=== PATIENT | female | born 1940 | race African-American/Black ===

== ENCOUNTER 2016-11-16 13:45 | Inpatient (IN) | payer MEDICARE, MEDICAID ==
--- NOTE | 2016-11-16 14:21 | RAD ---
PORTABLE CHEST 1 VIEW: Date: 11/16/16 Time: 1340 hours HISTORY: Dyspnea, CHF, atrial fibrillation. FINDINGS/IMPRESSION: Comparison made with exam of 10/22/16. The heart is enlarged. The aorta is tortuous. There is mild pulmonary vascular congestion. No lobar consolidation, pneumothorax, omero pulmonary edema, or large effusions are seen. There are degenerat cassie changes in the spine. POS: [facility]
[2016-11-16] MEDS ORDERED: Albuterol Sulfate 2.5 mg/3 ml Neb ONE (14:27)
[2016-11-16] MEDS ORDERED: Albuterol Sulfate 2.5 mg/0.5 ml Neb ONE (14:27)
[2016-11-16 14:55] LABS: Oxyhemoglobin 83.6 % (94.0-97.0); Sodium 142 mmol/L (135-148)
[2016-11-16 14:57] LABS: Modified Allen's Test POSITIVE; Spontaneous Rate 23 min
[2016-11-16 14:58] LABS: Mode BI-PAP; PIP 10 cmH2O
[2016-11-16 17:11] LABS: Prothrombin Time 15.1 SEC (12.0-14.7)
[2016-11-16 17:12] LABS: #Eosinphils 0.1 thou/uL (0.0-0.7); #Lymphocytes 2.3 thou/uL (1.20-3.40); #Neutrophils 5.4 thou/uL (1.40-6.50); %Basophils 0.4 % (0.0-1.0); %Eosinophils 1.3 % (0.0-10.0); Lactic Acid - Sepsis 0.8 mmol/L (0.5-2.2); Mean Platelet Volume 8.9 fL (7.4-10.4); Ovalocytes SLIGHT = 2-5 cells (100X) (0-1/hpf); PTT 32.7 SEC (22.9-36.1); Polychromasia SLIGHT = 2-3 cells (100X) (0-2/hpf); Red Blood Cell (RBC) Count 3.89 mill/uL (4.20-5.40); White Blood Cell (WBC) Count 8.8 thou/uL (4.8-10.8)
[2016-11-16 17:17] LABS: ALT (SGPT) 7 U/L (8-55); AST (SGOT) 13 U/L (5-34); Alkaline Phosphatase 59 U/L (40-150); Anion Gap 10 mmol/L (10-20); BUN (Urea Nitrogen) 12 mg/dL (9.8-20.1); Bilirubin, Total 0.5 mg/dL (0.2-1.2); CK (CPK) 17 U/L (29-168); Calc. Creatinine Clearance 0 mL/min (70-130); Calcium 8.4 mg/dL (7.8-10.44); Carbon Dioxide 36 mmol/L (23-31); Chloride 99 mmol/L (98-107); Estimated GFR-MDRD 79; Globulin 3.9 g/dL (2.4-3.5); Lipase 16 U/L (8-78); Protein, Total 6.7 g/dL (6.0-8.3)
[2016-11-16 17:21] LABS: Troponin I 0.011 ng/mL (< 0.028)
[2016-11-16] MEDS ORDERED: Furosemide 40 MG/4 ML VIAL ONE (17:26)
[2016-11-16] MEDS ORDERED: Dexamethasone 4 mg/ml Vial ONE (17:26)
[2016-11-16 17:29] LABS: Bilirubin Negative (Negative); Blood, Urine Negative (Negative); Glucose, Urine (Dipstick) Negative (Negative); Ketone, Urine Negative (Negative); Nitrite Positive (Negative); Protein, Urine (Dipstick) Negative (Neg-Trace); Urobilinogen 0.2 mg/dL (0.2-1.0)
[2016-11-16 17:31] LABS: Bacteria/HPF 1+ HPF (None Seen); Hyaline Casts/LPF 0-3 HYALINE CAST LPF (0-3 Hyaline); RBC/HPF None Seen HPF (0-3); Squamous Epithelial 0-3 HPF (0-3); WBC/HPF 0-3 HPF (0-3)
[2016-11-16] MEDS ORDERED: Ondansetron HCl/PF 4 MG/2 ML Vial IVP PRN ×2 (19:16→19:50)
[2016-11-16] MEDS ORDERED: Ondansetron ODT 4 MG TAB SL PRN (19:16)
[2016-11-16] MEDS ORDERED: Dextrose 50% Abboject 50 ML SYRINGE SLOW IVP PRN (19:50)
[2016-11-16] MEDS ORDERED: Acetaminophen 500 MG TAB PO PRN (19:50)
[2016-11-16] MEDS ORDERED: Benzonatate 100 MG CAP PO PRN (19:50)
[2016-11-16] MEDS ORDERED: Dextrose 5% in Water 1,000 ML IV PRN (19:50)
[2016-11-16] MEDS ORDERED: Polyethylene Glycol 3350 17 GM Packet PO PRN (19:50)
[2016-11-16] MEDS ORDERED: Ondansetron ODT 4 MG TAB PO PRN (19:50)
[2016-11-16] MEDS ORDERED: cloNIDine HCl 0.1 MG TAB PO PRN (19:50)
[2016-11-16 20:04] LABS: Troponin I 0.014 ng/mL (< 0.028)
[2016-11-16] MEDS ORDERED: Non-Formulary Item 1 EACH (Fluticasone Propionate [Flovent Diskus] 50 MCG) IH SCH (21:00)
[2016-11-16] MEDS ORDERED: Furosemide 40 MG/4 ML VIAL SLOW IVP SCH (21:00)
[2016-11-16] MEDS: Famotidine 20 MG TAB PO SCH (21:55)
[2016-11-16] MEDS: Dorzolamide HCl/Timolol Maleate 2%/0.5% Ophth Soln 10 ml Bottle R EYE SCH (21:55)
[2016-11-16 23:42] LABS: Troponin I Less than 0.010 ng/mL (< 0.028)
--- NOTE | 2016-11-17 04:12 | HP ---
DATE OF ADMISSION: 11/16/2016 PRIMARY CARE PROVIDER: Mulugeta Peterson M.D. HISTORY OF PRESENT ILLNESS: This is a 76-year-old -[place] female who presents to [facility] complaining of increased shortness of breath over the last in 5 to 7 days. The patient admitted to some associated fever in the last 24 hours, but no productive cough. The p atient denied any specific change to medication regimen and states she has been compliant with her c hronic medications. The patient admits to longstanding swelling of her lower extremities and some d ifficulty with lying flat at home. The patient's history is significant for acute on chronic diasto lic congestive heart failure as well as severe pulmonary hypertension, obstructive sleep apnea, and morbid obesity. Last 2D transthoracic echocardiogram on 06/2016 showed ejection fraction of 60% to 65% range with diastolic dysfunction and severe pulmonary hypertension with estimated right ventricu lar systolic pressures estimated at 100 mmHg. The patient denied any specific change to her medicat ion regimen. The patient presented to the emergency room with increased shortness of breath with ev aluation and treatment in the emergency room including Levaquin, aspirin, Decadron, Lasix, and DuoNe bs. The patient was also placed on BiPAP noninvasive mechanical ventilation and overall clinically stabilize after transfer to the intermediate care unit. Review of electronic medical records shows an admission in 06/2016 for acute on chronic diastolic congestive heart failure exacerbation. PAST MEDICAL HISTORY: 1. Acute on chronic diastolic congestive heart failure with ejection fraction of 60% to 65%. 2. Severe pulmonary hypertension. 3. Obstructive sleep apnea. 4. Morbid obesity. 5. Bed bound. 6. Chronic obstructive pulmonary disease. 7. Gastroesophageal reflux disease. 8. Diabetes mellitus type 2. PAST SURGICAL HISTORY: 1. Status post tonsillectomy. 2. Status post tubal ligation. 3. Status post hysterectomy with bilateral salpingo-oophorectomy. CURRENT MEDICATIONS: 1. Amlodipine 5 mg one tab p.o. daily. 2. Enteric-coated aspirin 325 mg p.o. daily. 3. Tessalon Perles 100 mg p.o. t.i.d. 4. Dorzolamide/timolol maleate 1 drop to the right eye b.i.d. 5. Flovent 50 mcg inhaled at bedtime. 6. Lasix 40 mg 1 tab p.o. daily. 7. MiraLax 17 grams p.o. daily. 8. K-Dur 20 mEq p.o. daily. 9. BuSpar 5 mg p.o. daily. 10. Glipizide XL 5 mg p.o. daily. ALLERGIES: INDERJIT INHIBITORS AND SULFA. FAMILY HISTORY: Positive for coronary artery disease in her father who in his 80s. Mother d at the age of 97. SOCIAL HISTORY: No current alcohol, tobacco or illicit drug use. Essentially bed bound. Resides w ith daughter in [place], [place]. No alcohol, tobacco or illicit drug use. REVIEW OF SYSTEMS: The following complete review of systems was negative, unless otherwise mentione d in the HPI or below: Constitutional: Weight loss or gain, ability to conduct usual activities. Skin: Rash, itching. Eyes: Double vision, pain. ENT/Mouth: Nose bleeding, neck stiffness, pain, tenderness. Cardiovascular: Palpitations, dyspnea on exertion, orthopnea. Respiratory: Shortness of breath, wheezing, cough, hemoptysis, fever or night sweats. Gastrointestinal: Poor appetite, abdominal pain, heartburn, nausea, vomiting, constipation, or diar carlos. Genitourinary: Urgency, frequency, dysuria, nocturia. Musculoskeletal: Pain, swelling. Neurologic/Psychiatric: Anxiety, depression. Allergy/Immunologic: Skin rash, bleeding tendency. Otherwise, negative except as stated per HPI. PHYSICAL EXAMINATION: VITAL SIGNS: On admission, blood pressure 132/57, pulse 82, respiratory rate 22, temperature 99 deg ryan Fahrenheit, O2 saturation 88% on 4 liters per minute by nasal cannula. GENERAL APPEARANCE: This is a 76-year-old -[place] female on current BiPAP noninvasive [facility] anical ventilation, responsive to questions. HEENT: Left pupil is reactive to light and accommodation. Opacification of the right eye noted chr onic. Nares patent. OP is clear. NECK: Supple, no cervical adenopathy, no thyromegaly, no carotid bruits, no JVD appreciated. Cervi nuno spine with full active and passive range of motion. No meningeal signs appreciated. CHEST: Diminished breath sounds in the bases bilaterally. CARDIOVASCULAR SYSTEM: S1, S2 with distant heart sounds. ABDOMEN: Obese, soft, nontender, nondistended. Bowel sounds are positive in all four quadrants. N o hepatosplenomegaly, no abdominal bruits, no rebound or guarding appreciated. EXTREMITIES: Warm and dry with fair turgor. Pitting edema to the proximal tibia. Pulses palpable distally at the dorsalis pedis, posterior tibial, and popliteal arteries bilaterally. Capillary ref ill less than 2 seconds. NEUROLOGIC: Cranial nerves II-XII are grossly intact. No focal or lateralizing signs appreciated. PERTINENT LABORATORY DATA AND X-RAY FINDINGS: Sodium 141, potassium 3.7, chloride 99, CO2 of 36, an ion gap of 10, BUN 12, creatinine 0.85, estimated GFR of 79, glucose 111. Lactic acid level 0.8, ca lcium 8.54, AST 13, ALT of 7, alkaline phosphatase 59, total CK 17, troponin I negative x1. BNP 945 , previously noted 10/22/2016, 896.1. Albumin 2.8, lipase 16. CBC showed a white blood cell count of 8.8, hemoglobin 11, hematocrit 39, MCV 100, platelet count 126 with normal differential. ABG diony ed 11/16/2016 at 1455 hours, showed a pH of 7.38, pCO2 of 65.7, pO2 of 53.5, bicarbonate 38. O2 sat uration 86% on 40% FiO2. Portable chest x-ray dated 11/16/2016, showed mild pulmonary vascular prom inence. EKG dated 11/16/2016 by my interpretation shows a sinus mechanism with rates in the 80s. A ttenuated R waves noted in the precordial leads. Normal axis. Question of left posterior fascicula r block. No acute ST-T wave changes appreciated. ASSESSMENT AND PLAN: 1. Acute hypoxic hypercapnic respiratory failure. Suspect multifactorial. The patient will be adm itted to the intermediate care unit. We will continue BiPAP noninvasive mechanical ventilation with an FiO2 of 50%, 10/5 settings. Continue general pulmonary supportive measures. Suspect multifacto rial given patient's diastolic dysfunction as well as severe pulmonary hypertension. 2. Acute on chronic diastolic congestive heart failure exacerbation. We will continue Lasix 40 mg IV q.12 hours. Continue to monitor I's and O's and daily weight. We will not repeat 2D transthoraci c echocardiogram as most recent study performed on 07/07/2016. 3. Hypertension. Resume home antihypertensive regimen and monitor clinically. Continue amlodipine 5 mg one tablet p.o. daily. 4. Diabetes mellitus type 2 on oral hypoglycemics. Continue insulin sliding scale for reflexive co verage. Resume glipizide XL 5 mg one tablet p.o. daily. Serial Accu-Cheks before meals and at bedt sonya. ADA diet. 5. Prophylaxis. Sequential compression devices while in bed. Pepcid 20 mg p.o. b.i.d. 6. Code status is FULL. Surrogate medical decision maker is the patient's daughter.
[2016-11-17] MEDS ORDERED: Dexamethasone 4 mg/ml Vial SLOW IVP SCH (05:00)
[2016-11-17 05:09] LABS: Hematocrit 42.2 % (36.0-47.0); Mean Platelet Volume 9.4 fL (7.4-10.4); Red Blood Cell (RBC) Count 4.22 mill/uL (4.20-5.40); White Blood Cell (WBC) Count 6.4 thou/uL (4.8-10.8)
[2016-11-17 05:10] LABS: Neutrophil 88 % (42-75)
[2016-11-17 05:23] LABS: ALT (SGPT) 7 U/L (8-55); AST (SGOT) 12 U/L (5-34); Alkaline Phosphatase 60 U/L (40-150); Anion Gap 14 mmol/L (10-20); BUN (Urea Nitrogen) 12 mg/dL (9.8-20.1); Bilirubin, Total 0.7 mg/dL (0.2-1.2); Calc. Creatinine Clearance 126 mL/min (70-130); Calcium 8.9 mg/dL (7.8-10.44); Carbon Dioxide 34 mmol/L (23-31); Chloride 97 mmol/L (98-107); Estimated GFR-MDRD 80; Globulin 4.2 g/dL (2.4-3.5); Protein, Total 7.2 g/dL (6.0-8.3)
[2016-11-17] MEDS: Furosemide 40 MG/4 ML VIAL SLOW IVP SCH ×2 (06:12→14:59)
[2016-11-17] MEDS: Dorzolamide HCl/Timolol Maleate 2%/0.5% Ophth Soln 10 ml Bottle R EYE SCH ×2 (09:22→20:26)
[2016-11-17] MEDS: Famotidine 20 MG TAB PO SCH ×2 (09:22→20:26)
[2016-11-17] MEDS: Aspirin 81 mg Enteric Coated Tablet PO SCH (09:22)
[2016-11-17] MEDS: busPIRone HCl 5 MG TAB PO SCH (09:23)
[2016-11-17] MEDS: Potassium Chloride 20 MEQ TAB PO SCH (09:23)
--- NOTE | 2016-11-17 14:28 | PDOC.PN ---
- Subjective Encounter Start Date: 11/17/16 Encounter Start Time: 14:20 Subjective: Remains off BiPAP and denies current SOB. Working with PT for -: functional assessment. - Objective Resuscitation Status: Resuscitation Status FULL:Full Resuscitation MAR Reviewed: Yes Vital Signs & Weight: Vital Signs (12 hours) Temp Pulse Pulse Pulse Resp BP BP 11/17/16 12:00 98.1 F 83 20 11/17/16 10:31 81 88 156/80 H 11/17/16 10:06 86 18 11/17/16 09:22 96 151/72 H 11/17/16 08:00 98.5 F 86 18 11/17/16 07:05 98.5 F 90 18 11/17/16 07:04 91 20 11/17/16 04:00 98.6 F 82 20 BP BP Pulse Ox Pulse Ox Pulse Ox 11/17/16 12:00 136/70 93 L 11/17/16 10:31 145/76 H 95 92 L 11/17/16 10:06 94 L 11/17/16 09:22 11/17/16 08:00 99 11/17/16 07:05 138/74 93 L 11/17/16 07:04 97 11/17/16 04:00 136/63 98 Weight Weight 304 lb 3.2 oz I&O: 11/16/16 11/17/16 11/18/16 06:59 06:59 06:59 Intake Total 0 Output Total 2100 Balance -2100 Result Diagrams: 11/17/16 03:59 11/17/16 03:59 Additional Labs: Accuchecks 11/17/16 11/17/16 11/16/16 10:16 05:40 20:34 POC Glucose 163 H 135 H 114 H Microbiology 11/16/16 17:11 Urine knight catheter Urine Culture - Preliminary Presumptive Escherichia coli 11/16/16 16:33 Venous blood - Left Arm Blood Culture - Preliminary Coagulase Neg Staphylococcus 11/16/16 14:54 Venous blood - Left Hand Blood Culture - Preliminary Specimen has been received and culture in progress. No Growth to date. Laboratory Tests 11/16/16 16:43 Plt Count 126 L EKG Reviewed by me: Yes (Tele - SR in 80's) Phys Exam - Physical Examination Constitutional: NAD HEENT: oral pharynx no lesions Neck: no JVD, supple diminished in bases Cardiovascular: RRR Gastrointestinal: soft, non-tender, no distention, positive bowel sounds Musculoskeletal: pulses present, edema present Neurological: normal sensation, moves all 4 limbs Psychiatric: A&O x 3 Skin: normal turgor, cap refill <2 seconds Dx/Plan (1) Acute on chronic respiratory failure with hypoxia Code(s): J96.21 - ACUTE AND CHRONIC RESPIRATORY FAILURE WITH HYPOXIA Status: Acute Comment: Improved, off BiPAP, continue O2 supplementation, pulmonary support (2) Acute on chronic diastolic (congestive) heart failure Code(s): I50.33 - ACUTE ON CHRONIC DIASTOLIC (CONGESTIVE) HEART FAILURE Status : Resolved Comment: Continue Lasix 40mg IV q12h, monitor I/O's, daily weight (3) Morbid obesity with BMI of 45.0-49.9, adult Code(s): E66.01 - MORBID (SEVERE) OBESITY DUE TO EXCESS CALORIES; Z68.42 - BODY MASS INDEX (BMI) 45.0-49.9, ADULT Status: Chronic (4) Pulmonary artery hypertension Code(s): I27.2 - OTHER SECONDARY PULMONARY HYPERTENSION Status: Chronic (5) Diabetes type 2, controlled Code(s): E11.9 - TYPE 2 DIABETES MELLITUS WITHOUT COMPLICATIONS Status: Chronic Comment: Continue Glipizide 5mg daily, ISS, accuchecks (6) HTN (hypertension) Code(s): I10 - ESSENTIAL (PRIMARY) HYPERTENSION Status: Chronic Qualifiers: Hypertension type: essential hypertension Qualified Code(s): I10 - Essential (primary) hypertension Comment: stable, resume home BP regimen (7) ADELINE (obstructive sleep apnea) Code(s): G47.33 - OBSTRUCTIVE SLEEP APNEA (ADULT) (PEDIATRIC) Status: Chronic Comment: ? home BiPAP/CPAP (8) UTI (urinary tract infection) Status: Acute Qualifiers: Urinary tract infection type: acute cystitis Comment: Continue Levaquin 500mg IV daily pending final Ucx sensitivities - Plan continue antibiotics, PT/OT, social science teacher, respiratory therapy, out of bed/ ambulate, DVT proph w/SCDs Stable currently -: Continue PT evaluation for functional assessment -: Continue Lasix 40mg IV q12h -: Continue Solumedrol 20mg IV q8h -: Continue Levaquin 500mg daily * AM lab: BMP * Transfer to Telemetry
--- NOTE | 2016-11-17 18:18 | CON ---
DATE OF CONSULTATION: 11/17/2016 HISTORY OF PRESENT ILLNESS: Ms. Bishop is a 76-year-old female, who was admitted with lower extrem ity swelling and shortness of breath. She says she feels 100% better. She was BiPAP ventilated las t night. Her pH was 7.38, CO2 was 65, and pO2 was 53. I suspect this is near her baseline. There is no blood gas done before BiPAP was started. Chest radiograph showed no pulmonary edema. She says she is using her nebulizer as directed. She has a history of multiple admissions for diastolic dysfunction, sleep apnea, and chronic obstruc tive pulmonary disease. She denies fever, chills or sweats leading up to this admission. PAST MEDICAL HISTORY: Remarkable for 1. In addition to the above, being bed bound. She says she makes from her bed to a bedside commode that is as much activity she has. 2. She has a history of reflux. 3. History of adult onset diabetes. 4. History of tonsillectomy and tubal ligation. 5. History of hysterectomy and salpingo-oophorectomy. MEDICATIONS: Prior to admission, she is on Norvasc, aspirin, glaucoma eyedrops, Flovent, Lasix, Corey aLax, potassium, BuSpar, and glipizide. ALLERGIES: She reports INDERJIT inhibitor intolerance and SULFA intolerance. FAMILY HISTORY: Positive for vascular disease. Mother lived to be . SOCIAL HISTORY: She is a nonsmoker and nondrinker. She lives with her daughter in [place]. Her leida hussein was in the room with her. REVIEW OF SYSTEMS: Otherwise negative. PHYSICAL EXAMINATION: VITAL SIGNS: She is afebrile, heart rate is 83, respiratory rate is 20, oximetry is 93% on 2 liters , and blood pressure 156/80. HEENT: Pupils are equal. Sclerae is anicteric. NECK: Supple. LUNGS: Clear at this time. HEART: Regular rhythm. ABDOMEN: Soft. EXTREMITIES: Without clubbing, cyanosis, or edema. LABORATORY DATA: Electrolytes: Sodium 141, potassium 3.9, chloride 97, bicarbonate 34, BUN 12, cre atinine 0.8. White count 6.4, hemoglobin 12.2, platelets 135,000. IMPRESSION: 1. Fluid retention. 2. Sleep apnea. 3. Pulmonary hypertension secondary to sleep apnea plus or minus obstructive lung disease. I do no t see any old PFTs, so we will see if we can get bedside spirometry on her while she is here to see if she has any obstructive defect at all. We will be happy to follow the other physicians that are caring for while she is in the hospital. I suspect this will be a relatively short stay given her d ramatic clinical improvement and probably decrease her dose of her steroids at this point.
[2016-11-17] MEDS ORDERED: Mometasone Furoate 120 PUFF 220 MCG INH SCH (18:30)
[2016-11-17] MEDS ORDERED: Mometasone 200 MCG HFA INHALER INH SCH (20:00)
[2016-11-18] MEDS: Furosemide 40 MG/4 ML VIAL SLOW IVP SCH ×2 (05:23→14:21)
[2016-11-18 06:08] VITALS: BMI 47.2
[2016-11-18 06:24] LABS: BUN (Urea Nitrogen) 16 mg/dL (9.8-20.1); Calc. Creatinine Clearance 103 mL/min (70-130); Calcium 9.1 mg/dL (7.8-10.44); Estimated GFR-MDRD 64
[2016-11-18 06:45] LABS: Chloride 95 mmol/L (98-107)
[2016-11-18 06:48] LABS: Anion Gap 17 mmol/L (10-20); Carbon Dioxide 35 mmol/L (23-31)
[2016-11-18] MEDS: Aspirin 81 mg Enteric Coated Tablet PO SCH (08:47)
[2016-11-18] MEDS: Potassium Chloride 20 MEQ TAB PO SCH (08:48)
[2016-11-18] MEDS: busPIRone HCl 5 MG TAB PO SCH (08:48)
[2016-11-18] MEDS: Famotidine 20 MG TAB PO SCH ×2 (08:53→21:28)
[2016-11-18] MEDS: Dorzolamide HCl/Timolol Maleate 2%/0.5% Ophth Soln 10 ml Bottle R EYE SCH ×2 (10:22→21:30)
--- NOTE | 2016-11-18 15:14 | PDOC.PN ---
- Subjective Encounter Start Date: 11/18/16 Encounter Start Time: 15:10 Subjective: Feeling better overall. Noticed some LE edema today. Doing bedside -: exercises with PT. States living with daughter and does receive HH care -: twice a week. - Objective Resuscitation Status: Resuscitation Status FULL:Full Resuscitation MAR Reviewed: Yes Vital Signs & Weight: Vital Signs (12 hours) Temp Pulse Pulse Resp BP BP Pulse Ox 11/18/16 14:03 84 16 96 11/18/16 13:23 88 136/89 11/18/16 11:40 98.0 F 90 20 129/77 91 L 11/18/16 10:27 92 16 91 L 11/18/16 08:44 97.9 F 90 20 146/80 H 92 L 11/18/16 08:00 97.9 F 92 16 92 L 11/18/16 07:09 80 16 93 L 11/18/16 04:00 97.9 F 88 18 167/93 H 94 L Pulse Ox Pulse Ox Pulse Ox 11/18/16 14:03 11/18/16 13:23 88 L 96 91 L 11/18/16 11:40 11/18/16 10:27 11/18/16 08:44 11/18/16 08:00 11/18/16 07:09 11/18/16 04:00 Weight Weight 301 lb 11.2 oz I&O: 11/17/16 11/18/16 11/19/16 06:59 06:59 06:59 Intake Total 0 820 Output Total 2100 1450 Balance -2100 -630 Result Diagrams: 11/17/16 03:59 11/18/16 04:58 Additional Labs: Accuchecks 11/18/16 11/18/16 11/17/16 12:34 05:51 20:29 POC Glucose 156 H 122 H 167 H 11/17/16 16:15 POC Glucose 150 H EKG Reviewed by me: Yes (Tele - SR in 80's) Phys Exam - Physical Examination Constitutional: NAD HEENT: PERRLA, oral pharynx no lesions Neck: no JVD, supple Respiratory: no wheezing, clear to auscultation bilateral Cardiovascular: RRR Gastrointestinal: soft, non-tender, no distention, positive bowel sounds Musculoskeletal: pulses present, edema present Neurological: normal sensation, moves all 4 limbs Psychiatric: A&O x 3 Skin: normal turgor, cap refill <2 seconds Dx/Plan (1) Acute on chronic diastolic (congestive) heart failure Code(s): I50.33 - ACUTE ON CHRONIC DIASTOLIC (CONGESTIVE) HEART FAILURE Status : Resolved Comment: Continue Lasix 40mg IV q12h, monitor I/O's, daily weight, Last Echo 60-65%, diastolic dysfunction, severe TR/MR and severe pulm HTN (2) Acute on chronic respiratory failure with hypoxia Code(s): J96.21 - ACUTE AND CHRONIC RESPIRATORY FAILURE WITH HYPOXIA Status: Acute Comment: Improved, off BiPAP, continue O2 supplementation, pulmonary support, likely multifactorial (3) Morbid obesity with BMI of 45.0-49.9, adult Code(s): E66.01 - MORBID (SEVERE) OBESITY DUE TO EXCESS CALORIES; Z68.42 - BODY MASS INDEX (BMI) 45.0-49.9, ADULT Status: Chronic Comment: Heart healthy diet (4) Pulmonary artery hypertension Code(s): I27.2 - OTHER SECONDARY PULMONARY HYPERTENSION Status: Chronic Comment: Supportive, continue Norvasc (5) Diabetes type 2, controlled Code(s): E11.9 - TYPE 2 DIABETES MELLITUS WITHOUT COMPLICATIONS Status: Chronic Comment: Continue Glipizide 5mg daily, ISS, accuchecks (6) HTN (hypertension) Code(s): I10 - ESSENTIAL (PRIMARY) HYPERTENSION Status: Chronic Qualifiers: Hypertension type: essential hypertension Qualified Code(s): I10 - Essential (primary) hypertension Comment: stable, resume home BP regimen (7) ADELINE (obstructive sleep apnea) Code(s): G47.33 - OBSTRUCTIVE SLEEP APNEA (ADULT) (PEDIATRIC) Status: Chronic Comment: ? home BiPAP/CPAP (8) UTI (urinary tract infection) Status: Acute Qualifiers: Urinary tract infection type: acute cystitis Comment: D/C Levaquin, start Macrobid 100mg BID - Plan continue antibiotics, PT/OT, social secretary, respiratory therapy, out of bed/ ambulate, DVT proph w/SCDs Stable currently -: Continue Lasix 40mg IV q12h -: PT for mobilization -: CM for SNF options -: AM lab: BMP, Mg++ * .
[2016-11-18] MEDS ORDERED: Nitrofurantoin Monohyd/M-Cryst 100 MG CAP PO SCH (15:30)
--- NOTE | 2016-11-18 15:32 | PRG ---
DATE OF SERVICE: 11/18/2016 SERVICE: Pulmonary Medicine. INTERVAL HISTORY: The patient is doing really well from a cardiovascular and respiratory standpoint . She currently denies any fevers, chills, nausea or vomiting. Her lower extremity swelling, and h er breathing has vastly improved since being here. Otherwise, there has been no interval change to her condition. She does have multiple life stressors that are actually causing her to have some men pino anguish. She does not describe herself has a depressed person right now, but she is having some issues coping with recent events inside of her house. PHYSICAL EXAMINATION: VITAL SIGNS: Afebrile, pulse 84, blood pressure 139/89, respirations 16, saturation 96% on 3 liters nasal cannula. HEENT: Normocephalic, atraumatic. Sclerae are white, conjunctivae pink. Oral and nasal mucosa is moist without lesions. LUNGS: Decreased air entry, but there is no prolonged expiratory phase. Dependent crackles are pre sent. HEART: Normal rate, regular. ABDOMEN: Soft, nontender, nondistended. Bowel sounds positive. MUSCULOSKELETAL: No cyanosis or clubbing. There is 2+ pitting in the bilateral lower extremities. GENITOURINARY: No Fleming catheter in place. NEUROLOGIC: Grossly nonfocal. LABORATORY DATA: PH 7.38, pCO2 65, pO2 53. Creatinine 1.02 and gently up trending. Bicarbonate is stable at 35. Basic metabolic profile is otherwise unremarkable. Urinalysis is unremarkable. Uri ne culture is growing E. coli. One out of two blood cultures is growing coag negative Staph, likely contaminant. ASSESSMENT: 1. Acute on chronic hypoxic respiratory failure. 2. Chronic hypercapnic respiratory failure. 3. Obstructive sleep apnea, severe. 4. Acute on chronic diastolic heart failure. 5. Pulmonary hypertension, likely multifactorial. PLAN: We will continue to diurese the patient as tolerated to euvolemia. At this point, she is onc e again stable from a purely respiratory perspective for transition out of the hospital. I have ask ed her to reconsider going to a detention facility and/or a nursing facility where she can get the type of care that she needs. She is adamant that she not be in one of those facilities and is requesting to go home and discharge from the hospital. She understands that I believe that puts her at increased risk of coming back to the hospital, in clinical deterioration and possible , but she accepts those terms at this time. Pulmonary will continue to follow while she remains in house for the time being.
[2016-11-18] MEDS: Mometasone 200 MCG HFA INHALER INH SCH (18:43)
[2016-11-18] MEDS: Nitrofurantoin Monohyd/M-Cryst 100 MG CAP PO SCH (21:28)
[2016-11-18] MEDS: Sterile Water 10 ML ONE (21:28)
[2016-11-19 06:10] LABS: BUN (Urea Nitrogen) 23 mg/dL (9.8-20.1); Calc. Creatinine Clearance 98 mL/min (70-130); Calcium 8.9 mg/dL (7.8-10.44); Estimated GFR-MDRD 60; Magnesium 1.8 mg/dL (1.6-2.6)
[2016-11-19 06:20] LABS: Anion Gap 15 mmol/L (10-20); Carbon Dioxide 36 mmol/L (23-31); Chloride 94 mmol/L (98-107)
[2016-11-19] MEDS: Furosemide 40 MG/4 ML VIAL SLOW IVP SCH (06:50)
[2016-11-19] MEDS: Sterile Water 10 ML ONE (06:51)
[2016-11-19] MEDS: Aspirin 81 mg Enteric Coated Tablet PO SCH (08:47)
[2016-11-19] MEDS: Potassium Chloride 20 MEQ TAB PO SCH (08:48)
[2016-11-19] MEDS: Famotidine 20 MG TAB PO SCH ×2 (08:48→21:52)
[2016-11-19] MEDS: Nitrofurantoin Monohyd/M-Cryst 100 MG CAP PO SCH ×2 (08:48→21:52)
[2016-11-19] MEDS: Dorzolamide HCl/Timolol Maleate 2%/0.5% Ophth Soln 10 ml Bottle R EYE SCH ×2 (08:48→21:53)
[2016-11-19] MEDS: busPIRone HCl 5 MG TAB PO SCH (08:48)
--- NOTE | 2016-11-19 11:12 | PDOC.PN ---
- Subjective Encounter Start Date: 11/19/16 Encounter Start Time: 10:30 Subjective: Feels much better overall. SOB much improved. Slept poorly overnight. - Objective Resuscitation Status: Resuscitation Status FULL:Full Resuscitation MAR Reviewed: Yes Vital Signs & Weight: Vital Signs (12 hours) Temp Pulse Resp BP Pulse Ox 11/19/16 08:05 98 F 80 20 143/73 H 93 L 11/19/16 07:43 93 L 11/19/16 07:40 115 H 12 11/19/16 06:49 81 20 148/75 H 93 L 11/19/16 03:14 94 11/19/16 03:12 97.8 F 125 H 20 139/86 93 L 11/19/16 02:11 81 16 93 L 11/19/16 01:51 94 L 11/18/16 23:49 97.9 F 81 20 137/72 91 L Weight Weight 300 lb 14.4 oz I&O: 11/18/16 11/19/16 11/20/16 06:59 06:59 06:59 Intake Total 820 898 Output Total 1450 1525 Balance -630 -627 Result Diagrams: 11/17/16 03:59 11/19/16 04:56 Additional Labs: Accuchecks 11/19/16 11/18/16 11/18/16 06:04 20:52 17:25 POC Glucose 120 H 129 H 136 H 11/18/16 12:34 POC Glucose 156 H Microbiology 11/16/16 17:11 Urine knight catheter Urine Culture - Preliminary Presumptive Escherichia coli 11/16/16 16:33 Venous blood - Left Arm Blood Culture - Preliminary Coagulase Neg Staphylococcus 11/16/16 14:54 Venous blood - Left Hand Blood Culture - Preliminary Specimen has been received and culture in progress. No Growth to date. Laboratory Tests 11/16/16 16:43 Plt Count 126 L EKG Reviewed by me: Yes (Tele - SR) Phys Exam - Physical Examination Constitutional: NAD HEENT: oral pharynx no lesions Neck: no JVD, supple diminished in bases Cardiovascular: RRR Gastrointestinal: soft, non-tender, no distention, positive bowel sounds Musculoskeletal: pulses present, edema present Neurological: moves all 4 limbs Psychiatric: A&O x 3 Skin: normal turgor, cap refill <2 seconds Dx/Plan (1) Acute on chronic diastolic (congestive) heart failure Code(s): I50.33 - ACUTE ON CHRONIC DIASTOLIC (CONGESTIVE) HEART FAILURE Status : Resolved Comment: Continue Lasix 40mg IV daily, monitor I/O's, daily weight , Last Echo 60-65%, diastolic dysfunction, severe TR/MR and severe pulm HTN, weight down 4lbs since admit (2) Acute on chronic respiratory failure with hypoxia Code(s): J96.21 - ACUTE AND CHRONIC RESPIRATORY FAILURE WITH HYPOXIA Status: Acute Comment: Improved, off BiPAP, continue O2 supplementation, pulmonary support, likely multifactorial (3) Morbid obesity with BMI of 45.0-49.9, adult Code(s): E66.01 - MORBID (SEVERE) OBESITY DUE TO EXCESS CALORIES; Z68.42 - BODY MASS INDEX (BMI) 45.0-49.9, ADULT Status: Chronic Comment: Heart healthy diet (4) Pulmonary artery hypertension Code(s): I27.2 - OTHER SECONDARY PULMONARY HYPERTENSION Status: Chronic Comment: Supportive, continue Norvasc (5) Diabetes type 2, controlled Code(s): E11.9 - TYPE 2 DIABETES MELLITUS WITHOUT COMPLICATIONS Status: Chronic Comment: Continue Glipizide 5mg daily, ISS, accuchecks (6) HTN (hypertension) Code(s): I10 - ESSENTIAL (PRIMARY) HYPERTENSION Status: Chronic Qualifiers: Hypertension type: essential hypertension Qualified Code(s): I10 - Essential (primary) hypertension Comment: stable, resume home BP regimen (7) ADELINE (obstructive sleep apnea) Code(s): G47.33 - OBSTRUCTIVE SLEEP APNEA (ADULT) (PEDIATRIC) Status: Chronic Comment: ? home BiPAP/CPAP (8) UTI (urinary tract infection) Status: Acute Qualifiers: Urinary tract infection type: acute cystitis Comment: D/C Levaquin, start Macrobid 100mg BID - Plan continue antibiotics, PT/OT, social service director, respiratory therapy, out of bed/ ambulate, DVT proph w/SCDs Stable overall -: Decrease Lasix 40mg IV daily -: Continue ASA 81mg daily -: Change Duonebs q6h prn -: PT for functional assessment and mobility * ? SNF options * AM lab: BMP
--- NOTE | 2016-11-19 15:52 | PRG ---
DATE OF SERVICE: 11/19/2016 SERVICE: Pulmonary Medicine. INTERVAL HISTORY: The patient is doing fine from a cardiovascular and respiratory standpoint. She denies any current fevers, chills, nausea, vomiting, chest pain, shortness of breath. Her mood is m uch improved today. She is better outlook on the situation. PHYSICAL EXAMINATION: VITAL SIGNS: Afebrile, pulse 79, blood pressure 143/73, respirations 18, saturation 92% on 3 liters nasal cannula. GENERAL: Patient is awake and alert, no apparent distress. LUNGS: Decent air entry. Dependent crackles are present. HEART: Normal rate, regular. ABDOMEN: Soft, nontender, nondistended. Bowel sounds positive. MUSCULOSKELETAL: No cyanosis or clubbing. There is 2 to 3+ pitting in the bilateral lower extremit ies. GENITOURINARY: Fleming catheter in place. NEUROLOGIC: Grossly nonfocal. LABORATORY DATA: Bicarbonate 36 and roughly stable. Creatinine 1.07 and gently up trending. BUN h as jumped to 23. Basic metabolic profile and magnesium are otherwise unremarkable. Potassium 3.7 a nd gently down trending. Urine culture is growing a fairly resistant E. coli. ASSESSMENT: 1. Acute on chronic hypoxic respiratory failure. 2. Chronic hypercapnic respiratory failure. 3. Obstructive sleep apnea, severe. 4. Pulmonary hypertension, multifactorial. 5. Acute on chronic diastolic heart failure. PLAN: We will continue to diurese the patient through the weekend. The patient has not been able t o tolerate BiPAP at home previously. She also does not have the dexterity to put the mask on. We w ill continue to watch her potassium, magnesium, and bicarbonate while we were diuresing her.
[2016-11-19] MEDS: Mometasone 200 MCG HFA INHALER INH SCH (19:36)
[2016-11-20 06:05] LABS: Anion Gap 14 mmol/L (10-20); BUN (Urea Nitrogen) 27 mg/dL (9.8-20.1); Calc. Creatinine Clearance 105 mL/min (70-130); Calcium 8.7 mg/dL (7.8-10.44); Carbon Dioxide 35 mmol/L (23-31); Chloride 94 mmol/L (98-107); Estimated GFR-MDRD 65; Magnesium 1.8 mg/dL (1.6-2.6)
[2016-11-20] MEDS: predniSONE 20 MG TAB PO SCH (09:24)
[2016-11-20] MEDS: Aspirin 81 mg Enteric Coated Tablet PO SCH (09:25)
[2016-11-20] MEDS: busPIRone HCl 5 MG TAB PO SCH (09:25)
[2016-11-20] MEDS: Famotidine 20 MG TAB PO SCH ×2 (09:25→21:57)
[2016-11-20] MEDS: Dorzolamide HCl/Timolol Maleate 2%/0.5% Ophth Soln 10 ml Bottle R EYE SCH ×2 (09:25→21:55)
[2016-11-20] MEDS: Furosemide 40 MG/4 ML VIAL SLOW IVP SCH (09:25)
[2016-11-20] MEDS: Nitrofurantoin Monohyd/M-Cryst 100 MG CAP PO SCH ×2 (09:26→21:57)
[2016-11-20] MEDS: Potassium Chloride 20 MEQ TAB PO SCH (09:26)
--- NOTE | 2016-11-20 11:44 | PRG ---
DATE OF SERVICE: 11/20/2016 SUBJECTIVE: Patient is in good spirits and no complaints. PHYSICAL EXAMINATION: VITAL SIGNS: Temperature is 98.1, pulse 81, respirations 20, O2 sat 92% on 3 liters, blood pressure 173/79. HEENT: Unremarkable. NECK: No JVD. CHEST: Fairly clear. CARDIAC: S1 and S2 regular. ABDOMEN: Soft. EXTREMITIES: Trace edema. LABORATORY DATA: Sodium 139, potassium 4.2, chloride 94, CO2 35, BUN 27, creatinine 1.0, glucose 17 6. ASSESSMENT: 1. Acute on chronic hypoxic respiratory failure. 2. Chronic hypercapnic respiratory failure. 3. Obstructive sleep apnea, which is severe. 4. Pulmonary hypertension, which is multifactorial. 5. Acute on chronic diastolic heart failure. PLAN: The patient is continuing diuresis. She is continuing with low flow oxygen.
--- NOTE | 2016-11-20 12:09 | PDOC.PN ---
- Subjective Encounter Start Date: 11/20/16 Encounter Start Time: 12:08 Subjective: feels better but not at bseline yet with breathing -: feels very weak - Objective Resuscitation Status: Resuscitation Status FULL:Full Resuscitation MAR Reviewed: Yes Vital Signs & Weight: Vital Signs (12 hours) Temp Pulse Resp BP Pulse Ox 11/20/16 09:20 98.1 F 81 20 173/79 H 92 L 11/20/16 08:02 80 16 11/20/16 04:00 97.9 F 76 20 145/84 H 92 L 11/20/16 00:37 94 L 11/20/16 00:21 77 16 94 L Weight Weight 301 lb I&O: 11/19/16 11/20/16 11/21/16 06:59 06:59 06:59 Intake Total 898 1320 Output Total 1525 900 Balance -627 420 Result Diagrams: 11/17/16 03:59 11/20/16 04:39 Additional Labs: Accuchecks 11/20/16 11/19/16 11/19/16 06:01 21:01 16:23 POC Glucose 154 H 119 H 108 11/19/16 11:29 POC Glucose 128 H Microbiology 11/16/16 17:11 Urine knight catheter Urine Culture - Final Escherichia coli 11/16/16 16:33 Venous blood - Left Arm Blood Culture - Final Coagulase Neg Staphylococcus Coagulase Neg Staphylococcus#2 Coagulase Neg Staphylococcus#3 11/16/16 14:54 Venous blood - Left Hand Blood Culture - Preliminary NO GROWTH AT 48 HOURS Phys Exam - Physical Examination Constitutional: NAD HEENT: PERRLA, moist MMs, sclera anicteric, oral pharynx no lesions Neck: no nodes, no JVD, supple, full ROM Respiratory: no wheezing, no rales, no rhonchi, clear to auscultation bilateral Cardiovascular: RRR, no significant murmur Gastrointestinal: soft, non-tender, no distention, positive bowel sounds Musculoskeletal: pulses present, edema present Neurological: non-focal, normal sensation, moves all 4 limbs Psychiatric: normal affect, A&O x 3 Skin: no rash Dx/Plan (1) Acute on chronic respiratory failure with hypoxia Code(s): J96.21 - ACUTE AND CHRONIC RESPIRATORY FAILURE WITH HYPOXIA Status: Acute Comment: Improved, off BiPAP, continue O2 supplementation, pulmonary support, likely multifactorial (2) Acute on chronic diastolic (congestive) heart failure Code(s): I50.33 - ACUTE ON CHRONIC DIASTOLIC (CONGESTIVE) HEART FAILURE Status : Resolved Comment: Continue Lasix 40mg IV daily, monitor I/O's, daily weight , Last Echo 60-65%, diastolic dysfunction, severe TR/MR and severe pulm HTN, weight down 4lbs since admit will refer to OP HF clinic (3) UTI (urinary tract infection) Status: Acute Qualifiers: Urinary tract infection type: acute cystitis Comment: E.Coli resistant to Multiple ABx. will start IV Zosyn based on sensitivity 11/20/16 (4) COPD (chronic obstructive pulmonary disease) Status: Chronic Qualifiers: COPD type: chronic bronchitis (5) DM2 (diabetes mellitus, type 2) Status: Chronic Qualifiers: Diabetes mellitus complication status: with unspecified complications Diabetes mellitus assisted insulin use: with assisted use Qualified Code(s) : E11.8 - Type 2 diabetes mellitus with unspecified complications; Z79.4 - terminal carman (current) use of insulin (6) GERD (gastroesophageal reflux disease) Code(s): K21.9 - GASTRO-ESOPHAGEAL REFLUX DISEASE WITHOUT ESOPHAGITIS Status: Chronic Qualifiers: Esophagitis presence: esophagitis presence not specified Qualified Code(s) : K21.9 - Gastro-esophageal reflux disease without esophagitis (7) HTN (hypertension) Code(s): I10 - ESSENTIAL (PRIMARY) HYPERTENSION Status: Chronic Qualifiers: Hypertension type: essential hypertension Qualified Code(s): I10 - Essential (primary) hypertension Comment: stable, resume home BP regimen (8) Morbid obesity with BMI of 45.0-49.9, adult Code(s): E66.01 - MORBID (SEVERE) OBESITY DUE TO EXCESS CALORIES; Z68.42 - BODY MASS INDEX (BMI) 45.0-49.9, ADULT Status: Chronic Comment: Heart healthy diet (9) ADELINE (obstructive sleep apnea) Code(s): G47.33 - OBSTRUCTIVE SLEEP APNEA (ADULT) (PEDIATRIC) Status: Chronic Comment: ? home BiPAP/CPAP (10) Pulmonary artery hypertension Code(s): I27.2 - OTHER SECONDARY PULMONARY HYPERTENSION Status: Chronic Comment: Supportive, continue Norvasc - Plan continue antibiotics, PT/OT, clinical social worker, respiratory therapy, incentive spirometry, out of bed/ambulate, DVT proph w/SCDs cont diuresis. monitor strict I/Os. may need to increase Lasix -: monitor renal Fx. -: add IV zosyn for UTI. -: Ot/Pt.hemodynamically stable. -: am labs.Home with HH when ready * . Review of Systems - Review of Systems Constitutional: Weakness, Malaise Respiratory: SOB with Excertion. negative: Cough, Dry, Shortness of Breath, Hemoptysis, Pleuritic Pain, Sputum, Wheezing Cardiovascular: negative: Chest Pain, Palpitations, Orthopnea, Paroxysmal Noc. Dyspnea, Edema, Light Headedness, Other Gastrointestinal: negative: Nausea, Vomiting, Abdominal Pain, Diarrhea, Constipation, Melena, Hematochezia, Other Genitourinary: negative: Dysuria, Frequency, Incontinence, Hematuria, Retention , Other Musculoskeletal: negative: Neck Pain, Shoulder Pain, Arm Pain, Back Pain, Hand Pain, Leg Pain, Foot Pain, Other Neurological: negative: Weakness, Numbness, Incoordination, Change in Speech, Confusion, Seizures, Other - Medications/Allergies Allergies/Adverse Reactions: Allergies Allergy/AdvReac Type Severity Reaction Status Date / Time INDERJIT Inhibitors Allergy Verified 04/28/16 05:04 Sulfa (Sulfonamide Allergy Verified 04/28/16 05:04 Antibiotics) Medications: Current Medications Acetaminophen (Tylenol) 1,000 mg PO Q6H PRN PRN Reason: Headache/Fever or Mild Pain Albuterol/Ipratropium (Duoneb) 3 ml NEB [id number] [facility] Last Admin: 11/20/16 08:02 Dose: 3 ml Amlodipine Besylate (Norvasc) 5 mg PO DAILY [facility] Last Admin: 11/20/16 09:24 Dose: 5 mg Aspirin (Ecotrin) 81 mg PO DAILY [facility] Last Admin: 11/20/16 09:25 Dose: 81 mg Benzonatate (Tessalon) 200 mg PO Q6H PRN PRN Reason: Cough Buspirone HCl (Buspar) 5 mg PO DAILY [facility] Last Admin: 11/20/16 09:25 Dose: 5 mg Clonidine HCl (Catapres) 0.1 mg PO Q4H PRN PRN Reason: Systolic BP > 180 Dextrose/Water (Dextrose 50%) 25 gm SLOW IVP PRN PRN PRN Reason: Hypoglycemia Dorzolamide/Timolol (Cosopt 2-0.5% Ophth Soln) 1 drop R EYE BID [facility] Last Admin: 11/20/16 09:25 Dose: 1 drp Famotidine (Pepcid) 20 mg PO BID [facility] Last Admin: 11/20/16 09:25 Dose: 20 mg Furosemide (Lasix) 40 mg SLOW IVP DAILY [facility] Last Admin: 11/20/16 09:25 Dose: 40 mg Glipizide (Glucotrol Xl) 5 mg PO DAILY [facility] Last Admin: 11/20/16 09:25 Dose: 5 mg Glucagon (Glucagon) 1 mg IM PRN PRN PRN Reason: Hypoglycemia Hydralazine HCl (Apresoline) 10 mg SLOW IVP Q4H PRN PRN Reason: Systolic BP > 180 Dextrose/Water (D5w) 1,000 mls @ 0 mls/hr IV .Q0M PRN; As Directed PRN Reason: Hypoglycemia Piperacillin Sod/Tazobactam (Sod 3.375 gm/ Sodium Chloride) 100 mls @ 200 mls/ hr IVPB Q6HR [facility] Insulin Human Lispro (Humalog) 0 units SC .MODERATE SLIDING SC PRN PRN Reason: Moderate Correctional Scale Insulin Human Lispro (Humalog) 0 units SC .BEDTIME SLIDING SC PRN PRN Reason: Bedtime Correctional Scale Mometasone Furoate (Asmanex Hfa 200 Mcg) 1 puff INH 1830 [facility] Last Admin: 11/19/16 19:36 Dose: 1 puff Nitrofurantoin Macrocrystals (Macrobid) 100 mg PO BID [facility] Last Admin: 11/20/16 09:26 Dose: 100 mg Ondansetron HCl (Zofran Odt) 4 mg PO Q6H PRN PRN Reason: Nausea/Vomiting Ondansetron HCl (Zofran) 4 mg IVP Q6H PRN PRN Reason: Nausea/Vomiting Polyethylene Glycol (Miralax) 17 gm PO DAILY PRN PRN Reason: Constipation Potassium Chloride (K-Dur) 20 meq PO DAILY [facility] Last Admin: 11/20/16 09:26 Dose: 20 meq Prednisone (Prednisone) 40 mg PO QAM-WM [facility] Last Admin: 11/20/16 09:24 Dose: 40 mg Sodium Chloride (Flush - Normal Saline) 10 ml IVF PRN PRN PRN Reason: Saline Flush Last Admin: 11/19/16 06:51 Dose: 10 ml Sodium Chloride (Flush - Normal Saline) 10 ml IVF Q12HR [facility] Last Admin: 11/20/16 09:26 Dose: 10 ml
[2016-11-20] MEDS: Piperacillin/Tazobactam 3.375 GM in Sodium Chloride 0.9% 100 ML IVPB SCH ×2 (13:06→18:27)
[2016-11-20] MEDS: Mometasone 200 MCG HFA INHALER INH SCH (19:05)
[2016-11-21] MEDS: Piperacillin/Tazobactam 3.375 GM in Sodium Chloride 0.9% 100 ML IVPB SCH ×2 (00:11→05:16)
[2016-11-21 06:27] LABS: Anion Gap 12 mmol/L (10-20); Carbon Dioxide 37 mmol/L (23-31); Chloride 99 mmol/L (98-107)
[2016-11-21 06:34] LABS: BUN (Urea Nitrogen) 28 mg/dL (9.8-20.1); Calc. Creatinine Clearance 106 mL/min (70-130); Calcium 8.5 mg/dL (7.8-10.44); Estimated GFR-MDRD 66
[2016-11-21] MEDS: Nitrofurantoin Monohyd/M-Cryst 100 MG CAP PO SCH ×2 (08:34→21:28)
[2016-11-21] MEDS: Famotidine 20 MG TAB PO SCH ×2 (08:34→21:28)
[2016-11-21] MEDS: Aspirin 81 mg Enteric Coated Tablet PO SCH (08:34)
[2016-11-21] MEDS: busPIRone HCl 5 MG TAB PO SCH (08:34)
[2016-11-21] MEDS: predniSONE 20 MG TAB PO SCH (08:34)
[2016-11-21] MEDS: Potassium Chloride 20 MEQ TAB PO SCH (08:34)
[2016-11-21] MEDS: Dorzolamide HCl/Timolol Maleate 2%/0.5% Ophth Soln 10 ml Bottle R EYE SCH ×2 (08:35→21:29)
[2016-11-21] MEDS: Furosemide 40 MG/4 ML VIAL SLOW IVP SCH (08:35)
--- NOTE | 2016-11-21 10:11 | PDOC.PN ---
- Subjective Encounter Start Date: 11/21/16 Encounter Start Time: 08:20 -: old records requested/rev Pt seen and examined earlier on rounds. Chart reviewed in its entirety. This is my first visit with this patient. no F/C, no N/V/D/C, no CP or sOB above basline. working with PT daily. plans home with [facility]. 10 point ROS perofrme dna nd neg for all systems except as per HPI - Objective Resuscitation Status: Resuscitation Status FULL:Full Resuscitation MAR Reviewed: Yes Vital Signs & Weight: Vital Signs (12 hours) Temp Pulse Resp BP Pulse Ox 11/21/16 08:34 73 11/21/16 07:38 98.4 F 73 20 133/72 91 L 11/21/16 07:18 70 16 11/21/16 04:00 98.3 F 78 18 128/60 94 L 11/21/16 01:39 94 L Weight Weight 304 lb I&O: 11/20/16 11/21/16 11/22/16 06:59 06:59 06:59 Intake Total 1320 240 Output Total 900 600 Balance 420 -360 Result Diagrams: 11/17/16 03:59 11/21/16 05:29 Additional Labs: Accuchecks 11/21/16 11/20/16 11/20/16 05:28 21:15 16:50 POC Glucose 112 H 170 H 169 H 11/20/16 11:32 POC Glucose 160 H Radiology Reviewed by me: Yes EKG Reviewed by me: Yes Phys Exam - Physical Examination Constitutional: NAD HEENT: moist MMs, sclera anicteric, oral pharynx no lesions right eye with opacifies cornea. Neck: no nodes, no JVD, supple, full ROM Respiratory: no wheezing, no rales, no rhonchi, clear to auscultation bilateral Cardiovascular: RRR, no significant murmur, no rub Gastrointestinal: soft, non-tender, no distention, positive bowel sounds Musculoskeletal: pulses present, edema present Neurological: non-focal, normal sensation, moves all 4 limbs Lymphatic: no nodes Psychiatric: normal affect, A&O x 3 Skin: no rash, normal turgor, cap refill <2 seconds Dx/Plan (1) UTI (urinary tract infection) Status: Acute Qualifiers: Urinary tract infection type: acute cystitis Hematuria presence: without hematuria Qualified Code(s): N30.00 - Acute cystitis without hematuria Comment: E.Coli resistant to Multiple ABx. sensitive to Nitrofurantoin, will convert to po. renal function normal. (2) Acute on chronic respiratory failure with hypoxia Code(s): J96.21 - ACUTE AND CHRONIC RESPIRATORY FAILURE WITH HYPOXIA Status: Acute Comment: Improved, off BiPAP, continue O2 supplementation, pulmonary support, likely multifactorial (3) COPD (chronic obstructive pulmonary disease) Status: Chronic Qualifiers: COPD type: chronic bronchitis Chronic bronchitis type: unspecified Qualified Code(s): J42 - Unspecified chronic bronchitis (4) DM2 (diabetes mellitus, type 2) Status: Chronic Qualifiers: Diabetes mellitus complication status: with unspecified complications Diabetes mellitus senior living insulin use: with senior living use Qualified Code(s) : E11.8 - Type 2 diabetes mellitus with unspecified complications; Z79.4 - halfway (current) use of insulin (5) Morbid obesity with BMI of 45.0-49.9, adult Code(s): E66.01 - MORBID (SEVERE) OBESITY DUE TO EXCESS CALORIES; Z68.42 - BODY MASS INDEX (BMI) 45.0-49.9, ADULT Status: Chronic Comment: Heart healthy diet (6) Pulmonary artery hypertension Code(s): I27.2 - OTHER SECONDARY PULMONARY HYPERTENSION Status: Chronic Comment: Supportive, continue Norvasc (7) Acute on chronic diastolic (congestive) heart failure Code(s): I50.33 - ACUTE ON CHRONIC DIASTOLIC (CONGESTIVE) HEART FAILURE Status : Resolved Comment: Continue Lasix 40mg IV daily, monitor I/O's, daily weight , Last Echo 60-65%, diastolic dysfunction, severe TR/MR and severe pulm HTN, weight down 4lbs since admit will refer to OP HF clinic - Plan cont current plan of care, continue antibiotics, PT/OT, hospital social worker * . Pt wants to go home with [facility], told her to plan on discharge tomorrow
--- NOTE | 2016-11-21 11:02 | PRG ---
DATE OF SERVICE: 11/21/2016 SUBJECTIVE: She is doing reasonably well, no complaints. PHYSICAL EXAMINATION: VITAL SIGNS: Temperature 98.4, pulse 73, respiration 20, O2 sat 91% on 3 liters, blood pressure 133 /72. HEENT: Unremarkable. NECK: Without adenopathy or JVD. CHEST: Fairly clear. CARDIOVASCULAR: S1, S2 regular. ABDOMEN: Soft. EXTREMITIES: Trace edema. LABORATORY DATA: Sodium 144, potassium 3.8, chloride 99, CO2 37, BUN 28, creatinine 0.9, glucose 12 2. ASSESSMENT: 1. Stable pulmonary status. 2. Sleep apnea. 3. Pulmonary hypertension. PLAN: 1. Continue diuresis. 2. She is probably close to being ready for discharge.
[2016-11-21] MEDS: HumaLOG 300 UNITS/3 ML VIAL SC PRN (18:28)
[2016-11-21] MEDS: Mometasone 200 MCG HFA INHALER INH SCH (19:34)
[2016-11-22 06:10] LABS: Anion Gap 11 mmol/L (10-20); BUN (Urea Nitrogen) 25 mg/dL (9.8-20.1); Calc. Creatinine Clearance 114 mL/min (70-130); Calcium 8.3 mg/dL (7.8-10.44); Carbon Dioxide 36 mmol/L (23-31); Chloride 97 mmol/L (98-107); Estimated GFR-MDRD 71
[2016-11-22] MEDS: predniSONE 20 MG TAB PO SCH (09:16)
[2016-11-22] MEDS: busPIRone HCl 5 MG TAB PO SCH (09:17)
[2016-11-22] MEDS: Aspirin 81 mg Enteric Coated Tablet PO SCH (09:17)
[2016-11-22] MEDS: Famotidine 20 MG TAB PO SCH ×2 (09:17→20:56)
[2016-11-22] MEDS: Nitrofurantoin Monohyd/M-Cryst 100 MG CAP PO SCH ×2 (09:18→20:56)
[2016-11-22] MEDS: Furosemide 40 MG/4 ML VIAL SLOW IVP SCH (09:18)
[2016-11-22] MEDS: Potassium Chloride 20 MEQ TAB PO SCH (09:18)
[2016-11-22] MEDS: Dorzolamide HCl/Timolol Maleate 2%/0.5% Ophth Soln 10 ml Bottle R EYE SCH ×2 (09:19→19:51)
--- NOTE | 2016-11-22 10:22 | PDOC.PN ---
- Subjective Encounter Start Date: 11/22/16 Encounter Start Time: 09:30 states she is feeling a little better today but still very weak. SOB has improved. denies coughing or fevers - Objective Resuscitation Status: Resuscitation Status FULL:Full Resuscitation Vital Signs & Weight: Vital Signs (12 hours) Temp Pulse Resp BP BP Pulse Ox 11/22/16 09:16 82 140/70 11/22/16 08:08 98.6 F 82 20 140/70 95 11/22/16 07:17 76 14 96 11/22/16 04:00 78 18 139/69 91 L 11/21/16 23:13 95 Weight Weight 297 lb 4 oz I&O: 11/21/16 11/22/16 11/23/16 06:59 06:59 06:59 Intake Total 240 1868 Output Total 600 350 Balance -360 1518 Result Diagrams: 11/17/16 03:59 11/22/16 05:14 Additional Labs: Accuchecks 11/22/16 11/21/16 11/21/16 06:32 20:46 17:39 POC Glucose 83 188 H 217 H 11/21/16 11:19 POC Glucose 88 Phys Exam - Physical Examination Constitutional: NAD slightly lethargic HEENT: PERRLA, moist MMs, sclera anicteric Neck: no JVD mild rales appreciated Bibasilar Cardiovascular: RRR, no significant murmur Gastrointestinal: soft, non-tender, positive bowel sounds Musculoskeletal: pulses present Psychiatric: normal affect, A&O x 3 Dx/Plan (1) UTI (urinary tract infection) Status: Acute Qualifiers: Urinary tract infection type: acute cystitis Hematuria presence: without hematuria Qualified Code(s): N30.00 - Acute cystitis without hematuria Comment: E.Coli resistant to Multiple ABx. sensitive to Nitrofurantoin, will convert to po. renal function normal. (2) Acute on chronic respiratory failure with hypoxia Code(s): J96.21 - ACUTE AND CHRONIC RESPIRATORY FAILURE WITH HYPOXIA Status: Acute Comment: Improved, off BiPAP, continue O2 supplementation, pulmonary support, likely multifactorial (3) Pneumonia Code(s): J18.9 - PNEUMONIA, UNSPECIFIED ORGANISM Status: Acute (4) COPD (chronic obstructive pulmonary disease) Status: Chronic Qualifiers: COPD type: chronic bronchitis Chronic bronchitis type: unspecified Qualified Code(s): J42 - Unspecified chronic bronchitis (5) DM2 (diabetes mellitus, type 2) Status: Chronic Qualifiers: Diabetes mellitus complication status: with unspecified complications Diabetes mellitus prison insulin use: with prison use Qualified Code(s) : E11.8 - Type 2 diabetes mellitus with unspecified complications; Z79.4 - MCC (current) use of insulin (6) HTN (hypertension) Code(s): I10 - ESSENTIAL (PRIMARY) HYPERTENSION Status: Chronic Qualifiers: Hypertension type: essential hypertension Qualified Code(s): I10 - Essential (primary) hypertension Comment: stable, resume home BP regimen (7) Morbid obesity with BMI of 45.0-49.9, adult Code(s): E66.01 - MORBID (SEVERE) OBESITY DUE TO EXCESS CALORIES; Z68.42 - Status: Chronic Comment: Heart healthy diet (8) Pulmonary artery hypertension Code(s): I27.2 - OTHER SECONDARY PULMONARY HYPERTENSION * DO NOT USE * Status : Chronic Comment: Supportive, continue Norvasc - Plan cont current plan of care, continue antibiotics, PT/OT, respiratory therapy * . continue with aggressive PT/OT continue with PO abx for ESBL UTI continue with neb treatments and diuresing patient. kidneys tolerating it well pulm following. follow recs Patient states she is still very weak but feels she will be ready to go home tmrw Likely DC home tmrw in AM with HH with PT. Monitory accordingly
--- NOTE | 2016-11-22 17:04 | PRG ---
DATE OF SERVICE: 11/22/2016 SERVICE: Pulmonary Medicine. INTERVAL HISTORY: The patient is doing fine from cardiovascular and respiratory standpoint. She is breathing very comfortably. She has no complaints of fevers, chills, nausea, or vomiting. There w ere no overnight events. She remains considerably weak, but truth be told, she has returned to her baseline. PHYSICAL EXAMINATION: VITAL SIGNS: Afebrile, pulse 83, blood pressure 142/75, respirations 20, saturation 91% on 3 liters nasal cannula. GENERAL: The patient is awake, alert, in no apparent distress. LUNGS: Decent air entry. There is no prolongation of expiratory phase, wheezing, rhonchi, or crack les appreciated, but body habitus does preclude accurate evaluation. HEART: Normal rate, regular. ABDOMEN: Soft, nontender, and nondistended. Bowel sounds positive. MUSCULOSKELETAL: No cyanosis or clubbing. There is improving 1-2+ pitting in the bilateral lower e xtremities. GENITOURINARY: No Fleming catheter in place. NEUROLOGIC: Grossly nonfocal. LABORATORY DATA: Chloride 97, bicarbonate 36 and roughly stable. Basic metabolic profile, calcium and magnesium fall within normal limits otherwise. Sodium 140. Urine culture is growing E. coli wh ich is aiken resistant. ASSESSMENT: 1. Acute on chronic hypoxic respiratory failure. 2. Chronic hypercapnic respiratory failure. 3. Obstructive sleep apnea, severe, noncompliant with therapy. 4. Pulmonary hypertension, multifactorial. 5. Acute on chronic diastolic heart failure, improving. PLAN: We will continue to diurese the patient while the patient remains inhouse. From a purely res piratory perspective, she is stable for transition out of the hospital. I will continue to follow clare kamara she remains inhouse. I do think she should be well served by going to a jail. That be ing said, the patient under no circumstances would be comfortable in that setting. She understands the risks associated with going home include coming back to the hospital and .
[2016-11-22] MEDS: Mometasone 200 MCG HFA INHALER INH SCH (18:44)
[2016-11-22] MEDS: HumaLOG 300 UNITS/3 ML VIAL SC PRN (20:56)
[2016-11-22] MEDS ORDERED: FLU VACC TS2017-18 (>65YR) 0.5 ML SYRINGE IM ONE (21:00)
[2016-11-23 06:26] LABS: BUN (Urea Nitrogen) 25 mg/dL (9.8-20.1); Calc. Creatinine Clearance 129 mL/min (70-130); Calcium 8.4 mg/dL (7.8-10.44); Estimated GFR-MDRD 83; Magnesium 2.1 mg/dL (1.6-2.6)
[2016-11-23 06:35] LABS: Anion Gap 14 mmol/L (10-20); Carbon Dioxide 36 mmol/L (23-31); Chloride 97 mmol/L (98-107)
[2016-11-23] MEDS: Dorzolamide HCl/Timolol Maleate 2%/0.5% Ophth Soln 10 ml Bottle R EYE SCH ×2 (08:07→21:32)
[2016-11-23] MEDS: Furosemide 40 MG/4 ML VIAL SLOW IVP SCH (09:36)
[2016-11-23] MEDS: Potassium Chloride 20 MEQ TAB PO SCH (09:37)
[2016-11-23] MEDS: Nitrofurantoin Monohyd/M-Cryst 100 MG CAP PO SCH ×2 (09:38→21:31)
[2016-11-23] MEDS: Famotidine 20 MG TAB PO SCH ×2 (09:38→21:31)
[2016-11-23] MEDS: Aspirin 81 mg Enteric Coated Tablet PO SCH (09:39)
[2016-11-23] MEDS: busPIRone HCl 5 MG TAB PO SCH (09:39)
[2016-11-23] MEDS: predniSONE 20 MG TAB PO SCH (09:39)
--- NOTE | 2016-11-23 10:19 | PRG ---
DATE OF SERVICE: 11/23/2016 SERVICE: Pulmonary Medicine. INTERVAL HISTORY: The patient is doing fine from a respiratory standpoint. She is sleeping comfort ably today, but I woke her up after breakfast. She denies any current shortness of breath or chest discomfort. Her leg swelling is much improved. PHYSICAL EXAMINATION: VITAL SIGNS: Afebrile, pulse 72, blood pressure 148/68, respirations 20, saturation 93% on 2 liters nasal cannula. GENERAL: The patient is awake, alert, no apparent distress. LUNGS: Excellent air entry. I do not appreciate much in the way prolonged expiratory phase, wheezi ng, rhonchi, or crackles. That being said, the air movement is not great enough for me to appreciat e these things. HEART: Normal rate, regular. ABDOMEN: Soft, nontender, nondistended, bowel sounds positive. MUSCULOSKELETAL: No cyanosis or clubbing. No pitting in the bilateral lower extremities. NEUROLOGIC: Grossly nonfocal. LABORATORY DATA: Bicarbonate 36 and stable. Basic metabolic profile is otherwise unremarkable. Cr eatinine is 0.81 and stable/down trending. Magnesium is normal. Urine culture is growing akien resis tant E. coli. ASSESSMENT: 1. Acute on chronic hypoxic respiratory failure. 2. Chronic hypercapnic respiratory failure. 3. Obstructive sleep apnea, severe, noncompliant with therapy. 4. Pulmonary hypertension, multifactorial. 5. Acute on chronic diastolic heart failure. PLAN: The patient remains stable for transition out of the hospital. I will continue to follow if she remains inhouse. We will continue to diurese the patient until she gets close to euvolemia. Th is can be continued in the outpatient setting. I would like for her to continue using her sleep cable operator ea equipment though she has nobody at home that is able to help her get it on in the evening time.
--- NOTE | 2016-11-23 11:27 | PDOC.PN ---
- Subjective Encounter Start Date: 11/23/16 Encounter Start Time: 11:25 Subjective: c/o feeling worse than yesterday.says her breathing is worse -: no overnight events - Objective Resuscitation Status: Resuscitation Status FULL:Full Resuscitation MAR Reviewed: Yes Vital Signs & Weight: Vital Signs (12 hours) Temp Pulse Resp BP BP Pulse Ox 11/23/16 09:38 72 148/68 H 11/23/16 07:59 98.5 F 20 148/68 H 11/23/16 07:05 72 16 11/23/16 04:00 97.9 F 77 18 147/68 H 93 L 11/23/16 01:34 92 L Weight Weight 299 lb 5 oz I&O: 11/22/16 11/23/16 11/24/16 06:59 06:59 06:59 Intake Total 1868 420 Output Total 350 150 Balance 1518 270 Result Diagrams: 11/17/16 03:59 11/23/16 05:31 Additional Labs: Accuchecks 11/23/16 11/22/16 11/22/16 05:46 20:33 17:21 POC Glucose 92 201 H 192 H 11/22/16 11/22/16 15:52 11:31 POC Glucose 172 H 103 Phys Exam - Physical Examination Constitutional: NAD HEENT: PERRLA, moist MMs, sclera anicteric, oral pharynx no lesions Neck: no nodes, no JVD, supple, full ROM Respiratory: no wheezing, no rales, no rhonchi, clear to auscultation bilateral Cardiovascular: RRR, no significant murmur, no rub, gallop Gastrointestinal: soft, non-tender, no distention, positive bowel sounds Musculoskeletal: pulses present, edema present (feet only) Neurological: non-focal, normal sensation, moves all 4 limbs Psychiatric: normal affect, A&O x 3 Skin: no rash Dx/Plan (1) Acute on chronic respiratory failure with hypoxia Code(s): J96.21 - ACUTE AND CHRONIC RESPIRATORY FAILURE WITH HYPOXIA Status: Acute Comment: Improved, off BiPAP, continue O2 supplementation, pulmonary support, likely multifactorial (2) Acute on chronic diastolic (congestive) heart failure Code(s): I50.33 - ACUTE ON CHRONIC DIASTOLIC (CONGESTIVE) HEART FAILURE Status : Resolved Comment: Continue Lasix 40mg IV daily, monitor I/O's, daily weight , Last Echo 60-65%, diastolic dysfunction, severe TR/MR and severe pulm HTN, weight down 4lbs since admit will refer to OP HF clinic (3) UTI (urinary tract infection) Status: Acute Qualifiers: Urinary tract infection type: acute cystitis Hematuria presence: without hematuria Qualified Code(s): N30.00 - Acute cystitis without hematuria Comment: E.Coli resistant to Multiple ABx. sensitive to Nitrofurantoin, will convert to po. renal function normal. (4) COPD (chronic obstructive pulmonary disease) Status: Chronic Qualifiers: COPD type: chronic bronchitis Chronic bronchitis type: unspecified Qualified Code(s): J42 - Unspecified chronic bronchitis (5) DM2 (diabetes mellitus, type 2) Status: Chronic Qualifiers: Diabetes mellitus complication status: with unspecified complications Diabetes mellitus assisted insulin use: with termite renewal inspector use Qualified Code(s) : E11.8 - Type 2 diabetes mellitus with unspecified complications; Z79.4 - assisted (current) use of insulin (6) GERD (gastroesophageal reflux disease) Code(s): K21.9 - GASTRO-ESOPHAGEAL REFLUX DISEASE WITHOUT ESOPHAGITIS Status: Chronic Qualifiers: Esophagitis presence: esophagitis presence not specified Qualified Code(s) : K21.9 - Gastro-esophageal reflux disease without esophagitis (7) HTN (hypertension) Code(s): I10 - ESSENTIAL (PRIMARY) HYPERTENSION Status: Chronic Qualifiers: Hypertension type: essential hypertension Qualified Code(s): I10 - Essential (primary) hypertension Comment: stable, resume home BP regimen (8) Morbid obesity with BMI of 45.0-49.9, adult Code(s): E66.01 - MORBID (SEVERE) OBESITY DUE TO EXCESS CALORIES; Z68.42 - BODY MASS INDEX (BMI) 45.0-49.9, ADULT Status: Chronic Comment: Heart healthy diet (9) ADELINE (obstructive sleep apnea) Code(s): G47.33 - OBSTRUCTIVE SLEEP APNEA (ADULT) (PEDIATRIC) Status: Chronic Comment: ? home BiPAP/CPAP (10) Pulmonary artery hypertension Code(s): I27.2 - OTHER SECONDARY PULMONARY HYPERTENSION * DO NOT USE * Status : Chronic Comment: Supportive, continue Norvasc - Plan PT/OT, social media campaign manager, respiratory therapy, incentive spirometry, out of bed/ ambulate, DVT proph w/SCDs clinically better.Pt hemodynamically better.O2 requirement remains the same -: cont current care. may give trial of additional lasix today -: Once again given option oif rehab but she declined. -: remains high risk of readmission as she says/thinks so -: encouraged to F/U w HF clinic instead of coming to ER * .Encouraged to go to rehab instead but she keeps refusing. * feel that she is euvolmic and symptoms are more chronic at this point. * will cont to monitor today and if no changes for worse, will DC home tomorrow. * Pt agrees w plan Review of Systems - Review of Systems Constitutional: Weakness, Malaise ENT: negative: Ear Pain, Ear Discharge, Nose Pain, Nose Discharge, Nose Congestion, Mouth Pain, Mouth Swelling, Throat Pain, Throat Swelling, Other Respiratory: SOB with Excertion. negative: Cough, Dry, Shortness of Breath, Hemoptysis, Pleuritic Pain, Sputum, Wheezing Cardiovascular: negative: Chest Pain, Palpitations, Orthopnea, Paroxysmal Noc. Dyspnea, Edema, Light Headedness, Other Gastrointestinal: negative: Nausea, Vomiting, Abdominal Pain, Diarrhea, Constipation, Melena, Hematochezia, Other Genitourinary: negative: Dysuria, Frequency, Incontinence, Hematuria, Retention , Other Musculoskeletal: negative: Neck Pain, Shoulder Pain, Arm Pain, Back Pain, Hand Pain, Leg Pain, Foot Pain, Other Neurological: negative: Weakness, Numbness, Incoordination, Change in Speech, Confusion, Seizures, Other - Medications/Allergies Allergies/Adverse Reactions: Allergies Allergy/AdvReac Type Severity Reaction Status Date / Time INDERJIT Inhibitors Allergy Verified 04/28/16 05:04 Sulfa (Sulfonamide Allergy Verified 04/28/16 05:04 Antibiotics) Medications: Current Medications Acetaminophen (Tylenol) 1,000 mg PO Q6H PRN PRN Reason: Headache/Fever or Mild Pain Albuterol/Ipratropium (Duoneb) 3 ml NEB [id number] [facility] Last Admin: 11/23/16 07:05 Dose: 3 ml Amlodipine Besylate (Norvasc) 5 mg PO DAILY [facility] Last Admin: 11/23/16 09:38 Dose: 5 mg Aspirin (Ecotrin) 81 mg PO DAILY [facility] Last Admin: 11/23/16 09:39 Dose: 81 mg Benzonatate (Tessalon) 200 mg PO Q6H PRN PRN Reason: Cough Buspirone HCl (Buspar) 5 mg PO DAILY [facility] Last Admin: 11/23/16 09:39 Dose: 5 mg Clonidine HCl (Catapres) 0.1 mg PO Q4H PRN PRN Reason: Systolic BP > 180 Last Admin: 11/20/16 13:16 Dose: 0.1 mg Dextrose/Water (Dextrose 50%) 25 gm SLOW IVP PRN PRN PRN Reason: Hypoglycemia Dorzolamide/Timolol (Cosopt 2-0.5% Ophth Soln) 1 drop R EYE BID [facility] Last Admin: 11/23/16 08:07 Dose: 1 drp Famotidine (Pepcid) 20 mg PO BID [facility] Last Admin: 11/23/16 09:38 Dose: 20 mg Furosemide (Lasix) 40 mg SLOW IVP DAILY [facility] Last Admin: 11/23/16 09:36 Dose: 40 mg Glipizide (Glucotrol Xl) 5 mg PO DAILY [facility] Last Admin: 11/23/16 09:39 Dose: 5 mg Glucagon (Glucagon) 1 mg IM PRN PRN PRN Reason: Hypoglycemia Hydralazine HCl (Apresoline) 10 mg SLOW IVP Q4H PRN PRN Reason: Systolic BP > 180 Dextrose/Water (D5w) 1,000 mls @ 0 mls/hr IV .Q0M PRN; As Directed PRN Reason: Hypoglycemia Insulin Human Lispro (Humalog) 0 units SC .MODERATE SLIDING SC PRN PRN Reason: Moderate Correctional Scale Last Admin: 11/21/16 18:28 Dose: 4 mg Insulin Human Lispro (Humalog) 0 units SC .BEDTIME SLIDING SC PRN PRN Reason: Bedtime Correctional Scale Last Admin: 11/22/16 20:56 Dose: 2 unit Mometasone Furoate (Asmanex Hfa 200 Mcg) 1 puff INH 1830 [facility] Last Admin: 11/22/16 18:44 Dose: 1 puff Nitrofurantoin Macrocrystals (Macrobid) 100 mg PO BID [facility] Last Admin: 11/23/16 09:38 Dose: 100 mg Ondansetron HCl (Zofran Odt) 4 mg PO Q6H PRN PRN Reason: Nausea/Vomiting Ondansetron HCl (Zofran) 4 mg IVP Q6H PRN PRN Reason: Nausea/Vomiting Polyethylene Glycol (Miralax) 17 gm PO DAILY PRN PRN Reason: Constipation Potassium Chloride (K-Dur) 20 meq PO DAILY [facility] Last Admin: 11/23/16 09:37 Dose: 20 meq Prednisone (Prednisone) 40 mg PO QAM-WM [facility] Last Admin: 11/23/16 09:39 Dose: 40 mg Sodium Chloride (Flush - Normal Saline) 10 ml IVF PRN PRN PRN Reason: Saline Flush Last Admin: 11/19/16 06:51 Dose: 10 ml Sodium Chloride (Flush - Normal Saline) 10 ml IVF Q12HR [facility] Last Admin: 11/23/16 09:40 Dose: 10 ml
[2016-11-23] MEDS ORDERED: Metolazone 2.5 MG TAB PO SCH (11:30)
[2016-11-23] MEDS: HumaLOG 300 UNITS/3 ML VIAL SC PRN ×2 (18:04→21:33)
[2016-11-23] MEDS: Mometasone 200 MCG HFA INHALER INH SCH (19:34)
[2016-11-24 05:42] LABS: BUN (Urea Nitrogen) 23 mg/dL (9.8-20.1); Calc. Creatinine Clearance 127 mL/min (70-130); Calcium 8.9 mg/dL (7.8-10.44); Estimated GFR-MDRD 82; Magnesium 2.2 mg/dL (1.6-2.6)
[2016-11-24 05:52] LABS: Anion Gap 15 mmol/L (10-20); Carbon Dioxide 36 mmol/L (23-31); Chloride 94 mmol/L (98-107)
[2016-11-24] MEDS ORDERED: Furosemide 40 MG TAB PO SCH (09:00)
[2016-11-24] MEDS: Famotidine 20 MG TAB PO SCH (09:04)
[2016-11-24] MEDS: Nitrofurantoin Monohyd/M-Cryst 100 MG CAP PO SCH (09:04)
[2016-11-24] MEDS: Potassium Chloride 20 MEQ TAB PO SCH (09:04)
[2016-11-24] MEDS: predniSONE 20 MG TAB PO SCH (09:04)
[2016-11-24] MEDS: Aspirin 81 mg Enteric Coated Tablet PO SCH (09:05)
[2016-11-24] MEDS: busPIRone HCl 5 MG TAB PO SCH (09:05)
[2016-11-24] MEDS: Dorzolamide HCl/Timolol Maleate 2%/0.5% Ophth Soln 10 ml Bottle R EYE SCH (09:09)
--- NOTE | 2016-11-24 09:42 | PRG ---
DATE OF SERVICE: 11/24/2016 SERVICE: Pulmonary Medicine. INTERVAL HISTORY: The patient is doing fine from a cardiovascular and respiratory standpoint. She denies any current fevers, chills, nausea, vomiting, or chest pain. Otherwise, she remains in her [facility] state of health and has no specific complaints. Her breathing is back to baseline. She is bec oming much more active. PHYSICAL EXAMINATION: VITAL SIGNS: Afebrile, pulse 79, blood pressure 166/78, respirations 18, saturation 94% on 3 liters nasal cannula. GENERAL: Patient is awake, alert, no apparent distress. LUNGS: Decent air entry. No prolonged expiratory phase, wheezing, rhonchi or crackles are apprecia stacie. HEART: Normal rate, regular. ABDOMEN: Soft, nontender, nondistended. Bowel sounds positive. MUSCULOSKELETAL: No cyanosis or clubbing. There is 2-3+ pitting in the bilateral lower extremities . GENITOURINARY: Fleming catheter in place. NEUROLOGIC: Grossly nonfocal. LABORATORY DATA: Bicarbonate 36, chloride 94. Basic metabolic profile and magnesium is otherwise u nremarkable. Blood sugar is under better control from 88-252. Urine culture is growing aiken resista nt E. coli. Blood culture is growing 3 different coag-negative Staph in 1 out of 2, the other one i s sterile. ASSESSMENT: 1. Acute on chronic hypoxic respiratory failure, returned to baseline. 2. Chronic hypercapnic respiratory failure. 3. Obstructive sleep apnea, severe, noncompliant with therapy. 4. Pulmonary hypertension, multifactorial. 5. Acute on chronic diastolic heart failure. PLAN: The patient remains stable for transition out of the hospital. She needs to be continued to be diuresed and euvolemia in the outpatient setting. I will continue to see her in the outpatient s etting. She will work hard with home health with physical therapy to regain her strength and mobili ty.
[2016-11-24 13:22] VITALS: BP 142/73; TEMP 98.8
--- NOTE | 2016-11-24 16:32 | DIS ---
DATE OF ADMISSION: 11/16/2016 DATE OF DISCHARGE: 11/24/2016 CONDITION AT THE TIME OF DISCHARGE: Stable and improved. DISCHARGE DIAGNOSES: 1. Acute on chronic respiratory failure. 2. Acute on chronic diastolic congestive heart failure. 3. Chronic hypercapnic respiratory failure. 4. Severe sleep apnea, noncompliant with therapy. 5. Pulmonary arterial hypertension. 6. Urinary tract infection, extended-spectrum beta-lactamase producing Escherichia coli. 7. Chronic obstructive pulmonary disease. 8. Diabetes mellitus type 2. 9. Gastroesophageal reflux disease. 10. Hypertension. 11. Morbid obesity. DISCHARGE DISPOSITION: Home with home health. PRIMARY CARE PHYSICIAN: Ms. Geetha Whalen. The patient has upcoming appointment later in the day t reyes with Ms. Geetha Whalen, nurse practitioner. DISCHARGE MEDICATIONS: New medications include, 1. Nitrofurantoin 100 mg p.o. b.i.d. for 5 more days. 2. Florastor 250 mg daily for 10 days. 3. Asmanex 200 mcg 1 puff daily. 4. DuoNeb 3 mL nebulizer every 6 hours as needed. 5. Medrol Dosepak 1 pack. Resume the following home medications: 1. Amlodipine 5 mg daily. 2. Lasix 40 mg daily. 3. Potassium chloride 20 mEq daily. 4. Glipizide XL 5 mg daily. 5. Aspirin 325 mg daily. 6. MiraLax 17 grams p.o. daily p.r.n. 7. Tessalon Perles as needed. 8. Buspirone 5 mg p.o. daily. CONSULTATIONS IN THE HOSPITAL: Include, Pulmonary and Critical Care doctors, Dr. Loo and Dr. Dimitris bravo. PROCEDURES DONE IN THE HOSPITAL: Include, 1. Pulmonary function testing, which shows severe restrictive ventilatory defect with severely redu gi FVC. 2. Chest x-ray upon admission, which showed mild pulmonary vascular congestion, but no infiltrates. ADMISSION HISTORY: Ms. Erinn Bishop is a 76-year-old female with past medical history of chronic respiratory failure and severe obstructive sleep apnea and chronic diastolic congestive heart failur e and COPD who presented to the emergency room complaining of increased shortness of breath for 5-7 day duration. Upon presentation, she was given nebulizers and antibiotics and aspirin as well as La six in the emergency room and was placed on BiPAP and was transferred to be admitted after she was c linically stabilized. Her oxygen saturation upon presentation was 88% on 4 liters by nasal cannula. A presumptive diagnosis of acute hypoxic and hypercapnic respiratory failure was made likely due t o worsening of acute COPD as well as acute diastolic congestive heart failure. She was started on d iuretics and Pulmonary Medicine was consulted. Please see admission history and physical for furthe r details. HOSPITAL COURSE: The patient was continued on diuresis. She was seen initially by Dr. Toure from [facility] and later by Dr. Deal and Dr. Loo. Dr. Loo was following along in the hospital and eventually the patient was taken off of BiPAP and was stabilized enough to be moved to the regular telemetry floor. She was continued on diuresis and had slow improvement. She was taken off of antibiotics when her urine culture gave ESBL E. coli, which was resistant to levofloxacin. It was sensitive to nitrofurantoin for which she was started on and will finish in outpatient settin g. Eventually, she was back to her baseline and was transitioned to oral diuretics at her home dosages. She was given option of residential facility or rehabilitation facility, but she declined both and after multiple discussions, she did not sway. She wanted to go home, so home health was arrang ed for her with physical therapy, occupational therapy and residential. She was seen and examined this morning on the date of discharge and is hemodynamically stable and ang s been cleared by Pulmonary Medicine for discharge as well. PHYSICAL EXAMINATION: Today show, VITAL SIGNS: Temperature 98.4, pulse of 81, respirations 20, saturating 94% on 3 liters oxygen, blo od pressure 146/68. GENERAL: No acute distress, awake, alert and oriented x3. CHEST: Clear to auscultation without any wheezing, rales or rhonchi. Rate, rhythm is regular witho ut any murmur, rubs or gallops. ABDOMEN: Morbidly obese. EXTREMITIES: Free of any cyanosis, clubbing or edema. LABORATORY EXAMINATION: Her serum chemistry is unremarkable except for chloride low at 94, bicarbon ate high at 36. BUN, creatinine, calcium, and magnesium within normal limits. Urine culture as abo ve. Blood culture shows contaminated 1 out of 2 coag negative Staph. Discharge plan was discussed with the patient who verbalized understanding. She will follow up with Heart Failure Clinic, which has been set up for her. She will follow with Pulmonary Medicine as we ll as primary care physician as instructed. Total time spent 32 minutes.
--- NOTE | 2016-11-25 15:35 | PFT ---
PATIENT HISTORY: HEIGHT: 67 INCHES WEIGHT: 304 LBS SMOKER: NO HOW LONG: PACKS PER DAY PRODUCTIVE COUGH: LUNG DISEASE: PHYSICIAN INTERPRETATION FINAL REPORT: This is a portable study, the patient has a severely diminished FEV1 and FVC with no reversibility after bronchodilatation. IMPRESSION: This is a severe restrictive pulmonary impairment. Refrigeration Houseman: JUDD Lasting Machine Operator: JUDD SALINAS
== END 2016-11-24 14:15 | disposition home health service (06) | DRG 291 ==
LOC: ERS 13:45 → IMCU/EMU 17:44 → 2NO 11-17 22:18
PROVIDERS: ADMIT Family Medicine; ATTEND Family Medicine
PROC: 5A09357 Assistance with Respiratory Ventilation, Less than 24 Consecutive Hours, Continuous Positive Airway Pressure (ICD-10-PCS; principal; 2016-11-16)
DX: I11.0 Hypertensive heart disease with heart failure (principal); J96.21 Acute and chronic respiratory failure with hypoxia; J18.9 Pneumonia, unspecified organism; J96.12 Chronic respiratory failure with hypercapnia; I27.21 Secondary pulmonary arterial hypertension; E11.9 Type 2 diabetes mellitus without complications; Z68.42 Body mass index [BMI] 45.0-49.9, adult; N30.00 Acute cystitis without hematuria; J44.0 Chronic obstructive pulmonary disease with (acute) lower respiratory infection; I50.33 Acute on chronic diastolic (congestive) heart failure; E66.01 Morbid (severe) obesity due to excess calories; G47.33 Obstructive sleep apnea (adult) (pediatric); B96.20 Unspecified Escherichia coli [E. coli] as the cause of diseases classified elsewhere; Z79.84 Long term (current) use of oral hypoglycemic drugs; Z23 Encounter for immunization; Z91.19 Patient's noncompliance with other medical treatment and regimen; K21.9 Gastro-esophageal reflux disease without esophagitis; Z79.4 Long term (current) use of insulin
CPT/HCPCS: 36415; 36416; 51702; 71010; 80048; 80053; 81003; 81015; 82550; 82553; 82805; 83605; 83690; 83735; 83880; 84484; 85007; 85025; 85027; 85610; 85730; 87040; 87077; 87086; 87149; 87186; 90471; 90682; 90732; 93005; 93798; 94060; 94640; 94660; 94664; 96365; 96375; A4216; G0008; G0009; G8978-GP-CL; G8979-GP-CI; J1100; J1940; J1956; J2543; J2920; J7050; J7506; J7611; J7620; Q2036

== ENCOUNTER 2016-12-09 20:02 | Inpatient (IN) | payer MEDICARE, MEDICAID ==
[2016-12-09] MEDS ORDERED: methylPREDNISolone Sod Succ/PF 125 MG/2 ML VIAL ONE (21:52)
[2016-12-09 22:10] LABS: #Eosinphils 0.2 thou/uL (0.0-0.7); #Lymphocytes 1.9 thou/uL (1.20-3.40); #Monocytes 0.4 thou/uL (0.11-0.59); #Neutrophils 3.9 thou/uL (1.40-6.50); %Basophils 0.3 % (0.0-1.0); %Eosinophils 2.5 % (0.0-10.0); %Lymphocytes 29.2 % (21.0-51.0); %Monocytes 6.8 % (0.0-10.0); Hematocrit 40.3 % (36.0-47.0); Mean Platelet Volume 9.4 fL (7.4-10.4); Red Blood Cell (RBC) Count 3.86 mill/uL (4.20-5.40); White Blood Cell (WBC) Count 6.4 thou/uL (4.8-10.8)
[2016-12-09 22:23] LABS: Prothrombin Time 13.8 SEC (12.0-14.7)
[2016-12-09 22:25] LABS: ALT (SGPT) 13 U/L (8-55); AST (SGOT) 11 U/L (5-34); Alkaline Phosphatase 50 U/L (40-150); Anion Gap 12 mmol/L (10-20); BUN (Urea Nitrogen) 10 mg/dL (9.8-20.1); Bilirubin, Total 1.2 mg/dL (0.2-1.2); Calc. Creatinine Clearance 0 mL/min (70-130); Calcium 8.9 mg/dL (7.8-10.44); Carbon Dioxide 33 mmol/L (23-31); Chloride 102 mmol/L (98-107); Estimated GFR-MDRD 85; Globulin 3.3 g/dL (2.4-3.5); Magnesium 1.5 mg/dL (1.6-2.6); Protein, Total 6.6 g/dL (6.0-8.3)
[2016-12-09 22:30] LABS: Troponin I 0.018 ng/mL (< 0.028)
[2016-12-09 22:59] LABS: Bilirubin Negative (Negative); Blood, Urine Negative (Negative); Glucose, Urine (Dipstick) Negative (Negative); Ketone, Urine Negative (Negative); Nitrite Negative (Negative); Protein, Urine (Dipstick) Negative (Neg-Trace)
[2016-12-09] MEDS ORDERED: Furosemide 40 MG/4 ML VIAL ONE (23:39)
[2016-12-09] MEDS ORDERED: Nitroglycerin 2% Ointment 1 INCH/1 GM Packet ONE (23:40)
[2016-12-09] MEDS ORDERED: Magnesium 2 GM/NS 0.9% 50 ML 2 GM in Premix Bag 1 BAG IVPB SCH (23:45)
--- NOTE | 2016-12-10 00:14 | PDOC.EVN ---
Event Note - Event Note Event Note: [id number] h&p dictated 1. Acute on chronic diatsolic chf 2. HTN 3. Hypomagnesemia 4. H/O DM type 2 plan: see orders
[2016-12-10] MEDS ORDERED: Polyethylene Glycol 3350 17 GM Packet PO PRN (00:30)
[2016-12-10] MEDS ORDERED: Dextrose 50% Abboject 50 ML SYRINGE SLOW IVP PRN (00:31)
[2016-12-10] MEDS ORDERED: Dextrose 5% in Water 1,000 ML IV PRN (00:31)
[2016-12-10 01:08] LABS: Troponin I 0.015 ng/mL (< 0.028)
--- NOTE | 2016-12-10 04:55 | HP ---
CHIEF COMPLAINT: Dyspnea. HISTORY OF PRESENT ILLNESS: The patient is a 76-year-old female with past medical history of CHF, C OPD, hypertension, chronic respiratory failure, diabetes mellitus type 2, now came to the ER complai zuleyma of generalized fatigue and bilateral lower extremity swelling. The patient said for the past 2 days she was not feeling well. She feels tired and then the patient's grandson took the pulse at home. Patient to have around 200 and after repeat check heart rate was in 120s, so patient went to bed and this morning when she woke up, she still feels extremely tired, did not feel good. The arleen ent started noticing bilateral lower extremity worsening swelling since yesterday. This morning, th e patient's symptoms persisted so with the caregiver called the primary care physician who recommend ed for the patient to come to the ER. The patient complains of dyspnea on the minimal exertion. Th e patient said she cannot lie flat, she needs 2-3 pillows to sleep. Denies any fever, denies any ch ills, denies any cough, denies sputum production, denies any chest pain, denies any chest tightness. PAST MEDICAL HISTORY: As per HPI. PAST SURGICAL HISTORY: Tubal ligation, hysterectomy, tonsillectomy. SOCIAL HISTORY: Denies smoking, denies alcohol, denies any drugs. FAMILY HISTORY: Positive for heart problems. REVIEW OF SYSTEMS: CONSTITUTIONAL: Positive for generalized body aches, fatigue. HEENT: Eyes: Positive for chronic decreased vision, right eye. ENT; denies any rhinorrhea, denies any neck pain. CARDIOVASCULAR: Denies any chest pain, denies any palpations. MUSCULOSKELETAL: Positive for bilateral leg swelling. CRANIAL NERVE SYSTEM: Denies syncope. PSYCHIATRIC: Denies depression and anxiety. INTEGUMENTARY: Denies any rash. All other review of systems are reviewed and are negative. PHYSICAL EXAMINATION: VITAL SIGNS: At the time of H\T\P performed, blood pressure is 137/54, pulse ox 96%, heart rate 108 , respiratory rate 18. GENERAL: The patient appears comfortable. HEENT: ENT patent. Eyes; right eye with decreased vision. NECK: Supple, no JVD. Head is normal. CARDIOVASCULAR: S1, S2 present. Regular rate and rhythm, no murmurs, no rubs, no gallops. RESPIRATORY SYSTEM: Diminished breath sounds bilaterally. Positive for occasional wheezing, no rho nchi. GASTROINTESTINAL: Abdomen is soft, nontender, no guarding, no masses felt. MUSCULOSKELETAL: Bilateral 2+ edema present. INTEGUMENT: No skin rash. PSYCHIATRIC: Appropriate at this time. LABORATORY DATA: At the time of H\T\P performed, white count 6.4, hemoglobin 12.2, platelet count i s 119. PT 13.8, INR 1.1. D-dimer 0.71. BMP shows sodium 143, potassium 2.6, chloride 102, CO2 12, BUN of 10, creatinine 0.8, troponin 0.018, BNP 511, albumin 3.3. Echocardiogram done in June showed an ejection fraction of 60-65% with diastolic dysfunction. ASSESSMENT AND PLAN: The patient is a 76-year-old female. 1. Acute on chronic diastolic heart failure. Plan to start patient on IV Lasix b.i.d. Plan to con sult Cardiology. Plan to check cardiac enzymes. 2. Hypomagnesemia, replaced. 3. History of chronic obstructive pulmonary disease. Continue breathing treatment. Monitor respir atory status closely. Continue oxygen nasal cannula. 4. History of hypertension, monitor blood pressures, continue blood pressure medications. 5. Diabetes mellitus type 2. Monitor blood sugars. We will do insulin sliding scale. 6. Hypomagnesemia, replace magnesium. The case was discussed in detail with the patient.
[2016-12-10 05:25] LABS: Troponin I 0.018 ng/mL (< 0.028)
[2016-12-10] MEDS: Furosemide 40 MG/4 ML VIAL SLOW IVP SCH ×2 (06:48→14:51)
[2016-12-10] MEDS: Potassium Chloride 20 MEQ TAB PO SCH (08:24)
[2016-12-10] MEDS: Aspirin 325 mg Enteric Coated Tablet PO SCH (08:24)
[2016-12-10] MEDS: Amlodipine 5 MG TAB PO SCH (08:24)
[2016-12-10] MEDS: busPIRone HCl 5 MG TAB PO SCH (08:24)
[2016-12-10] MEDS: Heparin 5,000 UNITS/ML VIAL SC SCH ×3 (08:24→21:16)
[2016-12-10] MEDS: HumaLOG 300 UNITS/3 ML VIAL SC PRN ×2 (08:25→11:47)
[2016-12-10] MEDS ORDERED: Nitroglycerin 0.4 MG TAB (25 Tab Bottle) PO PRN (09:38)
--- NOTE | 2016-12-10 09:38 | CT ---
PRELIMINARY REPORT/[facility]/EMERGENCY AFTER HOURS PROCEDURE: EXAM: CT Angiography Chest With Intravenous Contrast CLINICAL HISTORY: 76 years old, female; Signs and symptoms; Dyspnea and shortness of breath; Patient HX: Er 17; F75 pr esents to ed C/O copd exacerbation. Pt notes occasional cough. She is not bed bound but does not lik e to walk. HX hysterectomy, copd, HTN, dmii, hyperlipidemia, chf. Denies tobacco use, fevers, uti sy mptoms. Allergies include kristan inhibitors, sulfa. D-dimer 0.71 TECHNIQUE: Axial computed tomographic angiography images of the chest with intravenous contrast using pulmonary embolism protocol. CONTRAST: 64 mL of ISOVUE 370 administered intravenously. COMPARISON: No relevant prior studies available. FINDINGS: Pulmonary arteries: Limited study due to motion, however there is no evidence of pulmonary embolism. Aorta: No acute findings. No thoracic aortic aneurysm. Lungs: Limited evaluation due to motion. Bilateral septal and peribronchial thickening and groundgla ss opacities likely represents pulmonary edema. Mild right basilar and focal left basilar atelectasis. 9 mm right middle lobe nodule adjacent to the pleura and fissures. Pleural space: Trace right pleural fluid. No pneumothorax. Heart: Cardiomegaly. Mild reflux of contrast into the IVC and hepatic veins. No pericardial effusion . No evidence of RV dysfunction. Bones/joints: No acute fracture. No dislocation. Soft tissues: No acute findings. Lymph nodes: Prominent hilar and mediastinal lymph nodes could be reactive. IMPRESSION: No evidence of pulmonary embolism. Cardiomegaly. Pulmonary edema. Middle lobe nodule; recommend followup CT in 3 months for further evaluation. Other findings above. Thank you for allowing us to participate in the care of your patient. Dictated and Authenticated by: Khoi Gagnon MD 12/10/2016 1:33 AM Central Time ([place] \T\ [place]) FINAL REPORT EMERGENT AFTER HOURS CT ANGIOGRAM OF THORAX WITH IV CONTRAST AND 3D RECONSTRUCTIONS: DATE: 12/10/16. HISTORY: Dyspnea, COPD exacerbation. Occasional cough. Bed bound. Hypertension. COMPARISON: 06/11/16. IMPRESSION: 1. No CT evidence of pulmonary embolus. 2. Scattered ground-glass densities throughout the lungs bilaterally with areas of interstitial thi ckening. These findings could be on the basis of pulmonary edema and associated atelectasis; this s tudy was obtained in shallow depth of inspiration. 3. An 8 mm pulmonary nodule in the right middle lobe which is stable in size from the study on 06/11. A pulmonary nodule was seen in this region on the study in 2012, but an accurate measurement o n that exam was unable to be obtained due to motion. 4. Increased number and enlargement of mediastinal lymph nodes. There is a posterior paratracheal lymph node in the upper mediastinum measuring 13 mm in short axis dimension with a prevascular space lymph node measuring approximately 1.7 cm in short axis dimension. There are also prominent subcar inal lymph nodes as well as bilateral hilar lymphadenopathy. 5. Trace right pleural effusion with bibasilar atelectasis. 6. Cardiomegaly. 7. Subcentimeter too small to characterize hypodense lesion in the dome of the liver stable from pr ior study. 8. Findings are in agreement with the preliminary report by [facility]. POS: [facility]
[2016-12-10] MEDS ORDERED: Calcium Carbonate 500 MG ChewTAB PO PRN (09:39)
[2016-12-10] MEDS ORDERED: Senokot 8.6 MG TAB PO PRN (09:39)
[2016-12-10] MEDS ORDERED: Ondansetron ODT 4 MG TAB PO PRN (09:39)
[2016-12-10] MEDS ORDERED: Acetaminophen 325 MG TAB PO PRN (09:39)
[2016-12-10] MEDS ORDERED: Bisacodyl 10 MG SUPP PR PRN (09:39)
[2016-12-10] MEDS ORDERED: Ondansetron HCl/PF 4 MG/2 ML Vial IVP PRN (09:39)
--- NOTE | 2016-12-10 09:42 | PDOC.EVN ---
Event Note - Event Note Event Note: Patient seen and examined. Chart reviewed. Will continue diuresis. General admission/CHF order set added. AM labs ordered.
[2016-12-10] MEDS: Dorzolamide HCl/Timolol Maleate 2%/0.5% Ophth Soln 10 ml Bottle L EYE SCH ×3 (10:25→21:15)
[2016-12-10] MEDS: Brimonidine Tartrate 0.2% Ophth Soln 5 ml Bottle L EYE SCH ×3 (10:25→21:15)
[2016-12-10] MEDS ORDERED: ISOVUE-370 76%-LOCM 1 ML ONE (13:47)
[2016-12-10] MEDS: predniSONE 20 MG TAB PO SCH (17:19)
[2016-12-10] MEDS: Mometasone 200 MCG HFA INHALER INH SCH (19:01)
[2016-12-10] MEDS: Famotidine 20 MG TAB PO SCH (21:15)
[2016-12-10] MEDS: Docusate 100 MG CAP PO SCH (21:16)
[2016-12-11 05:35] LABS: #Basophils 0.1 thou/uL (0.0-0.2); #Lymphocytes 1.8 thou/uL (1.20-3.40); #Monocytes 0.5 thou/uL (0.11-0.59); #Neutrophils 6.4 thou/uL (1.40-6.50); %Basophils 0.6 % (0.0-1.0); %Eosinophils 0.1 % (0.0-10.0); %Lymphocytes 20.5 % (21.0-51.0); %Monocytes 5.7 % (0.0-10.0); Hematocrit 39.5 % (36.0-47.0); Mean Platelet Volume 9.3 fL (7.4-10.4); Red Blood Cell (RBC) Count 3.88 mill/uL (4.20-5.40); White Blood Cell (WBC) Count 8.7 thou/uL (4.8-10.8)
[2016-12-11 06:06] LABS: ALT (SGPT) 12 U/L (8-55); AST (SGOT) 9 U/L (5-34); Alkaline Phosphatase 51 U/L (40-150); BUN (Urea Nitrogen) 21 mg/dL (9.8-20.1); Bilirubin, Total 0.8 mg/dL (0.2-1.2); Calc. Creatinine Clearance 100 mL/min (70-130); Calcium 9.4 mg/dL (7.8-10.44); Estimated GFR-MDRD 69; Globulin 3.9 g/dL (2.4-3.5); Phosphorus 3.8 mg/dL (2.3-4.7); Protein, Total 7.3 g/dL (6.0-8.3)
[2016-12-11] MEDS: Furosemide 40 MG/4 ML VIAL SLOW IVP SCH ×2 (06:09→14:44)
[2016-12-11 06:15] LABS: Anion Gap 13 mmol/L (10-20); Carbon Dioxide 35 mmol/L (23-31); Chloride 98 mmol/L (98-107)
[2016-12-11] MEDS: predniSONE 20 MG TAB PO SCH ×2 (07:57→17:54)
[2016-12-11] MEDS: busPIRone HCl 5 MG TAB PO SCH (08:23)
[2016-12-11] MEDS: Amlodipine 5 MG TAB PO SCH (08:24)
[2016-12-11] MEDS: Docusate 100 MG CAP PO SCH ×2 (08:24→21:05)
[2016-12-11] MEDS: Potassium Chloride 20 MEQ TAB PO SCH (08:24)
[2016-12-11] MEDS: Famotidine 20 MG TAB PO SCH ×2 (08:24→21:04)
[2016-12-11] MEDS: Heparin 5,000 UNITS/ML VIAL SC SCH ×3 (08:24→21:04)
[2016-12-11] MEDS: Aspirin 325 mg Enteric Coated Tablet PO SCH (08:24)
[2016-12-11] MEDS: Dorzolamide HCl/Timolol Maleate 2%/0.5% Ophth Soln 10 ml Bottle L EYE SCH ×2 (08:25→21:05)
[2016-12-11] MEDS: Brimonidine Tartrate 0.2% Ophth Soln 5 ml Bottle L EYE SCH ×2 (08:28→21:05)
--- NOTE | 2016-12-11 09:48 | PDOC.PN ---
- Subjective Encounter Start Date: 12/11/16 Encounter Start Time: 09:00 Subjective: Feels better. - Objective Vital Signs & Weight: Vital Signs (12 hours) Temp Pulse Resp BP BP Pulse Ox 12/11/16 08:24 86 139/64 12/11/16 07:51 98.0 F 86 18 139/64 93 L 12/11/16 07:07 96 12/11/16 07:03 83 16 12/11/16 04:00 98.3 F 95 18 121/58 L 93 L 12/10/16 23:43 91 L Weight Weight 275 lb I&O: 12/10/16 12/11/16 12/12/16 06:59 06:59 06:59 Intake Total 240 1440 Output Total 1150 2600 Balance -910 -1160 Result Diagrams: 12/11/16 04:43 12/11/16 04:43 Additional Labs: Accuchecks 12/11/16 12/10/16 12/10/16 06:05 20:07 16:57 POC Glucose 130 H 145 H 105 12/10/16 11:22 POC Glucose 184 H Phys Exam - Physical Examination Constitutional: NAD HEENT: sclera anicteric (Right eye blindness.), oral pharynx no lesions Neck: no JVD Respiratory: clear to auscultation bilateral Cardiovascular: RRR Gastrointestinal: soft, non-tender Musculoskeletal: edema present Dx/Plan (1) CHF (congestive heart failure) Code(s): I50.9 - HEART FAILURE, UNSPECIFIED Status: Acute Qualifiers: Congestive heart failure type: diastolic Plan: Continue diuretics. Comment: improving.. (2) Diabetes mellitus Code(s): E11.9 - TYPE 2 DIABETES MELLITUS WITHOUT COMPLICATIONS Status: Acute Plan: continue sliding scale.. Comment: BS satisfactory.. 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 (5) COPD (chronic obstructive pulmonary disease) Status: Chronic Qualifiers: COPD type: chronic bronchitis Chronic bronchitis type: unspecified Qualified Code(s): J42 - Unspecified chronic bronchitis Plan: continue bronchodilator.. Comment: stable. - Plan Continue current therapy.. * .
[2016-12-11] MEDS: Mometasone 200 MCG HFA INHALER INH SCH (18:53)
[2016-12-11] MEDS: HumaLOG 300 UNITS/3 ML VIAL SC PRN (21:08)
[2016-12-12 05:28] LABS: #Lymphocytes 1.9 thou/uL (1.20-3.40); #Monocytes 0.6 thou/uL (0.11-0.59); #Neutrophils 5.7 thou/uL (1.40-6.50); %Basophils 0.3 % (0.0-1.0); %Eosinophils 0.2 % (0.0-10.0); %Lymphocytes 22.9 % (21.0-51.0); %Monocytes 6.8 % (0.0-10.0); Hematocrit 37.4 % (36.0-47.0); Red Blood Cell (RBC) Count 3.68 mill/uL (4.20-5.40); White Blood Cell (WBC) Count 8.1 thou/uL (4.8-10.8)
[2016-12-12 05:49] LABS: ALT (SGPT) 11 U/L (8-55); AST (SGOT) 9 U/L (5-34); Alkaline Phosphatase 46 U/L (40-150); Anion Gap 9 mmol/L (10-20); BUN (Urea Nitrogen) 24 mg/dL (9.8-20.1); Bilirubin, Total 0.6 mg/dL (0.2-1.2); Calc. Creatinine Clearance 106 mL/min (70-130); Calcium 8.7 mg/dL (7.8-10.44); Carbon Dioxide 37 mmol/L (23-31); Chloride 99 mmol/L (98-107); Estimated GFR-MDRD 74; Globulin 3.6 g/dL (2.4-3.5); Magnesium 2.1 mg/dL (1.6-2.6); Phosphorus 4.4 mg/dL (2.3-4.7); Protein, Total 6.7 g/dL (6.0-8.3)
[2016-12-12] MEDS: Furosemide 40 MG/4 ML VIAL SLOW IVP SCH ×2 (06:42→16:17)
--- NOTE | 2016-12-12 08:43 | PDOC.PN ---
- Subjective Encounter Start Date: 12/12/16 Encounter Start Time: 07:50 Subjective: No specific complaint, -: feels better. - Objective Vital Signs & Weight: Vital Signs (12 hours) Temp Pulse Resp BP Pulse Ox 12/12/16 07:56 97.2 F L 20 148/66 H 97 12/12/16 07:23 92 L 12/12/16 07:21 80 16 12/12/16 04:00 98.1 F 82 16 136/65 94 L 12/12/16 00:34 88 16 Weight Weight 271 lb I&O: 12/11/16 12/12/16 12/13/16 06:59 06:59 06:59 Intake Total 1440 1200 Output Total 2600 3185 -1159 Result Diagrams: 12/12/16 05:08 12/12/16 05:08 Additional Labs: Accuchecks 12/11/16 12/11/16 12/11/16 20:35 16:37 11:41 POC Glucose 212 H 128 H 138 H Radiology Reviewed by me: Yes Phys Exam - Physical Examination HEENT: PERRLA, sclera anicteric Neck: no JVD Respiratory: clear to auscultation bilateral Cardiovascular: RRR Gastrointestinal: soft, non-tender, no distention Musculoskeletal: edema present Neurological: moves all 4 limbs Psychiatric: A&O x 3 Dx/Plan (1) CHF (congestive heart failure) Code(s): I50.9 - HEART FAILURE, UNSPECIFIED Status: Acute Qualifiers: Congestive heart failure type: diastolic Comment: improving.. (2) Diabetes mellitus Code(s): E11.9 - TYPE 2 DIABETES MELLITUS WITHOUT COMPLICATIONS Status: Chronic Comment: BS satisfactory.. 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 (5) COPD (chronic obstructive pulmonary disease) Status: Chronic Qualifiers: COPD type: chronic bronchitis Chronic bronchitis type: unspecified Qualified Code(s): J42 - Unspecified chronic bronchitis Comment: stable. - Plan -: Continue current management. -: Possible discharge soon. * .
[2016-12-12] MEDS: predniSONE 20 MG TAB PO SCH ×2 (08:50→16:17)
[2016-12-12] MEDS: Potassium Chloride 20 MEQ TAB PO SCH (08:50)
[2016-12-12] MEDS: Amlodipine 5 MG TAB PO SCH (08:51)
[2016-12-12] MEDS: busPIRone HCl 5 MG TAB PO SCH (08:51)
[2016-12-12] MEDS: Famotidine 20 MG TAB PO SCH ×2 (08:51→20:33)
[2016-12-12] MEDS: Docusate 100 MG CAP PO SCH ×2 (08:51→20:33)
[2016-12-12] MEDS: Aspirin 325 mg Enteric Coated Tablet PO SCH (08:51)
[2016-12-12] MEDS: Heparin 5,000 UNITS/ML VIAL SC SCH ×3 (08:52→20:32)
[2016-12-12] MEDS: Dorzolamide HCl/Timolol Maleate 2%/0.5% Ophth Soln 10 ml Bottle L EYE SCH ×2 (08:56→20:33)
[2016-12-12] MEDS: Brimonidine Tartrate 0.2% Ophth Soln 5 ml Bottle L EYE SCH ×2 (08:56→20:33)
[2016-12-12] MEDS: Mometasone 200 MCG HFA INHALER INH SCH (18:37)
[2016-12-13] MEDS: Furosemide 40 MG/4 ML VIAL SLOW IVP SCH (05:05)
[2016-12-13] MEDS: predniSONE 20 MG TAB PO SCH (09:00)
[2016-12-13] MEDS: Docusate 100 MG CAP PO SCH ×2 (09:02→21:19)
[2016-12-13] MEDS: Famotidine 20 MG TAB PO SCH ×2 (09:03→21:18)
[2016-12-13] MEDS: Amlodipine 5 MG TAB PO SCH (09:03)
[2016-12-13] MEDS: busPIRone HCl 5 MG TAB PO SCH (09:03)
[2016-12-13] MEDS: Brimonidine Tartrate 0.2% Ophth Soln 5 ml Bottle L EYE SCH ×2 (09:03→21:22)
[2016-12-13] MEDS: Potassium Chloride 20 MEQ TAB PO SCH (09:03)
[2016-12-13] MEDS: Aspirin 325 mg Enteric Coated Tablet PO SCH (09:03)
[2016-12-13] MEDS: Dorzolamide HCl/Timolol Maleate 2%/0.5% Ophth Soln 10 ml Bottle L EYE SCH ×2 (09:03→21:22)
[2016-12-13] MEDS: Heparin 5,000 UNITS/ML VIAL SC SCH ×2 (09:04→15:08)
--- NOTE | 2016-12-13 09:35 | PDOC.PN ---
- Subjective Encounter Start Date: 12/13/16 Encounter Start Time: 09:34 Patient seen and examined. No new complaints. No overnight events. No CP/SOB - Objective MAR Reviewed: Yes Vital Signs & Weight: Vital Signs (12 hours) Temp Pulse Resp BP Pulse Ox 12/13/16 09:03 83 12/13/16 08:40 98.3 F 83 19 144/63 H 95 12/13/16 06:44 92 15 90 L 12/13/16 04:00 98.5 F 78 18 145/65 H 92 L 12/13/16 00:16 80 12 Weight Weight 265 lb 12.8 oz I&O: 12/12/16 12/13/16 12/14/16 06:59 06:59 06:59 Intake Total 1200 840 Output Total 9839 7855 Balance -1984 Result Diagrams: 12/12/16 05:08 12/13/16 10:01 Additional Labs: Accuchecks 12/12/16 12/12/16 12/12/16 20:05 16:13 11:12 POC Glucose 194 H 148 H 104 12/12/16 06:16 POC Glucose 127 H EKG Reviewed by me: Yes (Tele SR) Phys Exam - Physical Examination Constitutional: NAD Respiratory: no wheezing, no rhonchi Scat rales at bases Cardiovascular: RRR, no rub Gastrointestinal: soft, non-tender, positive bowel sounds Musculoskeletal: edema present (improving) Dx/Plan (1) Acute on chronic diastolic (congestive) heart failure Code(s): I50.33 - ACUTE ON CHRONIC DIASTOLIC (CONGESTIVE) HEART FAILURE Status : Acute (2) COPD exacerbation Code(s): J44.1 - CHRONIC OBSTRUCTIVE PULMONARY DISEASE W (ACUTE) EXACERBATION Status: Acute (3) ADELINE (obstructive sleep apnea) Code(s): G47.33 - OBSTRUCTIVE SLEEP APNEA (ADULT) (PEDIATRIC) Status: Chronic Comment: ? home CPAP not functioning (4) Tachyarrhythmia Code(s): R00.0 - TACHYCARDIA, UNSPECIFIED Status: Acute (5) Morbid obesity with BMI of 40.0-44.9, adult Code(s): E66.01 - MORBID (SEVERE) OBESITY DUE TO EXCESS CALORIES; Z68.41 - BODY MASS INDEX (BMI) 40.0-44.9, ADULT Status: Acute (6) DM2 (diabetes mellitus, type 2) Status: Chronic Comment: on sliding scale (7) HTN (hypertension) Code(s): I10 - ESSENTIAL (PRIMARY) HYPERTENSION Status: Chronic Qualifiers: Hypertension type: essential hypertension Qualified Code(s): I10 - Essential (primary) hypertension (8) Decubital ulcer Code(s): L89.90 - PRESSURE ULCER OF UNSPECIFIED SITE, UNSPECIFIED STAGE Status : Acute Qualifiers: Pressure ulcer stage: stage 2 Comment: sacrococcygeal - present on admission - Plan cont current plan of care, knight catheter, PT/OT, DVT proph w/heparin, DVT proph w/SCDs * DC Knight * Change Lasix to PO due to contraction alkalosis * Cont diuresis * Cont fluid restriction * Cont to monitor Review of Systems - Review of Systems Respiratory: SOB with Excertion. negative: Cough, Dry, Shortness of Breath, Hemoptysis, Pleuritic Pain, Sputum, Wheezing Cardiovascular: negative: Chest Pain, Palpitations, Orthopnea, Paroxysmal Noc. Dyspnea, Edema, Light Headedness, Other Gastrointestinal: negative: Nausea, Vomiting, Abdominal Pain, Diarrhea, Constipation, Melena, Hematochezia, Other - Medications/Allergies Allergies/Adverse Reactions: Allergies Allergy/AdvReac Type Severity Reaction Status Date / Time INDERJIT Inhibitors Allergy Verified 04/28/16 05:04 Sulfa (Sulfonamide Allergy Verified 04/28/16 05:04 Antibiotics) Medications: Current Medications Acetaminophen (Tylenol) 650 mg PO Q4H PRN PRN Reason: Headache/Fever or Pain Albuterol/Ipratropium (Duoneb) 3 ml NEB [id number] [facility] Last Admin: 12/13/16 06:44 Dose: 3 ml Amlodipine Besylate (Norvasc) 5 mg PO DAILY [facility] Last Admin: 12/13/16 09:03 Dose: 5 mg Aspirin (Ecotrin) 325 mg PO DAILY [facility] Last Admin: 12/13/16 09:03 Dose: 325 mg Bisacodyl (Dulcolax) 10 mg [place] Q24H PRN PRN Reason: Constipation Brimonidine Tartrate (Alphagan 0.2% Ophth Soln) 1 drop L EYE BID [facility] Last Admin: 12/13/16 09:03 Dose: 1 drop Buspirone HCl (Buspar) 5 mg PO DAILY [facility] Last Admin: 12/13/16 09:03 Dose: 5 mg Calcium Carbonate (Tums) 1,000 mg PO Q4H PRN PRN Reason: Heartburn or Indigestion Dextrose/Water (Dextrose 50%) 25 gm SLOW IVP PRN PRN PRN Reason: Hypoglycemia Docusate Sodium (Colace) 100 mg PO BID [facility] Last Admin: 12/13/16 09:02 Dose: 100 mg Dorzolamide/Timolol (Cosopt 2-0.5% Ophth Soln) 1 drop L EYE BID [facility] Last Admin: 12/13/16 09:03 Dose: 1 drop Famotidine (Pepcid) 20 mg PO BID [facility] Last Admin: 12/13/16 09:03 Dose: 20 mg Furosemide (Lasix) 40 mg SLOW IVP 0600,1400 [facility] Last Admin: 12/13/16 05:05 Dose: 40 mg Glipizide (Glucotrol Xl) 5 mg PO DAILY [facility] Last Admin: 12/13/16 09:03 Dose: 5 mg Glucagon (Glucagon) 1 mg IM PRN PRN PRN Reason: Hypoglycemia Heparin Sodium (Porcine) (Heparin) 5,000 units SC TID [facility] Last Admin: 12/13/16 09:04 Dose: 5,000 units Dextrose/Water (D5w) 1,000 mls @ 0 mls/hr IV .Q0M PRN; As Directed PRN Reason: Hypoglycemia Insulin Human Lispro (Humalog) 0 units SC .MODERATE SLIDING SC PRN PRN Reason: Moderate Correctional Scale Last Admin: 12/10/16 11:47 Dose: 2 unit Insulin Human Lispro (Humalog) 0 units SC .BEDTIME SLIDING SC PRN PRN Reason: Bedtime Correctional Scale Last Admin: 12/11/16 21:08 Dose: 2 unit Mometasone Furoate (Asmanex Hfa 200 Mcg) 1 puff INH 1830 [facility] Last Admin: 12/12/16 18:37 Dose: 1 puff Nitroglycerin (Nitrostat) 0.4 mg PO Q5MIN PRN PRN Reason: Chest Pain Ondansetron HCl (Zofran Odt) 4 mg PO Q6H PRN PRN Reason: Nausea/Vomiting Ondansetron HCl (Zofran) 4 mg IVP Q6H PRN PRN Reason: Nausea/Vomiting Polyethylene Glycol (Miralax) 17 gm PO DAILYPRN PRN PRN Reason: Constipation Last Admin: 12/11/16 17:54 Dose: 17 gm Potassium Chloride (K-Dur) 20 meq PO DAILY [facility] Last Admin: 12/13/16 09:03 Dose: 20 meq Prednisone (Prednisone) 20 mg PO BID-WM [facility] Last Admin: 12/13/16 09:00 Dose: 20 mg Senna (Senokot) 2 tab PO HSPRN PRN PRN Reason: Constipation Sodium Chloride (Flush - Normal Saline) 10 ml IVF Q12HR [facility] Last Admin: 12/13/16 09:04 Dose: 10 ml Sodium Chloride (Flush - Normal Saline) 10 ml IVF PRN PRN PRN Reason: Saline Flush Last Admin: 12/11/16 14:53 Dose: 10 ml
[2016-12-13] MEDS ORDERED: Polyethylene Glycol 3350 17 GM Packet PO PRN (09:40)
--- NOTE | 2016-12-13 10:35 | PQF ---
CLINICAL DOCUMENTATION IMPROVEMENT CLARIFICATION FORM: ICD-10 Updated PLEASE DO AN ADDENDUM TO THE PROGRESS NOTE WITH ANY DOCUMENTATION UPDATES OR ADDITIONS AND CARRY THROUGH TO DC SUMMARY. THANK YOU. DATE: 12/13/16 ATTN: Dr. Carson Please exercise your independent, professional judgment in responding to the clarification form. Clinical indicators are provided on the bottom of this form for your review Please check appropriate box(s): I (concur) with the Nursing Assessment findings as stated below. [ ] Pressure Ulcer: (Stage I: Erythema; Stage II: Partial thickness; Stage III : Full thickness; Stage IV: Necrosis to muscle/bone) [ ] Location: POA: [ ] Yes [ ] No[ ] Unable to determine Stage (I to IV): (Left Right Bilateral N/A_ ____) [ ] No pressure ulcer diagnosis [ ] Deep tissue injury [ ] Other diagnosis [ ] Unable to determine In addition, please specify: Present on Admission (POA): [ ] Yes [ ] No [ ] Unable to determine For continuity of documentation, please document condition throughout progress notes and discharge summary. Thank You. CLINICAL INDICATORS - SIGNS / SYMPTOMS / LABS NURSING ASSESSMENT 12/10/16 @ 0031: SACROCOCCYGEAL PRESSURE ULCER. STAGE II RISKS: H&P: HX OF COPD. DM 2 PN 12/13: ACUTE ON CHRONIC CHF; MORBID OBESITY; COPD EXAC. PHYSICAL THERAPY ASSESS. 12/10: BASELINE, PRIMARILY W/C BOUND ( D/T NEED FOR O2 TANK NEARBY) & REQUIRES SOME ASSIST W/ ADLS. TREATMENTS: SKIN INTERVENTIONS PER NURSING PROTOCOL - SKIN KEPT FROM EXCESSIVE MOISTURE TURNING Q 2H & PRN Pre-ulcer skin changes limited to persistent focal edema (Stage 1) Abrasion, blister, partial thickness skin loss involving epidermis and/or dermis (Stage 2) Full thickness skin loss involving damage or necrosis of SQ tissue. (Stage 3) Necrosis of soft tissue through to underlying muscle, tendon, or bone. (Stage 4) Purple or maroon discolored skin or blood filled blister (This form is maintained as a part of the permanent medical record) 2014 [employer] All Rights Reserved Sun Zambrano RN, BSN [email or web address] Office: [phone] [facility]
[2016-12-13 10:57] LABS: Chloride 98 mmol/L (98-107)
[2016-12-13 10:58] LABS: BUN (Urea Nitrogen) 23 mg/dL (9.8-20.1); BUN/Creatinine Ratio 25.27; Calc. Creatinine Clearance 102 mL/min (70-130); Calcium 9.1 mg/dL (7.8-10.44); Carbon Dioxide Greater than 37 mmol/L (23-31); Estimated GFR-MDRD 73; Phosphorus 3.1 mg/dL (2.3-4.7)
--- NOTE | 2016-12-13 19:34 | CON ---
DATE OF CONSULTATION: 12/13/2016 REASON FOR CONSULTATION: Atrial flutter. HISTORY OF PRESENT ILLNESS: Ms. Bishop is a very pleasant 76-year-old -[place] female who comes to the hospital for shortness of breath. She has a diagnosis of severe pulmonary hypertension . She became more short of breath over the last few days and came in for this. Her heart rate was in the 120s to 150s and was admitted for diuresis. She has been diuresed and is doing much better. Her legs were very swollen and they are not anymore. It was noted on telemetry, she has been in at [facility] since earlier today and so Cardiology is being consulted for this. Currently, Ms. Martin son denies any palpitations, syncope or presyncope. No chest pain. PAST MEDICAL HISTORY: 1. History of diastolic dysfunction. 2. COPD. 3. Severe pulmonary hypertension. 4. Systemic hypertension. 5. Chronic respiratory insufficiency. 6. Type 2 diabetes. PAST SURGICAL HISTORY: 1. Tubal ligation. 2. Hysterectomy. 3. Tonsillectomy. SOCIAL HISTORY: No alcohol, tobacco or drugs. FAMILY HISTORY: Positive for early coronary disease. OUTPATIENT MEDICATIONS: Include, 1. DuoNeb. 2. Dorzolamide with timolol ophthalmic. 3. Alphagan ophthalmic. 4. Tessalon Perles. 5. MiraLax p.r.n. 6. Medrol Dosepak recently. 7. Asmanex HFA inhaler. 8. BuSpar 5 mg a day. 9. Potassium chloride 20 mEq a day. 10. Lasix 80 mg a day. 11. Glipizide 5 mg a day. 12. Aspirin 81 mg a day. 13. Amlodipine 5 mg a day. ALLERGIES: INDERJIT INHIBITORS and SULFA DRUGS. REVIEW OF SYSTEMS: Twelve point review of systems was done and is all negative unless stated in the history of present illness. PHYSICAL EXAMINATION: VITAL SIGNS: Temperature 98.9, pulse 130, respiration rate 18, satting 94% on 2 liters, blood press ure 124/62. GENERAL: Awake, alert, oriented x3, in no distress. HEENT: Normocephalic, atraumatic, twentieths. NECK: Supple. LUNGS: Clear. CARDIOVASCULAR: S1, S2, tachycardia in the 130s, no S3 or S4. No murmurs or rubs. ABDOMEN: Soft, positive bowel sounds. EXTREMITIES: Trace edema, much better. The skin is very puckered and it seems to have diuresed wel l. LABORATORY WORK: Reviewed. CBC is unremarkable except for hemoglobin of 11.5, platelet count of 16 2. Coags were unremarkable. Chemistry with normal sodium, potassium. BUN of 24, creatinine 0.9, GF R 74. BNP on admission was 511. Troponin was negative x3. EKG was reviewed, atrial flutter with 2:1 AV block. ASSESSMENT AND PLAN: Atrial flutter: This is a new finding. We will plan on full anticoagulation. CHADS-VASc score is at least 3. We will plan on starting her on full dose Lovenox at 120 mg subcu b.i.d. We will start flecainide 50 mg b.i.d. and p.o. diltiazem to try to lower down, so hopefully she will convert with a flecainide. If she does not in the next 24-48 hours, we will plan on doing a PENG cardioversion. I would prefer to avoid this as with her pulmonary hypertension, this will be slightly high risk to put her sleep. Otherwise, if we can control flutter, we will ask EP to see i f they would go ahead and set her up for flutter ablation. Thank you for letting us to participate in the care of your patient. We will follow.
[2016-12-13] MEDS: Mometasone 200 MCG HFA INHALER INH SCH (20:17)
[2016-12-13] MEDS: Diltiazem HCl SR 60 mg Capsule PO SCH (21:18)
[2016-12-13] MEDS: Enoxaparin Sodium 120 MG/0.8 ML SYRINGE SC SCH (21:19)
[2016-12-13] MEDS: HumaLOG 300 UNITS/3 ML VIAL SC PRN (21:22)
[2016-12-14 05:11] LABS: #Basophils 0.1 thou/uL (0.0-0.2); #Eosinphils 0.1 thou/uL (0.0-0.7); #Lymphocytes 3.8 thou/uL (1.20-3.40); #Monocytes 1.2 thou/uL (0.11-0.59); #Neutrophils 5.6 thou/uL (1.40-6.50); %Basophils 0.8 % (0.0-1.0); %Eosinophils 0.6 % (0.0-10.0); %Lymphocytes 35.5 % (21.0-51.0); %Monocytes 10.7 % (0.0-10.0); Hematocrit 43.5 % (36.0-47.0); Mean Platelet Volume 8.4 fL (7.4-10.4); Red Blood Cell (RBC) Count 4.46 mill/uL (4.20-5.40); White Blood Cell (WBC) Count 10.7 thou/uL (4.8-10.8)
[2016-12-14 05:12] LABS: Anion Gap 13 mmol/L (10-20); BUN (Urea Nitrogen) 28 mg/dL (9.8-20.1); BUN/Creatinine Ratio 29.17; Calc. Creatinine Clearance 96 mL/min (70-130); Calcium 8.8 mg/dL (7.8-10.44); Carbon Dioxide 32 mmol/L (23-31); Chloride 99 mmol/L (98-107); Estimated GFR-MDRD 69; Magnesium 2.3 mg/dL (1.6-2.6); Phosphorus 3.9 mg/dL (2.3-4.7)
[2016-12-14] MEDS: Famotidine 20 MG TAB PO SCH ×2 (08:35→20:52)
[2016-12-14] MEDS: Enoxaparin Sodium 120 MG/0.8 ML SYRINGE SC SCH ×2 (08:35→20:51)
[2016-12-14] MEDS: Docusate 100 MG CAP PO SCH ×2 (08:36→20:52)
[2016-12-14] MEDS: predniSONE 20 MG TAB PO SCH (08:36)
[2016-12-14] MEDS: busPIRone HCl 5 MG TAB PO SCH (08:36)
[2016-12-14] MEDS: Furosemide 40 MG TAB PO SCH (08:36)
[2016-12-14] MEDS: Brimonidine Tartrate 0.2% Ophth Soln 5 ml Bottle L EYE SCH ×2 (08:36→20:52)
[2016-12-14] MEDS: Aspirin 81 mg Enteric Coated Tablet PO SCH (08:36)
[2016-12-14] MEDS: Dorzolamide HCl/Timolol Maleate 2%/0.5% Ophth Soln 10 ml Bottle L EYE SCH ×2 (08:37→20:51)
[2016-12-14] MEDS: Potassium Chloride 20 MEQ TAB PO SCH (08:37)
[2016-12-14] MEDS: Diltiazem HCl SR 60 mg Capsule PO SCH ×2 (10:06→20:52)
--- NOTE | 2016-12-14 12:04 | EKG ---
Test Reason : Blood Pressure : / mmHG Vent. Rate : 128 BPM Atrial Rate : 256 BPM P-R Int : 000 ms QRS Dur : 082 ms QT Int : 328 ms P-R-T Axes : -80 124 -60 degrees QTc Int : 478 ms sinus with short OR vs atrial tach with hidden p waves Right axis deviation Nonspecific ST abnormality Abnormal QRS-T angle, consider primary T wave abnormality Abnormal ECG 09-DEC-2016 22:12, (Unconfirmed) Confirmed by DR. David TRACY (3) on 12/14/2016 12:04:13 PM Referred By: SARAHY Confirmed By:DR. David TRACY
--- NOTE | 2016-12-14 16:36 | PDOC.CTH ---
Cardiology Progress Note - Subjective No new issues or complaints. - Objective Vital Signs Temp Pulse Pulse Pulse Resp BP BP 12/14/16 14:15 90 16 12/14/16 12:00 98.0 F 100 18 12/14/16 09:09 114 H 103 H 161/68 H 125/66 12/14/16 08:20 97.0 F L 117 H 22 H 12/14/16 08:15 97.0 F L 117 H 22 H 12/14/16 07:05 90 16 BP Pulse Ox Pulse Ox Pulse Ox 12/14/16 14:15 12/14/16 12:00 124/57 L 94 L 12/14/16 09:09 94 L 92 L 12/14/16 08:20 119/59 L 93 L 12/14/16 08:15 12/14/16 07:05 Weight 264 lb 4.8 oz 12/13/16 12/14/16 12/15/16 06:59 06:59 06:59 Intake Total 840 1080 Output Total 2675 650 Balance -1835 430 - Physical Examination General/Neuro: alert & oriented x3, NAD Neck: no JVD present Lungs: unlabored respirations Heart: other: (irreg) Abdomen: NT/ND Extremities: other: (trace edema) - Telemetry Telemetry Rhythm: Aflutter variab block - Labs Result Diagrams: 12/14/16 04:40 12/14/16 04:40 Troponin/CKMB CK-MB (CK-2) 1.0 ng/mL (0-6.6) 12/09/16 21:55 Troponin I 0.018 ng/mL (< 0.028) 12/10/16 04:16 - Assessment/Plan 1. Atrial flutter 2. Pulmonary hypertension 3. Acute on chronic diastolic heart failure. PLAN: - Will plan on PENG/Cardioversion tomorrow - Continue flecainide and Lovenox full dose for now.
[2016-12-14] MEDS: Mometasone 200 MCG HFA INHALER INH SCH (18:17)
--- NOTE | 2016-12-14 20:50 | PDOC.PN ---
- Subjective Encounter Start Date: 12/14/16 Encounter Start Time: 12:00 Patient seen and examined. No new complaints. No overnight events - Objective MAR Reviewed: Yes Vital Signs & Weight: Vital Signs (12 hours) Temp Pulse Pulse Pulse Resp BP BP 12/14/16 19:40 97.7 F 123 H 18 12/14/16 18:15 94 16 12/14/16 16:00 110 H 17 12/14/16 14:15 90 16 12/14/16 12:00 98.0 F 100 18 12/14/16 09:09 114 H 103 H 161/68 H 125/66 BP Pulse Ox Pulse Ox Pulse Ox 12/14/16 19:40 127/70 93 L 12/14/16 18:15 94 L 12/14/16 16:00 146/82 H 92 L 12/14/16 14:15 12/14/16 12:00 124/57 L 94 L 12/14/16 09:09 94 L 92 L Weight Weight 264 lb 4.8 oz I&O: 12/13/16 12/14/16 12/15/16 06:59 06:59 06:59 Intake Total 840 1080 990 Output Total 2675 650 690 Balance -1835 430 300 Result Diagrams: 12/15/16 04:23 12/15/16 04:23 Additional Labs: Accuchecks 12/14/16 12/14/16 12/14/16 20:27 11:24 05:33 POC Glucose 140 H 127 H 90 12/13/16 05:38 POC Glucose 114 H EKG Reviewed by me: Yes (Tele A flutter with variable block) Phys Exam - Physical Examination Constitutional: NAD Respiratory: no wheezing, no rhonchi Scat rales at bases Cardiovascular: no rub, irregular Gastrointestinal: soft Musculoskeletal: no edema Neurological: moves all 4 limbs Psychiatric: A&O x 3 Dx/Plan (1) Acute on chronic diastolic (congestive) heart failure Code(s): I50.33 - ACUTE ON CHRONIC DIASTOLIC (CONGESTIVE) HEART FAILURE Status : Acute Comment: improving (2) COPD exacerbation Code(s): J44.1 - CHRONIC OBSTRUCTIVE PULMONARY DISEASE W (ACUTE) EXACERBATION Status: Acute Comment: improving (3) ADELINE (obstructive sleep apnea) Code(s): G47.33 - OBSTRUCTIVE SLEEP APNEA (ADULT) (PEDIATRIC) Status: Chronic Comment: ? home CPAP not functioning (4) Tachyarrhythmia Code(s): R00.0 - TACHYCARDIA, UNSPECIFIED Status: Acute Comment: A flutter - on flecainide/Lovenox - Cardiology following (5) Morbid obesity with BMI of 40.0-44.9, adult Code(s): E66.01 - MORBID (SEVERE) OBESITY DUE TO EXCESS CALORIES; Z68.41 - BODY MASS INDEX (BMI) 40.0-44.9, ADULT Status: Chronic (6) DM2 (diabetes mellitus, type 2) Status: Chronic Comment: on sliding scale (7) HTN (hypertension) Code(s): I10 - ESSENTIAL (PRIMARY) HYPERTENSION Status: Chronic Qualifiers: Hypertension type: essential hypertension Qualified Code(s): I10 - Essential (primary) hypertension (8) Decubital ulcer Code(s): L89.90 - PRESSURE ULCER OF UNSPECIFIED SITE, UNSPECIFIED STAGE Status : Chronic Qualifiers: Pressure ulcer stage: stage 2 Comment: sacrococcygeal - present on admission - Plan cont current plan of care, out of bed/ambulate * PENG-CV in AM * Cont current meds as below * AM labs * Cont PO Lasix Review of Systems - Review of Systems Respiratory: negative: Cough, Dry, Shortness of Breath, Hemoptysis, SOB with Excertion, Pleuritic Pain, Sputum, Wheezing Cardiovascular: negative: Chest Pain, Palpitations, Orthopnea, Paroxysmal Noc. Dyspnea, Edema, Light Headedness, Other Gastrointestinal: negative: Nausea, Vomiting, Abdominal Pain, Diarrhea, Constipation, Melena, Hematochezia, Other - Medications/Allergies Allergies/Adverse Reactions: Allergies Allergy/AdvReac Type Severity Reaction Status Date / Time INDERJIT Inhibitors Allergy Verified 04/28/16 05:04 Sulfa (Sulfonamide Allergy Verified 04/28/16 05:04 Antibiotics) Medications: Current Medications Acetaminophen (Tylenol) 650 mg PO Q4H PRN PRN Reason: Headache/Fever or Pain Albuterol/Ipratropium (Duoneb) 3 ml NEB [id number] [facility] Last Admin: 12/14/16 18:15 Dose: 3 ml Aspirin (Ecotrin) 81 mg PO DAILY [facility] Last Admin: 12/14/16 08:36 Dose: 81 mg Bisacodyl (Dulcolax) 10 mg [place] Q24H PRN PRN Reason: Constipation Brimonidine Tartrate (Alphagan 0.2% Ophth Soln) 1 drop L EYE BID [facility] Last Admin: 12/14/16 08:36 Dose: 1 drop Buspirone HCl (Buspar) 5 mg PO DAILY [facility] Last Admin: 12/14/16 08:36 Dose: 5 mg Calcium Carbonate (Tums) 1,000 mg PO Q4H PRN PRN Reason: Heartburn or Indigestion Dextrose/Water (Dextrose 50%) 25 gm SLOW IVP PRN PRN PRN Reason: Hypoglycemia Diltiazem HCl (Cardizem Sr) 60 mg PO BID [facility] Last Admin: 12/14/16 10:06 Dose: 60 mg Docusate Sodium (Colace) 100 mg PO BID [facility] Last Admin: 12/14/16 08:36 Dose: 100 mg Dorzolamide/Timolol (Cosopt 2-0.5% Ophth Soln) 1 drop L EYE BID [facility] Last Admin: 12/14/16 08:37 Dose: 1 drop Enoxaparin Sodium (Lovenox) 120 mg SC 0900,2100 [facility] Last Admin: 12/14/16 08:35 Dose: 120 mg Famotidine (Pepcid) 20 mg PO BID [facility] Last Admin: 12/14/16 08:35 Dose: 20 mg Flecainide Acetate (Tambocor) 50 mg PO Q12HR [facility] Last Admin: 12/14/16 08:35 Dose: 50 mg Furosemide (Lasix) 40 mg PO DAILY-AC [facility] Last Admin: 12/14/16 08:36 Dose: 40 mg Glipizide (Glucotrol Xl) 5 mg PO DAILY [facility] Last Admin: 12/14/16 08:35 Dose: 5 mg Glucagon (Glucagon) 1 mg IM PRN PRN PRN Reason: Hypoglycemia Dextrose/Water (D5w) 1,000 mls @ 0 mls/hr IV .Q0M PRN; As Directed PRN Reason: Hypoglycemia Insulin Human Lispro (Humalog) 0 units SC .MODERATE SLIDING SC PRN PRN Reason: Moderate Correctional Scale Last Admin: 12/10/16 11:47 Dose: 2 unit Insulin Human Lispro (Humalog) 0 units SC .BEDTIME SLIDING SC PRN PRN Reason: Bedtime Correctional Scale Last Admin: 12/13/16 21:22 Dose: 3 unit Mometasone Furoate (Asmanex Hfa 200 Mcg) 1 puff INH 1830 [facility] Last Admin: 12/14/16 18:17 Dose: 1 puff Nitroglycerin (Nitrostat) 0.4 mg PO Q5MIN PRN PRN Reason: Chest Pain Ondansetron HCl (Zofran Odt) 4 mg PO Q6H PRN PRN Reason: Nausea/Vomiting Ondansetron HCl (Zofran) 4 mg IVP Q6H PRN PRN Reason: Nausea/Vomiting Polyethylene Glycol (Miralax) 17 gm PO DAILYPRN PRN PRN Reason: Constipation Last Admin: 12/11/16 17:54 Dose: 17 gm Potassium Chloride (K-Dur) 20 meq PO DAILY [facility] Last Admin: 12/14/16 08:37 Dose: 20 meq Prednisone (Prednisone) 20 mg PO QAM-[facility] Last Admin: 12/14/16 08:36 Dose: 20 mg Senna (Senokot) 2 tab PO HSPRN PRN PRN Reason: Constipation Sodium Chloride (Flush - Normal Saline) 10 ml IVF Q12HR [facility] Last Admin: 12/14/16 08:37 Dose: 10 ml Sodium Chloride (Flush - Normal Saline) 10 ml IVF PRN PRN PRN Reason: Saline Flush Last Admin: 12/13/16 16:03 Dose: 10 ml
[2016-12-15 05:22] LABS: Hematocrit 45.7 % (36.0-47.0)
[2016-12-15 05:35] VITALS: BMI 44.4
[2016-12-15 05:39] LABS: Anion Gap 11 mmol/L (10-20); BUN (Urea Nitrogen) 30 mg/dL (9.8-20.1); Calc. Creatinine Clearance 95 mL/min (70-130); Carbon Dioxide 35 mmol/L (23-31); Chloride 99 mmol/L (98-107); Estimated GFR-MDRD 67
[2016-12-15] MEDS ORDERED: Diprivan 20 ML ONE (10:09)
[2016-12-15] MEDS ORDERED: Famotidine/PF 20 mg/2ml Vial ONE (10:19)
[2016-12-15] MEDS ORDERED: Benzocaine 20% Spray 60 ML CAN ONE (10:58)
[2016-12-15] MEDS ORDERED: PHENYLEPHRINE-NS 100 MCG/ML 10 ML SYRINGE ONE (11:08)
[2016-12-15] MEDS ORDERED: Propofol 200 MG/20 ML VIAL ONE (11:08)
--- NOTE | 2016-12-15 11:26 | CON ---
DATE OF CONSULTATION: 12/15/2016 REASON FOR CONSULTATION: Bacteremia. HISTORY OF PRESENT ILLNESS: A 76-year-old who has a history of cardiomyopathy, COPD, and hypertensi on, type 2 diabetes, admitted with worsening swelling of the lower extremities and orthopnea. Initi al impression was acute on chronic diastolic heart failure. She was given diuretics and Cardiology consult was placed. The grape pruner's impression was atrial flutter which was a new finding. The patient was recommended a full anticoagulation with Lovenox and then flecainide started as well as p .o. diltiazem and hoping for conversion, if that did not occur, then the plan was for a PENG conversi on. The patient failed a chemical cardioversion and had been planned for PENG cardioversion; however , 1 out of 2 sets of blood cultures yielded aerobic actinomyces. The patient denies any headaches. No shortness of breath anymore. No chest pain, no abdominal pain or diarrhea. No genitourinary symptoms. No dental problems or mouth or neck pain. PAST MEDICAL HISTORY: Diabetes, COPD, cardiomyopathy. PAST SURGICAL HISTORY: Tubal ligation, hysterectomy, tonsillectomy. SOCIAL HISTORY: Never a smoker. FAMILY HISTORY: Noncontributory. ALLERGIES: SULFA DRUGS and INDERJIT INHIBITORS. PHYSICAL EXAMINATION: VITAL SIGNS: She has had a normal temperature throughout the hospital stay. Other vital signs are normal except for tachycardia associated with the atrial arrhythmia. SKIN: She has an area very shallow erosion in the presacral region; otherwise, no other skin lesion s. Peripheral IV access. The Fleming catheter has been removed and she is going to the bedside commo de. HEENT: Ocular movements are conjugate. LUNGS: With faint basilar crackles. HEART: S1, S2 with irregular rate. ABDOMEN: Soft. Not distended, not tender. EXTREMITIES: No joint inflammatory activity. NEUROLOGIC: Nonfocal. LABORATORY AND X-RAY FINDINGS: White cell count was 6.4, now 10.7, hemoglobin 13, platelets 219 wit h normal differential. Chemistry with normal creatinine and urinalysis was normal. One out of 2 se ts of blood cultures with aerobic actinomyces group. ASSESSMENT AND DISCUSSION: Chronic obstructive pulmonary disease with cardiomyopathy and atrial flu tter with planned cardioversion today or tomorrow. The organism isolated is most likely a contamina nt sample and would not recommend any treatment. There is no evidence of intra-abdominal or head an d neck inflammatory process. Disregard this finding.
--- NOTE | 2016-12-15 13:29 | EKG ---
Test Reason : POST CARDIOVERSION Blood Pressure : / mmHG Vent. Rate : 078 BPM Atrial Rate : 078 BPM P-R Int : 162 ms QRS Dur : 098 ms QT Int : 408 ms P-R-T Axes : 077 118 009 degrees QTc Int : 465 ms Normal sinus rhythm Right axis deviation Incomplete right bundle branch block Right ventricular hypertrophy Abnormal ECG When compared with ECG of 13-DEC-2016 17:53, Previous ECG has undetermined rhythm, needs review Incomplete right bundle branch block is now Present Confirmed by DR. David TRACY ([id number]) on 12/15/2016 1:29:29 PM Referred By: GIANCARLO WEATHERS M.D. Confirmed By:DR. David TRACY
[2016-12-15] MEDS: Enoxaparin Sodium 120 MG/0.8 ML SYRINGE SC SCH ×2 (15:13→21:12)
[2016-12-15] MEDS: Brimonidine Tartrate 0.2% Ophth Soln 5 ml Bottle L EYE SCH ×2 (15:16→21:10)
[2016-12-15] MEDS: Dorzolamide HCl/Timolol Maleate 2%/0.5% Ophth Soln 10 ml Bottle L EYE SCH ×2 (15:16→21:10)
[2016-12-15] MEDS: Diltiazem HCl SR 60 mg Capsule PO SCH ×2 (15:17→21:17)
[2016-12-15] MEDS: Potassium Chloride 20 MEQ TAB PO SCH (15:17)
[2016-12-15] MEDS: busPIRone HCl 5 MG TAB PO SCH (15:18)
[2016-12-15] MEDS: Furosemide 40 MG TAB PO SCH (15:18)
[2016-12-15] MEDS: predniSONE 20 MG TAB PO SCH (15:18)
[2016-12-15] MEDS: Docusate 100 MG CAP PO SCH ×2 (15:18→21:11)
[2016-12-15] MEDS: Aspirin 81 mg Enteric Coated Tablet PO SCH (15:18)
[2016-12-15] MEDS: Famotidine 20 MG TAB PO SCH ×2 (15:19→21:11)
--- NOTE | 2016-12-15 19:00 | PDOC.PN ---
- Subjective Encounter Start Date: 12/15/16 Encounter Start Time: 19:00 Patient seen and examined. No new complaints. No overnight events. s/p PENG-CV. Feels better. - Objective MAR Reviewed: Yes Vital Signs & Weight: Vital Signs (12 hours) Temp Pulse Resp BP Pulse Ox 12/15/16 15:40 98 F 80 18 127/60 94 L 12/15/16 14:20 98 16 94 L 12/15/16 08:00 97.7 F 98 16 141/74 H 97 12/15/16 07:45 112 H 16 94 L Weight Weight 266 lb 9.6 oz I&O: 12/14/16 12/15/16 12/16/16 06:59 06:59 06:59 Intake Total 1080 1350 360 Output Total 650 1040 Balance 430 310 360 Result Diagrams: 12/15/16 04:23 12/15/16 04:23 Additional Labs: Accuchecks 12/15/16 12/15/16 12/15/16 16:31 12:30 06:21 POC Glucose 129 H 136 H 135 H 12/14/16 12/14/16 20:27 17:04 POC Glucose 140 H 222 H EKG Reviewed by me: Yes (Tele SR) Phys Exam - Physical Examination Constitutional: NAD Respiratory: no wheezing, no rhonchi Cardiovascular: RRR, no rub Gastrointestinal: soft, non-tender, positive bowel sounds Musculoskeletal: edema present Neurological: non-focal, moves all 4 limbs Dx/Plan (1) Acute on chronic diastolic (congestive) heart failure Code(s): I50.33 - ACUTE ON CHRONIC DIASTOLIC (CONGESTIVE) HEART FAILURE Status : Acute Comment: improving (2) COPD exacerbation Code(s): J44.1 - CHRONIC OBSTRUCTIVE PULMONARY DISEASE W (ACUTE) EXACERBATION Status: Acute Comment: improving (3) ADELINE (obstructive sleep apnea) Code(s): G47.33 - OBSTRUCTIVE SLEEP APNEA (ADULT) (PEDIATRIC) Status: Chronic Comment: ? home CPAP not functioning (4) Tachyarrhythmia Code(s): R00.0 - TACHYCARDIA, UNSPECIFIED Status: Acute Comment: A flutter - on flecainide/Lovenox - s/p PENG/CV 12/15, Cardiology following (5) Morbid obesity with BMI of 40.0-44.9, adult Code(s): E66.01 - MORBID (SEVERE) OBESITY DUE TO EXCESS CALORIES; Z68.41 - BODY MASS INDEX (BMI) 40.0-44.9, ADULT Status: Chronic (6) DM2 (diabetes mellitus, type 2) Status: Chronic Comment: on sliding scale (7) HTN (hypertension) Code(s): I10 - ESSENTIAL (PRIMARY) HYPERTENSION Status: Chronic Qualifiers: Hypertension type: essential hypertension Qualified Code(s): I10 - Essential (primary) hypertension (8) Decubital ulcer Code(s): L89.90 - PRESSURE ULCER OF UNSPECIFIED SITE, UNSPECIFIED STAGE Status : Chronic Qualifiers: Pressure ulcer stage: stage 2 Comment: sacrococcygeal - present on admission (9) Bacteremia Code(s): R78.81 - BACTEREMIA Status: Suspected Comment: ACtinomycetes 1/2 in blood cultures - Contaminant per ID - Plan cont current plan of care, DVT proph w/SCDs * s/p PENG-CV * on Cardizem/Flecainide with anticoag * Cont current meds as below * AM labs * Cont PO Lasix with Pot chloride Review of Systems - Review of Systems Respiratory: negative: Cough, Dry, Shortness of Breath, Hemoptysis, SOB with Excertion, Pleuritic Pain, Sputum, Wheezing Cardiovascular: negative: Chest Pain, Palpitations, Orthopnea, Paroxysmal Noc. Dyspnea, Edema, Light Headedness, Other Gastrointestinal: negative: Nausea, Vomiting, Abdominal Pain, Diarrhea, Constipation, Melena, Hematochezia, Other - Medications/Allergies Allergies/Adverse Reactions: Allergies Allergy/AdvReac Type Severity Reaction Status Date / Time INDERJIT Inhibitors Allergy Verified 04/28/16 05:04 Sulfa (Sulfonamide Allergy Verified 04/28/16 05:04 Antibiotics) Medications: Current Medications Acetaminophen (Tylenol) 650 mg PO Q4H PRN PRN Reason: Headache/Fever or Pain Albuterol/Ipratropium (Duoneb) 3 ml NEB [id number] [facility] Last Admin: 12/15/16 14:20 Dose: 3 ml Aspirin (Ecotrin) 81 mg PO DAILY [facility] Last Admin: 12/15/16 15:18 Dose: 81 mg Bisacodyl (Dulcolax) 10 mg [place] Q24H PRN PRN Reason: Constipation Brimonidine Tartrate (Alphagan 0.2% Ophth Soln) 1 drop L EYE BID [facility] Last Admin: 12/15/16 15:16 Dose: 1 drop Buspirone HCl (Buspar) 5 mg PO DAILY [facility] Last Admin: 12/15/16 15:18 Dose: 5 mg Calcium Carbonate (Tums) 1,000 mg PO Q4H PRN PRN Reason: Heartburn or Indigestion Dextrose/Water (Dextrose 50%) 25 gm SLOW IVP PRN PRN PRN Reason: Hypoglycemia Diltiazem HCl (Cardizem Sr) 60 mg PO BID [facility] Last Admin: 12/15/16 15:17 Dose: 60 mg Docusate Sodium (Colace) 100 mg PO BID [facility] Last Admin: 12/15/16 15:18 Dose: 100 mg Dorzolamide/Timolol (Cosopt 2-0.5% Ophth Soln) 1 drop L EYE BID [facility] Last Admin: 12/15/16 15:16 Dose: 1 drop Enoxaparin Sodium (Lovenox) 120 mg SC 0900,2100 [facility] Last Admin: 12/15/16 15:13 Dose: 120 mg Famotidine (Pepcid) 20 mg PO BID [facility] Last Admin: 12/15/16 15:19 Dose: 20 mg Flecainide Acetate (Tambocor) 50 mg PO Q12HR [facility] Last Admin: 12/15/16 15:19 Dose: 50 mg Furosemide (Lasix) 40 mg PO DAILY-AC [facility] Last Admin: 12/15/16 15:18 Dose: 40 mg Glipizide (Glucotrol Xl) 5 mg PO DAILY [facility] Last Admin: 12/15/16 15:19 Dose: 5 mg Glucagon (Glucagon) 1 mg IM PRN PRN PRN Reason: Hypoglycemia Dextrose/Water (D5w) 1,000 mls @ 0 mls/hr IV .Q0M PRN; As Directed PRN Reason: Hypoglycemia Insulin Human Lispro (Humalog) 0 units SC .MODERATE SLIDING SC PRN PRN Reason: Moderate Correctional Scale Last Admin: 12/10/16 11:47 Dose: 2 unit Insulin Human Lispro (Humalog) 0 units SC .BEDTIME SLIDING SC PRN PRN Reason: Bedtime Correctional Scale Last Admin: 12/13/16 21:22 Dose: 3 unit Mometasone Furoate (Asmanex Hfa 200 Mcg) 1 puff INH 1830 [facility] Last Admin: 12/14/16 18:17 Dose: 1 puff Nitroglycerin (Nitrostat) 0.4 mg PO Q5MIN PRN PRN Reason: Chest Pain Ondansetron HCl (Zofran Odt) 4 mg PO Q6H PRN PRN Reason: Nausea/Vomiting Ondansetron HCl (Zofran) 4 mg IVP Q6H PRN PRN Reason: Nausea/Vomiting Polyethylene Glycol (Miralax) 17 gm PO DAILYPRN PRN PRN Reason: Constipation Last Admin: 12/11/16 17:54 Dose: 17 gm Potassium Chloride (K-Dur) 20 meq PO DAILY [facility] Last Admin: 12/15/16 15:17 Dose: 20 meq Prednisone (Prednisone) 20 mg PO QAM-[facility] Last Admin: 12/15/16 15:18 Dose: 20 mg Senna (Senokot) 2 tab PO HSPRN PRN PRN Reason: Constipation Sodium Chloride (Flush - Normal Saline) 10 ml IVF Q12HR [facility] Last Admin: 12/14/16 20:53 Dose: 10 ml Sodium Chloride (Flush - Normal Saline) 10 ml IVF PRN PRN PRN Reason: Saline Flush Last Admin: 12/13/16 16:03 Dose: 10 ml
[2016-12-15] MEDS: Mometasone 200 MCG HFA INHALER INH SCH (19:13)
[2016-12-16 07:41] LABS: Hematocrit 41.4 % (36.0-47.0)
[2016-12-16 07:55] LABS: Anion Gap 8 mmol/L (10-20); BUN (Urea Nitrogen) 23 mg/dL (9.8-20.1); BUN/Creatinine Ratio 23.47; Calc. Creatinine Clearance 94 mL/min (70-130); Calcium 8.8 mg/dL (7.8-10.44); Carbon Dioxide 35 mmol/L (23-31); Chloride 101 mmol/L (98-107); Estimated GFR-MDRD 67; Magnesium 2.2 mg/dL (1.6-2.6)
[2016-12-16] MEDS: Docusate 100 MG CAP PO SCH ×2 (09:22→21:26)
[2016-12-16] MEDS: Furosemide 40 MG TAB PO SCH (09:22)
[2016-12-16] MEDS: busPIRone HCl 5 MG TAB PO SCH (09:22)
[2016-12-16] MEDS: Potassium Chloride 20 MEQ TAB PO SCH (09:22)
[2016-12-16] MEDS: Brimonidine Tartrate 0.2% Ophth Soln 5 ml Bottle L EYE SCH ×2 (09:22→21:26)
[2016-12-16] MEDS: Dorzolamide HCl/Timolol Maleate 2%/0.5% Ophth Soln 10 ml Bottle L EYE SCH ×2 (09:22→21:26)
[2016-12-16] MEDS: Enoxaparin Sodium 120 MG/0.8 ML SYRINGE SC SCH (09:23)
[2016-12-16] MEDS: Aspirin 81 mg Enteric Coated Tablet PO SCH (09:23)
[2016-12-16] MEDS: predniSONE 20 MG TAB PO SCH (09:23)
[2016-12-16] MEDS: Famotidine 20 MG TAB PO SCH ×2 (09:23→21:25)
[2016-12-16] MEDS: Diltiazem HCl SR 60 mg Capsule PO SCH ×2 (09:37→21:36)
--- NOTE | 2016-12-16 12:37 | PDOC.CTH ---
Cardiology Progress Note - Subjective She had a PENG Cardioverison yesterday and it went well. She is back in sinus and remained in sinus. - Objective Vital Signs Temp Pulse Resp BP Pulse Ox 12/16/16 09:27 94 L 12/16/16 09:24 78 16 12/16/16 08:00 98.6 F 78 18 136/62 98 12/16/16 04:00 97.4 F L 74 18 135/69 Weight 265 lb 12/15/16 12/16/16 12/17/16 06:59 06:59 06:59 Intake Total 1350 720 Output Total 1040 Balance 310 720 - Physical Examination General/Neuro: alert & oriented x3, NAD Neck: no JVD present Lungs: unlabored respirations Heart: RRR Abdomen: NT/ND Extremities: + edema B (1+) - Telemetry Telemetry Rhythm: NSR - Labs Result Diagrams: 12/16/16 07:20 12/16/16 07:20 Troponin/CKMB CK-MB (CK-2) 1.0 ng/mL (0-6.6) 12/09/16 21:55 Troponin I 0.018 ng/mL (< 0.028) 12/10/16 04:16 - Assessment/Plan 1. Atrial flutter, now in sinus. 2. Pulmonary hypertension 3. Acute on chronic diastolic heart failure. PLAN: - Continue flecainide and switch Lovenox to Eliquis 5 mg BID. - Home tomorrow from [facility].
--- NOTE | 2016-12-16 16:02 | PDOC.PN ---
- Subjective Encounter Start Date: 12/16/16 Encounter Start Time: 09:00 Patient seen and examined. No new complaints. No overnight events. No CP. Feels better. - Objective MAR Reviewed: Yes Vital Signs & Weight: Vital Signs (12 hours) Temp Pulse Pulse Pulse Resp BP BP 12/16/16 14:22 71 16 12/16/16 12:00 97.9 F 71 18 12/16/16 11:15 74 72 135/64 130/63 12/16/16 09:27 12/16/16 09:24 78 16 12/16/16 08:00 98.6 F 78 18 BP Pulse Ox Pulse Ox Pulse Ox 12/16/16 14:22 12/16/16 12:00 135/64 91 L 12/16/16 11:15 95 100 12/16/16 09:27 94 L 12/16/16 09:24 12/16/16 08:00 136/62 98 Weight Weight 265 lb I&O: 12/15/16 12/16/16 12/17/16 06:59 06:59 06:59 Intake Total 1350 720 Output Total 1040 Balance 310 720 Result Diagrams: 12/16/16 07:20 12/16/16 07:20 Additional Labs: Accuchecks 12/16/16 12/16/16 12/15/16 11:23 05:48 19:54 POC Glucose 98 161 H 158 H 12/15/16 16:31 POC Glucose 129 H EKG Reviewed by me: Yes (Tele SR) Phys Exam - Physical Examination Constitutional: NAD Respiratory: no wheezing, no rhonchi Scat rales at bases Cardiovascular: RRR, no rub Gastrointestinal: soft, non-tender, positive bowel sounds Musculoskeletal: edema present Neurological: non-focal, moves all 4 limbs Dx/Plan (1) Acute on chronic diastolic (congestive) heart failure Code(s): I50.33 - ACUTE ON CHRONIC DIASTOLIC (CONGESTIVE) HEART FAILURE Status : Acute Comment: improving (2) COPD exacerbation Code(s): J44.1 - CHRONIC OBSTRUCTIVE PULMONARY DISEASE W (ACUTE) EXACERBATION Status: Acute Comment: improving (3) ADELINE (obstructive sleep apnea) Code(s): G47.33 - OBSTRUCTIVE SLEEP APNEA (ADULT) (PEDIATRIC) Status: Chronic Comment: ? home CPAP not functioning (4) Tachyarrhythmia Code(s): R00.0 - TACHYCARDIA, UNSPECIFIED Status: Acute Comment: A flutter - on flecainide/anticoag - s/p PENG/CV 12/15, Cardiology following (5) Morbid obesity with BMI of 40.0-44.9, adult Code(s): E66.01 - MORBID (SEVERE) OBESITY DUE TO EXCESS CALORIES; Z68.41 - BODY MASS INDEX (BMI) 40.0-44.9, ADULT Status: Chronic (6) DM2 (diabetes mellitus, type 2) Status: Chronic Comment: on sliding scale (7) HTN (hypertension) Code(s): I10 - ESSENTIAL (PRIMARY) HYPERTENSION Status: Chronic Qualifiers: Hypertension type: essential hypertension Qualified Code(s): I10 - Essential (primary) hypertension (8) Decubital ulcer Code(s): L89.90 - PRESSURE ULCER OF UNSPECIFIED SITE, UNSPECIFIED STAGE Status : Chronic Qualifiers: Pressure ulcer stage: stage 2 Comment: sacrococcygeal - present on admission (9) Bacteremia Code(s): R78.81 - BACTEREMIA Status: Suspected Comment: ACtinomycetes 1/2 in blood cultures - Contaminant per ID - Plan cont current plan of care * Cardiology following * DC planning * Eliquis started * HHC at dc * Cont current meds as below * AM labs * Cont PO Lasix Review of Systems - Review of Systems Respiratory: negative: Cough, Dry, Shortness of Breath, Hemoptysis, SOB with Excertion, Pleuritic Pain, Sputum, Wheezing Cardiovascular: negative: Chest Pain, Palpitations, Orthopnea, Paroxysmal Noc. Dyspnea, Edema, Light Headedness, Other Gastrointestinal: negative: Nausea, Vomiting, Abdominal Pain, Diarrhea, Constipation, Melena, Hematochezia, Other - Medications/Allergies Allergies/Adverse Reactions: Allergies Allergy/AdvReac Type Severity Reaction Status Date / Time INDERJIT Inhibitors Allergy Verified 04/28/16 05:04 Sulfa (Sulfonamide Allergy Verified 04/28/16 05:04 Antibiotics) Medications: Current Medications Acetaminophen (Tylenol) 650 mg PO Q4H PRN PRN Reason: Headache/Fever or Pain Albuterol/Ipratropium (Duoneb) 3 ml NEB [id number] [facility] Last Admin: 12/16/16 14:22 Dose: 3 ml Apixaban (Eliquis) 5 mg PO BID [facility] Aspirin (Ecotrin) 81 mg PO DAILY [facility] Last Admin: 12/16/16 09:23 Dose: 81 mg Bisacodyl (Dulcolax) 10 mg [place] Q24H PRN PRN Reason: Constipation Brimonidine Tartrate (Alphagan 0.2% Ophth Soln) 1 drop L EYE BID [facility] Last Admin: 12/16/16 09:22 Dose: 1 drp Buspirone HCl (Buspar) 5 mg PO DAILY [facility] Last Admin: 12/16/16 09:22 Dose: 5 mg Calcium Carbonate (Tums) 1,000 mg PO Q4H PRN PRN Reason: Heartburn or Indigestion Dextrose/Water (Dextrose 50%) 25 gm SLOW IVP PRN PRN PRN Reason: Hypoglycemia Diltiazem HCl (Cardizem Sr) 60 mg PO BID [facility] Last Admin: 12/16/16 09:37 Dose: 60 mg Docusate Sodium (Colace) 100 mg PO BID [facility] Last Admin: 12/16/16 09:22 Dose: 100 mg Dorzolamide/Timolol (Cosopt 2-0.5% Ophth Soln) 1 drop L EYE BID [facility] Last Admin: 12/16/16 09:22 Dose: 1 drop Famotidine (Pepcid) 20 mg PO BID [facility] Last Admin: 12/16/16 09:23 Dose: 20 mg Flecainide Acetate (Tambocor) 50 mg PO Q12HR [facility] Last Admin: 12/16/16 09:23 Dose: 50 mg Furosemide (Lasix) 40 mg PO DAILY[facility] Last Admin: 12/16/16 09:22 Dose: 40 mg Glipizide (Glucotrol Xl) 5 mg PO DAILY [facility] Last Admin: 12/16/16 09:23 Dose: 5 mg Glucagon (Glucagon) 1 mg IM PRN PRN PRN Reason: Hypoglycemia Dextrose/Water (D5w) 1,000 mls @ 0 mls/hr IV .Q0M PRN; As Directed PRN Reason: Hypoglycemia Insulin Human Lispro (Humalog) 0 units SC .MODERATE SLIDING SC PRN PRN Reason: Moderate Correctional Scale Last Admin: 12/10/16 11:47 Dose: 2 unit Insulin Human Lispro (Humalog) 0 units SC .BEDTIME SLIDING SC PRN PRN Reason: Bedtime Correctional Scale Last Admin: 12/13/16 21:22 Dose: 3 unit Mometasone Furoate (Asmanex Hfa 200 Mcg) 1 puff INH 1830 [facility] Last Admin: 12/15/16 19:13 Dose: 1 puff Nitroglycerin (Nitrostat) 0.4 mg PO Q5MIN PRN PRN Reason: Chest Pain Ondansetron HCl (Zofran Odt) 4 mg PO Q6H PRN PRN Reason: Nausea/Vomiting Ondansetron HCl (Zofran) 4 mg IVP Q6H PRN PRN Reason: Nausea/Vomiting Polyethylene Glycol (Miralax) 17 gm PO DAILYPRN PRN PRN Reason: Constipation Last Admin: 12/11/16 17:54 Dose: 17 gm Potassium Chloride (K-Dur) 20 meq PO DAILY [facility] Last Admin: 12/16/16 09:22 Dose: 20 meq Prednisone (Prednisone) 20 mg PO QAM-WM [facility] Last Admin: 12/16/16 09:23 Dose: 20 mg Senna (Senokot) 2 tab PO HSPRN PRN PRN Reason: Constipation Sodium Chloride (Flush - Normal Saline) 10 ml IVF Q12HR [facility] Last Admin: 12/16/16 09:24 Dose: 10 ml Sodium Chloride (Flush - Normal Saline) 10 ml IVF PRN PRN PRN Reason: Saline Flush Last Admin: 12/13/16 16:03 Dose: 10 ml
[2016-12-16] MEDS: HumaLOG 300 UNITS/3 ML VIAL SC PRN (17:54)
[2016-12-16] MEDS: Mometasone 200 MCG HFA INHALER INH SCH (18:46)
[2016-12-16] MEDS: Apixaban 5 MG TAB PO SCH (21:26)
[2016-12-17] MEDS: Apixaban 5 MG TAB PO SCH (08:56)
[2016-12-17] MEDS: Furosemide 40 MG TAB PO SCH (08:56)
[2016-12-17] MEDS: Aspirin 81 mg Enteric Coated Tablet PO SCH (08:56)
[2016-12-17] MEDS: Potassium Chloride 20 MEQ TAB PO SCH (08:56)
[2016-12-17] MEDS: Docusate 100 MG CAP PO SCH (08:56)
[2016-12-17] MEDS: predniSONE 20 MG TAB PO SCH (08:56)
[2016-12-17] MEDS: Famotidine 20 MG TAB PO SCH (08:56)
[2016-12-17] MEDS: busPIRone HCl 5 MG TAB PO SCH (08:57)
[2016-12-17] MEDS: Brimonidine Tartrate 0.2% Ophth Soln 5 ml Bottle L EYE SCH (08:57)
[2016-12-17] MEDS: Dorzolamide HCl/Timolol Maleate 2%/0.5% Ophth Soln 10 ml Bottle L EYE SCH (08:57)
[2016-12-17] MEDS: Diltiazem HCl SR 60 mg Capsule PO SCH (09:07)
--- NOTE | 2016-12-17 13:52 | DIS ---
DATE OF ADMISSION: 12/15/2016 DATE OF DISCHARGE: 12/17/2016 DISCHARGE DISPOSITION: Home. [facility] will be resumed. FOLLOWUP: 1. Follow up with Dr. Peterson in 1 week. 2. Follow up with Dr. Loo, as scheduled for sleep apnea and lung nodule. ALLERGIES: The patient is allergic to INDERJIT INHIBITOR and SULFA. The patient was seen and examined on the day of discharge, denies any new complaints, feels better. Shortness of breath has significantly improved. DISCHARGE MEDICATIONS: 1. Eliquis 5 mg b.i.d. (new medication). 2. Flecainide 50 mg b.i.d. (new medication). 3. Prednisone 10 mg daily for the next 4 days. 4. Diltiazem sustained release 60 mg b.i.d. Other home medications were resumed includin. Aspirin 81 mg daily. 2. Alphagan eye drops b.i.d. 3. Dorzolamide/timolol eyedrops b.i.d. 4. Lasix 40 mg daily. 5. DuoNeb q.6 hourly. 6. Mometasone 200 mcg daily. 7. Potassium chloride 20 mEq daily. 8. Buspirone 5 mg daily. 9. Glipizide 5 mg daily. 10. Tessalon Perles as needed. 11. MiraLax as needed. The patient was extensively counseled on 2 liter fluid restriction. Daily weight with log was empha sized. BRIEF HOSPITAL COURSE: The patient is a 76-year-old female with congestive heart failure, chronic o bstructive pulmonary disease, hypertension, and medical noncompliance, presented to the hospital wit h shortness of breath. Her workup was consistent with congestive heart failure exacerbation. She w as started on diuretics. She had intermittent tachyarrhythmia with eventual persistent atrial flutt er. She was evaluated by Cardiology and underwent PENG cardioversion. She has been started on antic oagulation per Cardiology. Pulmonary embolism was ruled out. Her weight on admission is 264 pounds from 275 pounds on admission. She was extensively counseled on heart failure including fluid restr iction. SIGNIFICANT LABS: 1. BNP 511. 2. Magnesium 1.5 on admission and 2.2 at discharge. 3. Troponins were negative. FINAL DIAGNOSES: 1. Acute on chronic diastolic heart failure. 2. Chronic obstructive pulmonary disease exacerbation. 3. Atrial flutter with rapid ventricular response. The patient was started on flecainide along wit h Cardizem and anticoagulation. She underwent transesophageal echocardiography cardioversion on by Dr. Quispe. 4. Obstructive sleep apnea. The patient has issues with home continuous positive airway pressure. 5. Morbid obesity with a body mass index of 43.9. 6. Diabetes mellitus type 2. 7. Hypertension. 8. Stage 2 sacral coccygeal ulcer present on admission. 9. Actinomyces in one of the blood culture. It is a contaminant per Infectious Disease. 10. Pulmonary hypertension. 11. Gastroesophageal reflux disease. 12. Chronic respiratory failure, on home oxygen. Plan of care was discussed with the patient. She stated understanding. Total time coordinating the discharge of this patient was 38 minutes.
--- NOTE | 2016-12-17 15:21 | PDOC.CTH ---
Cardiology Progress Note - Subjective Doing well. Remains in sinus. - Objective Vital Signs Temp Pulse Pulse Pulse Resp BP BP 12/17/16 13:40 77 16 12/17/16 12:00 97.9 F 72 17 12/17/16 10:24 83 66 146/65 H 146/67 H 12/17/16 08:00 98.3 F 77 16 12/17/16 06:50 12/17/16 06:47 69 16 12/17/16 04:00 97.6 F 70 20 BP Pulse Ox Pulse Ox Pulse Ox 12/17/16 13:40 12/17/16 12:00 146/66 H 95 12/17/16 10:24 90 L 92 L 12/17/16 08:00 94 L 12/17/16 06:50 94 L 12/17/16 06:47 12/17/16 04:00 140/64 94 L Weight 264 lb 12/16/16 12/17/16 12/18/16 06:59 06:59 06:59 Intake Total 720 1300 360 Balance 720 1300 360 - Physical Examination General/Neuro: alert & oriented x3, NAD Neck: no JVD present Lungs: CTA, unlabored respirations Heart: RRR Abdomen: NT/ND Extremities: + edema B (trace) - Telemetry Telemetry Rhythm: NSR - Labs Result Diagrams: 12/16/16 07:20 12/16/16 07:20 Troponin/CKMB CK-MB (CK-2) 1.0 ng/mL (0-6.6) 12/09/16 21:55 Troponin I 0.018 ng/mL (< 0.028) 12/10/16 04:16 - Assessment/Plan 1. Atrial flutter, now in sinus. 2. Pulmonary hypertension 3. Acute on chronic diastolic heart failure, improved. PLAN: - Continue flecainide and Eliquis 5 mg BID. - May discharge home today from [facility]. - Follow up in 1 month in the office.
[2016-12-17 18:06] VITALS: BP 133/61; TEMP 98
== END 2016-12-17 17:16 | disposition home health service (06) | DRG 292 ==
LOC: ERS 20:02 → 2NO 12-10
PROVIDERS: ADMIT Internal Medicine; ATTEND Internal Medicine
DX: I11.0 Hypertensive heart disease with heart failure (principal); J96.10 Chronic respiratory failure, unspecified whether with hypoxia or hypercapnia; L89.152 Pressure ulcer of sacral region, stage 2; I48.92 Unspecified atrial flutter; I27.20 Pulmonary hypertension, unspecified; Z99.81 Dependence on supplemental oxygen; Z68.41 Body mass index [BMI] 40.0-44.9, adult; I44.1 Atrioventricular block, second degree; J44.1 Chronic obstructive pulmonary disease with (acute) exacerbation; E11.9 Type 2 diabetes mellitus without complications; E83.42 Hypomagnesemia; I50.33 Acute on chronic diastolic (congestive) heart failure; E66.01 Morbid (severe) obesity due to excess calories; G47.33 Obstructive sleep apnea (adult) (pediatric); K21.9 Gastro-esophageal reflux disease without esophagitis; R91.1 Solitary pulmonary nodule; Z88.2 Allergy status to sulfonamides; Z88.8 Allergy status to other drugs, medicaments and biological substances; Z79.82 Long term (current) use of aspirin; Z91.19 Patient's noncompliance with other medical treatment and regimen; Z79.01 Long term (current) use of anticoagulants; Z82.49 Family history of ischemic heart disease and other diseases of the circulatory system
CPT/HCPCS: 36415; 36416; 51702; 71275; 80048; 80053; 80069; 81003; 83735; 83880; 84100; 84484; 85014; 85018; 85025; 85049; 85379; 85610; 87040; 92960; 93005; 93010; 93312; 93798; 94640; 94660; 94664; 94760; 96365; 96375; A4216; G8978-GP-CL; G8979-GP-CL; G8987-GO-CL; G8988-GO-CL; G8989-GO-CL; J1644; J1650; J1940; J2704; J2930; J3475; J7506; J7620; Q0162; S0028

== ENCOUNTER 2017-01-30 15:15 | Inpatient (IN) | payer MEDICARE, MEDICAID ==
[2017-01-30 16:00] LABS: #Basophils 0.1 thou/uL (0.0-0.2); #Eosinphils 0.2 thou/uL (0.0-0.7); #Lymphocytes 3.1 thou/uL (1.20-3.40); #Monocytes 1.2 thou/uL (0.11-0.59); #Neutrophils 4.5 thou/uL (1.40-6.50); %Basophils 0.9 % (0.0-1.0); %Eosinophils 2.6 % (0.0-10.0); %Monocytes 13.6 % (0.0-10.0); Hematocrit 40.3 % (36.0-47.0); Mean Platelet Volume 8.1 fL (7.4-10.4); Red Blood Cell (RBC) Count 4.02 mill/uL (4.20-5.40); White Blood Cell (WBC) Count 9.1 thou/uL (4.8-10.8)
[2017-01-30 16:19] LABS: ALT (SGPT) 12 U/L (8-55); AST (SGOT) 18 U/L (5-34); Alkaline Phosphatase 91 U/L (40-150); Anion Gap 13 mmol/L (10-20); BUN (Urea Nitrogen) 22 mg/dL (9.8-20.1); Bilirubin, Total 0.6 mg/dL (0.2-1.2); Calc. Creatinine Clearance 0 mL/min (70-130); Carbon Dioxide 31 mmol/L (23-31); Chloride 100 mmol/L (98-107); Estimated GFR-MDRD 57; Globulin 4.5 g/dL (2.4-3.5); Protein, Total 7.7 g/dL (6.0-8.3)
--- NOTE | 2017-01-30 16:27 | RAD ---
PORTABLE UPRIGHT FRONTAL CHEST RADIOGRAPH: Date: 01/30/17 COMPARISON: 12/09/16. HISTORY: Malaise, cough. FINDINGS: Cardiac silhouette is prominent. There is atherosclerotic calcification of the aortic arch. There is no pneumothorax seen. There is pulmonary vascular congestion. There is asymmetric increased linear density in the right miriam g base, new. There is also patchy increased density noted in the left lung base abutting the mid port ion of the left hemidiaphragm. IMPRESSION: Prominent cardiac silhouette with pulmonary vascular prominence and streaky bibasilar opacity. Findin gs may be on the basis of infectious pneumonitis, aspiration, and/or edema. Follow-up imaging of the chest following treatment advised. POS: [facility]
[2017-01-30 16:28] LABS: Troponin I Less than 0.010 ng/mL (< 0.028)
[2017-01-30] MEDS ORDERED: Furosemide 40 MG/4 ML VIAL ONE (16:47)
[2017-01-30] MEDS ORDERED: Ondansetron HCl/PF 4 MG/2 ML Vial IVP PRN (18:12)
[2017-01-30] MEDS ORDERED: Ondansetron ODT 4 MG TAB SL PRN (18:12)
[2017-01-30] MEDS ORDERED: Acetaminophen 325 MG TAB PO PRN (18:12)
[2017-01-30 18:31] VITALS: BMI 48.9
[2017-01-30] MEDS ORDERED: HumaLOG 300 UNITS/3 ML VIAL SC PRN (19:11)
[2017-01-30] MEDS ORDERED: Dextrose 5% in Water 1,000 ML IV PRN (19:11)
[2017-01-30] MEDS ORDERED: Dextrose 50% Abboject 50 ML SYRINGE SLOW IVP PRN (19:11)
--- NOTE | 2017-01-30 19:43 | HP ---
PRIMARY CARE PHYSICIAN: Dr. Mulugeta Peterson. CHIEF COMPLAINT: Generalized weakness. HISTORY OF PRESENT ILLNESS: Ms. Bishop is a pleasant 77-year-old lady, who was seen at [facility] on 01/30/2017. She was hospitalized at this facility in 11/2016 for congestive heart failure exacerbation. She reports that she was doing well until a few days ago. She reports that she may be drinking more water than she is supposed to, especially when she takes her medications. Over the last few days, she reported generalized weakness, shortness of breath with exertion and leg swelling. She thinks her abdomen may be getting bigger as well. She denies any cough, fever, or chills. She denies any nausea or vomiting. She reports that she can lie flat. REVIEW OF SYSTEMS: The following complete review of systems was negative, unless otherwise mentioned in the HPI or below: CONSTITUTIONAL: Weight loss or gain, sense of well-being, ability to conduct usual activities, exercise tolerance. SKIN/BREAST: Rash, itching, changes in hair growth or loss, nail changes, breast lumps, tenderness, swelling, nipple discharge. EYES: Vision, double vision, tearing, blind spots, pain. ENT/MOUTH: Headaches (location, time of onset, duration, precipitating factors) , vertigo, lightheadedness, injury. Vision, double vision, tearing, blind spots , pain, nose bleeding, colds, obstruction, discharge, dental difficulties, gingival bleeding, dentures, neck stiffness, pain, tenderness, masses in thyroid or other areas. CARDIOVASCULAR: Precordial pain, substernal distress, palpitations, syncope, dyspnea on exertion, orthopnea, nocturnal paroxysmal dyspnea, edema, cyanosis, hypertension, heart murmurs, varicosities, phlebitis, claudication. RESPIRATORY: Pain, shortness of breath, wheezing, stridor, cough, hemoptysis, fever or night sweats GASTROINTESTINAL: Poor appetite, dysphagia, indigestion, abdominal pain, heartburn, eructation, nausea, vomiting, hematemesis, jaundice, constipation, or diarrhea, abnormal stools (yemi-colored, tarry, bloody, greasy, foul smelling ), flatulence, hemorrhoids, recent changes in bowel habits. GENITOURINARY: Urgency, frequency, dysuria, nocturia, hematuria, polyuria, oliguria, unusual (or change in) color of urine, stones, hesitancy, change in size of stream, dribbling, acute retention or incontinence, libido, potency. MUSCULOSKELETAL: Pain, swelling, redness or heat of muscles or joints, limitation, of motion, muscular weakness, atrophy, cramps. NEUROLOGIC/PSYCHIATRIC: Convulsions, paralyses, tremor, incoordination, paresthesias, difficulties with memory of speech, sensory or motor disturbances , or muscular coordination (ataxia, tremor), emotional problems, anxiety, depression, previous psychiatric care, unusual perceptions, hallucinations. ALLERGY/IMMUNOLOGIC: Skin rash, anemia, bleeding tendency, polydipsia, polyuria , intolerance to heat or cold. PAST MEDICAL HISTORY: Significant for chronic diastolic congestive heart failure, severe pulmonary hypertension, obstructive sleep apnea syndrome, morbid obesity, chronic obstructive pulmonary disease, gastroesophageal reflux disease and diabetes mellitus type 2. PAST SURGICAL HISTORY: Significant for tonsillectomy, tubal ligation, hysterectomy with bilateral salpingo-oophorectomy. FAMILY HISTORY: Her father from coronary artery disease in his 80s. SOCIAL HISTORY: The patient denies tobacco use, alcohol use or recreational drug use. CODE STATUS: I discussed her code status. She is FULL CODE. ALLERGIES: INDERJIT INHIBITORS, SULFA. CURRENT MEDICATIONS: Include aspirin 81 mg daily, glipizide 5 mg daily, Lasix 60 mg daily, potassium chloride 20 mEq daily, diltiazem 60 mg 2 times a day, buspirone 5 mg daily, and flecainide 50 mg 2 times a day. PHYSICAL EXAMINATION: GENERAL: Ms. Bishop is awake and alert, not in acute distress. VITAL SIGNS: Blood pressure is 135/66, pulse is 72. She is breathing at rate of 16 and saturating 96% on 4 liters of oxygen. She is afebrile. EYES: Right corneal opacity. No conjunctival pallor, no scleral icterus. ENT: Moist mucosal membranes, no oropharyngeal erythema or exudates. NECK: Jugular venous distention present, trachea midline, no thyromegaly. RESPIRATORY: Accessory muscles of breathing are not active. Chest wall movements are symmetric bilaterally. LUNGS: Reveals bibasilar crackles. CARDIOVASCULAR: S1 and S2 are heard, regular. Peripheral pulses palpable. No carotid bruit, no pericardial rub. ABDOMEN: Distended, nontender, bowel sounds heard, no hepatomegaly, no splenomegaly. NEUROLOGIC: Cranial nerves II-XII are intact. Deep tendon reflexes are 2+. MUSCULOSKELETAL: Power is 5/5 in all 4 extremities. Normal range of movement at all major extremity joints. LYMPHATIC: No cervical lymphadenopathy. SKIN: No rashes or subcutaneous nodules. MUSCULOSKELETAL: Power is 5/5 in all 4 extremities. She has bilateral lower extremity edema. PSYCHIATRIC: Normal mood, normal affect, patient is oriented to person, place, month and year, but not to date. LABORATORY DATA: Ms. Bishop's labs and investigations were reviewed. I reviewed her electrocardiogram, which shows normal sinus rhythm, no ST changes to suggest an acute coronary syndrome. I also reviewed her chest x-ray, which shows vascular congestion. Laboratory investigation showed normal white count, normal hemoglobin, normal platelet count, elevated BNP of 1176, normal troponin I, mildly elevated creatinine of 1.13, last known creatinine 0.96 on 12/29/2016, normal sodium, normal potassium, decreased albumin of 32, normal total bilirubin, normal AST, normal ALT and normal alkaline phosphatase. ASSESSMENT AND PLAN: Ms. Bishop is a pleasant 77-year-old lady who was seen at [facility]. Her problem list includes: 1. Congestive heart failure exacerbation: Ms. Bishop's presentation is consistent with acute exacerbation of chronic diastolic congestive heart failure. She will be admitted to the hospital for treatment with intravenous diuretics. Cardiology service will be consulted for optimization of her congestive heart failure medications. 2. Diabetes mellitus: Start Accu-Cheks, insulin sliding scale. 3. Chronic obstructive pulmonary disease: Appears to be stable. 4. Gastroesophageal reflux disease: Appears to be stable. Many thanks for allowing me to participate in your patient's care. Please feel free to contact me with any questions or concerns. LEVEL OF RISK: High. LEVEL OF COMPLEXITY: High. MTDD
[2017-01-31] MEDS: Furosemide 40 MG/4 ML VIAL SLOW IVP SCH ×2 (05:37→12:46)
[2017-01-31 05:45] LABS: Anion Gap 11 mmol/L (10-20); BUN (Urea Nitrogen) 20 mg/dL (9.8-20.1); Calc. Creatinine Clearance 100 mL/min (70-130); Calcium 8.5 mg/dL (7.8-10.44); Carbon Dioxide 31 mmol/L (23-31); Chloride 101 mmol/L (98-107); Estimated GFR-MDRD 64
[2017-01-31 06:11] LABS: Band 2 % (5-11); Hematocrit 35.5 % (36.0-47.0); Mean Platelet Volume 8.5 fL (7.4-10.4); Neutrophil 56 % (42-75); Red Blood Cell (RBC) Count 3.54 mill/uL (4.20-5.40); White Blood Cell (WBC) Count 8.1 thou/uL (4.8-10.8)
[2017-01-31] MEDS ORDERED: Docusate 100 MG CAP PO SCH (10:00)
--- NOTE | 2017-01-31 12:32 | CON ---
DATE OF CONSULTATION: 01/31/2017 INDICATION FOR CONSULTATION: A 77-year-old female with CHF exacerbation and also COPD exacerbation. HISTORY OF PRESENT ILLNESS: This very unfortunate 77-year-old female with a long history of congesti ve heart failure due to diastolic dysfunction and also due to some pulmonary problems due to respirat ory failure and insufficiency due to pulmonary hypertension, COPD, and sleep apnea. She presented to the hospital yesterday complaining of increasing shortness of breath, lower extremity edema, and was admitted due to congestive heart failure exacerbation. She recently was in the hospital back in Nov with similar symptoms and this had improved. Apparently, she has been drinking more fluid than usual and noticed that she has had some more shortness of breath. Her main complaint, however, today is that she does feel depressed and is concerned about this. She does have medications, but from a pulmonary standpoint she denies any significant shortness of breath today; however, she continues to have some wheezing. She mainly complained of some weakness as well as shortness of breath and lower extremity edema. She noticed the increased over the last several days after she had been taking more fluid. She drinks several glasses of water daily, water and juice, but does not drink any other sig nificant amounts of fluid. Her echocardiogram back in 06/2016 showed ejection fraction of 60-65% wit h grade I/III diastolic dysfunction with severe moderate pulmonary hypertension, moderate pulmonary v alve regurgitation, severe tricuspid valve regurgitation. At this time, she appears to be relatively stable from a cardiac standpoint except for the CHF exacerbation which appears to have improved. I am uncertain of her I's and O's since she does not have a Fleming catheter in and she has been urinatin g apparently in the diaper and in the bed so it is difficult to determine her actual I's and O's, but overall appears to be improving and she denied any complaints of chest pain. PAST MEDICAL HISTORY: Significant for the pulmonary hypertension, diastolic dysfunction, COPD, hyper tension, type 2 diabetes, obstructive sleep apnea, gastroesophageal reflux disease. She had a hyster ectomy, tonsillectomy, tubal ligation. She has had a history of atrial flutter, I am uncertain wheth er or not this was actually ablated, but she has had a history of atrial flutter in the past. SOCIAL HISTORY: She has no history of alcohol or tobacco abuse. FAMILY HISTORY: Her father in his 80s from coronary artery disease. ALLERGIES: She is allergic to INDERJIT INHIBITORS and SULFA. REVIEW OF SYSTEMS: Twelve point review of systems, she mainly complained of being depressed, the sonia rtness of breath and lower extremity edema and some constipation. She denied any other GI or comp laints. She does have wheezing. She does not smoke. She complains of lower extremity edema. PHYSICAL EXAMINATION: GENERAL: Reveals a morbidly obese elderly female. VITAL SIGNS: Blood pressure 134/62, heart rate 73 and it is regular at this time, respiratory rate 1 6. She is afebrile. O2 saturation 99%. HEENT: Shows the head to be normocephalic and atraumatic. Carotid pulses are present without any br uits. CHEST: Has decreased breath sounds throughout with expiratory wheezing throughout. She has poor ins piratory effort. CARDIOVASCULAR: Reveals a regular rate and rhythm, she has a systolic murmur at the upper sternal debbie rder on the left side compatible with her pulmonary valve regurgitation and also at the lower sternal border compatible with tricuspid valve regurgitation. There were no heaves or thrills noted. ABDOMEN: Shows morbid obesity. She has positive bowel sounds. I cannot elicit any tenderness, orga nomegaly or masses. Femoral pulses are difficult to palpate due to large pannus. EXTREMITIES: She has 1-2+ lower extremity edema, I also cannot palpate pedal pulses, most likely due to the edema. SKIN: Warm and dry. NEUROLOGIC: She appears to be fully intact with normal strength and normal tone. Her EKG shows a normal sinus rhythm. LABORATORY DATA: Shows hemoglobin of 10.8, WBC of 8.1. Her creatinine was 1.02 and a BNP was 1176. IMPRESSION: 1. Congestive heart failure exacerbation, most likely due to noncompliance with fluid overload and d rinking too much fluid. She appears to have had improvement since she has underwent diuresis and we do not have an accurate I&O, but she does appear to be better. She has not had any major complaints today. It is very difficult on this lady with a right-sided failure and also due with the diastolic dysfunction, I would agree with the diuretics at this time. She has had a history of flutter/fibrill ation in the past and most likely she would benefit from starting back on flecainide as well as her a spirin. 2. History of diabetes and will need to be placed back on medications as needed. Her blood sugar to day was only 86. This will be left to the discretion of the primary service. She has also been plac ed in the past on a diltiazem 60 mg b.i.d. and would resume some of her home medications as well as t he aspirin 81 mg a day and her antidepressant medications. We will be more than happy to continue to follow the patient with you, but she seems to have improved after just some diuresis. I have no other further recommendations at this time.
[2017-01-31] MEDS ORDERED: Benzonatate 100 MG CAP PO PRN (13:08)
[2017-01-31] MEDS ORDERED: Polyethylene Glycol 3350 17 GM Packet PO PRN (13:08)
--- NOTE | 2017-01-31 13:14 | PDOC.PN ---
- Subjective Encounter Start Date: 01/31/17 Encounter Start Time: 08:00 Pt seen for followup re: CHF exacerbation. Denies chest pain. Dyspnea is better. No nausea or vomiting. - Objective MAR Reviewed: Yes Vital Signs & Weight: Vital Signs (12 hours) Temp Pulse Pulse Pulse Resp BP BP 01/31/17 11:26 98.2 F 80 18 01/31/17 10:50 78 80 144/67 H 163/72 H 01/31/17 07:10 98.4 F 73 16 01/31/17 04:00 98.1 F 75 18 BP Pulse Ox Pulse Ox 01/31/17 11:26 143/65 H 98 01/31/17 10:50 99 01/31/17 07:10 134/62 99 01/31/17 04:00 151/75 H 98 Weight Weight 299 lb I&O: 01/30/17 01/31/17 02/01/17 06:59 06:59 06:59 Intake Total 240 Balance 240 Result Diagrams: 01/31/17 04:27 01/31/17 04:27 Additional Labs: Accuchecks 01/31/17 01/30/17 05:46 20:18 POC Glucose 95 130 H EKG Reviewed by me: Yes (Tele: NSR) Phys Exam - Physical Examination Morbid obesity HEENT: moist MMs, oral pharynx no lesions R corneal opacity Neck: no JVD Jc crackles Cardiovascular: RRR Gastrointestinal: soft, non-tender distention Musculoskeletal: edema present Neurological: moves all 4 limbs Lymphatic: no nodes Psychiatric: normal affect Skin: no rash Dx/Plan (1) Acute on chronic diastolic (congestive) heart failure Code(s): I50.33 - ACUTE ON CHRONIC DIASTOLIC (CONGESTIVE) HEART FAILURE Status : Acute (2) Hypertension Code(s): I10 - ESSENTIAL (PRIMARY) HYPERTENSION Status: Chronic (3) COPD (chronic obstructive pulmonary disease) Status: Chronic Qualifiers: COPD type: chronic bronchitis Chronic bronchitis type: unspecified Qualified Code(s): J42 - Unspecified chronic bronchitis (4) DM2 (diabetes mellitus, type 2) Status: Chronic (5) GERD (gastroesophageal reflux disease) Code(s): K21.9 - GASTRO-ESOPHAGEAL REFLUX DISEASE WITHOUT ESOPHAGITIS Status: Chronic Qualifiers: Esophagitis presence: esophagitis presence not specified Qualified Code(s) : K21.9 - Gastro-esophageal reflux disease without esophagitis (6) Glaucoma Code(s): H40.9 - UNSPECIFIED GLAUCOMA Status: Chronic (7) HTN (hypertension) Code(s): I10 - ESSENTIAL (PRIMARY) HYPERTENSION Status: Chronic Qualifiers: Hypertension type: essential hypertension Qualified Code(s): I10 - Essential (primary) hypertension (8) Morbid obesity with BMI of 45.0-49.9, adult Code(s): E66.01 - MORBID (SEVERE) OBESITY DUE TO EXCESS CALORIES; Z68.42 - BODY MASS INDEX (BMI) 45.0-49.9, ADULT Status: Chronic (9) Pulmonary artery hypertension Code(s): I27.2 - OTHER SECONDARY PULMONARY HYPERTENSION * DO NOT USE * Status : Chronic - Plan PT/OT, out of bed/ambulate, DVT proph w/lovenox * . Continue IV diuretics, monitor creatinine and lytes. Continue accuchecks, insulin sliding scale. Monitor vital signs, titrate antihypertensives as needed. Review of Systems - Review of Systems Respiratory: Cough, SOB with Excertion. negative: Dry, Shortness of Breath, Hemoptysis, Pleuritic Pain, Sputum, Wheezing Cardiovascular: Edema. negative: Chest Pain, Palpitations, Orthopnea, Paroxysmal Noc. Dyspnea, Light Headedness Gastrointestinal: negative: Nausea, Vomiting, Abdominal Pain, Diarrhea, Constipation, Melena, Hematochezia - Medications/Allergies Allergies/Adverse Reactions: Allergies Allergy/AdvReac Type Severity Reaction Status Date / Time INDERJIT Inhibitors Allergy Verified 01/30/17 18:32 Sulfa (Sulfonamide Allergy Verified 01/30/17 18:32 Antibiotics) Medications: Current Medications Albuterol/Ipratropium (Duoneb) 3 ml NEB [id number] [facility] Aspirin (Ecotrin) 81 mg PO DAILY [facility] Benzonatate (Tessalon) 100 mg PO TID PRN PRN Reason: Cough Buspirone HCl (Buspar) 5 mg PO DAILY [facility] Dextrose/Water (Dextrose 50%) 25 gm SLOW IVP PRN PRN PRN Reason: Hypoglycemia Diltiazem HCl (Cardizem Sr) 60 mg PO BID [facility] Docusate Sodium (Colace) 100 mg PO BID [facility] Flecainide Acetate (Tambocor) 50 mg PO Q12HR ALLEN Flecainide Acetate (Tambocor) 50 mg PO NOW [facility] Stop: 01/31/17 14:15 Last Admin: 01/31/17 12:46 Dose: 50 mg Furosemide (Lasix) 40 mg SLOW IVP 0600,1400 [facility] Last Admin: 01/31/17 12:46 Dose: 40 mg Glipizide (Glucotrol Xl) 5 mg PO DAILY [facility] Glucagon (Glucagon) 1 mg IM PRN PRN PRN Reason: Hypoglycemia Dextrose/Water (D5w) 1,000 mls @ 0 mls/hr IV .Q0M PRN; As Directed PRN Reason: Hypoglycemia Insulin Human Lispro (Humalog) 0 units SC .MILD SLIDING SCALE PRN PRN Reason: Mild Correctional Scale Mometasone Furoate (Asmanex Hfa 200 Mcg) 1 puff INH 1830 [facility] Non-Formulary Medication (Brimonidine Tartrate [Alphagan P 0.1% Ophth Soln]) 1 drop L EYE BID [facility] Non-Formulary Medication (Dorzolamide Hcl/Timolol Maleat [Dorzolamide Hcl/ Timolol Maleate Ophth]) 1 drop L EYE BID [facility] Non-Formulary Medication (Prednisone [Prednisone]) 10 mg PO QAM-WM [facility] Polyethylene Glycol (Miralax) 17 gm PO DAILY PRN PRN Reason: Constipation Potassium Chloride (K-Dur) 20 meq PO DAILY [facility] Saccharomyces Boulardii (Florastor) 250 mg PO DAILY [facility]
[2017-01-31] MEDS ORDERED: Dorzolamide HCl/Timolol Maleate 2%/0.5% Ophth Soln 10 ml Bottle L EYE SCH (21:00)
[2017-01-31] MEDS ORDERED: Non-Formulary Item 1 EACH (Brimonidine Tartrate [Alphagan P 0.1% Ophth Soln] 1 DROP) L EYE SCH (21:00)
[2017-01-31] MEDS ORDERED: Non-Formulary Item 1 EACH (Dorzolamide Hcl/Timolol Maleat [Dorzolamide Hcl/Timolol Maleat L EYE SCH (21:00)
[2017-01-31] MEDS: Latanoprost 0.005% Ophth Soln 2.5 ml Bottle L EYE SCH (21:27)
[2017-01-31] MEDS: Diltiazem HCl SR 60 mg Capsule PO SCH (21:27)
[2017-01-31] MEDS: Docusate 100 MG CAP PO SCH (21:27)
[2017-01-31] MEDS ORDERED: Timolol 0.5% Ophth Soln 5 ml Bottle L EYE SCH (21:45)
[2017-01-31] MEDS ORDERED: Dorzolamide HCl 2% Ophth Soln 10 ml Bottle L EYE SCH (21:45)
[2017-01-31] MEDS: Mometasone 200 MCG HFA INHALER INH SCH (22:37)
[2017-02-01] MEDS: Furosemide 40 MG/4 ML VIAL SLOW IVP SCH ×2 (05:54→14:30)
[2017-02-01 06:41] LABS: #Eosinphils 0.2 thou/uL (0.0-0.7); #Lymphocytes 2.5 thou/uL (1.20-3.40); #Monocytes 1.1 thou/uL (0.11-0.59); #Neutrophils 4.6 thou/uL (1.40-6.50); %Basophils 0.4 % (0.0-1.0); %Eosinophils 2.7 % (0.0-10.0); %Lymphocytes 29.6 % (21.0-51.0); %Monocytes 12.7 % (0.0-10.0); Hematocrit 36.6 % (36.0-47.0); Mean Platelet Volume 8.4 fL (7.4-10.4); Red Blood Cell (RBC) Count 3.64 mill/uL (4.20-5.40); White Blood Cell (WBC) Count 8.3 thou/uL (4.8-10.8)
[2017-02-01 06:46] LABS: Anion Gap 10 mmol/L (10-20); BUN (Urea Nitrogen) 16 mg/dL (9.8-20.1); Calc. Creatinine Clearance 102 mL/min (70-130); Calcium 8.5 mg/dL (7.8-10.44); Carbon Dioxide 34 mmol/L (23-31); Chloride 100 mmol/L (98-107); Estimated GFR-MDRD 66
[2017-02-01] MEDS ORDERED: predniSONE 5 MG TAB PO SCH (08:00)
[2017-02-01] MEDS ORDERED: Non-Formulary Item 1 EACH (Prednisone [Prednisone] 10 MG) PO SCH (08:00)
[2017-02-01] MEDS ORDERED: Aspirin 81 mg Enteric Coated Tablet PO SCH (09:00)
[2017-02-01] MEDS: Potassium Chloride 20 MEQ TAB PO SCH (10:05)
[2017-02-01] MEDS: Aspirin 81 mg Enteric Coated Tablet PO SCH (10:06)
[2017-02-01] MEDS: Docusate 100 MG CAP PO SCH ×2 (10:06→20:08)
[2017-02-01] MEDS: Saccharomyces boulardii 250 MG CAP PO SCH (10:06)
[2017-02-01] MEDS: Latanoprost 0.005% Ophth Soln 2.5 ml Bottle L EYE SCH ×2 (10:06→20:08)
[2017-02-01] MEDS: Diltiazem HCl SR 60 mg Capsule PO SCH ×2 (10:06→20:08)
[2017-02-01] MEDS: Enoxaparin Sodium 40 MG/0.4 ML SYRINGE SC SCH (10:07)
[2017-02-01] MEDS: Dorzolamide HCl 2% Ophth Soln 10 ml Bottle L EYE SCH ×2 (10:07→20:08)
[2017-02-01] MEDS: Timolol 0.5% Ophth Soln 5 ml Bottle L EYE SCH ×2 (10:08→20:08)
[2017-02-01] MEDS: busPIRone HCl 5 MG TAB PO SCH (10:17)
--- NOTE | 2017-02-01 13:07 | PDOC.PN ---
- Subjective Encounter Start Date: 02/01/17 Encounter Start Time: 07:20 Pt seen for followup re: CHF exacerbation. Denies chest pain, fevers or chills. Shortness of breath is better - Objective MAR Reviewed: Yes Vital Signs & Weight: Vital Signs (12 hours) Temp Pulse Resp BP BP Pulse Ox 02/01/17 12:00 98.3 F 79 18 127/60 02/01/17 11:54 81 16 96 02/01/17 10:08 73 137/64 02/01/17 10:00 98.7 F 73 18 02/01/17 08:00 98.7 F 83 18 137/64 02/01/17 05:37 96 02/01/17 04:00 98.2 F 73 18 131/61 94 L 02/01/17 03:28 83 18 96 Weight Weight 294 lb I&O: 01/31/17 02/01/17 02/02/17 06:59 06:59 06:59 Intake Total 240 1080 Output Total 250 Balance 240 830 Result Diagrams: 02/01/17 05:49 02/01/17 05:49 Additional Labs: Accuchecks 02/01/17 01/31/17 01/31/17 05:39 21:06 18:06 POC Glucose 138 H 151 H 193 H 01/31/17 11:53 POC Glucose 109 EKG Reviewed by me: Yes Phys Exam - Physical Examination Morbid obesity HEENT: moist MMs Neck: supple Respiratory: clear to auscultation bilateral Cardiovascular: RRR Gastrointestinal: soft Musculoskeletal: pulses present Neurological: moves all 4 limbs Psychiatric: normal affect Skin: no rash Dx/Plan (1) Acute on chronic diastolic (congestive) heart failure Code(s): I50.33 - ACUTE ON CHRONIC DIASTOLIC (CONGESTIVE) HEART FAILURE Status : Acute (2) Hypertension Code(s): I10 - ESSENTIAL (PRIMARY) HYPERTENSION Status: Chronic (3) COPD (chronic obstructive pulmonary disease) Status: Chronic Qualifiers: COPD type: chronic bronchitis Chronic bronchitis type: unspecified Qualified Code(s): J42 - Unspecified chronic bronchitis (4) DM2 (diabetes mellitus, type 2) Status: Chronic (5) GERD (gastroesophageal reflux disease) Code(s): K21.9 - GASTRO-ESOPHAGEAL REFLUX DISEASE WITHOUT ESOPHAGITIS Status: Chronic Qualifiers: Esophagitis presence: esophagitis presence not specified Qualified Code(s) : K21.9 - Gastro-esophageal reflux disease without esophagitis (6) Glaucoma Code(s): H40.9 - UNSPECIFIED GLAUCOMA Status: Chronic (7) HTN (hypertension) Code(s): I10 - ESSENTIAL (PRIMARY) HYPERTENSION Status: Chronic Qualifiers: Hypertension type: essential hypertension Qualified Code(s): I10 - Essential (primary) hypertension (8) Morbid obesity with BMI of 45.0-49.9, adult Code(s): E66.01 - MORBID (SEVERE) OBESITY DUE TO EXCESS CALORIES; Z68.42 - BODY MASS INDEX (BMI) 45.0-49.9, ADULT Status: Chronic (9) Pulmonary artery hypertension Code(s): I27.2 - OTHER SECONDARY PULMONARY HYPERTENSION * DO NOT USE * Status : Chronic - Plan PT/OT, out of bed/ambulate, DVT proph w/lovenox * . Continue IV diuretics. Ambulate pt. Likely home in 24-48 hrs. Review of Systems - Review of Systems Respiratory: Shortness of Breath, SOB with Excertion. negative: Cough, Dry, Hemoptysis, Pleuritic Pain, Sputum, Wheezing Cardiovascular: negative: Chest Pain, Palpitations, Orthopnea, Paroxysmal Noc. Dyspnea, Edema, Light Headedness - Medications/Allergies Allergies/Adverse Reactions: Allergies Allergy/AdvReac Type Severity Reaction Status Date / Time INDERJIT Inhibitors Allergy Verified 01/30/17 18:32 Sulfa (Sulfonamide Allergy Verified 01/30/17 18:32 Antibiotics) Medications: Current Medications Albuterol/Ipratropium (Duoneb) 3 ml NEB [id number] [facility] Last Admin: 02/01/17 11:54 Dose: 3 ml Aspirin (Ecotrin) 81 mg PO DAILY [facility] Last Admin: 02/01/17 10:06 Dose: 81 mg Benzonatate (Tessalon) 100 mg PO TID PRN PRN Reason: Cough Buspirone HCl (Buspar) 5 mg PO DAILY [facility] Last Admin: 02/01/17 10:17 Dose: 5 mg Dextrose/Water (Dextrose 50%) 25 gm SLOW IVP PRN PRN PRN Reason: Hypoglycemia Diltiazem HCl (Cardizem Sr) 60 mg PO BID [facility] Last Admin: 02/01/17 10:06 Dose: 60 mg Docusate Sodium (Colace) 100 mg PO BID [facility] Last Admin: 12/12/17 10:06 Dose: 100 mg Dorzolamide HCl (Trusopt 2% Ophth Soln) 1 drop L EYE BID [facility] Last Admin: 02/01/17 10:07 Dose: 1 drop Enoxaparin Sodium (Lovenox) 40 mg SC 0900 [facility] Last Admin: 02/01/17 10:07 Dose: 40 mg Flecainide Acetate (Tambocor) 50 mg PO Q12HR [facility] Last Admin: 02/01/17 10:07 Dose: 50 mg Furosemide (Lasix) 40 mg SLOW IVP 0600,1400 [facility] Last Admin: 02/01/17 05:54 Dose: 40 mg Glipizide (Glucotrol Xl) 5 mg PO DAILY [facility] Last Admin: 02/01/17 10:05 Dose: 5 mg Glucagon (Glucagon) 1 mg IM PRN PRN PRN Reason: Hypoglycemia Dextrose/Water (D5w) 1,000 mls @ 0 mls/hr IV .Q0M PRN; As Directed PRN Reason: Hypoglycemia Insulin Human Lispro (Humalog) 0 units SC .MILD SLIDING SCALE PRN PRN Reason: Mild Correctional Scale Latanoprost (Xalatan 0.005% Ophth Soln) 1 drop L EYE BID [facility] Last Admin: 02/01/17 10:06 Dose: 1 drop Mometasone Furoate (Asmanex Hfa 200 Mcg) 1 puff INH 1830 [facility] Last Admin: 01/31/17 22:37 Dose: Not Given Polyethylene Glycol (Miralax) 17 gm PO DAILY PRN PRN Reason: Constipation Potassium Chloride (K-Dur) 20 meq PO DAILY [facility] Last Admin: 02/01/17 10:05 Dose: 20 meq Saccharomyces Boulardii (Florastor) 250 mg PO DAILY [facility] Last Admin: 02/01/17 10:06 Dose: 250 mg Timolol Maleate (Timoptic 0.5% Ophth Soln) 1 drop L EYE BID [facility] Last Admin: 02/01/17 10:08 Dose: 1 drop
--- NOTE | 2017-02-01 18:00 | PDOC.CTH ---
Cardiology Progress Note - Subjective Her breathing is better but still not back to baseline. - Objective Vital Signs Temp Pulse Resp BP BP Pulse Ox 02/01/17 16:00 98.1 F 75 17 118/58 L 94 L 02/01/17 12:00 98.3 F 79 18 127/60 02/01/17 11:54 81 16 96 02/01/17 10:08 73 137/64 02/01/17 10:00 98.7 F 73 18 02/01/17 08:00 98.7 F 83 18 137/64 Weight 294 lb 01/31/17 02/01/17 02/02/17 06:59 06:59 06:59 Intake Total 240 1080 Output Total 250 Balance 240 830 - Physical Examination General/Neuro: alert & oriented x3, NAD Neck: no JVD present Lungs: other: (Decreased breath sounds bilat) Heart: RRR Abdomen: NT/ND Extremities: + edema B (2+) - Telemetry Telemetry Rhythm: NSR - Labs Result Diagrams: 02/01/17 05:49 02/01/17 05:49 Troponin/CKMB CK-MB (CK-2) 0.5 ng/mL (0-6.6) 01/30/17 15:49 Troponin I Less than 0.010 ng/mL (< 0.028) 01/30/17 15:49 - Assessment/Plan 1. Acute on chronic diastolic heart failure 2. COPD exacerbation 3. Pulmonary HTN PLAN: - Continue IV lasix. - Continue other meds for now. - One more day of IV lasix and see how she does tomorrow to switch to PO in the next 2 days.
[2017-02-01] MEDS: Mometasone 200 MCG HFA INHALER INH SCH (19:32)
[2017-02-02] MEDS: Furosemide 40 MG/4 ML VIAL SLOW IVP SCH ×2 (05:41→14:28)
[2017-02-02 06:07] LABS: #Basophils 0.1 thou/uL (0.0-0.2); #Eosinphils 0.2 thou/uL (0.0-0.7); #Monocytes 1.3 thou/uL (0.11-0.59); #Neutrophils 4.4 thou/uL (1.40-6.50); %Basophils 0.6 % (0.0-1.0); %Eosinophils 2.5 % (0.0-10.0); %Lymphocytes 33.5 % (21.0-51.0); %Monocytes 14.7 % (0.0-10.0); Hematocrit 39.4 % (36.0-47.0); Mean Platelet Volume 8.3 fL (7.4-10.4); Red Blood Cell (RBC) Count 3.94 mill/uL (4.20-5.40)
[2017-02-02 06:22] LABS: Anion Gap 10 mmol/L (10-20); BUN (Urea Nitrogen) 16 mg/dL (9.8-20.1); Calc. Creatinine Clearance 90 mL/min (70-130); Calcium 8.9 mg/dL (7.8-10.44); Carbon Dioxide 35 mmol/L (23-31); Chloride 99 mmol/L (98-107); Estimated GFR-MDRD 58
[2017-02-02] MEDS: Latanoprost 0.005% Ophth Soln 2.5 ml Bottle L EYE SCH ×2 (09:58→21:42)
[2017-02-02] MEDS: Dorzolamide HCl 2% Ophth Soln 10 ml Bottle L EYE SCH ×2 (09:58→21:42)
[2017-02-02] MEDS: busPIRone HCl 5 MG TAB PO SCH (09:59)
[2017-02-02] MEDS: Potassium Chloride 20 MEQ TAB PO SCH (09:59)
[2017-02-02] MEDS: Aspirin 81 mg Enteric Coated Tablet PO SCH (09:59)
[2017-02-02] MEDS: Timolol 0.5% Ophth Soln 5 ml Bottle L EYE SCH ×2 (09:59→21:42)
[2017-02-02] MEDS: Enoxaparin Sodium 40 MG/0.4 ML SYRINGE SC SCH (09:59)
[2017-02-02] MEDS: Diltiazem HCl SR 60 mg Capsule PO SCH ×2 (09:59→21:40)
[2017-02-02] MEDS: Docusate 100 MG CAP PO SCH ×2 (09:59→21:40)
[2017-02-02] MEDS: Saccharomyces boulardii 250 MG CAP PO SCH (09:59)
--- NOTE | 2017-02-02 12:09 | PDOC.PN ---
- Subjective Encounter Start Date: 02/02/17 Encounter Start Time: 07:20 Pt seen for followup re: CHF exacerbation. Feels better. No chest pain. - Objective MAR Reviewed: Yes Vital Signs & Weight: Vital Signs (12 hours) Temp Pulse Resp BP Pulse Ox 02/02/17 11:39 79 16 95 02/02/17 07:17 83 16 95 02/02/17 07:15 97.2 F L 74 20 138/63 96 02/02/17 04:00 97.8 F 70 16 137/91 H 94 L 02/02/17 00:24 71 14 95 Weight Weight 293 lb I&O: 02/01/17 02/02/17 02/03/17 06:59 06:59 06:59 Intake Total 1080 840 Output Total 250 350 Balance 830 490 Result Diagrams: 02/02/17 05:50 02/02/17 05:50 Additional Labs: Accuchecks 02/02/17 02/01/17 02/01/17 05:54 19:57 17:29 POC Glucose 113 H 124 H 110 02/01/17 11:58 POC Glucose 114 H EKG Reviewed by me: Yes (Tele: NSR) Phys Exam - Physical Examination Constitutional: NAD HEENT: moist MMs, oral pharynx no lesions Neck: supple Bibasal crackles Cardiovascular: RRR Gastrointestinal: soft Musculoskeletal: edema present Neurological: moves all 4 limbs Psychiatric: normal affect Dx/Plan (1) Acute on chronic diastolic (congestive) heart failure Code(s): I50.33 - ACUTE ON CHRONIC DIASTOLIC (CONGESTIVE) HEART FAILURE Status : Acute (2) Hypertension Code(s): I10 - ESSENTIAL (PRIMARY) HYPERTENSION Status: Chronic (3) COPD (chronic obstructive pulmonary disease) Status: Chronic Qualifiers: COPD type: chronic bronchitis Chronic bronchitis type: unspecified Qualified Code(s): J42 - Unspecified chronic bronchitis (4) DM2 (diabetes mellitus, type 2) Status: Chronic (5) GERD (gastroesophageal reflux disease) Code(s): K21.9 - GASTRO-ESOPHAGEAL REFLUX DISEASE WITHOUT ESOPHAGITIS Status: Chronic Qualifiers: Esophagitis presence: esophagitis presence not specified Qualified Code(s) : K21.9 - Gastro-esophageal reflux disease without esophagitis (6) Glaucoma Code(s): H40.9 - UNSPECIFIED GLAUCOMA Status: Chronic (7) HTN (hypertension) Code(s): I10 - ESSENTIAL (PRIMARY) HYPERTENSION Status: Chronic Qualifiers: Hypertension type: essential hypertension Qualified Code(s): I10 - Essential (primary) hypertension (8) Morbid obesity with BMI of 45.0-49.9, adult Code(s): E66.01 - MORBID (SEVERE) OBESITY DUE TO EXCESS CALORIES; Z68.42 - BODY MASS INDEX (BMI) 45.0-49.9, ADULT Status: Chronic (9) Pulmonary artery hypertension Code(s): I27.2 - OTHER SECONDARY PULMONARY HYPERTENSION * DO NOT USE * Status : Chronic - Plan PT/OT, out of bed/ambulate, DVT proph w/lovenox * . Continue diuretics. Ambulate patient. Likely home 24-48h. Continue accuchecks, insulin. Review of Systems - Review of Systems Respiratory: Cough, Dry, SOB with Excertion. negative: Shortness of Breath, Hemoptysis, Pleuritic Pain, Wheezing Cardiovascular: negative: Chest Pain, Palpitations, Orthopnea, Paroxysmal Noc. Dyspnea, Edema, Light Headedness - Medications/Allergies Allergies/Adverse Reactions: Allergies Allergy/AdvReac Type Severity Reaction Status Date / Time INDERJIT Inhibitors Allergy Verified 01/30/17 18:32 Sulfa (Sulfonamide Allergy Verified 01/30/17 18:32 Antibiotics) Medications: Current Medications Albuterol/Ipratropium (Duoneb) 3 ml NEB [id number] [facility] Last Admin: 02/02/17 11:39 Dose: 3 ml Aspirin (Ecotrin) 81 mg PO DAILY [facility] Last Admin: 02/02/17 09:59 Dose: 81 mg Benzonatate (Tessalon) 100 mg PO TID PRN PRN Reason: Cough Buspirone HCl (Buspar) 5 mg PO DAILY [facility] Last Admin: 02/02/17 09:59 Dose: 5 mg Dextrose/Water (Dextrose 50%) 25 gm SLOW IVP PRN PRN PRN Reason: Hypoglycemia Diltiazem HCl (Cardizem Sr) 60 mg PO BID [facility] Last Admin: 02/02/17 09:59 Dose: 60 mg Docusate Sodium (Colace) 100 mg PO BID [facility] Last Admin: 02/02/17 09:59 Dose: 100 mg Dorzolamide HCl (Trusopt 2% Ophth Soln) 1 drop L EYE BID [facility] Last Admin: 12/17 09:58 Dose: Not Given Enoxaparin Sodium (Lovenox) 40 mg SC 0900 [facility] Last Admin: 02/02/17 09:59 Dose: 40 mg Flecainide Acetate (Tambocor) 50 mg PO Q12HR [facility] Last Admin: 02/02/17 09:59 Dose: 50 mg Furosemide (Lasix) 40 mg SLOW IVP 0600,1400 [facility] Last Admin: 02/02/17 05:41 Dose: 40 mg Glipizide (Glucotrol Xl) 5 mg PO DAILY [facility] Last Admin: 02/02/17 09:59 Dose: 5 mg Glucagon (Glucagon) 1 mg IM PRN PRN PRN Reason: Hypoglycemia Dextrose/Water (D5w) 1,000 mls @ 0 mls/hr IV .Q0M PRN; As Directed PRN Reason: Hypoglycemia Insulin Human Lispro (Humalog) 0 units SC .MILD SLIDING SCALE PRN PRN Reason: Mild Correctional Scale Latanoprost (Xalatan 0.005% Ophth Soln) 1 drop L EYE BID [facility] Last Admin: 02/02/17 09:58 Dose: Not Given Mometasone Furoate (Asmanex Hfa 200 Mcg) 1 puff INH 1830 [facility] Last Admin: 02/01/17 19:32 Dose: 1 puff Polyethylene Glycol (Miralax) 17 gm PO DAILY PRN PRN Reason: Constipation Potassium Chloride (K-Dur) 20 meq PO DAILY [facility] Last Admin: 02/02/17 09:59 Dose: 20 meq Saccharomyces Boulardii (Florastor) 250 mg PO DAILY [facility] Last Admin: 02/02/17 09:59 Dose: 250 mg Timolol Maleate (Timoptic 0.5% Ophth Soln) 1 drop L EYE BID [facility] Last Admin: 02/02/17 09:59 Dose: Not Given
--- NOTE | 2017-02-02 17:40 | PDOC.CTH ---
Cardiology Progress Note - Subjective Breathing much better today. No other issues. - Objective Vital Signs Temp Pulse Pulse Pulse Resp BP BP 02/02/17 15:22 82 83 135/61 131/62 02/02/17 15:10 99.2 F 79 17 02/02/17 11:47 99.0 F 81 17 02/02/17 11:39 79 16 02/02/17 07:20 99.0 F 81 17 02/02/17 07:17 83 16 02/02/17 07:15 97.2 F L 74 20 BP Pulse Ox Pulse Ox Pulse Ox 02/02/17 15:22 91 L 89 L 02/02/17 15:10 115/55 L 92 L 02/02/17 11:47 122/58 L 02/02/17 11:39 95 02/02/17 07:20 95 02/02/17 07:17 95 02/02/17 07:15 138/63 96 Weight 293 lb 02/01/17 02/02/17 02/03/17 06:59 06:59 06:59 Intake Total 1080 840 Output Total 250 350 Balance 830 490 - Physical Examination General/Neuro: alert & oriented x3, NAD Neck: no JVD present Lungs: unlabored respirations Heart: RRR Abdomen: NT/ND Extremities: + edema B (Trace) - Telemetry Telemetry Rhythm: NSR - Labs Result Diagrams: 02/02/17 05:50 02/02/17 05:50 Troponin/CKMB CK-MB (CK-2) 0.5 ng/mL (0-6.6) 01/30/17 15:49 Troponin I Less than 0.010 ng/mL (< 0.028) 01/30/17 15:49 - Assessment/Plan 1. Acute on chronic diastolic heart failure 2. COPD exacerbation 3. Pulmonary HTN PLAN: - Switch to PO lasix. - Continue other meds for now. - May d/c tomorrow from cardiac perspective.
[2017-02-02] MEDS ORDERED: Ondansetron HCl/PF 4 MG/2 ML Vial IVP PRN (18:39)
[2017-02-02] MEDS ORDERED: Ondansetron ODT 4 MG TAB SL PRN (18:39)
[2017-02-02] MEDS: Mometasone 200 MCG HFA INHALER INH SCH (19:34)
[2017-02-03 08:25] LABS: #Eosinphils 0.3 thou/uL (0.0-0.7); #Lymphocytes 3.3 thou/uL (1.20-3.40); #Monocytes 1.3 thou/uL (0.11-0.59); #Neutrophils 4.8 thou/uL (1.40-6.50); %Basophils 0.2 % (0.0-1.0); %Eosinophils 2.7 % (0.0-10.0); %Lymphocytes 34.3 % (21.0-51.0); %Monocytes 13.3 % (0.0-10.0); Hematocrit 37.5 % (36.0-47.0); Mean Platelet Volume 7.7 fL (7.4-10.4); Red Blood Cell (RBC) Count 3.74 mill/uL (4.20-5.40); White Blood Cell (WBC) Count 9.7 thou/uL (4.8-10.8)
[2017-02-03 08:28] LABS: BUN (Urea Nitrogen) 16 mg/dL (9.8-20.1); Calc. Creatinine Clearance 93 mL/min (70-130); Estimated GFR-MDRD 60
[2017-02-03 08:37] LABS: Anion Gap 12 mmol/L (10-20); Carbon Dioxide 35 mmol/L (23-31); Chloride 98 mmol/L (98-107)
[2017-02-03] MEDS: Enoxaparin Sodium 40 MG/0.4 ML SYRINGE SC SCH (08:52)
[2017-02-03] MEDS: Diltiazem HCl SR 60 mg Capsule PO SCH (08:52)
[2017-02-03] MEDS: Saccharomyces boulardii 250 MG CAP PO SCH (08:52)
[2017-02-03] MEDS: Potassium Chloride 20 MEQ TAB PO SCH (08:52)
[2017-02-03] MEDS: Docusate 100 MG CAP PO SCH (08:53)
[2017-02-03] MEDS: Aspirin 81 mg Enteric Coated Tablet PO SCH (08:53)
[2017-02-03] MEDS: busPIRone HCl 5 MG TAB PO SCH (08:53)
[2017-02-03] MEDS: Dorzolamide HCl 2% Ophth Soln 10 ml Bottle L EYE SCH (08:54)
[2017-02-03] MEDS: Latanoprost 0.005% Ophth Soln 2.5 ml Bottle L EYE SCH (08:54)
[2017-02-03] MEDS: Timolol 0.5% Ophth Soln 5 ml Bottle L EYE SCH (08:54)
[2017-02-03] MEDS ORDERED: Furosemide 40 MG TAB PO SCH (09:00)
--- NOTE | 2017-02-03 12:30 | DIS ---
PRIMARY CARE PHYSICIAN: Dr. Mulugeta Peterson DATE OF ADMISSION: 01/30/2017 DATE OF DISCHARGE: 02/03/2017 ADMITTING DIAGNOSIS: Acute on chronic diastolic congestive heart failure. CONSULTATIONS DURING THIS HOSPITALIZATION: Cardiology, Dr. Branham DISCHARGE MEDICATIONS: No changes were made to the patient's home medications as dictated on the his tory and physical note from 01/30/2017. HOSPITAL COURSE: Ms. Bishop is a pleasant 77-year-old lady who was admitted to [facility] on 01/30/2017 for acute on chronic diastolic congestive heart failure. She was seen by Cardiology Service. She received intravenous diuretics, with improvement in her symptoms. She was switched back to oral diuretics at her preadmission dose prior to discharge. Many thanks for allowing me to participate in your patient's care. Please feel free to contact me with any questions or concerns. She is advised to follow up with Cardiac Rehab as well as with her primary care provider. DISCHARGE DESTINATION: Home. TOTAL AMOUNT OF TIME SPENT COORDINATING THIS DISCHARGE: 33 minutes.
[2017-02-03 12:49] VITALS: BP 139/65; TEMP 98
--- NOTE | 2017-02-03 17:04 | PDOC.CTH ---
Cardiology Progress Note - Subjective No new issues or complaints. - Objective Vital Signs Temp Pulse Resp BP Pulse Ox 02/03/17 13:38 71 18 92 L 02/03/17 11:34 98.0 F 75 17 139/65 90 L 02/03/17 07:20 96.9 F L 71 16 132/62 92 L 02/03/17 06:35 69 16 93 L Weight 292 lb 9.6 oz 02/02/17 02/03/17 02/04/17 06:59 06:59 06:59 Intake Total 840 840 Output Total 350 Balance 490 840 - Physical Examination General/Neuro: alert & oriented x3, NAD Neck: no JVD present Lungs: unlabored respirations, other: (Diminished breath sounds bilat. ) Heart: RRR Abdomen: NT/ND Extremities: + edema B (1+) - Telemetry Telemetry Rhythm: NSR - Labs Result Diagrams: 02/03/17 08:02 02/03/17 08:02 Troponin/CKMB CK-MB (CK-2) 0.5 ng/mL (0-6.6) 01/30/17 15:49 Troponin I Less than 0.010 ng/mL (< 0.028) 01/30/17 15:49 - Assessment/Plan 1. Acute on chronic diastolic heart failure 2. COPD exacerbation 3. Pulmonary HTN PLAN: - Continue PO lasix. - Continue other meds for now. - June d/c home. Follow up in 1 month.
== END 2017-02-03 14:20 | disposition home health service (06) | DRG 292 ==
LOC: ERS 15:15 → 2NO 17:53
PROVIDERS: ADMIT Internal Medicine; ATTEND Internal Medicine
DX: I11.0 Hypertensive heart disease with heart failure (principal); Z68.42 Body mass index [BMI] 45.0-49.9, adult; I48.92 Unspecified atrial flutter; Z99.81 Dependence on supplemental oxygen; I50.33 Acute on chronic diastolic (congestive) heart failure; I27.29 Other secondary pulmonary hypertension; J44.9 Chronic obstructive pulmonary disease, unspecified; E66.01 Morbid (severe) obesity due to excess calories; E11.9 Type 2 diabetes mellitus without complications; G47.33 Obstructive sleep apnea (adult) (pediatric); K21.9 Gastro-esophageal reflux disease without esophagitis; I50.810 Right heart failure, unspecified; H40.9 Unspecified glaucoma; Z91.11 Patient's noncompliance with dietary regimen; F32.9 Major depressive disorder, single episode, unspecified
CPT/HCPCS: 36415; 36416; 71010; 80048; 80053; 82553; 83880; 84484; 85025; 93005; 93798; 94640; 96374; G8978-GP-CM; G8979-GP-CL; J1650; J1940; J7620

== ENCOUNTER 2017-02-18 13:36 | Inpatient (IN) | payer MEDICARE, MEDICAID ==
[2017-02-18 14:43] LABS: #Eosinphils 0.1 thou/uL (0.0-0.7); #Lymphocytes 2.6 thou/uL (1.20-3.40); #Monocytes 0.9 thou/uL (0.11-0.59); #Neutrophils 4.8 thou/uL (1.40-6.50); %Basophils 0.4 % (0.0-1.0); %Eosinophils 1.4 % (0.0-10.0); %Lymphocytes 30.7 % (21.0-51.0); %Neutrophils 56.6 % (42.0-75.0); Hemoglobin 12.2 g/dL (12.0-16.0); Mean Corpuscular HGB CONC 28.7 g/dL (32.0-36.0); Mean Corpuscular Hemoglobin 28.3 pg (27.0-31.0); Mean Corpuscular Volume 98.4 fl (81.0-99.0); Mean Platelet Volume 8.5 fL (7.4-10.4); Platelet Count 221 thou/uL (130-400); RBC Distribution Width 16.3 % (11.5-14.5); Red Blood Cell (RBC) Count 4.32 mill/uL (4.20-5.40); White Blood Cell (WBC) Count 8.5 thou/uL (4.8-10.8)
[2017-02-18 14:53] LABS: ALT (SGPT) 7 U/L (8-55); AST (SGOT) 13 U/L (5-34); Albumin 3.1 g/dL (3.4-4.8); Alkaline Phosphatase 66 U/L (40-150); Anion Gap 15 mmol/L (10-20); BUN (Urea Nitrogen) 34 mg/dL (9.8-20.1); Bilirubin, Total 0.6 mg/dL (0.2-1.2); Calc. Creatinine Clearance 0 mL/min (70-130); Calcium 9.2 mg/dL (7.8-10.44); Carbon Dioxide 27 mmol/L (23-31); Chloride 99 mmol/L (98-107); Estimated GFR-MDRD 32; Glucose 158 mg/dL (83-110); Protein, Total 8.1 g/dL (6.0-8.3); Sodium 135 mmol/L (136-145)
[2017-02-18 15:45] LABS: Bilirubin Negative (Negative); Blood, Urine Large (Negative); Clarity TURBID (Clear); Glucose, Urine (Dipstick) Negative (Negative); Leukocyte Large (Negative); Nitrite Negative (Negative); Protein, Urine (Dipstick) 100 mg/dL (Neg-Trace); Specific Gravity, Urine 1.018 (1.002-1.036); pH, Urine 5.5 (5.0-9.0)
[2017-02-18 15:46] LABS: Bacteria/HPF 4+ HPF (None Seen); Hyaline Casts/LPF 4-6 HYALINE CAST LPF (0-3 Hyaline); Pathc Cast-AUWi Flag 1.21 (0-2.49); RBC/HPF GREATER THAN 50-TNTC HPF (0-3); Squamous Epithelial 0-3 HPF (0-3)
[2017-02-18] MEDS ORDERED: Furosemide 40 MG/4 ML VIAL ONE (17:41)
[2017-02-18 18:17] LABS: Anion Gap 13 mmol/L (10-20); BUN (Urea Nitrogen) 35 mg/dL (9.8-20.1); Calc. Creatinine Clearance 0 mL/min (70-130); Calcium 8.4 mg/dL (7.8-10.44); Carbon Dioxide 29 mmol/L (23-31); Chloride 102 mmol/L (98-107); Estimated GFR-MDRD 36; Glucose 97 mg/dL (83-110); Potassium 5.7 mmol/L (3.5-5.1); Sodium 138 mmol/L (136-145)
[2017-02-18 18:27] LABS: #Eosinphils 0.1 thou/uL (0.0-0.7); #Lymphocytes 2.9 thou/uL (1.20-3.40); #Monocytes 1.1 thou/uL (0.11-0.59); #Neutrophils 4.4 thou/uL (1.40-6.50); %Basophils 0.2 % (0.0-1.0); %Eosinophils 1.3 % (0.0-10.0); %Monocytes 12.8 % (0.0-10.0); %Neutrophils 51.7 % (42.0-75.0); Hemoglobin 10.7 g/dL (12.0-16.0); Mean Corpuscular HGB CONC 28.8 g/dL (32.0-36.0); Mean Corpuscular Hemoglobin 27.9 pg (27.0-31.0); Mean Corpuscular Volume 96.8 fl (81.0-99.0); Mean Platelet Volume 8.5 fL (7.4-10.4); Platelet Count 203 thou/uL (130-400); RBC Distribution Width 16.2 % (11.5-14.5); Red Blood Cell (RBC) Count 3.85 mill/uL (4.20-5.40); White Blood Cell (WBC) Count 8.5 thou/uL (4.8-10.8)
--- NOTE | 2017-02-18 20:35 | RAD ---
AP VIEW OF THE CHEST 02/18/17 INDICATION: History of dyspnea. FINDINGS/IMPRESSION: There is cardiomegaly with pulmonary vascular congestion and small bilateral pleural effusion. This a ppears similar to the comparison dated 01/30/17. The findings are suspicious for CHF. No acute osseou s abnormality is evident. POS: [facility]
--- NOTE | 2017-02-18 22:05 | CT ---
NONCONTRAST CT OF THE ABDOMEN AND PELVIS 02/18/17 INDICATION: Rectal bleeding with abdominal pain. FINDINGS: There is moderate right and small left pleural effusion with bibasilar atelectasis. There is moderate anasarca. There is mild ascites. Unopacified large and small bowel reveal no definite acute abnormal ity. Presence of ascites makes evaluating for colitis difficult. Bladder is unremarkable appearing. T here are moderate calcifications involving the abdominopelvic vasculature. There is gallstones within the gallbladder. Unopacified liver, spleen and pancreas are unremarkable. Adrenal glands are unremar kable. No hydronephrosis is demonstrated. No definite acute osseous abnormality is evident. IMPRESSION: 1. Pleural effusions, anasarca and ascites may reflect volume overload or CHF. 2. Cholelithiasis. 3. Other chronic findings as above. POS: [facility]
[2017-02-19] MEDS ORDERED: Enoxaparin Sodium 30 MG/0.3 ML SYRINGE SC SCH (00:55)
[2017-02-19] MEDS ORDERED: Polyethylene Glycol 3350 17 GM Packet PO PRN (00:55)
[2017-02-19] MEDS ORDERED: Dextrose 5% in Water 1,000 ML IV PRN (00:55)
[2017-02-19] MEDS ORDERED: Benzonatate 100 MG CAP PO PRN (00:55)
[2017-02-19] MEDS ORDERED: Bisacodyl 5 MG TAB PO PRN (00:55)
[2017-02-19] MEDS ORDERED: Ondansetron ODT 4 MG TAB PO PRN (00:55)
[2017-02-19] MEDS ORDERED: HYDROcodone/Acetaminophen 10/325 mg Tablet PO PRN (00:55)
[2017-02-19] MEDS ORDERED: HYDROcodone/Acetaminophen 5/325 mg Tablet PO PRN (00:55)
[2017-02-19] MEDS ORDERED: Hydrocortisone Acetate 25 MG Suppository PR PRN (01:01)
[2017-02-19] MEDS: Furosemide 40 MG/4 ML VIAL SLOW IVP SCH ×3 (01:42→20:50)
[2017-02-19 05:37] LABS: Anion Gap 12 mmol/L (10-20); BUN (Urea Nitrogen) 33 mg/dL (9.8-20.1); Calc. Creatinine Clearance 69 mL/min (70-130); Calcium 8.5 mg/dL (7.8-10.44); Carbon Dioxide 28 mmol/L (23-31); Chloride 103 mmol/L (98-107); Estimated GFR-MDRD 39; Glucose 102 mg/dL (83-110); Potassium 5.2 mmol/L (3.5-5.1); Sodium 138 mmol/L (136-145)
[2017-02-19 05:40] LABS: #Basophils 0.1 thou/uL (0.0-0.2); #Eosinphils 0.2 thou/uL (0.0-0.7); #Lymphocytes 2.7 thou/uL (1.20-3.40); #Monocytes 1.2 thou/uL (0.11-0.59); #Neutrophils 4.2 thou/uL (1.40-6.50); %Basophils 1.2 % (0.0-1.0); %Eosinophils 2.2 % (0.0-10.0); %Lymphocytes 32.2 % (21.0-51.0); %Monocytes 14.2 % (0.0-10.0); %Neutrophils 50.2 % (42.0-75.0); Hemoglobin 11.2 g/dL (12.0-16.0); Mean Corpuscular HGB CONC 28.5 g/dL (32.0-36.0); Mean Corpuscular Hemoglobin 28.1 pg (27.0-31.0); Mean Corpuscular Volume 98.6 fl (81.0-99.0); Mean Platelet Volume 8.3 fL (7.4-10.4); Platelet Count 206 thou/uL (130-400); RBC Distribution Width 16.5 % (11.5-14.5); Red Blood Cell (RBC) Count 3.97 mill/uL (4.20-5.40); White Blood Cell (WBC) Count 8.3 thou/uL (4.8-10.8)
[2017-02-19] MEDS: Piperacillin/Tazobactam 3.375 GM in Sodium Chloride 0.9% 100 ML IVPB SCH ×4 (06:01→20:50)
--- NOTE | 2017-02-19 07:34 | HP ---
DATE OF ADMISSION: 02/19/2017 TIME OF SERVICE: 00:45 hours PRIMARY CARE PHYSICIAN: Mulugeta Peterson M.D. PRIMARY AUTOMOBILES SALESPERSON: Remi Loo MD PRIMARY HAMMERER HELPER: Dae Quispe MD CHIEF COMPLAINT: Rectal bleeding. HISTORY OF PRESENT ILLNESS: Ms. Bishop is a pleasant 77-year-old female whom I hav e seen on previous occasions, who comes to the emergency department with complaints of rectal bleedin g. The patient says she has a history of hemorrhoids that she has taken medicine for in the past, she wa s being cleaned today after a bowel movement. She notably reports that she has been constipated for the last 2 weeks since discharge from the hospital and has been taking MiraLax but no milk of magnesi a. States that she finally had a bowel movement today that was rather large and her caregiver report ed some blood on the wipes post-bowel movement. The patient has not had any further bleeding. She p resented to an outside emergency department for evaluation, which she was stool guaiac positive and w orkup revealed acute on chronic diastolic congestive heart failure and so she was sent here for admis caty. On arrival, she is satting well on 3 liters nasal cannula, which she is on at home. Her breathing is comfortable. She denies any chest pain or shortness of breath, no nausea and vomiting, she has no r ectal pain at present. She has had no further GI bleeding. We did discuss code status. She does wish to be a full code. Her grandson, Ronny Holloway, is who she named as her surrogate decision maker should she become incapacitated. She does complain of dysuria without hematuria. No increased urinary frequency. PAST MEDICAL HISTORY: 1. Chronic diastolic congestive heart failure. 2. Severe pulmonary hypertension. 3. Obstructive sleep apnea/obesity hypoventilation syndrome. 4. Severe obesity. 5. Chronic obstructive pulmonary disease. 6. Gastroesophageal reflux disease. 7. Glaucoma. 8. Diabetes mellitus type 2, non-insulin dependent. 9. Chronic hypoxic respiratory failure on chronic home O2 at 3 liters nasal cannula. PAST SURGICAL HISTORY: 1. Tonsillectomy. 2. Bilateral tubal ligation. 3. Hysterectomy and bilateral salpingo-oophorectomy in the past. HOME MEDICATIONS: 1. Aspirin 81 mg daily. 2. Glipizide XL 5 mg daily. 3. Lasix 60 mg p.o. q.a.m. 4. KCl 20 mEq daily. 5. Diltiazem 60 mg p.o. b.i.d. 6. Buspirone 5 mg p.o. q.a.m. 7. Flecainide 50 mg p.o. b.i.d. 8. Dorzolamide/timolol 1 drop left eye b.i.d. 9. Alphagan 0.1% left eye b.i.d. 1 drop. 10. DuoNebs nebulized q.6 h. 11. Prednisone 10 mg p.o. q.a.m. 12. Mometasone 1 puff daily. ALLERGIES: INDERJIT INHIBITORS, SULFA. FAMILY HISTORY: Dad had coronary artery disease, in his 80s. SOCIAL HISTORY: Negative for habits x3. REVIEW OF SYSTEMS: A 10-point review of systems was performed, negative for all the systems except s tated as per HPI. PHYSICAL EXAMINATION: VITAL SIGNS: Temperature 97.7, pulse 61, blood pressure 125/60, respiratory rate 20, O2 sat 93% on 3 liters nasal cannula. GENERAL: She is awake. She is alert. She is severely obese female. She appears t o be in zero distress. HEENT: She is normocephalic, atraumatic. Her left eye has equal, pupil is round and reactive to lig ht. Her right eye cornea is cloudy and opacified. Mucous membranes are moist. She has no visible l esions. No thrush. Her teeth are in horrible repair and miss most of her teeth except for the lower front incisors. NECK: Supple, without lymphadenopathy, JVD, or thyromegaly. She has normal carotid upstrokes withou t bruits. LUNGS: She is clear to auscultation anteriorly with fairly poor air movement. She has no wheezes, n o rales. CARDIOVASCULAR: She has normal S1 and S2. I do not appreciate an S3. I do not appreciate an S4 due to body habitus. She did have a faint holosystolic murmur best heard at the apex. It is about 2/6. ABDOMEN: Severely obese. He is nontender, nondistended. She has good bowel sounds in all four quad rants. There is no rebound, rigidity, or guarding. I cannot palpate internal organs due to her body size. EXTREMITIES: No cyanosis, no clubbing. She has 2+ edema to the mid tibial level. I cannot palpate dorsalis pedis or posterior tibial arteries. She does have 2-3 second capillary refill. SKIN: Otherwise, warm, moist, and well perfused. She has no other significant rash or lesions. RECTAL: Not performed. NEUROLOGIC: Cranial nerves II through XII are grossly intact other than her right eye cannot be test ed. She has no focal deficits, normal speech. MUSCULOSKELETAL: Normal to inspection. Her large joints are nontender. I cannot appreciate effusio n due to body size. LABORATORY DATA: CMP showed a sodium of 138, potassium 5.7, down 6.0 earlier, chloride 102, bicarbon ate 29, BUN 35, creatinine 1.69, down to 1.83 earlier, she was 1.0 a few months ago. Glucose of 97. Liver functions normal. Albumin, a little bit low at 3.1. CBC showed a white count of 8.5, hemoglobin 10.7, hematocrit of 37.3, and platelets of 203,000. On i nitial presentation, her hemoglobin was 12.2 and dropped down to 10.7 but has remained stable. CT sc an of the abdomen and pelvis shows small bilateral pleural effusions, ascites, and anasarca. Chest x -ray showed cardiomegaly and pulmonary vascular congestion with small bilateral pleural effusions tanya t are stable, probable CHF. Urinalysis: Urine earlier today showed a greater than 50 red blood cells, greater than 50 white bloo d cells, 0-3 squamous epithelial cells, 4+ bacteria, 4-6 hyaline casts, large amount of blood, negati ve nitrite, and large leukocyte esterase. BNP was 1310 and GFR was calculated at 36. ASSESSMENT AND PLAN: 1. Rectal bleeding: I suspect hemorrhoidal. Anusol suppositories have been ordered b.i.d. p.r.n. We will follow her H&H q.6 hours for 2 more draws. If she remains stable, then likely was a limited event. We will continue her on MiraLax 17 grams daily, may need to increase to twice a day. 2. Acute on chronic diastolic congestive heart failure: The patient was just here a few weeks ago f or the same. I will convert her over to IV Lasix for tonight and monitor her I's and O's and daily w eight. She is currently on her home level of oxygen, has not had any respiratory distress. Suspect this could have been over called and likely be able to go home later today. 2. Obstructive sleep apnea/obesity hypoventilation syndrome with severe pulmonary hypertension. She is managed by Dr. Loo long-term. The patient really needs to be on BiPAP or CPAP, but she said they can get the settings correct. We will defer to Dr. Loo as an outpatient. 3. Severe obesity. 4. Chronic obstructive pulmonary disease without acute exacerbation, DuoNebs q.6 hours. She is on long-term prednisone. We will continue. 5. Gastroesophageal reflux disease: She is not any long-term medications, she will be on Prevacid 2 0 mg p.o. b.i.d. while she is here. 6. Diabetes mellitus type 2. We will continue glipizide. We will prescribe sliding scale insulin a t moderate doses for correction. 7. Chronic hypoxemic respiratory failure: She is 93+% on her home level of oxygen 3 liters nasal ca nnula. We will continue.
[2017-02-19] MEDS ORDERED: Nitroglycerin 50 MG/250 ML BOT 0 ML ONE (08:37)
[2017-02-19] MEDS: Potassium Chloride 20 MEQ TAB PO SCH ×2 (10:47→11:04)
[2017-02-19] MEDS: Saccharomyces boulardii 250 MG CAP PO SCH (10:47)
[2017-02-19] MEDS: Diltiazem HCl SR 60 mg Capsule PO SCH ×2 (10:47→21:47)
[2017-02-19] MEDS: Aspirin 81 mg Enteric Coated Tablet PO SCH (10:48)
[2017-02-19] MEDS: predniSONE 5 MG TAB PO SCH (10:48)
[2017-02-19] MEDS: Famotidine 20 MG TAB PO SCH ×2 (10:48→21:47)
[2017-02-19] MEDS: Flecainide 50 MG TAB PO SCH ×2 (10:48→21:47)
[2017-02-19] MEDS: busPIRone HCl 5 MG TAB PO SCH (10:48)
[2017-02-19] MEDS: Enoxaparin Sodium 30 MG/0.3 ML SYRINGE SC SCH (10:48)
[2017-02-19] MEDS: Dorzolamide HCl/Timolol Maleate 2%/0.5% Ophth Soln 10 ml Bottle L EYE SCH ×2 (10:55→21:46)
[2017-02-19] MEDS: Brimonidine Tartrate 0.2% Ophth Soln 5 ml Bottle L EYE SCH ×2 (10:55→21:45)
--- NOTE | 2017-02-19 12:32 | PDOC.EVN ---
Event Note - Event Note Event Note: Chart reviewed. Pt seen. No more rectal bleeding. Hemoglobin stable, will follow.
[2017-02-19] MEDS: Mometasone 200 MCG HFA INHALER INH SCH (19:58)
[2017-02-20] MEDS: Piperacillin/Tazobactam 3.375 GM in Sodium Chloride 0.9% 100 ML IVPB SCH ×4 (01:37→18:41)
[2017-02-20] MEDS: Dorzolamide HCl/Timolol Maleate 2%/0.5% Ophth Soln 10 ml Bottle L EYE SCH ×2 (08:41→20:33)
[2017-02-20] MEDS: Brimonidine Tartrate 0.2% Ophth Soln 5 ml Bottle L EYE SCH ×2 (08:41→20:33)
[2017-02-20] MEDS: Saccharomyces boulardii 250 MG CAP PO SCH (08:42)
[2017-02-20] MEDS: Flecainide 50 MG TAB PO SCH ×2 (08:42→20:32)
[2017-02-20] MEDS: Diltiazem HCl SR 60 mg Capsule PO SCH ×2 (08:42→20:32)
[2017-02-20] MEDS: Famotidine 20 MG TAB PO SCH ×2 (08:43→20:32)
[2017-02-20] MEDS: predniSONE 5 MG TAB PO SCH (08:43)
[2017-02-20] MEDS: busPIRone HCl 5 MG TAB PO SCH (08:43)
[2017-02-20] MEDS: Aspirin 81 mg Enteric Coated Tablet PO SCH (08:43)
[2017-02-20] MEDS: Acetaminophen 325 MG TAB PO PRN (08:44)
[2017-02-20 10:13] LABS: Anion Gap 12 mmol/L (10-20); BUN (Urea Nitrogen) 35 mg/dL (9.8-20.1); Calc. Creatinine Clearance 63 mL/min (70-130); Calcium 8.8 mg/dL (7.8-10.44); Carbon Dioxide 31 mmol/L (23-31); Chloride 101 mmol/L (98-107); Estimated GFR-MDRD 35; Glucose 117 mg/dL (83-110); Potassium 5.5 mmol/L (3.5-5.1); Sodium 138 mmol/L (136-145)
[2017-02-20] MEDS: Enoxaparin Sodium 30 MG/0.3 ML SYRINGE SC SCH (10:19)
[2017-02-20] MEDS: Potassium Chloride 20 MEQ TAB PO SCH (10:20)
[2017-02-20 10:43] LABS: #Basophils 0.1 thou/uL (0.0-0.2); #Eosinphils 0.1 thou/uL (0.0-0.7); #Lymphocytes 2.6 thou/uL (1.20-3.40); #Monocytes 1.3 thou/uL (0.11-0.59); #Neutrophils 5.6 thou/uL (1.40-6.50); %Basophils 0.8 % (0.0-1.0); %Eosinophils 1.2 % (0.0-10.0); %Monocytes 13.4 % (0.0-10.0); %Neutrophils 57.5 % (42.0-75.0); Hemoglobin 11.3 g/dL (12.0-16.0); Hypochromia SLIGHT = 6-15 cells (100X) (0-5/hpf); MDiff Complete? YES; Mean Corpuscular HGB CONC 28.7 g/dL (32.0-36.0); Mean Corpuscular Volume 97.6 fl (81.0-99.0); Mean Platelet Volume 8.2 fL (7.4-10.4); PLT Morphology Comment Appears Adequate; Platelet Count 223 thou/uL (130-400); Polychromasia MODERATE = 3-4 cells (100X) (0-2/hpf); RBC Distribution Width 16.6 % (11.5-14.5); Red Blood Cell (RBC) Count 4.03 mill/uL (4.20-5.40); White Blood Cell (WBC) Count 9.7 thou/uL (4.8-10.8)
--- NOTE | 2017-02-20 13:28 | PDOC.PN ---
- Subjective Encounter Start Date: 02/20/17 Encounter Start Time: 08:40 Pt seen for followup re; acute on chronic systolic heart failure. Reports bleeding from nose, now resolved. - Objective Resuscitation Status: Resuscitation Status FULL:Full Resuscitation MAR Reviewed: Yes Vital Signs & Weight: Vital Signs (12 hours) Temp Pulse Resp BP Pulse Ox 02/20/17 11:37 98 F 66 20 129/68 93 L 02/20/17 08:00 98.3 F 66 22 H 149/69 H 92 L 02/20/17 04:00 98.5 F 71 18 144/62 H 91 L Weight Admit Weight 314 lb Weight 315 lb 11.2 oz I&O: 02/19/17 02/20/17 02/21/17 06:59 06:59 06:59 Intake Total 600 1200 Balance 600 1200 Result Diagrams: 02/20/17 09:41 02/20/17 09:41 Additional Labs: Accuchecks 02/20/17 02/20/17 02/19/17 11:31 06:12 20:27 POC Glucose 131 H 118 H 135 H 02/19/17 16:58 POC Glucose 122 H EKG Reviewed by me: Yes (Tele; NSR) Phys Exam - Physical Examination Constitutional: NAD HEENT: PERRLA, moist MMs, sclera anicteric, oral pharynx no lesions No blood in nose Neck: no nodes, no JVD, supple, full ROM Respiratory: no wheezing, no rhonchi Jc crackles Cardiovascular: RRR, no rub Gastrointestinal: soft, non-tender, no distention, positive bowel sounds Neurological: moves all 4 limbs Psychiatric: normal affect, A&O x 3 Skin: no rash, normal turgor, cap refill <2 seconds Dx/Plan (1) Acute on chronic diastolic (congestive) heart failure Code(s): I50.33 - ACUTE ON CHRONIC DIASTOLIC (CONGESTIVE) HEART FAILURE Status : Acute (2) Hyperkalemia Code(s): E87.5 - HYPERKALEMIA Status: Acute (3) COPD (chronic obstructive pulmonary disease) Status: Chronic Qualifiers: COPD type: chronic bronchitis Chronic bronchitis type: unspecified Qualified Code(s): J42 - Unspecified chronic bronchitis (4) Morbid obesity with BMI of 50.0-59.9, adult Code(s): E66.01 - MORBID (SEVERE) OBESITY DUE TO EXCESS CALORIES; Z68.43 - BODY MASS INDEX (BMI) 50-59.9 , ADULT Status: Chronic (5) Diabetes mellitus Code(s): E11.9 - TYPE 2 DIABETES MELLITUS WITHOUT COMPLICATIONS Status: Chronic Comment: BS satisfactory.. (6) Depression with anxiety Status: Chronic (7) GERD (gastroesophageal reflux disease) Code(s): K21.9 - GASTRO-ESOPHAGEAL REFLUX DISEASE WITHOUT ESOPHAGITIS Status: Chronic Qualifiers: Esophagitis presence: esophagitis presence not specified Qualified Code(s) : K21.9 - Gastro-esophageal reflux disease without esophagitis (8) Hypertension Code(s): I10 - ESSENTIAL (PRIMARY) HYPERTENSION Status: Chronic (9) ADELINE (obstructive sleep apnea) Code(s): G47.33 - OBSTRUCTIVE SLEEP APNEA (ADULT) (PEDIATRIC) Status: Chronic Comment: ? home CPAP not functioning (10) Pulmonary artery hypertension Code(s): I27.2 - OTHER SECONDARY PULMONARY HYPERTENSION * DO NOT USE * Status : Chronic (11) Epistaxis Code(s): R04.0 - EPISTAXIS Status: Resolved (12) Rectal bleeding Code(s): K62.5 - HEMORRHAGE OF ANUS AND RECTUM Status: Resolved - Plan PT/OT, out of bed/ambulate, DVT proph w/lovenox * . Continue IV furosemide. Hemoglobin stable. Add humidifier to oxygen circuit. Continue accuchecks, insulin sliding scale. Ambulate patient. kayexelate for hyperkalemia Review of Systems - Review of Systems Constitutional: negative: fever, chills, sweats, weakness, malaise ENT: Other (Nose bleeding) Respiratory: SOB with Excertion. negative: Cough, Dry, Shortness of Breath, Hemoptysis, Pleuritic Pain, Sputum, Wheezing Cardiovascular: negative: chest pain, palpitations, orthopnea, paroxysmal nocturnal dyspnea, edema, light headedness Gastrointestinal: negative: Nausea, Vomiting, Abdominal Pain, Diarrhea, Constipation, Melena, Hematochezia Genitourinary: negative: Dysuria, Frequency, Incontinence, Hematuria, Retention - Medications/Allergies Allergies/Adverse Reactions: Allergies Allergy/AdvReac Type Severity Reaction Status Date / Time INDERJIT Inhibitors Allergy Verified 02/18/17 23:28 Sulfa (Sulfonamide Allergy Verified 02/18/17 23:28 Antibiotics) Medications: Current Medications Acetaminophen (Tylenol) 650 mg PO Q4H PRN PRN Reason: Headache/Fever or Pain Last Admin: 02/20/17 08:44 Dose: 650 mg Hydrocodone Bitart/Acetaminophen ([place] 10/325) 1 tab PO Q4H PRN PRN Reason: Severe Pain (7-10) Hydrocodone Bitart/Acetaminophen ([place] 5/325) 1 tab PO Q4H PRN PRN Reason: Moderate Pain (4-6) Albuterol/Ipratropium (Duoneb) 3 ml NEB [id number] [facility] Last Admin: 02/20/17 08:00 Dose: 3 ml Aspirin (Ecotrin) 81 mg PO DAILY [facility] Last Admin: 02/20/17 08:43 Dose: 81 mg Benzonatate (Tessalon) 100 mg PO TIDPRN PRN PRN Reason: Cough Last Admin: 02/20/17 12:06 Dose: 100 mg Bisacodyl (Dulcolax) 10 mg PO DAILYPRN PRN PRN Reason: Constipation Brimonidine Tartrate (Alphagan 0.2% Ophth Soln) 0 drop L EYE BID [facility] Last Admin: 02/20/17 08:41 Dose: 1 drop Buspirone HCl (Buspar) 5 mg PO DAILY [facility] Last Admin: 02/20/17 08:43 Dose: 5 mg Dextrose/Water (Dextrose 50%) 25 gm SLOW IVP PRN PRN PRN Reason: Hypoglycemia Diltiazem HCl (Cardizem Sr) 60 mg PO BID [facility] Last Admin: 02/20/17 08:42 Dose: 60 mg Dorzolamide/Timolol (Cosopt 2-0.5% Ophth Soln) 0 drop L EYE BID [facility] Last Admin: 02/20/17 08:41 Dose: 1 drop Enoxaparin Sodium (Lovenox) 30 mg SC 0900 [facility] Last Admin: 02/20/17 10:19 Dose: 30 mg Famotidine (Pepcid) 20 mg PO BID [facility] Last Admin: 02/20/17 08:43 Dose: 20 mg Flecainide Acetate (Tambocor) 50 mg PO Q12HR [facility] Last Admin: 02/20/17 08:42 Dose: 50 mg Glipizide (Glucotrol Xl) 5 mg PO DAILY [facility] Last Admin: 02/20/17 08:42 Dose: 5 mg Glucagon (Glucagon) 1 mg IM PRN PRN PRN Reason: Hypoglycemia Hydrocortisone Acetate (Anusol-Hc) 25 mg [place] BIDPRN PRN PRN Reason: Hemorrhoids Dextrose/Water (D5w) 1,000 mls @ 0 mls/hr IV .Q0M PRN; As Directed PRN Reason: Hypoglycemia Piperacillin Sod/Tazobactam (Sod 3.375 gm/ Sodium Chloride) 100 mls @ 200 mls/ hr IVPB Q6HR [facility] Last Admin: 02/20/17 12:04 Dose: 100 mls Insulin Human Lispro (Humalog) 0 units SC .MODERATE SLIDING SC PRN PRN Reason: Moderate Correctional Scale Mometasone Furoate (Asmanex Hfa 200 Mcg) 1 puff INH 1830 [facility] Last Admin: 02/19/17 19:58 Dose: 1 puff Ondansetron HCl (Zofran Odt) 4 mg PO Q6H PRN PRN Reason: Nausea/Vomiting Polyethylene Glycol (Miralax) 17 gm PO DAILY PRN PRN Reason: Constipation Potassium Chloride (K-Dur) 20 meq PO DAILY [facility] Last Admin: 02/20/17 10:20 Dose: Not Given Prednisone (Prednisone) 10 mg PO QAM-WM [facility] Last Admin: 02/20/17 08:43 Dose: 10 mg Saccharomyces Boulardii (Florastor) 250 mg PO DAILY [facility] Last Admin: 02/20/17 08:42 Dose: 250 mg Sodium Chloride (Flush - Normal Saline) 10 ml IVF Q12HR [facility] Last Admin: 02/20/17 08:44 Dose: 10 ml Sodium Chloride (Flush - Normal Saline) 10 ml IVF PRN PRN PRN Reason: Saline Flush Last Admin: 02/19/17 06:07 Dose: 10 ml
[2017-02-20] MEDS: Mometasone 200 MCG HFA INHALER INH SCH (19:14)
--- NOTE | 2017-02-20 19:25 | RAD ---
PA AND LATERAL OF THE CHEST: INDICATIONS: Rule out lung infiltrate. COMPARISON: Prior exam dated 02/18/2017. FINDINGS: There is cardiomegaly with pulmonary vascular congestion. There has been interval development of sma ll to moderate bilateral pleural effusions. No definite acute osseous abnormality is evident. IMPRESSION: Worsening congestive heart failure. POS: LUISAH
[2017-02-21] MEDS: Piperacillin/Tazobactam 3.375 GM in Sodium Chloride 0.9% 100 ML IVPB SCH ×3 (00:11→11:38)
[2017-02-21 05:41] LABS: Anion Gap 15 mmol/L (10-20); BUN (Urea Nitrogen) 40 mg/dL (9.8-20.1); Calc. Creatinine Clearance 45 mL/min (70-130); Calcium 8.9 mg/dL (7.8-10.44); Carbon Dioxide 27 mmol/L (23-31); Chloride 102 mmol/L (98-107); Estimated GFR-MDRD 24; Glucose 82 mg/dL (83-110); Potassium 5.2 mmol/L (3.5-5.1); Sodium 139 mmol/L (136-145)
[2017-02-21 06:00] LABS: Band 1 % (5-11); Hemoglobin 11.7 g/dL (12.0-16.0); Lymphocytes 32 % (21-51); MDiff Complete? YES; Mean Corpuscular Hemoglobin 27.9 pg (27.0-31.0); Mean Corpuscular Volume 99.7 fl (81.0-99.0); Mean Platelet Volume 8.3 fL (7.4-10.4); Monocytes 4 % (0-10); Neutrophil 63 % (42-75); PLT Morphology Comment Appears Adequate; Platelet Count 229 thou/uL (130-400); RBC Distribution Width 16.5 % (11.5-14.5); White Blood Cell (WBC) Count 9.5 thou/uL (4.8-10.8)
[2017-02-21] MEDS: Aspirin 81 mg Enteric Coated Tablet PO SCH (08:33)
[2017-02-21] MEDS: predniSONE 5 MG TAB PO SCH (08:33)
[2017-02-21] MEDS: Famotidine 20 MG TAB PO SCH ×2 (08:34→22:30)
[2017-02-21] MEDS: busPIRone HCl 5 MG TAB PO SCH (08:34)
[2017-02-21] MEDS: Flecainide 50 MG TAB PO SCH ×2 (08:34→22:30)
[2017-02-21] MEDS: Potassium Chloride 20 MEQ TAB PO SCH (08:35)
[2017-02-21] MEDS: Saccharomyces boulardii 250 MG CAP PO SCH (08:35)
[2017-02-21] MEDS: Brimonidine Tartrate 0.2% Ophth Soln 5 ml Bottle L EYE SCH ×2 (08:41→22:20)
[2017-02-21] MEDS: Diltiazem HCl SR 60 mg Capsule PO SCH ×2 (08:41→22:25)
[2017-02-21] MEDS: Dorzolamide HCl/Timolol Maleate 2%/0.5% Ophth Soln 10 ml Bottle L EYE SCH ×2 (08:41→22:20)
[2017-02-21] MEDS: Enoxaparin Sodium 30 MG/0.3 ML SYRINGE SC SCH (08:42)
[2017-02-21] MEDS ORDERED: Furosemide 40 MG/4 ML VIAL SLOW IVP SCH ×2 (11:15→23:30)
--- NOTE | 2017-02-21 13:07 | PDOC.PN ---
- Subjective Encounter Start Date: 02/21/17 Encounter Start Time: 08:20 Pt seen for followup re: CHF exacerbation. Reports SOBOE. - Objective Resuscitation Status: Resuscitation Status FULL:Full Resuscitation Vital Signs & Weight: Vital Signs (12 hours) Temp Pulse Resp BP Pulse Ox 02/21/17 12:00 97.2 F L 73 16 148/60 H 94 L 02/21/17 10:17 91 L 02/21/17 10:13 69 16 02/21/17 08:24 97.7 F 69 16 156/65 H 94 L 02/21/17 04:00 98.6 F 73 18 109/59 L 91 L Weight Admit Weight 314 lb Weight 317 lb 1.6 oz I&O: 02/20/17 02/21/17 02/22/17 06:59 06:59 06:59 Intake Total 1200 1265 Balance 1200 1265 Result Diagrams: 02/21/17 04:35 02/21/17 04:35 Additional Labs: Accuchecks 02/21/17 02/21/17 02/20/17 11:06 06:20 21:17 POC Glucose 71 75 105 02/20/17 16:34 POC Glucose 138 H Phys Exam - Physical Examination Morbid obesity HEENT: moist MMs Neck: supple Bibasal crackles Cardiovascular: RRR Gastrointestinal: soft Musculoskeletal: edema present Neurological: moves all 4 limbs Psychiatric: normal affect Dx/Plan (1) Acute on chronic diastolic (congestive) heart failure Code(s): I50.33 - ACUTE ON CHRONIC DIASTOLIC (CONGESTIVE) HEART FAILURE Status : Acute (2) Hyperkalemia Code(s): E87.5 - HYPERKALEMIA Status: Acute (3) COPD (chronic obstructive pulmonary disease) Status: Chronic Qualifiers: COPD type: chronic bronchitis Chronic bronchitis type: unspecified Qualified Code(s): J42 - Unspecified chronic bronchitis (4) Morbid obesity with BMI of 50.0-59.9, adult Code(s): E66.01 - MORBID (SEVERE) OBESITY DUE TO EXCESS CALORIES; Z68.43 - BODY MASS INDEX (BMI) 50-59.9 , ADULT Status: Chronic (5) Diabetes mellitus Code(s): E11.9 - TYPE 2 DIABETES MELLITUS WITHOUT COMPLICATIONS Status: Chronic Comment: BS satisfactory.. (6) Depression with anxiety Status: Chronic (7) GERD (gastroesophageal reflux disease) Code(s): K21.9 - GASTRO-ESOPHAGEAL REFLUX DISEASE WITHOUT ESOPHAGITIS Status: Chronic Qualifiers: Esophagitis presence: esophagitis presence not specified Qualified Code(s) : K21.9 - Gastro-esophageal reflux disease without esophagitis (8) Hypertension Code(s): I10 - ESSENTIAL (PRIMARY) HYPERTENSION Status: Chronic (9) ADELINE (obstructive sleep apnea) Code(s): G47.33 - OBSTRUCTIVE SLEEP APNEA (ADULT) (PEDIATRIC) Status: Chronic Comment: ? home CPAP not functioning (10) Pulmonary artery hypertension Code(s): I27.2 - OTHER SECONDARY PULMONARY HYPERTENSION * DO NOT USE * Status : Chronic (11) Epistaxis Code(s): R04.0 - EPISTAXIS Status: Resolved (12) Rectal bleeding Code(s): K62.5 - HEMORRHAGE OF ANUS AND RECTUM Status: Resolved - Plan PT/OT, out of bed/ambulate, DVT proph w/lovenox * . Continue IV furosemide (medication fell off list). Administer kayexelate today, check potassium level tomorrow. Discontinue antibiotics and observe. Pt denies any dysuria or increased frequency of urination. Ambulate patient. Review of Systems - Review of Systems Respiratory: Cough, Shortness of Breath, SOB with Excertion. negative: Dry, Hemoptysis, Pleuritic Pain, Sputum, Wheezing Cardiovascular: negative: chest pain, palpitations, orthopnea, paroxysmal nocturnal dyspnea, edema, light headedness - Medications/Allergies Allergies/Adverse Reactions: Allergies Allergy/AdvReac Type Severity Reaction Status Date / Time INDERJIT Inhibitors Allergy Verified 02/18/17 23:28 Sulfa (Sulfonamide Allergy Verified 02/18/17 23:28 Antibiotics) Medications: Current Medications Acetaminophen (Tylenol) 650 mg PO Q4H PRN PRN Reason: Headache/Fever or Pain Last Admin: 02/20/17 08:44 Dose: 650 mg Hydrocodone Bitart/Acetaminophen ([place] 10/325) 1 tab PO Q4H PRN PRN Reason: Severe Pain (7-10) Hydrocodone Bitart/Acetaminophen ([place] 5/325) 1 tab PO Q4H PRN PRN Reason: Moderate Pain (4-6) Albuterol/Ipratropium (Duoneb) 3 ml NEB [id number] [facility] Last Admin: 02/21/17 10:13 Dose: 3 ml Aspirin (Ecotrin) 81 mg PO DAILY [facility] Last Admin: 02/21/17 08:33 Dose: 81 mg Benzonatate (Tessalon) 100 mg PO TIDPRN PRN PRN Reason: Cough Last Admin: 02/20/17 12:06 Dose: 100 mg Bisacodyl (Dulcolax) 10 mg PO DAILYPRN PRN PRN Reason: Constipation Brimonidine Tartrate (Alph[place] 0.2% Ophth Soln) 0 drop L EYE BID [facility] Last Admin: 02/21/17 08:41 Dose: 1 drop Buspirone HCl (Buspar) 5 mg PO DAILY [facility] Last Admin: 02/21/17 08:34 Dose: 5 mg Dextrose/Water (Dextrose 50%) 25 gm SLOW IVP PRN PRN PRN Reason: Hypoglycemia Diltiazem HCl (Cardizem Sr) 60 mg PO BID [facility] Last Admin: 02/21/17 08:41 Dose: 60 mg Dorzolamide/Timolol (Cosopt 2-0.5% Ophth Soln) 0 drop L EYE BID [facility] Last Admin: 02/21/17 08:41 Dose: 1 drop Enoxaparin Sodium (Lovenox) 30 mg SC 0900 [facility] Last Admin: 02/21/17 08:42 Dose: 30 mg Famotidine (Pepcid) 20 mg PO BID [facility] Last Admin: 02/21/17 08:34 Dose: 20 mg Flecainide Acetate (Tambocor) 50 mg PO Q12HR [facility] Last Admin: 02/21/17 08:34 Dose: 50 mg Furosemide (Lasix) 40 mg SLOW IVP 0600,1400 [facility] Glipizide (Glucotrol Xl) 5 mg PO DAILY [facility] Last Admin: 02/21/17 08:34 Dose: 5 mg Glucagon (Glucagon) 1 mg IM PRN PRN PRN Reason: Hypoglycemia Hydrocortisone Acetate (Anusol-Hc) 25 mg [place] BIDPRN PRN PRN Reason: Hemorrhoids Dextrose/Water (D5w) 1,000 mls @ 0 mls/hr IV .Q0M PRN; As Directed PRN Reason: Hypoglycemia Piperacillin Sod/Tazobactam (Sod 3.375 gm/ Sodium Chloride) 100 mls @ 200 mls/ hr IVPB Q6HR [facility] Last Admin: 02/21/17 11:38 Dose: 100 mls Insulin Human Lispro (Humalog) 0 units SC .MODERATE SLIDING SC PRN PRN Reason: Moderate Correctional Scale Mometasone Furoate (Asmanex Hfa 200 Mcg) 1 puff INH 1830 [facility] Last Admin: 02/20/17 19:14 Dose: 1 puff Ondansetron HCl (Zofran Odt) 4 mg PO Q6H PRN PRN Reason: Nausea/Vomiting Polyethylene Glycol (Miralax) 17 gm PO DAILY PRN PRN Reason: Constipation Potassium Chloride (K-Dur) 20 meq PO DAILY [facility] Last Admin: 02/21/17 08:35 Dose: Not Given Prednisone (Prednisone) 10 mg PO QAM-WM [facility] Last Admin: 02/21/17 08:33 Dose: 10 mg Saccharomyces Boulardii (Florastor) 250 mg PO DAILY [facility] Last Admin: 02/21/17 08:35 Dose: 250 mg Sodium Chloride (Flush - Normal Saline) 10 ml IVF Q12HR [facility] Last Admin: 02/21/17 05:39 Dose: 10 ml Sodium Chloride (Flush - Normal Saline) 10 ml IVF PRN PRN PRN Reason: Saline Flush Last Admin: 02/19/17 06:07 Dose: 10 ml
[2017-02-21] MEDS: Furosemide 40 MG/4 ML VIAL SLOW IVP SCH (14:50)
[2017-02-21] MEDS: Mometasone 200 MCG HFA INHALER INH SCH (19:59)
[2017-02-21] MEDS ORDERED: Nitroglycerin 2% Ointment 1 INCH/1 GM Packet TOP SCH (23:30)
[2017-02-22 02:08] LABS: Actual Bicarbonate (HCO3a) 29.7 mEq/L (22-26); Base Excess (BEa) -0.1 mEq/L (0 (+/-) 2.5); Calcium, Ionized 1.1 mmol/L (1.12-1.30); Hematocrit-ABG 45.3 % (36.0-47.0); Hemoglobin (Hb) 11.9 g/dL (12.0-16.0); O2 Tension (PaO2) 84.4 mmHg (80.0-100.0)
[2017-02-22 02:10] LABS: Analyzer IN Cardio OR; CO2 Tension 78.8 mmHg (35.0-45.0); Puncture Site LRA
[2017-02-22 04:52] LABS: Anion Gap 19 mmol/L (10-20); BUN (Urea Nitrogen) 47 mg/dL (9.8-20.1); Calc. Creatinine Clearance 33 mL/min (70-130); Calcium 8.8 mg/dL (7.8-10.44); Carbon Dioxide 25 mmol/L (23-31); Chloride 100 mmol/L (98-107); Estimated GFR-MDRD 16; Glucose 80 mg/dL (83-110); Potassium 5.6 mmol/L (3.5-5.1); Sodium 138 mmol/L (136-145)
[2017-02-22] MEDS: Furosemide 40 MG/4 ML VIAL SLOW IVP SCH ×2 (05:23→20:31)
[2017-02-22 06:08] LABS: Hemoglobin 15.6 g/dL (12.0-16.0); Lymphocytes 21 % (21-51); MDiff Complete? YES; Mean Corpuscular HGB CONC 28.8 g/dL (32.0-36.0); Mean Platelet Volume 8.9 fL (7.4-10.4); Monocytes 15 % (0-10); Neutrophil 64 % (42-75); PLT Morphology Comment Appears Adequate; Platelet Count 131 thou/uL (130-400); RBC Distribution Width 16.7 % (11.5-14.5); White Blood Cell (WBC) Count 11.3 thou/uL (4.8-10.8)
[2017-02-22] MEDS: Aspirin 81 mg Enteric Coated Tablet PO SCH (10:11)
[2017-02-22] MEDS: predniSONE 5 MG TAB PO SCH (10:11)
[2017-02-22] MEDS: Diltiazem HCl SR 60 mg Capsule PO SCH ×2 (10:14→20:55)
[2017-02-22] MEDS: Flecainide 50 MG TAB PO SCH (10:14)
[2017-02-22] MEDS: Saccharomyces boulardii 250 MG CAP PO SCH (10:14)
[2017-02-22] MEDS: Dorzolamide HCl/Timolol Maleate 2%/0.5% Ophth Soln 10 ml Bottle L EYE SCH ×2 (10:14→20:50)
[2017-02-22] MEDS: Potassium Chloride 20 MEQ TAB PO SCH (10:15)
[2017-02-22] MEDS: busPIRone HCl 5 MG TAB PO SCH (10:20)
[2017-02-22] MEDS: Brimonidine Tartrate 0.2% Ophth Soln 5 ml Bottle L EYE SCH ×2 (10:45→20:49)
[2017-02-22] MEDS: Enoxaparin Sodium 30 MG/0.3 ML SYRINGE SC SCH (11:48)
--- NOTE | 2017-02-22 14:49 | PQF ---
DATE: 02-22-17 ATTN: DR. BRICE KLINE Please exercise your independent, professional judgment in responding to the clarification form. Clinical indicators are provided on the bottom of this form for your review Please check appropriate box(s): [ ] Acute Renal Failure (ARF) / Acute Kidney Injury (WILLIE) [ X ] Acute on Chronic Renal Failure please specify Stage of CKD ____V____ [ ] Other diagnosis [ ] Unable to determine In addition, please specify: Present on Admission (POA): [ ] Yes [ ] No [ ] Unable to determine National Kidney Foundation Guidelines for CKD Staging Stage I Kidney damage with normal or increased GFR GFR > 90 Stage II Kidney damage with mildly decreased GFR GFR 60-89 Stage III Kidney damage with moderately decreased GFR GFR 30-59 Stage IV Kidney damage with severely decreased GFR GFR 16-29 Stage V Kidney failure GFR<15 ESRD End Stage Renal Disease On dialysis For continuity of documentation, please document condition throughout progress notes and discharge summary. Thank You. CLINICAL INDICATORS - SIGNS / SYMPTOMS / LABS: GFR: 02-18-17: 32, 36 02-19-17: 39 02-20-17: 35 18: 24 02-22-17: 16 CREATININE: 02-18-17: 1.86, 1.69 02-19-17: 1.57 02-20-17: 1.72 02-21-17: 2.38 02-23-16: 3.31 BUN: 02-18-17: 34, 35 02-19-17: 33 02-20-17: 35 02-21-17: 40 02-22-17: 47 RISK FACTORS: H&P: HX OF DM, PT ON HOME LASIX AND THIS HOSPITALIZATION TREATMENTS: PN DR. KLINE 02-22-17: ADMINISTER KAYEXALATE TODAY, CHECK POTASSIUM TOMORROW (This form is maintained as a part of the permanent medical record) 2014 [employer] All Rights Reserved [email or web address] Office: [phone] [facility] CLINICLenard
--- NOTE | 2017-02-22 14:52 | PDOC.PN ---
- Subjective Encounter Start Date: 02/22/17 Encounter Start Time: 07:40 Chart reviewed and overnight events noted. Pt seen for followup re: hypoxia. Pt sleepy but arousable, on BiPAP. Says she feels better. - Objective Resuscitation Status: Resuscitation Status FULL:Full Resuscitation MAR Reviewed: Yes Vital Signs & Weight: Vital Signs (12 hours) Temp Pulse Resp Pulse Ox 02/22/17 13:11 66 20 94 L 02/22/17 08:00 98.3 F 71 26 H 91 L 02/22/17 07:57 71 20 91 L 02/22/17 04:00 97.8 F Weight Admit Weight 314 lb Weight 316 lb 9.341 oz Most Recent Monitor Data Heart Rate from ECG 67 NIBP 124/45 NIBP BP-Mean 80 Respiration from ECG 22 SpO2 92 I&O: 02/21/17 02/22/17 02/23/17 06:59 06:59 06:59 Intake Total 1265 764.4 Output Total 200 1 Balance 1265 564.4 -1 Result Diagrams: 02/22/17 03:46 02/22/17 03:46 Additional Labs: Accuchecks 02/22/17 02/22/17 02/21/17 11:42 06:56 21:06 POC Glucose 81 90 100 02/21/17 16:09 POC Glucose 88 EKG Reviewed by me: Yes (Tele: NSR) Phys Exam - Physical Examination Morbid obesity HEENT: sclera anicteric Dry mucosae, R corneal opacity Neck: supple Respiratory: clear to auscultation bilateral Cardiovascular: RRR Gastrointestinal: soft Musculoskeletal: edema present Neurological: moves all 4 limbs Psychiatric: normal affect Skin: no rash Dx/Plan (1) Hypoxia Code(s): R09.02 - HYPOXEMIA Status: Acute (2) Acute on chronic renal failure Code(s): N17.9 - ACUTE KIDNEY FAILURE, UNSPECIFIED; N18.9 - CHRONIC KIDNEY DISEASE, UNSPECIFIED Status: Acute (3) Acute on chronic diastolic (congestive) heart failure Code(s): I50.33 - ACUTE ON CHRONIC DIASTOLIC (CONGESTIVE) HEART FAILURE Status : Acute (4) Hyperkalemia Code(s): E87.5 - HYPERKALEMIA Status: Acute (5) COPD (chronic obstructive pulmonary disease) Status: Chronic Qualifiers: COPD type: chronic bronchitis Chronic bronchitis type: unspecified Qualified Code(s): J42 - Unspecified chronic bronchitis (6) Morbid obesity with BMI of 50.0-59.9, adult Code(s): E66.01 - MORBID (SEVERE) OBESITY DUE TO EXCESS CALORIES; Z68.43 - BODY MASS INDEX (BMI) 50-59.9 , ADULT Status: Chronic (7) Diabetes mellitus Code(s): E11.9 - TYPE 2 DIABETES MELLITUS WITHOUT COMPLICATIONS Status: Chronic (8) Depression with anxiety Status: Chronic (9) GERD (gastroesophageal reflux disease) Code(s): K21.9 - GASTRO-ESOPHAGEAL REFLUX DISEASE WITHOUT ESOPHAGITIS Status: Chronic Qualifiers: Esophagitis presence: esophagitis presence not specified Qualified Code(s) : K21.9 - Gastro-esophageal reflux disease without esophagitis (10) Hypertension Code(s): I10 - ESSENTIAL (PRIMARY) HYPERTENSION Status: Chronic (11) ADELINE (obstructive sleep apnea) Code(s): G47.33 - OBSTRUCTIVE SLEEP APNEA (ADULT) (PEDIATRIC) Status: Chronic Comment: ? home CPAP not functioning (12) Pulmonary artery hypertension Code(s): I27.2 - OTHER SECONDARY PULMONARY HYPERTENSION * DO NOT USE * Status : Chronic (13) Epistaxis Code(s): R04.0 - EPISTAXIS Status: Resolved (14) Rectal bleeding Code(s): K62.5 - HEMORRHAGE OF ANUS AND RECTUM Status: Resolved - Plan * . Pt saturating in low 90s on BiPAP. Hold furosemide for now,given renal insuffiency. Repeat chest x-ray to evaluate failure. D/w bilingual instructor personal lines account manager, he will see pt. Hold nephrotoxic medications. Review of Systems - Review of Systems Respiratory: Cough, SOB with Excertion. negative: Dry, Shortness of Breath, Hemoptysis, Pleuritic Pain, Sputum, Wheezing Cardiovascular: negative: chest pain, palpitations, orthopnea, paroxysmal nocturnal dyspnea, edema, light headedness - Medications/Allergies Allergies/Adverse Reactions: Allergies Allergy/AdvReac Type Severity Reaction Status Date / Time INDERJIT Inhibitors Allergy Verified 02/18/17 23:28 Sulfa (Sulfonamide Allergy Verified 02/18/17 23:28 Antibiotics) Medications: Current Medications Acetaminophen (Tylenol) 650 mg PO Q4H PRN PRN Reason: Headache/Fever or Pain Last Admin: 02/20/17 08:44 Dose: 650 mg Hydrocodone Bitart/Acetaminophen ([place] 10/325) 1 tab PO Q4H PRN PRN Reason: Severe Pain (7-10) Hydrocodone Bitart/Acetaminophen ([place] 5/325) 1 tab PO Q4H PRN PRN Reason: Moderate Pain (4-6) Albuterol/Ipratropium (Duoneb) 3 ml NEB [id number] [facility] Last Admin: 02/22/17 13:11 Dose: 3 ml Aspirin (Ecotrin) 81 mg PO DAILY [facility] Last Admin: 02/22/17 10:11 Dose: 81 mg Benzonatate (Tessalon) 100 mg PO TIDPRN PRN PRN Reason: Cough Last Admin: 02/20/17 12:06 Dose: 100 mg Bisacodyl (Dulcolax) 10 mg PO DAILYPRN PRN PRN Reason: Constipation Brimonidine Tartrate (Alph[place] 0.2% Ophth Soln) 0 drop L EYE BID [facility] Last Admin: 02/22/17 10:45 Dose: 1 drop Buspirone HCl (Buspar) 5 mg PO DAILY [facility] Last Admin: 02/22/17 10:20 Dose: 5 mg Dextrose/Water (Dextrose 50%) 25 gm SLOW IVP PRN PRN PRN Reason: Hypoglycemia Diltiazem HCl (Cardizem Sr) 60 mg PO BID [facility] Last Admin: 02/22/17 10:14 Dose: 60 mg Dorzolamide/Timolol (Cosopt 2-0.5% Ophth Soln) 0 drop L EYE BID [facility] Last Admin: 02/22/17 10:14 Dose: 1 drop Enoxaparin Sodium (Lovenox) 30 mg SC 0900 [facility] Last Admin: 02/22/17 11:48 Dose: 30 mg Famotidine (Pepcid) 20 mg PO DAILY [facility] Flecainide Acetate (Tambocor) 50 mg PO Q12HR [facility] Last Admin: 02/22/17 10:14 Dose: 50 mg Furosemide (Lasix) 40 mg SLOW IVP 0600,1400 [facility] Last Admin: 02/22/17 05:23 Dose: 40 mg Glipizide (Glucotrol Xl) 5 mg PO DAILY [facility] Last Admin: 02/22/17 10:15 Dose: Not Given Glucagon (Glucagon) 1 mg IM PRN PRN PRN Reason: Hypoglycemia Hydrocortisone Acetate (Anusol-Hc) 25 mg [place] BIDPRN PRN PRN Reason: Hemorrhoids Dextrose/Water (D5w) 1,000 mls @ 0 mls/hr IV .Q0M PRN; As Directed PRN Reason: Hypoglycemia Insulin Human Lispro (Humalog) 0 units SC .MODERATE SLIDING SC PRN PRN Reason: Moderate Correctional Scale Mometasone Furoate (Asmanex Hfa 200 Mcg) 1 puff INH 1830 [facility] Last Admin: 02/21/17 19:59 Dose: 1 puff Ondansetron HCl (Zofran Odt) 4 mg PO Q6H PRN PRN Reason: Nausea/Vomiting Polyethylene Glycol (Miralax) 17 gm PO DAILY PRN PRN Reason: Constipation Potassium Chloride (K-Dur) 20 meq PO DAILY [facility] Last Admin: 02/22/17 10:15 Dose: Not Given Prednisone (Prednisone) 10 mg PO QAM-WM [facility] Last Admin: 02/22/17 10:11 Dose: 10 mg Saccharomyces Boulardii (Florastor) 250 mg PO DAILY [facility] Last Admin: 02/22/17 10:14 Dose: 250 mg Sodium Chloride (Flush - Normal Saline) 10 ml IVF Q12HR [facility] Last Admin: 02/22/17 10:16 Dose: Not Given Sodium Chloride (Flush - Normal Saline) 10 ml IVF PRN PRN PRN Reason: Saline Flush Last Admin: 02/19/17 06:07 Dose: 10 ml Sodium Polystyrene Sulfonate (Kayexelate Oral Susp 15 Gm/60 Ml) 30 gm PO ONE [facility]
--- NOTE | 2017-02-22 15:02 | PQF ---
DATE: 02-22-17 ATTN: DR. BRICE KLINE / DR. ROGER SEVILLA Please exercise your independent, professional judgment in responding to the clarification form. Clinical indicators are provided on the bottom of this form for your review Please check appropriate box(s): [ xx ] UTI [ ] Contaminated urine specimen without UTI [ ] Other diagnosis [ ] Unable to determine In addition, please specify: Present on Admission (POA): [ ] Yes [ ] No [ ] Unable to determine For continuity of documentation, please document condition throughout progress notes and discharge summary. Thank You. CLINICAL INDICATORS - SIGNS / SYMPTOMS / LABS ER DIAGNOSIS: CHF EXACERBATION, DYSPNEA, UTI URINE 02-18-17: URINE PROTEIN: 100 H URINE BLOOD: LARGE H UR LEUKOCYTE ESTERASE: LARGE H URINE RBC: GREATER THAN 50- TNTC H URINE WBC: GREATER THAN 50-TNTC H URINE BACTERIA: 4+ H RISK FACTORS: ER DOCUMENTATION: HX OF DM 2, CHF, OBESITY, HTN TREATMENT: ER: IVF, ROCEPHIN IV (This form is maintained as a part of the permanent medical record) 2014 [employer] All Rights Reserved [email or web address] Office: [phone] [facility]
[2017-02-22 15:41] LABS: Actual Bicarbonate (HCO3a) 29.6 mEq/L (22-26); Base Excess (BEa) -0.5 mEq/L (0 (+/-) 2.5); Calcium, Ionized 1.1 mmol/L (1.12-1.30); Hemoglobin (Hb) 11.9 g/dL (12.0-16.0)
[2017-02-22 15:42] LABS: CO2 Tension 81.2 mmHg (35.0-45.0); Puncture Site RRA; pH, Arterial 7.18 (7.35-7.45)
--- NOTE | 2017-02-22 16:17 | RAD ---
RADIOGRAPH CHEST 1 VIEW: Date: 02/22/2017 Time: 2:55 p.m. HISTORY: A 77-year-old female with pulmonary edema. COMPARISON: 02/20/2017 at 7:13 p.m. FINDINGS: Again noted is the cardiomegaly. There is pulmonary vascular engorgement. The extensive retrocardia c left lower lobe air space densities appear moderately severe, but have slightly improved since the previous study. Again noted are the predominantly interstitial densities in the right mid and lower lung zones, which have also slightly improved, especially at the right base. There are probable bila teral pleural effusions, left greater than right. No pneumothorax. IMPRESSION: 1. Cardiomegaly and bilateral small pleural effusions, consistent with congestive heart failure. 2. Interval improvement in air space densities in the left lower lobe, suggestive of interval improv ement in left lower lobe pneumonia (less likely atelectasis). 3. Interstitial densities throughout the right mid and lower lung zones. This could represent pulmo nary interstitial edema (the equivalent areas in the contralateral left side are obscured by the card iomegaly). This has also improved. DIETER [] POS: NAIMA
[2017-02-22] MEDS ORDERED: Furosemide 100 MG/10 ML VIAL SLOW IVP SCH (16:45)
--- NOTE | 2017-02-22 17:20 | CON ---
DATE OF CONSULTATION: 02/22/2017 REASON FOR CONSULTATION: Heart failure and respiratory insufficiency. HISTORY OF PRESENT ILLNESS: Mrs. Bishop is a very pleasant 77-year-old -I[place]ian female, fol lowed by myself for sometime now, who comes to the hospital for rectal bleeding. She has a history o f severe pulmonary hypertension and diastolic dysfunction as well as obstructive sleep apnea. She ca me in for this rectal bleeding and was actually started to diurese some, as she was already going int o heart failure. She already had an increase in the lower extremity swelling and had abdominal swell ing as well. She was on 40 IV of Lasix twice a day. It is unclear how well she was diuresing as the ins and outs were not accurate. Her shortness of breath became worse and became more acidotic respi ratory alegre and had to be intubated. Cardiology is being called for further evaluation and care. On my evaluation, she currently is intubated and sedated and cannot provide with any history. PAST MEDICAL HISTORY: 1. Atrial flutter in the recent past. 2. Diastolic dysfunction. 3. Chronic obstructive pulmonary disease. 4. Severe pulmonary hypertension with RVSP that to about 100 mmHg. 5. Systemic hypertension. 6. Chronic respiratory insufficiency. 7. Type 2 diabetes. PAST SURGICAL HISTORY: 1. Tubal ligation. 2. Hysterectomy. 3. Tonsillectomy. SOCIAL HISTORY: No alcohol, tobacco, or drugs. FAMILY HISTORY: Positive for early coronary artery disease. OUTPATIENT MEDICATIONS: Include: 1. Aspirin 81 a day. 2. Dorzolamide eye drops. 3. Diltiazem 60 mg p.o. b.i.d. 4. Alphagan eye drops. 5. Tessalon Perles p.r.n. 6. DuoNeb p.r.n. 7. Lasix 60 mg a day. 8. Flecainide 50 mg q.12 hours. 9. Florastor. 10. Potassium chloride 20 mEq a day. 11. MiraLax p.r.n. 12. Asmanex. 13. Glipizide 5 mg daily. 14. BuSpar. 15. Prednisone 10 mg every day. ALLERGIES: INDERJIT INHIBITORS AND SULFA DRUGS. REVIEW OF SYSTEMS: Unobtainable as currently she is sedated and intubated. PHYSICAL EXAMINATION: VITAL SIGNS: Temperature 97.8, pulse 66, respiration rate 20, satting 92% on 60% FiO2, blood pressur e 107/42. GENERAL: Sedated and intubated. Obese. HEENT: Normocephalic, atraumatic. NECK: Unable to be evaluated due to body habitus. LUNGS: Have bilateral coarse breath sounds anteriorly. ABDOMEN: Has positive bowel sounds, but distant, seems more distended than usual, likely from some a scites, which is difficult to evaluate secondary to her weight. EXTREMITIES: A 3+ edema, which is very different from her baseline. SKIN: Warm and dry. LABORATORY WORK: Reviewed. Her white count on admission was 8.5, now up to 11.3. Her hemoglobin wa s 12.7, now up to 15.6. ABG was reviewed. Chemistries were reviewed. BUN of 47, creatinine of 3.3, potassium of 5.6. UA was turbid, 100 protein with large amount of blood, 4+ bacteria. Chest x-ray was reviewed from today and it showed cardiomegaly and bilateral small pleural effusions with what appears to be possibly a lower lobe pneumonia and right mid and lower lung density that cou ld represent edema. CT of the abdomen and pelvis done on admission, done 4 days ago, showed pleural effusion with anasarc a and ascites and cholelithiasis. ASSESSMENT: 1. Acute on chronic diastolic heart failure. 2. Severe pulmonary hypertension. 3. Acute hypoxic/hypercapnic respiratory insufficiency. PLAN: 1. She needs more diuresis. Her lower extremity swelling is much worse than what is at baseline. I will increase her Lasix dose to 80 mg b.i.d. Hopefully, this will help her get the fluid on the rig ht side to get it diuresed. 2. We will continue to follow.
[2017-02-22 17:33] LABS: Actual Bicarbonate (HCO3a) 25.6 mEq/L (22-26); Base Excess (BEa) -0.9 mEq/L (0 (+/-) 2.5); CO2 Tension 50.1 mmHg (35.0-45.0); Calcium, Ionized 1.1 mmol/L (1.12-1.30); Hematocrit-ABG 44.5 % (36.0-47.0); O2 Tension (PaO2) 59.1 mmHg (80.0-100.0); pH, Arterial 7.33 (7.35-7.45)
[2017-02-22 17:36] LABS: ALV-art Gradient 166.675 (0-20); Puncture Site RRA
[2017-02-22] MEDS: Mometasone 200 MCG HFA INHALER INH SCH (18:55)
[2017-02-22] MEDS ORDERED: Propofol 1,000 MG/100 ML VIAL IV ONE (20:39)
[2017-02-22] MEDS ORDERED: Lorazepam 2 MG/ML VIAL SLOW IVP PRN (20:40)
[2017-02-22] MEDS ORDERED: fentaNYL Citrate/PF 2,000 MCG in Sodium Chloride 0.9% 60 ML IV SCH (20:40)
[2017-02-22] MEDS ORDERED: Morphine 2 MG/ML SYRINGE SLOW IVP PRN (20:40)
[2017-02-22] MEDS ORDERED: DISCONTINUE PREVIOUS NARCOTIC PAIN MEDICATIONS AND BENZODIAZEPINES FS SCH (20:40)
[2017-02-22] MEDS ORDERED: Fentanyl BOLUS 250 ML IVPB PRN (20:40)
--- NOTE | 2017-02-22 22:21 | OP ---
PROCEDURE: Bronchoscopy, therapeutic and for intubation. CEMENT FINISHING SUPERVISOR: John Toure M.D. INDICATION: Respiratory failure. PROCEDURE IN DETAIL: The patient was not given any sedation as she was obtunded. A bite block was p laced in her mouth. She is edentulous. The bronchoscope was passed into her pharyngeal space, which was full of saliva, this was all suctioned until her cords could be visualized. Bronchoscope was in troduced through her vocal cords, which appeared normal. Her proximal trachea was full of aspirated salivary type secretions. The endotracheal tube was advanced to a point above the main leonor. The entire tracheobronchial tree was inspected. Copious thick white and clear secretions were encountere d, had the consistency of bronchial mucus were aspirated saliva. Right lower lobe, right upper lobe, right middle lobe, left lower lobe and left upper lobe were all entered and well visualized and suct ioned until clear. Approximately, 15 mL of saline was used to irrigate the tracheobronchial tree. T here is no change in her vital signs during intubation. She was connected to mechanical ventilation. She tolerated the procedure well.
[2017-02-22] MEDS: Dextrose 50% Abboject 50 ML SYRINGE SLOW IVP PRN (23:26)
[2017-02-23] MEDS: Propofol 1,000 MG/100 ML VIAL IV PRN ×2 (01:22→18:50)
[2017-02-23] MEDS: Famotidine 20 MG TAB PO SCH ×2 (02:50→09:26)
[2017-02-23 04:17] LABS: Albumin 2.4 g/dL (3.4-4.8); Anion Gap 20 mmol/L (10-20); BUN (Urea Nitrogen) 59 mg/dL (9.8-20.1); BUN/Creatinine Ratio 14.01; Calc. Creatinine Clearance 26 mL/min (70-130); Carbon Dioxide 24 mmol/L (23-31); Chloride 100 mmol/L (98-107); Estimated GFR-MDRD 12; Glucose 71 mg/dL (83-110); Phosphorus 7.1 mg/dL (2.3-4.7); Potassium 5.3 mmol/L (3.5-5.1); Sodium 139 mmol/L (136-145)
[2017-02-23] MEDS: Dextrose 50% Abboject 50 ML SYRINGE SLOW IVP PRN ×3 (05:52→21:36)
[2017-02-23 05:56] LABS: Band 4 % (5-11); Hemoglobin 11.3 g/dL (12.0-16.0); Lymphocytes 8 % (21-51); MDiff Complete? YES; Mean Corpuscular Hemoglobin 27.7 pg (27.0-31.0); Mean Corpuscular Volume 95.5 fl (81.0-99.0); Monocytes 36 % (0-10); Neutrophil 51 % (42-75); Nucleated RBC 6 % (0); PLT Morphology Comment Appears Adequate; Platelet Count 175 thou/uL (130-400); RBC Distribution Width 16.9 % (11.5-14.5); Reactive Lymphocytes 1 % (0-10); Red Blood Cell (RBC) Count 4.06 mill/uL (4.20-5.40); White Blood Cell (WBC) Count 15.5 thou/uL (4.8-10.8)
--- NOTE | 2017-02-23 05:58 | PRG ---
DATE OF SERVICE: 02/23/2017 Ms. Bishop is sedated for ventilation. PHYSICAL EXAMINATION: VITAL SIGNS: She is afebrile. Respiratory rate 14, blood pressure 113/36, heart rate is in the 50s, respiratory rate in the teens per mechanical ventilation. LUNGS: She has coarse expiratory wheezes diffusely. HEART: Regular rhythm. ABDOMEN: Abdomen is soft. EXTREMITIES: Without asymmetry. Blood gas is pending. Chest x-ray is pending. Sodium 139, potassium 5.3, chloride 100, bicarbonate 24, BUN 59, creatinine 4.21. Her intake and out put 330 in and only 31 mL out recorded so far. IMPRESSION: 1. Respiratory failure secondary to retained secretions and weakness and inability to clear secretio ns as well as aspirated saliva. 2. Pulmonary hypertension secondary to sleep apnea and diastolic dysfunction and obstructive lung di sease. She has been switched from prednisone to IV steroids. Her nebulizer treatments will be given every 4 hours. She will receive IV fluids. 3. Acute renal failure. Pretty much she is total body water volume overloaded. I do not feel that she will tolerate an attempt at diuresis. I suspect her cardiomyopathy and pulmonary hypertension ar e contributing to her azotemia. She will be given back IV fluids today. 3. Obesity. 4. Borderline hyperkalemia. 5. Hyperphosphatemia. 6. Hypoalbuminemia. PLAN: Plan to continue with mechanical ventilation. Nephrology needs to be consulted. She will receive IV fluids. Prognosis is quite guarded. Critical care time was 30 minutes.
--- NOTE | 2017-02-23 05:58 | CON ---
DATE OF CONSULTATION: 02/22/2017 HISTORY OF PRESENT ILLNESS: Ms. Bishop is an unfortunate 77-year-old female. The patient was unabl e to give a history. I did get a brief history from the daughter, who is a little upset seeing her m om in distress. I was consulted this morning because of her presence in the Critical Care Unit. Apparently during day, she started declining in mental status and BiPAP was placed. I happened to walk by the room a nd noticed that she had BiPAP and attended at the bedside. This morning when I interacted with her, she was just groan and moan, but would not speak in sentence s. She has a history of diastolic dysfunction. She also has a history of pulmonary hypertension, the et iology of which is unclear. She does have a history of obesity as well. She also has a history of frequent hospitalizations this year. Looks like she was reviewing records, looks like she was admitted in April, May, June, July, October, November, and January. Her last discharge was 02/03/2017. At the time of discharge, diagnosis was acute on chronic diastoli c heart failure. Reviewing Dr. Quispe's notes and Dr. Branham' notes and talking to Dr. Quispe and told that she very missy nasim has issues with fluid retention. She tends to improve with diuresis and improvement of her legs, leads to improvement of her respirato ry status. She has a history of atrial flutter for which she has been asymptomatic when she was here in November. She has a history of obstructive lung disease as well. She has a history of obesity, but it is unclear how much of her pulmonary hypertension is related to obesity, how much is diastolic dysfunction and how much of it is truly related to obstructive lung di sease. She apparently was moved in to the Critical Care Unit yesterday afternoon for hypoxia. She is on BiP AP yesterday and this was removed some time today. Her blood gas yesterday at 2327 hours showed a pH of 7.2, CO2 of 78, pO2 of 84, was on a nonrebreathe r. No repeat blood gas was done on BiPAP until this afternoon, pH was 7.18, CO2 was 81, pO2 was 76. At this point, she was completely obtunded. According to old consults in the computer system, she has never been a smoker, so I am not sure where the diagnosis of COPD came from. She has a history of failed chemical cardioversions. She has history of intolerance to INDERJIT inhibitors and sulfa drugs. As mentioned, she is a nonsmoker, nondrinker. She was actually admitted on 02/19/2017 with complaints of rectal bleeding. Apparently, she gave a history of having hemorrhoids, also having been constipated for 2 weeks since discharge from the hospital on the . She is able to give a history on presentation. She also has a history of glaucoma according to some old records, history of a tonsillectomy in the p ast and bilateral salpingo-oophorectomy with hysterectomy. Prior to admission, she was on aspirin, glipizide, Lasix, potassium, Cardizem, BuSpar, flecainide, to rsemide eyedrops, Alphagan eyedrops, DuoNeb, 10 mg of prednisone and mometasone, metered dose inhaler . REVIEW OF SYSTEMS: Otherwise cannot be obtained. PHYSICAL EXAMINATION: GENERAL: She was obtunded. When examined this afternoon, not arousable other than a moun with aguirre al rub. VITAL SIGNS: Pulse was in the 60s, respiratory rate was in the low teens, blood pressure was 119/42. HEENT: Pupils react. Sclerae are anicteric. NECK: Supple. LUNGS: Distant, clear. HEART: Regular rhythm. ABDOMEN: Soft and nontender. EXTREMITIES: Without asymmetry. LABORATORY AND X-RAY FINDINGS: Blood gas post-intubation 7.33, CO2 of 50, pO2 of 51. Sodium 138, potassium 5.6, chloride 100, bicarbonate 25, BUN 47, creatinine 3.31. Her lowest creatin ine on the record was on 02/01 at 0.99. White count 11.3, hemoglobin 15.6. Hemoglobin was 11.7 the day before on the . Her intake and output reported only is positive 564, I am not sure this is accurate since she has a d iaper. She was reported to lose a pound between yesterday and today. Chest radiograph reviewed by me shows pulmonary edema. IMPRESSION: Respiratory failure secondary to a combination of factors; pulmonary edema; obesity hypo ventilation syndrome, it is apparently not treated; diastolic dysfunction as well as ? obstructive kevyn ng disease. She does not have a long expiratory time, so I am suspect most of this is volume related , but unfortunately with her renal insufficiency, she is not going to tolerate much in the way of diu resis. Looking back through her old records, I do find a CT angiogram in November that was done showing no ev idence of thromboembolic disease. It was a slightly suboptimal study, but probably rules out thrombo embolic disease as a cause of her pulmonary hypertension. I have recommended intubation. I talked to the daughter about that and she was agreeable. Critical care time independent of procedures 40 minutes. Greater than 50% of this time was spent rev iewing records, interviewing family, interviewing staff at the bedside and on the unit.
[2017-02-23] MEDS ORDERED: Furosemide 100 MG/10 ML VIAL SLOW IVP SCH (06:00)
[2017-02-23] MEDS ORDERED: Furosemide 20 MG/2 ML VIAL SLOW IVP SCH (06:00)
[2017-02-23] MEDS: Sodium Chloride 0.45% 1,000 ML IV SCH ×2 (06:04→18:50)
[2017-02-23 08:17] LABS: Actual Bicarbonate (HCO3a) 24.4 mEq/L (22-26); CO2 Tension 39.1 mmHg (35.0-45.0); Hemoglobin (Hb) 11.1 g/dL (12.0-16.0); O2 Tension (PaO2) 68.5 mmHg (80.0-100.0); pH, Arterial 7.41 (7.35-7.45)
[2017-02-23 08:19] LABS: ALV-art Gradient 207.075 (0-20); Puncture Site RR
--- NOTE | 2017-02-23 08:49 | RAD ---
PORTABLE CHEST: History: Respiratory distress. Comparison: 02-18-17 FINDINGS: Endotracheal and NG tubes are in satisfactory position. Heart size is enlarged. There is a somewhat a symmetric interstitial alveolar lung changes asymmetrically involving the right lung, although I stil l suspect that this is on the basis of pulmonary edema. Increased density in the right base probably related to effusion. IMPRESSION: Cardiomegaly with pulmonary edema type changes, asymmetric parenchymal changes in the right lung as c ompared to the left, but probably just on the basis of asymmetric edema. POS: LUISA
[2017-02-23] MEDS: Aspirin 81 mg Enteric Coated Tablet PO SCH (09:26)
[2017-02-23] MEDS: Saccharomyces boulardii 250 MG CAP PO SCH (09:27)
[2017-02-23] MEDS: Diltiazem HCl SR 60 mg Capsule PO SCH ×2 (09:27→20:31)
[2017-02-23] MEDS: busPIRone HCl 5 MG TAB PO SCH (09:27)
[2017-02-23] MEDS: Brimonidine Tartrate 0.2% Ophth Soln 5 ml Bottle L EYE SCH ×2 (09:28→20:31)
[2017-02-23] MEDS: Dorzolamide HCl/Timolol Maleate 2%/0.5% Ophth Soln 10 ml Bottle L EYE SCH ×2 (09:30→20:32)
[2017-02-23] MEDS ORDERED: cefTRIAXone\\ROCEPHIN 1 GM in Sodium Chloride 0.9% 100 ML IVPB SCH (09:45)
--- NOTE | 2017-02-23 10:01 | PDOC.PN ---
- Subjective Encounter Start Date: 02/23/17 Encounter Start Time: 09:15 -: non-verbal Subjective: intubated and sedated - Objective Resuscitation Status: Resuscitation Status FULL:Full Resuscitation MAR Reviewed: Yes Vital Signs & Weight: Vital Signs (12 hours) Temp Pulse Resp BP Pulse Ox 02/23/17 08:00 14 02/23/17 07:53 63 112/56 L 02/23/17 07:35 98.3 F 60 14 100 02/23/17 06:00 14 02/23/17 04:00 98.0 F 14 02/23/17 02:12 57 L 02/23/17 02:00 14 02/23/17 01:11 56 L 14 100 02/23/17 00:00 97.7 F 14 02/22/17 22:24 59 L 02/22/17 22:00 14 Weight Admit Weight 314 lb Weight 317 lb 3.923 oz Most Recent Monitor Data Heart Rate from ECG 67 NIBP 112/56 NIBP BP-Mean 88 Respiration from ECG 18 SpO2 100 I&O: 02/22/17 02/23/17 02/24/17 06:59 06:59 06:59 Intake Total 764.4 935 30 Output Total 200 46 5 Balance 564.4 889 25 Result Diagrams: 02/23/17 03:36 02/23/17 03:36 Additional Labs: Accuchecks 02/23/17 02/23/17 02/23/17 08:00 05:48 01:10 POC Glucose 71 59 L* 104 02/22/17 02/22/17 02/22/17 22:56 17:40 11:42 POC Glucose 67 L 72 81 Radiology Reviewed by me: Yes Phys Exam - Physical Examination Constitutional: NAD intubated and sedated ett in place Respiratory: no wheezing Cardiovascular: RRR Gastrointestinal: soft, positive bowel sounds Musculoskeletal: edema present intubated and sedated Dx/Plan (1) Acute on chronic respiratory failure with hypoxia Code(s): J96.21 - ACUTE AND CHRONIC RESPIRATORY FAILURE WITH HYPOXIA Status: Acute Comment: Improved, off BiPAP, continue O2 supplementation, pulmonary support, likely multifactorial (2) CHF (congestive heart failure) Code(s): I50.9 - HEART FAILURE, UNSPECIFIED Status: Acute Qualifiers: Congestive heart failure type: diastolic Comment: improving.. (3) COPD exacerbation Code(s): J44.1 - CHRONIC OBSTRUCTIVE PULMONARY DISEASE W (ACUTE) EXACERBATION Status: Acute Comment: improving (4) Pneumonia Code(s): J18.9 - PNEUMONIA, UNSPECIFIED ORGANISM Status: Acute (5) UTI (urinary tract infection) Status: Acute Qualifiers: Urinary tract infection type: acute cystitis Hematuria presence: without hematuria Qualified Code(s): N30.00 - Acute cystitis without hematuria Comment: E.Coli resistant to Multiple ABx. sensitive to Nitrofurantoin, will convert to po. renal function normal. (6) DM2 (diabetes mellitus, type 2) Status: Chronic (7) Diabetes type 2, controlled Code(s): E11.9 - TYPE 2 DIABETES MELLITUS WITHOUT COMPLICATIONS Status: Chronic Comment: Continue Glipizide 5mg daily, ISS, accuchecks (8) HTN (hypertension) Code(s): I10 - ESSENTIAL (PRIMARY) HYPERTENSION Status: Chronic Qualifiers: Hypertension type: essential hypertension Qualified Code(s): I10 - Essential (primary) hypertension - Plan cont current plan of care, continue antibiotics, respiratory therapy * . - Discharge Day Encounter end time: 10:00
[2017-02-23] MEDS: cefTRIAXone\\ROCEPHIN 1 GM, Syringe 0.4 ML in Sterile Water 9.6 ML SLOW IVP SCH (10:40)
--- NOTE | 2017-02-23 11:56 | PDOC.CTH ---
Cardiology Progress Note - Subjective She remains intubated and sedated. - Objective Vital Signs Temp Pulse Resp BP Pulse Ox 02/23/17 11:14 65 115/52 L 02/23/17 10:00 14 02/23/17 08:00 14 02/23/17 07:53 63 112/56 L 02/23/17 07:35 98.3 F 60 14 100 02/23/17 06:00 14 02/23/17 04:00 98.0 F 14 02/23/17 02:12 57 L 02/23/17 02:00 14 02/23/17 01:11 56 L 14 100 02/23/17 00:00 97.7 F 14 Admit Weight 314 lb Weight 317 lb 3.923 oz 02/22/17 02/23/17 02/24/17 06:59 06:59 06:59 Intake Total 764.4 935 130 Output Total 200 46 15 Balance 564.4 889 115 - Physical Examination General/Neuro: other: (Sedated, intubated. ) Neck: other: (supple) Lungs: CTA Heart: RRR Abdomen: other: (distended, no guarding. ) Extremities: + edema B (3+) - Telemetry Telemetry Rhythm: NSR - Labs Result Diagrams: 02/23/17 03:36 02/23/17 03:36 - Assessment/Plan 1. Acute on chronic diastolic heart failure. 2. Severe pulmonary HTN. 3. Acute hypoxic respiratory insufficiency. 4. WILLIE on CKD PLAN: - Agree with holding diuresis, issue is all her volume overload is on the right side and due to elevated pulmonary pressures is unable to get to the left side for the kidney to diurese, fluids may help kidney function. May need milrinone to reduce pulmonary vascular resistance for diuresis. - Will follow.
[2017-02-23] MEDS ORDERED: Digoxin 0.5 MG/2 ML AMP ONE (13:28)
--- NOTE | 2017-02-23 16:52 | PRG ---
DATE OF SERVICE: 02/23/2017 SUBJECTIVE: The patient was seen and examined, still on life support. Noted with the following rafa l signs. OBJECTIVE: VITAL SIGNS: Blood pressure 105/52, pulse 59, respiratory rate of 14, afebrile. HEENT: Unremarkable for endotracheal tube in place. CARDIOVASCULAR SYSTEM: First and second heart sounds were heard. RESPIRATORY SYSTEM: Reveals vented sounds. DIGESTIVE SYSTEM: Reveals obese abdomen. EXTREMITIES: No peripheral edema. SKIN: No new gross rash. LABORATORY INVESTIGATIONS: Showed a white count 15,500. Chemistry showed a creatinine of 4.21 with BUN of 59, potassium 5.3. IMPRESSION: 1. Hemodynamically mediated worsening acute tubular necrosis. 2. Hyperkalemia. 3. Respiratory failure, on life support. 4. Morbid obesity. PLAN: 1. Status post intubation, fluid challenge is now being attempted; however, overall, patient seems t o be hypervolemic. We will reevaluate status post fluid challenge. 2. Potassium is being managed medically; however, if the renal function continues to deteriorate miguel pite the above maneuvers, patient might become a candidate for renal replacement therapy (hemodialysi s). 3. Further management will be dependent on the clinical course and the prognosis is guarded.
[2017-02-23] MEDS: Mometasone 200 MCG HFA INHALER INH SCH (19:12)
--- NOTE | 2017-02-23 22:51 | CON ---
DATE OF CONSULTATION: 02/22/2017 CONSULTING PHYSICIAN: Valerie Mcmahon M.D. REQUESTING PHYSICIAN: Dr. Mauricio. REASON FOR CONSULTATION: Acute on chronic kidney disease. IMPRESSION: 1. Acute on chronic kidney disease. This is likely hemodynamically mediated acute kidney injury in the context of cardiorenal syndrome. 2. Hypervolemia, difficult to diurese especially given the deteriorating renal function. 3. Hyperkalemia in the context of reduced GFR. 4. Morbid obesity. PLAN: 1. The fluid management of this patient is likely to pose a little bit of a challenge given the card iorenal status of this patient as the kidneys likely not receiving adequate perfusion to handle diure sis. If renal function progressively gets worse especially as it relates to electrolyte abnormality, in this case hyperkalemia, decision likely to be taken to initiate renal replacement therapy (hemodi alysis) to address both the electrolyte derangement and the fluid status. 2. Renally dose all medications per low GFR. 3. Medical diuresis. 4. Further management will be dependent on the clinical course. If the fluid management becomes kimani te a challenge as well as electrolyte management (hyperkalemia), we will plan towards renal replaceme nt therapy (hemodialysis). HISTORY: A 77-year-old female patient who presented here with rectal bleeding and over the course of hospitalization, mental status alegre deteriorated, necessitating transfer to the ICU where the patien t initially was placed on BiPAP and eventually ended up on life support. The patient noted with a cr eatinine of about 1.7 over the course of last few days, this progressively got up to above 3. No pro per urinary collection has been done as the patient does not have any Fleming catheterization to cathet erize and/quantify the amount of urine this patient is making, but suffice it to say that the renal f unction is deteriorating with rising potassium also noted. As a result of these findings, the decisi on was taken to involve Renal in the management of this case. PAST MEDICAL HISTORY: Significant for diastolic congestive heart failure, severe pulmonary hypertens ion, obstructive sleep apnea, obesity, reflux disease, glaucoma, type 2 diabetes, chronic hypoxic res piratory failure, dependent on oxygen. MEDICATIONS: Reviewed and as documented on [facility]. ALLERGIES: INDERJIT INHIBITORS AND SULFA. FAMILY HISTORY: Significant for heart disease. SOCIAL HISTORY: No alcohol, no tobacco, no illicit drug use. REVIEW OF SYSTEMS: Could not be obtained from this patient who is already intubated. LABORATORY INVESTIGATION: Significant for creatinine of 3.31, BUN of 47, potassium 5.6. PHYSICAL EXAMINATION: GENERAL: The patient was found to be on life support, intubated. VITAL SIGNS: Blood pressure 100/40, afebrile. Pulse 59, respiratory rate of 14. HEENT: Remarkable for endotracheal tube in place. CARDIOVASCULAR SYSTEM: First and second heart sounds were heard. RESPIRATORY SYSTEM: Reveals vented sounds. DIGESTIVE SYSTEM: Revealed an obese abdomen. EXTREMITIES: Showed no significant edema. NEUROLOGIC: The patient is sedated and intubated, but no lateralizing signs. LYMPHATICS: No peripheral lymphadenopathy. SUMMARY: A 77-year-old female patient with worsening renal failure, likely in the context of cardior enal syndrome. Thank you for this consultation. We will follow with you.
[2017-02-24] MEDS: Propofol 1,000 MG/100 ML VIAL IV PRN ×2 (03:02→19:15)
[2017-02-24 06:17] LABS: Band 4 % (5-11); Hemoglobin 11.3 g/dL (12.0-16.0); Lymphocytes 7 % (21-51); MDiff Complete? YES; Mean Corpuscular Hemoglobin 27.9 pg (27.0-31.0); Mean Corpuscular Volume 93.2 fl (81.0-99.0); Mean Platelet Volume 9.2 fL (7.4-10.4); Monocytes 8 % (0-10); Neutrophil 81 % (42-75); Platelet Count 203 thou/uL (130-400); RBC Distribution Width 17.1 % (11.5-14.5); Red Blood Cell (RBC) Count 4.06 mill/uL (4.20-5.40); Target Cells SLIGHT = 2-5 cells (100X) (0-1/hpf); White Blood Cell (WBC) Count 12.7 thou/uL (4.8-10.8)
[2017-02-24 06:18] LABS: Anion Gap 20 mmol/L (10-20); BUN (Urea Nitrogen) 66 mg/dL (9.8-20.1); BUN/Creatinine Ratio 14.19; Calc. Creatinine Clearance 23 mL/min (70-130); Calcium 7.7 mg/dL (7.8-10.44); Carbon Dioxide 22 mmol/L (23-31); Chloride 99 mmol/L (98-107); Estimated GFR-MDRD 11; Glucose 86 mg/dL (83-110); Potassium 3.7 mmol/L (3.5-5.1); Sodium 137 mmol/L (136-145)
[2017-02-24 07:12] LABS: Actual Bicarbonate (HCO3a) 26.6 mEq/L (22-26); CO2 Tension 41.5 mmHg (35.0-45.0); Hematocrit-ABG 40.2 % (36.0-47.0); Hemoglobin (Hb) 11.4 g/dL (12.0-16.0); O2 Tension (PaO2) 71.3 mmHg (80.0-100.0); pH, Arterial 7.42 (7.35-7.45)
[2017-02-24 07:38] LABS: ALV-art Gradient 200.375 (0-20); Puncture Site RR
[2017-02-24] MEDS: Sodium Chloride 0.45% 1,000 ML IV SCH ×2 (07:49→19:15)
--- NOTE | 2017-02-24 08:21 | RAD ---
PORTABLE CHEST ONE VIEW: Date: 02-24-17 Time: 4:42 a.m. History: Respiratory failure. FINDINGS/IMPRESSION: No significant interval change is seen since the previous day's exam. POS: NAIMA
[2017-02-24] MEDS: Saccharomyces boulardii 250 MG CAP PO SCH (09:29)
[2017-02-24] MEDS: Diltiazem HCl SR 60 mg Capsule PO SCH ×2 (09:30→20:19)
[2017-02-24] MEDS: Famotidine 20 MG TAB PO SCH (09:30)
[2017-02-24] MEDS: Brimonidine Tartrate 0.2% Ophth Soln 5 ml Bottle L EYE SCH ×2 (09:31→20:19)
[2017-02-24] MEDS: Aspirin 81 mg Enteric Coated Tablet PO SCH (09:31)
[2017-02-24] MEDS: Dorzolamide HCl/Timolol Maleate 2%/0.5% Ophth Soln 10 ml Bottle L EYE SCH ×2 (09:32→20:19)
[2017-02-24] MEDS: busPIRone HCl 5 MG TAB PO SCH (09:35)
[2017-02-24] MEDS: cefTRIAXone\\ROCEPHIN 1 GM, Syringe 0.4 ML in Sterile Water 9.6 ML SLOW IVP SCH (10:10)
--- NOTE | 2017-02-24 15:39 | PDOC.PN ---
- Subjective Encounter Start Date: 02/24/17 Encounter Start Time: 15:38 Subjective: remians intubated.no overnight events - Objective Resuscitation Status: Resuscitation Status FULL:Full Resuscitation MAR Reviewed: Yes Vital Signs & Weight: Vital Signs (12 hours) Temp Pulse Pulse Pulse Resp BP BP 02/24/17 15:22 71 107/60 02/24/17 14:00 14 02/24/17 13:20 73 121/38 L 02/24/17 12:00 98.8 F 14 02/24/17 11:41 75 72 117/56 L 02/24/17 11:06 71 104/45 L 02/24/17 10:00 14 02/24/17 08:00 98.6 F 73 14 02/24/17 07:05 74 152/54 H 02/24/17 07:01 75 14 02/24/17 06:00 98.2 F 14 02/24/17 04:00 14 BP Pulse Ox Pulse Ox Pulse Ox 02/24/17 15:22 02/24/17 14:00 02/24/17 13:20 02/24/17 12:00 02/24/17 11:41 122/60 95 95 02/24/17 11:06 02/24/17 10:00 02/24/17 08:00 94 L 02/24/17 07:05 02/24/17 07:01 99 02/24/17 06:00 02/24/17 04:00 Weight Admit Weight 314 lb Weight 317 lb 7.45 oz Most Recent Monitor Data Heart Rate from ECG 69 NIBP 138/52 NIBP BP-Mean 84 Respiration from ECG 11 SpO2 91 I&O: 02/23/17 02/24/17 02/25/17 06:59 06:59 06:59 Intake Total 935 2450 60 Output Total 46 360 95 Balance 889 2090 -35 Result Diagrams: 02/24/17 04:15 02/24/17 04:15 Additional Labs: Accuchecks 02/24/17 02/24/17 02/24/17 12:38 04:10 00:27 POC Glucose 106 100 101 02/23/17 02/23/17 21:32 19:03 POC Glucose 65 L 79 Microbiology 11/16/16 17:11 Urine knight catheter Urine Culture - Final Escherichia coli 11/16/16 16:33 Venous blood - Left Arm Blood Culture - Final Coagulase Neg Staphylococcus Coagulase Neg Staphylococcus#2 Coagulase Neg Staphylococcus#3 11/16/16 14:54 Venous blood - Left Hand Blood Culture - Final NO GROWTH IN 5 DAYS Laboratory Tests 02/18/17 02/18/17 02/18/17 14:20 14:20 17:38 Hgb 12.2 10.7 L Creatinine 1.83 H 02/18/17 02/19/17 02/19/17 17:38 04:52 04:52 Hgb 11.2 L Creatinine 1.69 H 1.57 H 02/20/17 02/20/17 02/21/17 09:41 09:41 04:35 Hgb 11.3 L 11.7 L Creatinine 1.72 H 02/21/17 02/22/17 02/22/17 04:35 03:46 03:46 Hgb 15.6 Creatinine 2.38 H 3.31 H 02/23/17 02/23/17 02/24/17 03:36 03:36 04:15 Hgb 11.3 L Creatinine 4.21 H 4.65 H 02/24/17 04:15 Hgb 11.3 L Creatinine Phys Exam - Physical Examination intubated HEENT: moist MMs, sclera anicteric ett Neck: no nodes, no JVD, supple, full ROM Respiratory: no wheezing, no rales, no rhonchi Cardiovascular: RRR, no significant murmur Gastrointestinal: soft, non-tender, no distention, positive bowel sounds Musculoskeletal: pulses present, edema present Skin: no rash Dx/Plan (1) Acute on chronic respiratory failure with hypoxia Code(s): J96.21 - ACUTE AND CHRONIC RESPIRATORY FAILURE WITH HYPOXIA Status: Acute Comment: Improved, off BiPAP, continue O2 supplementation, pulmonary support, likely multifactorial (2) Acute on chronic renal failure Code(s): N17.9 - ACUTE KIDNEY FAILURE, UNSPECIFIED; N18.9 - CHRONIC KIDNEY DISEASE, UNSPECIFIED Status: Acute (3) Acute on chronic diastolic (congestive) heart failure Code(s): I50.33 - ACUTE ON CHRONIC DIASTOLIC (CONGESTIVE) HEART FAILURE Status : Acute (4) Acute exacerbation of chronic obstructive pulmonary disease (COPD) Code(s): J44.1 - CHRONIC OBSTRUCTIVE PULMONARY DISEASE W (ACUTE) EXACERBATION Status: Acute (5) DM2 (diabetes mellitus, type 2) Status: Chronic (6) ADELINE (obstructive sleep apnea) Code(s): G47.33 - OBSTRUCTIVE SLEEP APNEA (ADULT) (PEDIATRIC) Status: Chronic Comment: ? home CPAP not functioning (7) Pulmonary artery hypertension Code(s): I27.2 - OTHER SECONDARY PULMONARY HYPERTENSION * DO NOT USE * Status : Chronic (8) Morbid obesity with BMI of 50.0-59.9, adult Code(s): E66.01 - MORBID (SEVERE) OBESITY DUE TO EXCESS CALORIES; Z68.43 - BODY MASS INDEX (BMI) 50-59.9 , ADULT Status: Chronic - Plan DVT proph w/SCDs renal function still not improved.nephrology following. -: remains intubated.PCCM following.cont IV steroids,ABx.ADELINE w Pulm HTN -: H/H stable. no more BRB-VA -: guarded prognosis.am labs -: cont supplemtal nutrition * . Review of Systems - Review of Systems Other: can not be obtained due to sedation and intubation - Medications/Allergies Allergies/Adverse Reactions: Allergies Allergy/AdvReac Type Severity Reaction Status Date / Time INDERJIT Inhibitors Allergy Verified 02/18/17 23:28 Sulfa (Sulfonamide Allergy Verified 02/18/17 23:28 Antibiotics) Medications: Current Medications Acetaminophen (Tylenol) 650 mg PO Q4H PRN PRN Reason: Headache/Fever or Pain Last Admin: 02/20/17 08:44 Dose: 650 mg Albuterol/Ipratropium (Duoneb) 3 ml NEB [id number] [facility] Last Admin: 02/24/17 15:22 Dose: 3 ml Aspirin (Ecotrin) 81 mg PO DAILY [facility] Last Admin: 02/24/17 09:31 Dose: 81 mg Benzonatate (Tessalon) 100 mg PO TIDPRN PRN PRN Reason: Cough Last Admin: 02/20/17 12:06 Dose: 100 mg Bisacodyl (Dulcolax) 10 mg PO DAILYPRN PRN PRN Reason: Constipation Brimonidine Tartrate (Alphagan 0.2% Ophth Soln) 0 drop L EYE BID [facility] Last Admin: 02/24/17 09:31 Dose: 1 drop Buspirone HCl (Buspar) 5 mg PO DAILY [facility] Last Admin: 02/24/17 09:35 Dose: 5 mg Dextrose/Water (Dextrose 50%) 25 gm SLOW IVP PRN PRN PRN Reason: Hypoglycemia Last Admin: 02/23/17 21:36 Dose: 25 gm Diltiazem HCl (Cardizem Sr) 60 mg PO BID [facility] Last Admin: 02/24/17 09:30 Dose: 60 mg Dorzolamide/Timolol (Cosopt 2-0.5% Ophth Soln) 0 drop L EYE BID [facility] Last Admin: 02/24/17 09:32 Dose: 1 drop Famotidine (Pepcid) 20 mg PO DAILY [facility] Last Admin: 02/24/17 09:30 Dose: 20 mg Glipizide (Glucotrol Xl) 5 mg PO DAILY [facility] Last Admin: 02/24/17 09:30 Dose: 5 mg Glucagon (Glucagon) 1 mg IM PRN PRN PRN Reason: Hypoglycemia Hydrocortisone Acetate (Anusol-Hc) 25 mg VA BIDPRN PRN PRN Reason: Hemorrhoids Dextrose/Water (D5w) 1,000 mls @ 0 mls/hr IV .Q0M PRN; As Directed PRN Reason: Hypoglycemia Fentanyl Citrate 2,000 mcg/ (Sodium Chloride) 100 mls @ 0 mls/hr IV INF [facility]; Per Protocol PRN Reason: Protocol Stop: 03/24/17 20:40 Fentanyl Citrate (Fentanyl Bolus) 250 mls @ 0 mls/hr IVPB PRN PRN; As Directed PRN Reason: Breakthrough pain Stop: 03/24/17 20:40 Sodium Chloride (1/2 Normal Saline) 1,000 mls @ 75 mls/hr IV .[id number] [facility] Last Admin: 02/24/17 07:49 Dose: 1,000 mls Ceftriaxone Sodium 1 gm/ (Syringe 0.4 ml/ Sterile Water) 10 mls @ 120 mls/hr SLOW IVP 1000 [facility] Last Admin: 02/24/17 10:10 Dose: 10 mls Insulin Human Lispro (Humalog) 0 units SC .MODERATE SLIDING SC PRN PRN Reason: Moderate Correctional Scale Lorazepam (Ativan) 2 mg SLOW IVP Q2H PRN PRN Reason: Anxiety to achieve Singh 2-3 Stop: 03/24/17 20:40 Last Admin: 02/24/17 01:56 Dose: 2 mg Methylprednisolone Sodium Succinate (Solu-Medrol) 40 mg IVP DAILY [facility] Last Admin: 02/24/17 09:30 Dose: 40 mg Mometasone Furoate (Asmanex Hfa 200 Mcg) 1 puff INH 1830 [facility] Last Admin: 02/23/17 19:12 Dose: Not Given Morphine Sulfate (Morphine) 2 mg SLOW IVP Q2H PRN PRN Reason: Breakthrough pain Stop: 03/24/17 20:40 Discontinue Previous Narcotic Pain Medications And Benzodiazepines 1 each FS .ONE [facility] Stop: 03/24/17 20:40 Ondansetron HCl (Zofran Odt) 4 mg PO Q6H PRN PRN Reason: Nausea/Vomiting Polyethylene Glycol (Miralax) 17 gm PO DAILY PRN PRN Reason: Constipation Propofol (Diprivan) 1,000 mg IV INF PRN; Protocol PRN Reason: TO ACHIEVE SINGH SCORE 2-3 Stop: 03/24/17 20:40 Last Admin: 02/24/17 03:02 Dose: 1,000 mg Saccharomyces Boulardii (Florastor) 250 mg PO DAILY [facility] Last Admin: 02/24/17 09:29 Dose: 250 mg Sodium Chloride (Flush - Normal Saline) 10 ml IVF Q12HR [facility] Last Admin: 02/24/17 09:32 Dose: 10 ml Sodium Chloride (Flush - Normal Saline) 10 ml IVF PRN PRN PRN Reason: Saline Flush Last Admin: 02/19/17 06:07 Dose: 10 ml
--- NOTE | 2017-02-24 17:02 | PRG ---
DATE OF SERVICE: 02/24/2017 SUBJECTIVE: The patient was seen and examined, still on life support. PHYSICAL EXAMINATION: VITAL SIGNS: Afebrile, blood pressure 121/98, pulse 69, respiratory rate 14. HEENT: Unremarkable, endotracheal tube in place. CARDIOVASCULAR: First and second heart sounds were heard. RESPIRATORY: Reveals vented sounds. DIGESTIVE: Revealed an obese abdomen. EXTREMITIES: No peripheral edema. NEUROLOGIC: Revealed a patient that is alert, but not able to communicate. IMPRESSION: 1. Acute tubular necrosis with rising creatinine and BUN noted. 2. Hyperkalemia seems to have resolved at this point. 3. Cardiopulmonary failure. 4. Morbid obesity. PLAN: 1. The patient currently being managed medically/conservatively. It is a good thing that the potass ium has resolved and this would have triggered the need for hemodialysis. We will continue to monito r the volume status of this patient, however, and decision will be made accordingly. 2. Further management to be dependent on the clinical course.
[2017-02-24] MEDS: Mometasone 200 MCG HFA INHALER INH SCH (18:44)
--- NOTE | 2017-02-24 20:55 | PDOC.CTH ---
Cardiology Progress Note - Subjective Remains sedated and intubated. - Objective Vital Signs Temp Pulse Pulse Pulse Resp BP BP 02/24/17 20:00 14 02/24/17 19:38 97.6 F 72 14 02/24/17 19:00 97.6 F 02/24/17 18:47 76 91/35 L 02/24/17 18:00 14 02/24/17 16:00 98.6 F 14 02/24/17 15:22 71 107/60 02/24/17 14:00 14 02/24/17 13:20 73 121/38 L 02/24/17 12:00 98.8 F 14 02/24/17 11:41 75 72 117/56 L 02/24/17 11:06 71 104/45 L 02/24/17 10:00 14 BP Pulse Ox Pulse Ox Pulse Ox 02/24/17 20:00 02/24/17 19:38 98 02/24/17 19:00 02/24/17 18:47 02/24/17 18:00 02/24/17 16:00 02/24/17 15:22 02/24/17 14:00 02/24/17 13:20 02/24/17 12:00 02/24/17 11:41 122/60 95 95 02/24/17 11:06 02/24/17 10:00 Admit Weight 314 lb Weight 317 lb 7.45 oz 02/23/17 02/24/17 02/25/17 06:59 06:59 06:59 Intake Total 935 2450 1326 Output Total 46 360 150 Balance 889 2090 1176 - Physical Examination General/Neuro: other: (intubated, ) Lungs: CTA Heart: RRR Abdomen: NT/ND Extremities: + edema B (3+) - Telemetry Telemetry Rhythm: NSR - Labs Result Diagrams: 02/24/17 04:15 02/24/17 04:15 - Assessment/Plan 1. Acute on chronic diastolic heart failure. 2. Severe pulmonary HTN. 3. Acute hypoxic respiratory insufficiency. 4. WILLIE on CKD PLAN: - Her edema has worsened with IV fluids. She has such severe pulmonary HTN that fluid ois no longer able to get to the left side of the heart to be diuressed by the kidney. - Continue current regimen. Unlikely that milrinone will help. - Patient severely ill and would be unexpected.
--- NOTE | 2017-02-24 22:27 | PRG ---
DATE OF SERVICE: 02/24/2017 SUBJECTIVE: Ms. Bishop did well overnight from a hemodynamic standpoint, although she is not better overall. OBJECTIVE: VITAL SIGNS: She is afebrile, heart rate is in the 70s, respiratory rate is in the teens, blood pres sure 116/49 this evening. Intake and output this morning for the last 24 hours is positive 2008. LUNGS: Remarkable for coarse equal breath sounds. HEART: Regular rhythm. ABDOMEN: Soft. EXTREMITIES: Without asymmetry. Chest radiograph this morning was reviewed by me. I see no significant change in her radiograph. Sh e has slight increase in interstitial markings. LABORATORY DATA: Has been reviewed. White count is 12.7, hemoglobin 11.3, platelets 203,000. Sodiu m 137, potassium 3.7, chloride 99, bicarbonate 22, BUN 66, creatinine 4.65. IMPRESSION: 1. Diastolic heart failure. 2. Pulmonary hypertension secondary to diastolic heart failure and probably sleep apnea as well as o bstructive lung disease. 3. Progressive renal insufficiency. She is progressing towards significant renal dysfunction that w ould require Nephrology input. I think she is a terrible candidate for dialysis, but we need input f rom Nephrology. 4. Hyperphosphatemia secondary to renal failure. 5. Hypoalbuminemia, most likely secondary to chronic illness. 6. Obesity. 7. Volume overload by exam, but progressive renal dysfunction. PLAN: Continue supportive care. She is not a candidate for weaning. We will try to continue hydrat ing her hoping that her renal function will turn the corner, but she will eventually reach a point wh ere she starts developing significant pulmonary edema. It is not expected by me that she will survive this critical illness. Critical care time 35 minutes.
[2017-02-25] MEDS: Propofol 1,000 MG/100 ML VIAL IV PRN ×3 (02:14→21:10)
[2017-02-25 05:42] LABS: Albumin 2.4 g/dL (3.4-4.8); Anion Gap 20 mmol/L (10-20); BUN (Urea Nitrogen) 76 mg/dL (9.8-20.1); BUN/Creatinine Ratio 15.67; Calc. Creatinine Clearance 22 mL/min (70-130); Calcium 7.7 mg/dL (7.8-10.44); Carbon Dioxide 23 mmol/L (23-31); Chloride 96 mmol/L (98-107); Estimated GFR-MDRD 11; Glucose 105 mg/dL (83-110); Phosphorus 8.1 mg/dL (2.3-4.7); Potassium 3.5 mmol/L (3.5-5.1); Sodium 135 mmol/L (136-145)
[2017-02-25 05:51] LABS: Band 11 % (5-11); Hemoglobin 11.6 g/dL (12.0-16.0); Lymphocytes 3 % (21-51); MDiff Complete? YES; Mean Corpuscular HGB CONC 30.8 g/dL (32.0-36.0); Mean Corpuscular Hemoglobin 28.6 pg (27.0-31.0); Mean Corpuscular Volume 92.8 fl (81.0-99.0); Mean Platelet Volume 9.5 fL (7.4-10.4); Monocytes 5 % (0-10); Neutrophil 81 % (42-75); Nucleated RBC 5 % (0); Platelet Count 182 thou/uL (130-400); RBC Distribution Width 17.2 % (11.5-14.5); Red Blood Cell (RBC) Count 4.07 mill/uL (4.20-5.40); White Blood Cell (WBC) Count 10.4 thou/uL (4.8-10.8)
[2017-02-25 07:03] LABS: Actual Bicarbonate (HCO3a) 24.9 mEq/L (22-26); Base Excess (BEa) -0.4 mEq/L (0 (+/-) 2.5); CO2 Tension 43.6 mmHg (35.0-45.0); Hematocrit-ABG 40.9 % (36.0-47.0); Hemoglobin (Hb) 11.1 g/dL (12.0-16.0); pH, Arterial 7.38 (7.35-7.45)
[2017-02-25 07:04] LABS: Puncture Site RRA
--- NOTE | 2017-02-25 08:59 | RAD ---
PORTABLE AP CHEST: Date: 02-25-17 History: On ventilator. Follow up evaluation. Comparison: 02-24-17 FINDINGS: The trachea tube and nasogastric tube remain in place and unchanged in position. There is increased d ensity again seen involving the lungs bilaterally, again greater on the right although there is more dense opacity seen at the medial left lung base, some of which may be related to patient rotation and limited evaluation of the left lung base. However, these opacities are overall similar to the prior study and may be related to asymmetric pulmonary edema. There are probable tiny bilateral pleural eff usions. No other interval change. IMPRESSION: Given differences in patient positioning, chest is overall stable from the prior exam with asymmetric parenchymal changes within the lungs bilaterally which could be related to asymmetric pulmonary aleisha a. Continued follow up is recommended. POS: [facility]
[2017-02-25] MEDS: Famotidine 20 MG TAB PO SCH (09:07)
[2017-02-25] MEDS: Diltiazem HCl SR 60 mg Capsule PO SCH ×2 (09:07→20:27)
[2017-02-25] MEDS: Brimonidine Tartrate 0.2% Ophth Soln 5 ml Bottle L EYE SCH ×2 (09:08→20:28)
[2017-02-25] MEDS: Aspirin 81 mg Enteric Coated Tablet PO SCH (09:08)
[2017-02-25] MEDS: Saccharomyces boulardii 250 MG CAP PO SCH (09:08)
[2017-02-25] MEDS: Dorzolamide HCl/Timolol Maleate 2%/0.5% Ophth Soln 10 ml Bottle L EYE SCH ×2 (09:08→20:28)
[2017-02-25] MEDS: busPIRone HCl 5 MG TAB PO SCH (09:11)
[2017-02-25] MEDS: Sodium Chloride 0.45% 1,000 ML IV SCH (10:07)
[2017-02-25] MEDS: cefTRIAXone\\ROCEPHIN 1 GM, Syringe 0.4 ML in Sterile Water 9.6 ML SLOW IVP SCH (10:15)
--- NOTE | 2017-02-25 12:31 | PRG ---
DATE OF SERVICE: 02/25/2017 Ms. Lindos blood pressure is 86/50, heart rate 67, respiratory rate 14. Intake and output is positive 2399. PHYSICAL EXAMINATION: GENERAL: She is grossly edematous. LUNGS: Lungs remarkable for coarse equal breath sounds. HEART: Regular rhythm. ABDOMEN: Soft. LABORATORY DATA: White count 10.4, hemoglobin 11.6, platelets 182. Sodium 135, potassium 3.5, chloride 96, bicarb 23, BUN 76, creatinine 4.85, glucose 119. Chest radiograph is unchanged reviewed by me compared to yesterday. She has pulmonary edema bilatera lly. IMPRESSION: 1. Respiratory failure. 2. Pulmonary hypertension. 3. Congestive heart failure secondary to diastolic dysfunction. 4. Probable sleep apnea. 5. Progressive renal failure. It is unlikely will survive this with multiorgan failure. Other issues include hyperphosphatemia as sociated with renal failure, hypoalbuminemia, obesity, and total body water overload. She is not a c andidate for diuresis. I personally believe she is near the end of her life and will not survive thi s hospitalization. CRITICAL CARE TIME: 30 minutes.
--- NOTE | 2017-02-25 15:03 | PDOC.PN ---
- Subjective Encounter Start Date: 02/25/17 Encounter Start Time: 15:01 Subjective: remains intubated without any improvement - Objective Resuscitation Status: Resuscitation Status FULL:Full Resuscitation MAR Reviewed: Yes Vital Signs & Weight: Vital Signs (12 hours) Temp Pulse Pulse Pulse Resp BP BP 02/25/17 14:45 71 92/47 L 02/25/17 14:00 14 02/25/17 12:00 97.7 F 14 02/25/17 10:47 67 86/50 L 02/25/17 10:00 14 02/25/17 09:55 67 66 90/49 L 02/25/17 08:10 71 107/53 L 02/25/17 08:00 14 02/25/17 07:48 98.6 F 02/25/17 06:00 14 02/25/17 05:00 97.8 F 02/25/17 04:00 14 BP Pulse Ox Pulse Ox 02/25/17 14:45 02/25/17 14:00 02/25/17 12:00 02/25/17 10:47 02/25/17 10:00 02/25/17 09:55 115/49 L 99 99 02/25/17 08:10 02/25/17 08:00 02/25/17 07:48 02/25/17 06:00 02/25/17 05:00 02/25/17 04:00 Weight Admit Weight 314 lb Weight 320 lb 15.889 oz Most Recent Monitor Data Heart Rate from ECG 70 NIBP 92/47 NIBP BP-Mean 61 Respiration from ECG 14 SpO2 100 I&O: 02/24/17 02/25/17 02/26/17 06:59 06:59 06:59 Intake Total 2450 2639 240 Output Total 360 240 65 Balance 2090 8459 175 Result Diagrams: 02/25/17 04:27 02/25/17 04:27 Additional Labs: Accuchecks 02/25/17 02/24/17 02/24/17 10:00 22:00 17:00 POC Glucose 119 H 129 H 119 H Phys Exam - Physical Examination Constitutional: NAD HEENT: PERRLA, moist MMs, sclera anicteric ETT Neck: no JVD Respiratory: no wheezing, no rhonchi, clear to auscultation bilateral Cardiovascular: RRR, no significant murmur Gastrointestinal: soft, non-tender, no distention, positive bowel sounds Musculoskeletal: pulses present, edema present sedated Deviation from normal: sedated Dx/Plan (1) Acute on chronic respiratory failure with hypoxia Code(s): J96.21 - ACUTE AND CHRONIC RESPIRATORY FAILURE WITH HYPOXIA Status: Acute Comment: Improved, off BiPAP, continue O2 supplementation, pulmonary support, likely multifactorial (2) Acute on chronic renal failure Code(s): N17.9 - ACUTE KIDNEY FAILURE, UNSPECIFIED; N18.9 - CHRONIC KIDNEY DISEASE, UNSPECIFIED Status: Acute (3) Acute on chronic diastolic (congestive) heart failure Code(s): I50.33 - ACUTE ON CHRONIC DIASTOLIC (CONGESTIVE) HEART FAILURE Status : Acute (4) Acute exacerbation of chronic obstructive pulmonary disease (COPD) Code(s): J44.1 - CHRONIC OBSTRUCTIVE PULMONARY DISEASE W (ACUTE) EXACERBATION Status: Acute (5) DM2 (diabetes mellitus, type 2) Status: Chronic (6) ADELINE (obstructive sleep apnea) Code(s): G47.33 - OBSTRUCTIVE SLEEP APNEA (ADULT) (PEDIATRIC) Status: Chronic Comment: ? home CPAP not functioning (7) Pulmonary artery hypertension Code(s): I27.2 - OTHER SECONDARY PULMONARY HYPERTENSION * DO NOT USE * Status : Chronic (8) Morbid obesity with BMI of 50.0-59.9, adult Code(s): E66.01 - MORBID (SEVERE) OBESITY DUE TO EXCESS CALORIES; Z68.43 - BODY MASS INDEX (BMI) 50-59.9 , ADULT Status: Chronic - Plan continue antibiotics, respiratory therapy, incentive spirometry, DVT proph w/ SCDs WILLIE perissts despite IVF.significant R sided HF w/o benefit from diuresis -: guarded prognosis.End of life issue being addressed -: PCT consulted. -: cont supportive care.vent per PCCM -: cardiology following * . Review of Systems - Review of Systems Other: unobtainable due to intubation/sedation - Medications/Allergies Allergies/Adverse Reactions: Allergies Allergy/AdvReac Type Severity Reaction Status Date / Time INDERJIT Inhibitors Allergy Verified 02/18/17 23:28 Sulfa (Sulfonamide Allergy Verified 02/18/17 23:28 Antibiotics) Medications: Current Medications Acetaminophen (Tylenol) 650 mg PO Q4H PRN PRN Reason: Headache/Fever or Pain Last Admin: 02/20/17 08:44 Dose: 650 mg Albuterol/Ipratropium (Duoneb) 3 ml NEB [id number] [facility] Last Admin: 02/25/17 14:45 Dose: 3 ml Aspirin (Ecotrin) 81 mg PO DAILY [facility] Last Admin: 02/25/17 09:08 Dose: 81 mg Benzonatate (Tessalon) 100 mg PO TIDPRN PRN PRN Reason: Cough Last Admin: 02/20/17 12:06 Dose: 100 mg Bisacodyl (Dulcolax) 10 mg PO DAILYPRN PRN PRN Reason: Constipation Brimonidine Tartrate (Alphagan 0.2% Ophth Soln) 0 drop L EYE BID [facility] Last Admin: 02/25/17 09:08 Dose: 1 drop Buspirone HCl (Buspar) 5 mg PO DAILY [facility] Last Admin: 02/25/17 09:11 Dose: 5 mg Dextrose/Water (Dextrose 50%) 25 gm SLOW IVP PRN PRN PRN Reason: Hypoglycemia Last Admin: 02/23/17 21:36 Dose: 25 gm Diltiazem HCl (Cardizem Sr) 60 mg PO BID [facility] Last Admin: 02/25/17 09:07 Dose: 60 mg Dorzolamide/Timolol (Cosopt 2-0.5% Ophth Soln) 0 drop L EYE BID [facility] Last Admin: 02/25/17 09:08 Dose: 1 drop Famotidine (Pepcid) 20 mg PO DAILY [facility] Last Admin: 02/25/17 09:07 Dose: 20 mg Glipizide (Glucotrol Xl) 5 mg PO DAILY [facility] Last Admin: 02/25/17 09:08 Dose: 5 mg Glucagon (Glucagon) 1 mg IM PRN PRN PRN Reason: Hypoglycemia Hydrocortisone Acetate (Anusol-Hc) 25 mg IN BIDPRN PRN PRN Reason: Hemorrhoids Dextrose/Water (D5w) 1,000 mls @ 0 mls/hr IV .Q0M PRN; As Directed PRN Reason: Hypoglycemia Fentanyl Citrate 2,000 mcg/ (Sodium Chloride) 100 mls @ 0 mls/hr IV INF [facility]; Per Protocol PRN Reason: Protocol Stop: 03/24/17 20:40 Fentanyl Citrate (Fentanyl Bolus) 250 mls @ 0 mls/hr IVPB PRN PRN; As Directed PRN Reason: Breakthrough pain Stop: 03/24/17 20:40 Sodium Chloride (1/2 Normal Saline) 1,000 mls @ 75 mls/hr IV .[id number] [facility] Last Admin: 02/25/17 10:07 Dose: 1,000 mls Ceftriaxone Sodium 1 gm/ (Syringe 0.4 ml/ Sterile Water) 10 mls @ 120 mls/hr SLOW IVP 1000 [facility] Last Admin: 02/25/17 10:15 Dose: 10 mls Insulin Human Lispro (Humalog) 0 units SC .MODERATE SLIDING SC PRN PRN Reason: Moderate Correctional Scale Lorazepam (Ativan) 2 mg SLOW IVP Q2H PRN PRN Reason: Anxiety to achieve Singh 2-3 Stop: 03/24/17 20:40 Last Admin: 02/24/17 01:56 Dose: 2 mg Methylprednisolone Sodium Succinate (Solu-Medrol) 40 mg IVP DAILY [facility] Last Admin: 02/25/17 09:08 Dose: 40 mg Mometasone Furoate (Asmanex Hfa 200 Mcg) 1 puff INH 1830 [facility] Last Admin: 02/24/17 18:44 Dose: 1 puff Morphine Sulfate (Morphine) 2 mg SLOW IVP Q2H PRN PRN Reason: Breakthrough pain Stop: 03/24/17 20:40 Ondansetron HCl (Zofran Odt) 4 mg PO Q6H PRN PRN Reason: Nausea/Vomiting Polyethylene Glycol (Miralax) 17 gm PO DAILY PRN PRN Reason: Constipation Propofol (Diprivan) 1,000 mg IV INF PRN; Protocol PRN Reason: TO ACHIEVE SINGH SCORE 2-3 Stop: 03/24/17 20:40 Last Admin: 02/25/17 12:18 Dose: 1,000 mg Saccharomyces Boulardii (Florastor) 250 mg PO DAILY [facility] Last Admin: 02/25/17 09:08 Dose: 250 mg Sodium Chloride (Flush - Normal Saline) 10 ml IVF Q12HR [facility] Last Admin: 02/25/17 09:08 Dose: 10 ml Sodium Chloride (Flush - Normal Saline) 10 ml IVF PRN PRN PRN Reason: Saline Flush Last Admin: 02/19/17 06:07 Dose: 10 ml
--- NOTE | 2017-02-25 15:13 | PDOC.CTH ---
Cardiology Progress Note - Subjective She remains intubated and sedated. - Objective Vital Signs Temp Pulse Pulse Pulse Resp BP BP 02/25/17 14:45 71 92/47 L 02/25/17 14:00 14 02/25/17 12:00 97.7 F 14 02/25/17 10:47 67 86/50 L 02/25/17 10:00 14 02/25/17 09:55 67 66 90/49 L 02/25/17 08:10 71 107/53 L 02/25/17 08:00 14 02/25/17 07:48 98.6 F 02/25/17 06:00 14 02/25/17 05:00 97.8 F 02/25/17 04:00 14 BP Pulse Ox Pulse Ox 02/25/17 14:45 02/25/17 14:00 02/25/17 12:00 02/25/17 10:47 02/25/17 10:00 02/25/17 09:55 115/49 L 99 99 02/25/17 08:10 02/25/17 08:00 02/25/17 07:48 02/25/17 06:00 02/25/17 05:00 02/25/17 04:00 Admit Weight 314 lb Weight 320 lb 15.889 oz 02/24/17 02/25/17 02/26/17 06:59 06:59 06:59 Intake Total 2450 2639 240 Output Total 360 240 65 Balance 2090 2399 175 - Physical Examination General/Neuro: NAD Neck: carotid US brisk Lungs: CTA Heart: RRR Abdomen: other: (distended) Extremities: + edema B (3+) - Telemetry Telemetry Rhythm: NSR - Labs Result Diagrams: 02/25/17 04:27 02/25/17 04:27 - Assessment/Plan 1. Acute on chronic diastolic heart failure. 2. Severe pulmonary HTN. 3. Acute hypoxic respiratory insufficiency. 4. WILLIE on CKD PLAN: - Worsening renal function. - Unable to wean from ventilator due to pulmonary HTN. - Agree with palliative care consult.
[2017-02-25] MEDS: Mometasone 200 MCG HFA INHALER INH SCH (18:58)
[2017-02-26] MEDS: Propofol 1,000 MG/100 ML VIAL IV PRN (05:37)
[2017-02-26] MEDS: Sodium Chloride 0.45% 1,000 ML IV SCH (05:37)
--- NOTE | 2017-02-26 07:17 | PRG ---
DATE OF SERVICE: 02/25/2017 SUBJECTIVE: The patient was seen and examined and noted with the following vital signs. OBJECTIVE: VITAL SIGNS: Blood pressure 90/54, respiratory rate 14. HEENT: LABORATORY DATA: IMPRESSION: 1. Worsening acute on chronic kidney disease. 2. Hypophosphatemia. Discussed with the family the possibility of .
[2017-02-26 07:45] LABS: Actual Bicarbonate (HCO3a) 24.6 mEq/L (22-26); Base Excess (BEa) -1.5 mEq/L (0 (+/-) 2.5); CO2 Tension 47.2 mmHg (35.0-45.0); Hematocrit-ABG 43.2 % (36.0-47.0); Hemoglobin (Hb) 11.3 g/dL (12.0-16.0); O2 Tension (PaO2) 62.5 mmHg (80.0-100.0); pH, Arterial 7.34 (7.35-7.45)
[2017-02-26 07:46] LABS: Puncture Site LRA
[2017-02-26 08:13] LABS: Anion Gap 20 mmol/L (10-20); BUN (Urea Nitrogen) 86 mg/dL (9.8-20.1); Calc. Creatinine Clearance 23 mL/min (70-130); Calcium 7.5 mg/dL (7.8-10.44); Carbon Dioxide 20 mmol/L (23-31); Chloride 96 mmol/L (98-107); Estimated GFR-MDRD 10; Glucose 103 mg/dL (83-110); Potassium 3.7 mmol/L (3.5-5.1); Sodium 132 mmol/L (136-145)
[2017-02-26] MEDS: Brimonidine Tartrate 0.2% Ophth Soln 5 ml Bottle L EYE SCH ×2 (08:55→20:41)
[2017-02-26] MEDS: Dorzolamide HCl/Timolol Maleate 2%/0.5% Ophth Soln 10 ml Bottle L EYE SCH ×2 (08:55→20:41)
[2017-02-26] MEDS: Famotidine 20 MG TAB PO SCH (08:56)
[2017-02-26] MEDS: Aspirin 81 mg Enteric Coated Tablet PO SCH (08:56)
[2017-02-26] MEDS: Saccharomyces boulardii 250 MG CAP PO SCH (08:56)
[2017-02-26 09:20] LABS: Band 7 % (5-11); Hemoglobin 12.4 g/dL (12.0-16.0); Hypochromia SLIGHT = 6-15 cells (100X) (0-5/hpf); Lymphocytes 10 % (21-51); MDiff Complete? YES; Mean Corpuscular Volume 93.6 fl (81.0-99.0); Mean Platelet Volume 9.6 fL (7.4-10.4); Monocytes 5 % (0-10); Neutrophil 78 % (42-75); Nucleated RBC 1 % (0); PLT Morphology Comment Appears Decreased; Platelet Count 156 thou/uL (130-400); Polychromasia SLIGHT = 2-3 cells (100X) (0-2/hpf); RBC Distribution Width 17.2 % (11.5-14.5); Red Blood Cell (RBC) Count 4.41 mill/uL (4.20-5.40); White Blood Cell (WBC) Count 14.8 thou/uL (4.8-10.8)
[2017-02-26] MEDS: busPIRone HCl 5 MG TAB PO SCH (09:44)
[2017-02-26] MEDS: cefTRIAXone\\ROCEPHIN 1 GM, Syringe 0.4 ML in Sterile Water 9.6 ML SLOW IVP SCH (10:24)
--- NOTE | 2017-02-26 10:48 | RAD ---
PORTABLE CHEST: HISTORY: Dyspnea. CCU followup. COMPARISON: 02/25/17. FINDINGS/IMPRESSION: ET tube and NG Tube are in place. There is cardiomegaly with vascular congestion. Interstitial and hazy alveolar edema is seen bilaterally. There are bilateral effusions. POS: [facility]
[2017-02-26] MEDS: Diltiazem HCl SR 60 mg Capsule PO SCH (13:40)
--- NOTE | 2017-02-26 13:45 | PRG ---
DATE OF SERVICE: 02/26/2017 SUBJECTIVE: The patient was seen and examined, still on life support. PHYSICAL EXAMINATION: VITAL SIGNS: Blood pressure of 130/56, respiratory rate of 14. HEENT: Unremarkable for endotracheal tube in place. CARDIOVASCULAR: First and second heart sounds were heard. RESPIRATORY: Reveals vented sounds. DIGESTIVE: Revealed an obese abdomen. EXTREMITIES: No peripheral edema. SKIN: No new gross rash. LYMPHATICS: No peripheral lymphadenopathy. LABORATORY INVESTIGATION: Showed a white count of 14,800. Chemistry showed a creatinine of 5.03, BU N of 86. Sodium 132, bicarbonate of 20, phosphorus of 8. IMPRESSION: 1. Worsening dense acute tubular necrosis (acute on chronic kidney disease). 2. Cardiopulmonary failure on life support. 3. Morbid obesity. 4. Hyperphosphatemia in keeping with problem #1. PLAN: 1. The family did express the desire to try dialysis to see if it will make any difference whatsoeve r. The patient's prognosis still remains poor. Family decided to come together tomorrow and have a meeting and make a decision to that effect. If the family decides to dialyze, we will go ahead and s ecure a temporary dialysis catheter and initiate dialysis with ultrafiltration. If they decide other alegre, then we will likely proceed with terminal extubation. 2. Further management will be dependent on the clinical course as well as further decision that can be taken by the family.
--- NOTE | 2017-02-26 13:58 | PRG ---
DATE OF SERVICE: 02/26/2017 SERVICE: Pulmonary Medicine. INTERVAL HISTORY: The patient is doing okay from a respiratory standpoint. Her kidneys are shutting down. Her urine output is dropping. She cannot provide any additional elements of the history, bec ause of some sedation from overnight. That being said, right now, she looks cool and collected. She is calm. With stimulation, she will wake up and follows some simple commands, but drifts off to sle ep in less than 2 seconds. PHYSICAL EXAMINATION: VITAL SIGNS: Afebrile, pulse 67, blood pressure 165/52, respirations 14, saturation 92% on 40% FiO2. GENERAL: Patient is somnolent under the influence of some sedating medications. HEENT: Normocephalic, atraumatic. Sclerae are white, conjunctivae pink. Oral and nasal mucosa is m oist without lesions. LUNGS: Decent air entry. Dependent crackles are present. HEART: Normal rate, regular. ABDOMEN: Soft, nontender, nondistended. Bowel sounds are positive. MUSCULOSKELETAL: No cyanosis or clubbing. There is diffuse pitting throughout. It is 1-2+. GENITOURINARY: Fleming catheter in place. NEUROLOGIC: Grossly nonfocal. LABORATORY DATA: WBC 14.8, hemoglobin 12.4, platelets 156,000. Neutrophil count is 87% and the band count is 7%. PH 7.34, pCO2 of 47, pO2 63. This was on a rate of 8 with tidal volume of 500 and pre ssure support of only 10. Creatinine is up trending to 5.03, BUN 86. Bicarbonate is 20, chloride 96 . Sodium 132. WBCs are greater than 50. Stool occult blood is negative. IMAGING: Chest x-ray demonstrates some vascular congestion and cardiomegaly. Bilateral effusions ar e evident. ASSESSMENT: 1. Acute on chronic hypoxic and hypercapnic respiratory failure. 2. Acute on chronic diastolic heart failure. 3. Obstructive sleep apnea, severe. 4. Acute kidney injury on chronic kidney disease. PLAN: We will change her IV fluids over to bicarbonate containing fluid. The patient will remain in the ICU for the time being. A family discussion is going to be had tomorrow about how aggressive to be moving forward. I know Ms. Erinn Bishop personally for the past several years. She has had ve ry honest and omero conversations with me and has suggested that she would never want to live outside of a home facility. She has refused going to nursing facilities on multiple occasions. She suggest ed that she can no longer live at home, that she would no longer want to continue exist in a nursing facility. I do not see a way out of this hospital stay without her going to the nursing facility and I am going to talk to the family tomorrow about transition over to comfort care only, which in my op inion would be her wishes. ABGs will be discontinued.
[2017-02-26] MEDS: Sodium Bicarbonate 150 MEQ in Dextrose 5% in Water 1,000 ML IV SCH (14:07)
--- NOTE | 2017-02-26 15:17 | PDOC.PN ---
- Subjective Encounter Start Date: 02/26/17 Encounter Start Time: 15:15 Subjective: no chnages.remains vent dependent and encephalopathic now w/o sedation - Objective Resuscitation Status: Resuscitation Status FULL:Full Resuscitation MAR Reviewed: Yes Vital Signs & Weight: Vital Signs (12 hours) Temp Pulse Resp BP Pulse Ox 02/26/17 14:46 70 167/47 H 02/26/17 14:00 16 02/26/17 13:04 70 156/60 H 02/26/17 12:00 98.9 F 14 02/26/17 11:46 67 165/52 H 02/26/17 10:00 14 02/26/17 09:13 70 118/54 L 02/26/17 08:00 14 02/26/17 07:44 98.6 F 70 14 100 02/26/17 07:00 98.6 F 02/26/17 06:58 64 95/64 02/26/17 06:00 14 02/26/17 04:00 14 Weight Admit Weight 314 lb Weight 339 lb 11.717 oz Most Recent Monitor Data Heart Rate from ECG 69 NIBP 167/46 NIBP BP-Mean 73 Respiration from ECG 21 SpO2 92 I&O: 02/25/17 02/26/17 02/27/17 06:59 06:59 06:59 Intake Total 2639 2855 60 Output Total 240 225 133 Balance 2399 2630 -73 Result Diagrams: 02/26/17 08:27 02/26/17 07:47 Additional Labs: Accuchecks 02/26/17 02/26/17 02/25/17 09:44 05:46 23:50 POC Glucose 105 104 94 02/25/17 17:03 POC Glucose 93 Laboratory Tests 02/18/17 02/18/17 02/20/17 14:20 17:38 09:41 Creatinine 1.83 H 1.69 H 1.72 H 02/22/17 02/24/17 02/25/17 03:46 04:15 04:27 Creatinine 3.31 H 4.65 H 4.85 H 02/26/17 07:47 Creatinine 5.03 H Phys Exam - Physical Examination Constitutional: NAD would not open eyes to verbal stimuli HEENT: moist MMs ETT Neck: no JVD Respiratory: no wheezing, no rales coarse ar bases Cardiovascular: RRR, no significant murmur Gastrointestinal: soft, non-tender, no distention, positive bowel sounds Musculoskeletal: pulses present, edema present Dx/Plan (1) Acute on chronic respiratory failure with hypoxia Code(s): J96.21 - ACUTE AND CHRONIC RESPIRATORY FAILURE WITH HYPOXIA Status: Acute Comment: Improved, off BiPAP, continue O2 supplementation, pulmonary support, likely multifactorial (2) Acute on chronic renal failure Code(s): N17.9 - ACUTE KIDNEY FAILURE, UNSPECIFIED; N18.9 - CHRONIC KIDNEY DISEASE, UNSPECIFIED Status: Acute (3) Acute on chronic diastolic (congestive) heart failure Code(s): I50.33 - ACUTE ON CHRONIC DIASTOLIC (CONGESTIVE) HEART FAILURE Status : Acute (4) Acute exacerbation of chronic obstructive pulmonary disease (COPD) Code(s): J44.1 - CHRONIC OBSTRUCTIVE PULMONARY DISEASE W (ACUTE) EXACERBATION Status: Acute (5) DM2 (diabetes mellitus, type 2) Status: Chronic (6) ADELINE (obstructive sleep apnea) Code(s): G47.33 - OBSTRUCTIVE SLEEP APNEA (ADULT) (PEDIATRIC) Status: Chronic Comment: ? home CPAP not functioning (7) Pulmonary artery hypertension Code(s): I27.2 - OTHER SECONDARY PULMONARY HYPERTENSION * DO NOT USE * Status : Chronic (8) Morbid obesity with BMI of 50.0-59.9, adult Code(s): E66.01 - MORBID (SEVERE) OBESITY DUE TO EXCESS CALORIES; Z68.43 - BODY MASS INDEX (BMI) 50-59.9 , ADULT Status: Chronic - Plan plan discussed w/ family, continue antibiotics, PT/OT, respiratory therapy, DVT proph w/SCDs cont current supportive care w ABx,steroids,Vent support for now. -: renal Fx worsenes and no hopes of improvement -: very poor candidate for HD.nephrology following -: Family meeting tomorrow for possible withdrawl of care per Pt's wishes -: remains critically ill. * . Review of Systems - Review of Systems Other: unobtainable due to encephalopathy,intubation - Medications/Allergies Allergies/Adverse Reactions: Allergies Allergy/AdvReac Type Severity Reaction Status Date / Time INDERJIT Inhibitors Allergy Verified 02/18/17 23:28 Sulfa (Sulfonamide Allergy Verified 02/18/17 23:28 Antibiotics) Medications: Current Medications Acetaminophen (Tylenol) 650 mg PO Q4H PRN PRN Reason: Headache/Fever or Pain Last Admin: 02/20/17 08:44 Dose: 650 mg Albuterol/Ipratropium (Duoneb) 3 ml NEB [id number] [facility] Last Admin: 02/26/17 13:58 Dose: 3 ml Aspirin (Ecotrin) 81 mg PO DAILY [facility] Last Admin: 02/26/17 08:56 Dose: 81 mg Bisacodyl (Dulcolax) 10 mg PO DAILYPRN PRN PRN Reason: Constipation Brimonidine Tartrate (Alphagan 0.2% Ophth Soln) 0 drop L EYE BID [facility] Last Admin: 02/26/17 08:55 Dose: 1 drop Buspirone HCl (Buspar) 5 mg PO DAILY [facility] Last Admin: 02/26/17 09:44 Dose: 5 mg Dextrose/Water (Dextrose 50%) 25 gm SLOW IVP PRN PRN PRN Reason: Hypoglycemia Last Admin: 02/23/17 21:36 Dose: 25 gm Diltiazem HCl (Cardizem) 30 mg PO ACHS [facility] Last Admin: 02/26/17 10:24 Dose: 30 mg Dorzolamide/Timolol (Cosopt 2-0.5% Ophth Soln) 0 drop L EYE BID [facility] Last Admin: 02/26/17 08:55 Dose: 1 drop Famotidine (Pepcid) 20 mg PO DAILY [facility] Last Admin: 02/26/17 08:56 Dose: 20 mg Glipizide (Glucotrol Xl) 5 mg PO DAILY [facility] Last Admin: 02/26/17 08:56 Dose: 5 mg Glucagon (Glucagon) 1 mg IM PRN PRN PRN Reason: Hypoglycemia Hydrocortisone Acetate (Anusol-Hc) [address] BIDPRN PRN PRN Reason: Hemorrhoids Dextrose/Water (D5w) 1,000 mls @ 0 mls/hr IV .Q0M PRN; As Directed PRN Reason: Hypoglycemia Fentanyl Citrate 2,000 mcg/ (Sodium Chloride) 100 mls @ 0 mls/hr IV INF [facility]; Per Protocol PRN Reason: Protocol Stop: 03/24/17 20:40 Fentanyl Citrate (Fentanyl Bolus) 250 mls @ 0 mls/hr IVPB PRN PRN; As Directed PRN Reason: Breakthrough pain Stop: 03/24/17 20:40 Ceftriaxone Sodium 1 gm/ (Syringe 0.4 ml/ Sterile Water) 10 mls @ 120 mls/hr SLOW IVP 1000 [facility] Last Admin: 02/26/17 10:24 Dose: 10 mls Sodium Bicarbonate 150 meq/ (Dextrose/Water) 1,150 mls @ 50 mls/hr IV .Q23H [facility] Last Admin: 02/26/17 14:07 Dose: 1,150 mls Insulin Human Lispro (Humalog) 0 units SC .MODERATE SLIDING SC PRN PRN Reason: Moderate Correctional Scale Ondansetron HCl (Zofran Odt) 4 mg PO Q6H PRN PRN Reason: Nausea/Vomiting Polyethylene Glycol (Miralax) 17 gm PO DAILY PRN PRN Reason: Constipation Prednisone (Prednisone) 10 mg PO QA-[facility] Propofol (Diprivan) 1,000 mg IV INF PRN; Protocol PRN Reason: TO ACHIEVE SINGH SCORE 2-3 Stop: 03/24/17 20:40 Last Admin: 02/26/17 05:37 Dose: 1,000 mg Saccharomyces Boulardii (Florastor) 250 mg PO DAILY [facility] Last Admin: 02/26/17 08:56 Dose: 250 mg Sodium Chloride (Flush - Normal Saline) 10 ml IVF Q12HR [facility] Last Admin: 02/26/17 08:57 Dose: 10 ml Sodium Chloride (Flush - Normal Saline) 10 ml IVF PRN PRN PRN Reason: Saline Flush Last Admin: 02/19/17 06:07 Dose: 10 ml
--- NOTE | 2017-02-26 16:55 | PDOC.EVN ---
Event Note - Event Note Event Note: Family wanted pt be to DNR.Discussed with angus Benavidez over phone.Will update orders.
[2017-02-27 04:35] LABS: Anion Gap 20 mmol/L (10-20); BUN (Urea Nitrogen) 97 mg/dL (9.8-20.1); Calc. Creatinine Clearance 23 mL/min (70-130); Calcium 7.8 mg/dL (7.8-10.44); Carbon Dioxide 23 mmol/L (23-31); Chloride 94 mmol/L (98-107); Estimated GFR-MDRD 10; Glucose 142 mg/dL (83-110); Potassium 3.7 mmol/L (3.5-5.1); Sodium 133 mmol/L (136-145)
[2017-02-27 04:45] LABS: Band 2 % (5-11); Lymphocytes 4 % (21-51); MDiff Complete? YES; Mean Corpuscular HGB CONC 30.7 g/dL (32.0-36.0); Mean Corpuscular Hemoglobin 28.1 pg (27.0-31.0); Mean Corpuscular Volume 91.5 fl (81.0-99.0); Monocytes 2 % (0-10); Neutrophil 92 % (42-75); Nucleated RBC 1 % (0); PLT Morphology Comment Appears Adequate; Platelet Count 141 thou/uL (130-400); RBC Distribution Width 17.1 % (11.5-14.5); Red Blood Cell (RBC) Count 4.26 mill/uL (4.20-5.40); Target Cells SLIGHT = 2-5 cells (100X) (0-1/hpf); White Blood Cell (WBC) Count 15.7 thou/uL (4.8-10.8)
[2017-02-27] MEDS: predniSONE 20 MG TAB PO SCH (06:39)
[2017-02-27] MEDS: cefTRIAXone\\ROCEPHIN 1 GM, Syringe 0.4 ML in Sterile Water 9.6 ML SLOW IVP SCH (10:28)
[2017-02-27] MEDS: busPIRone HCl 5 MG TAB PO SCH (10:28)
[2017-02-27] MEDS: Saccharomyces boulardii 250 MG CAP PO SCH (10:28)
[2017-02-27] MEDS: Famotidine 20 MG TAB PO SCH (10:28)
[2017-02-27] MEDS: Dorzolamide HCl/Timolol Maleate 2%/0.5% Ophth Soln 10 ml Bottle L EYE SCH ×2 (10:29→21:45)
[2017-02-27] MEDS: Aspirin 81 mg Enteric Coated Tablet PO SCH (10:29)
[2017-02-27] MEDS: Brimonidine Tartrate 0.2% Ophth Soln 5 ml Bottle L EYE SCH ×2 (10:29→21:45)
--- NOTE | 2017-02-27 14:37 | PDOC.PN ---
- Subjective Encounter Start Date: 02/27/17 Encounter Start Time: 14:35 Subjective: waking up today .nods and shakes for questions. -: remains intubated - Objective Resuscitation Status: Resuscitation Status DNR:Do Not Resuscitate MAR Reviewed: Yes Vital Signs & Weight: Vital Signs (12 hours) Temp Pulse Resp BP Pulse Ox 02/27/17 13:34 66 136/67 02/27/17 13:33 68 16 99 02/27/17 12:48 72 124/53 L 02/27/17 10:00 16 02/27/17 09:48 77 140/60 02/27/17 09:47 75 23 H 99 02/27/17 08:00 98.5 F 76 17 97 02/27/17 07:00 98.5 F 02/27/17 06:34 72 157/51 H 02/27/17 06:32 72 19 95 02/27/17 06:00 18 02/27/17 04:00 97.7 F 17 Weight Admit Weight 314 lb Weight 339 lb 3.2 oz Most Recent Monitor Data Heart Rate from ECG 73 NIBP 114/53 NIBP BP-Mean 73 Respiration from ECG 13 SpO2 97 I&O: 02/26/17 02/27/17 02/28/17 06:59 06:59 06:59 Intake Total 2855 2010 Output Total 225 320 152 Balance 2630 1691 -152 Result Diagrams: 02/27/17 04:02 02/27/17 04:02 Additional Labs: Accuchecks 02/27/17 02/27/17 02/26/17 10:55 03:57 21:30 POC Glucose 142 H 133 H 109 02/26/17 17:51 POC Glucose 90 Microbiology 02/18/17 15:40 Stool - Pending Stool Occult Blood (ELIZABETH) - Final 01/30/17 15:56 Nasal swab Influenza Types A,B Direct EIA - Final Phys Exam - Physical Examination Constitutional: NAD HEENT: PERRLA, moist MMs, sclera anicteric, TM's clear, oral pharynx no lesions Neck: no nodes, no JVD, supple, full ROM Respiratory: no wheezing, no rales, no rhonchi, clear to auscultation bilateral coarse at bases Cardiovascular: RRR, no significant murmur Gastrointestinal: soft, non-tender, no distention, positive bowel sounds Musculoskeletal: no edema, pulses present Neurological: non-focal, normal sensation, moves all 4 limbs Psychiatric: normal affect Dx/Plan (1) Acute on chronic respiratory failure with hypoxia Code(s): J96.21 - ACUTE AND CHRONIC RESPIRATORY FAILURE WITH HYPOXIA Status: Acute (2) Acute on chronic renal failure Code(s): N17.9 - ACUTE KIDNEY FAILURE, UNSPECIFIED; N18.9 - CHRONIC KIDNEY DISEASE, UNSPECIFIED Status: Acute (3) Acute on chronic diastolic (congestive) heart failure Code(s): I50.33 - ACUTE ON CHRONIC DIASTOLIC (CONGESTIVE) HEART FAILURE Status : Acute (4) Acute exacerbation of chronic obstructive pulmonary disease (COPD) Code(s): J44.1 - CHRONIC OBSTRUCTIVE PULMONARY DISEASE W (ACUTE) EXACERBATION Status: Acute (5) DM2 (diabetes mellitus, type 2) Status: Chronic (6) ADELINE (obstructive sleep apnea) Code(s): G47.33 - OBSTRUCTIVE SLEEP APNEA (ADULT) (PEDIATRIC) Status: Chronic Comment: ? home CPAP not functioning (7) Pulmonary artery hypertension Code(s): I27.2 - OTHER SECONDARY PULMONARY HYPERTENSION * DO NOT USE * Status : Chronic (8) Morbid obesity with BMI of 50.0-59.9, adult Code(s): E66.01 - MORBID (SEVERE) OBESITY DUE TO EXCESS CALORIES; Z68.43 - BODY MASS INDEX (BMI) 50-59.9 , ADULT Status: Chronic - Plan knight catheter, respiratory therapy, incentive spirometry, DVT proph w/SCDs Pt more awake today and reports that she wants dialysis/trach etc b head no -: unclear if she is understanding clarice gravity of situation -: will be a very poor candidate for HD.family meeting todiony sparks PCT -: cont vent support per PCCM. -: am labs.renal Fx continues to worsen.nephrology following * . Review of Systems - Review of Systems Other: limited ROS d/t ETT. reorts that she is comfortable. - Medications/Allergies Allergies/Adverse Reactions: Allergies Allergy/AdvReac Type Severity Reaction Status Date / Time INDERJIT Inhibitors Allergy Verified 02/18/17 23:28 Sulfa (Sulfonamide Allergy Verified 02/18/17 23:28 Antibiotics) Medications: Current Medications Acetaminophen (Tylenol) 650 mg PO Q4H PRN PRN Reason: Headache/Fever or Pain Last Admin: 02/20/17 08:44 Dose: 650 mg Albuterol/Ipratropium (Duoneb) 3 ml NEB [id number] [facility] Last Admin: 02/27/17 13:33 Dose: 3 ml Aspirin (Ecotrin) 81 mg PO DAILY [facility] Last Admin: 02/27/17 10:29 Dose: 81 mg Bisacodyl (Dulcolax) 10 mg PO DAILYPRN PRN PRN Reason: Constipation Brimonidine Tartrate (Alphagan 0.2% Ophth Soln) 0 drop L EYE BID [facility] Last Admin: 02/27/17 10:29 Dose: 1 drop Buspirone HCl (Buspar) 5 mg PO DAILY [facility] Last Admin: 02/27/17 10:28 Dose: 5 mg Cefdinir (Omnicef) 300 mg PO BID [facility] Dextrose/Water (Dextrose 50%) 25 gm SLOW IVP PRN PRN PRN Reason: Hypoglycemia Last Admin: 02/23/17 21:36 Dose: 25 gm Diltiazem HCl (Cardizem) 30 mg PO ACHS [facility] Last Admin: 02/27/17 10:29 Dose: 30 mg Dorzolamide/Timolol (Cosopt 2-0.5% Ophth Soln) 0 drop L EYE BID [facility] Last Admin: 02/27/17 10:29 Dose: 1 drop Famotidine (Pepcid) 20 mg PO DAILY [facility] Last Admin: 02/27/17 10:28 Dose: 20 mg Glipizide (Glucotrol Xl) 5 mg PO DAILY [facility] Last Admin: 02/27/17 10:28 Dose: 5 mg Glucagon (Glucagon) 1 mg IM PRN PRN PRN Reason: Hypoglycemia Hydrocortisone Acetate (Anusol-Hc) 25 mg [place] BIDPRN PRN PRN Reason: Hemorrhoids Dextrose/Water (D5w) 1,000 mls @ 0 mls/hr IV .Q0M PRN; As Directed PRN Reason: Hypoglycemia Fentanyl Citrate 2,000 mcg/ (Sodium Chloride) 100 mls @ 0 mls/hr IV INF [facility]; Per Protocol PRN Reason: Protocol Stop: 03/24/17 20:40 Fentanyl Citrate (Fentanyl Bolus) 250 mls @ 0 mls/hr IVPB PRN PRN; As Directed PRN Reason: Breakthrough pain Stop: 03/24/17 20:40 Sodium Bicarbonate 150 meq/ (Dextrose/Water) 1,150 mls @ 50 mls/hr IV .Q23H [facility] Last Admin: 02/26/17 14:07 Dose: 1,150 mls Insulin Human Lispro (Humalog) 0 units SC .MODERATE SLIDING SC PRN PRN Reason: Moderate Correctional Scale Ondansetron HCl (Zofran Odt) 4 mg PO Q6H PRN PRN Reason: Nausea/Vomiting Polyethylene Glycol (Miralax) 17 gm PO DAILY PRN PRN Reason: Constipation Prednisone (Prednisone) 10 mg PO QAM-[facility] Last Admin: 02/27/17 06:39 Dose: 10 mg Propofol (Diprivan) 1,000 mg IV INF PRN; Protocol PRN Reason: TO ACHIEVE SINGH SCORE 2-3 Stop: 03/24/17 20:40 Last Admin: 02/26/17 05:37 Dose: 1,000 mg Saccharomyces Boulardii (Florastor) 250 mg PO DAILY [facility] Last Admin: 02/27/17 10:28 Dose: 250 mg Sodium Chloride (Flush - Normal Saline) 10 ml IVF Q12HR [facility] Last Admin: 02/27/17 10:29 Dose: 10 ml Sodium Chloride (Flush - Normal Saline) 10 ml IVF PRN PRN PRN Reason: Saline Flush Last Admin: 02/19/17 06:07 Dose: 10 ml
[2017-02-27] MEDS: Sodium Bicarbonate 150 MEQ in Dextrose 5% in Water 1,000 ML IV SCH (15:55)
--- NOTE | 2017-02-27 17:03 | PRG ---
DATE OF SERVICE: 02/27/2017 SERVICE: Pulmonary Medicine. INTERVAL HISTORY: The patient is doing fine from a respiratory standpoint. She is breathing comfortably. She is waking up a little bit. She was saying yes to just about everything, but apparently her family members who were at bedside asked if she wanted to , she told them no. They asked if she wanted the tracheostomy and dialysis and she said yes. This is not congruent with her previous statements. We will need to talk to family about what those types of things in detail over the long-term including placement in skilled nursing which she has expressedly told me on multiple occasions that she would never want to do even if it meant otherwise. PHYSICAL EXAMINATION: VITAL SIGNS: Afebrile, pulse 66, blood pressure 136/67, respirations 16, saturation 99% on 30% on FiO2. GENERAL: Patient is intubated. She is under the influence of some sedation. She wakes up and answers some simple questions and then will go back to sleep within 10 seconds. HEENT: Normocephalic, atraumatic. Sclerae are white, conjunctivae pink. Oral mucosa is moist without lesions. LUNGS: Decent air entry. Dependent crackles are minimal. HEART: Normal rate, regular. ABDOMEN: Soft, nontender, nondistended. Bowel sounds are positive. MUSCULOSKELETAL: No cyanosis or clubbing. There is little bit of pitting in the bilateral lower extremities, but nothing significant. GENITOURINARY: Fleming catheter in place. NEUROLOGIC: Grossly nonfocal. LABORATORY DATA: WBC 15.7, hemoglobin 12.0, platelets 141,000. Neutrophil count is 92%, but the band count is dropping. Creatinine 5.02 and stabilizing. BUN is uptrending gently to 97. Basic metabolic profile is otherwise unremarkable/stable. Urinalysis is negative. ASSESSMENT: 1. Acute on chronic hypoxic and hypercapnic respiratory failure. 2. Obesity hypoventilation syndrome. 3. Obstructive sleep apnea, severe. 4. Acute on chronic diastolic heart failure. 5. Acute kidney injury on chronic kidney disease. PLAN: The patient's kidney seems to be waking up a little bit. Hopefully her kidney injury will resolve and she will go on to need dialysis. We are going to continue our family discussions. We had loss IV access and she is a difficult stick. Multiple attempts have been made. As such, a PICC line will be placed. I will change all of her medications over to p.o. for the time being. Pulmonary Critical Care will continue to follow while she remains in this location, but hopefully, we will be able to transition over to comfort care only as I truly believe this would be her wishes, based on my multiple encounters with her over the past 2 years. RITA
[2017-02-27] MEDS: Cefdinir 300 MG CAP PO SCH (21:45)
--- NOTE | 2017-02-28 01:00 | PRG ---
DATE OF SERVICE: 02/27/2017 The patient was seen and examined, still on life support, but seems to be waking up and interacting w ith caregivers invariably according to the Pulmonary and Critical Care records. The patient did expr ess the desire to undergo dialysis and tracheostomy if needed. The patient's urinary output seems to be improving. In any case, the patient still remains on life support. PHYSICAL EXAMINATION: GENERAL: Revealed a patient who is hemodynamically stable. HEENT: Unremarkable for endotracheal tube in place. CARDIOVASCULAR: First and second heart sounds were heard. RESPIRATORY: Reveals vented sounds. ABDOMEN: Digestive system revealed an obese abdomen. EXTREMITIES: No peripheral edema. LABORATORY INVESTIGATION: Reveal a white count of 15,700. Chemistry showed a creatinine of 5.02 wit h BUN of 97. IMPRESSION: 1. Acute on chronic kidney disease. This seems to be plateauing and showing some evidence of early signs of post acute tubular necrosis diuresis. 2. Cardiopulmonary failure on life support seems to be coming around. 3. Morbid obesity. PLAN: 1. We will revisit the discussion on hemodialysis/renal replacement therapy with the family and the patient tomorrow. In any case, from more clinical indication, it seems as if the patient's renal fun ction is beginning to turn around. Therefore, we will not be in a aranda to initiate renal replacement therapy unless the patient does not respond to medical diuresis or if the patient does not continue to improve renal alegre. 2. Please continue to renally dose all medications while avoiding potentially nephrotoxic agents as there seems to be some ray of hope when it comes to the renal recovery in this patient. 3. Further management to be dependent on the clinical course.
[2017-02-28] MEDS: Acetaminophen 325 MG TAB PO PRN (04:00)
[2017-02-28 05:18] LABS: Band 1 % (5-11); Eosinophils 1 % (0-10); Hemoglobin 12.1 g/dL (12.0-16.0); Lymphocytes 4 % (21-51); MDiff Complete? YES; Mean Corpuscular HGB CONC 30.5 g/dL (32.0-36.0); Mean Corpuscular Volume 91.8 fl (81.0-99.0); Mean Platelet Volume 9.9 fL (7.4-10.4); Monocytes 5 % (0-10); Neutrophil 89 % (42-75); Nucleated RBC 3 % (0); Platelet Count 148 thou/uL (130-400); RBC Distribution Width 17.2 % (11.5-14.5); Red Blood Cell (RBC) Count 4.32 mill/uL (4.20-5.40); White Blood Cell (WBC) Count 13.2 thou/uL (4.8-10.8)
[2017-02-28 05:32] LABS: Anion Gap 21 mmol/L (10-20); BUN (Urea Nitrogen) 103 mg/dL (9.8-20.1); Calc. Creatinine Clearance 23 mL/min (70-130); Calcium 7.9 mg/dL (7.8-10.44); Carbon Dioxide 23 mmol/L (23-31); Chloride 93 mmol/L (98-107); Estimated GFR-MDRD 10; Glucose 142 mg/dL (83-110); Potassium 3.5 mmol/L (3.5-5.1); Sodium 133 mmol/L (136-145)
[2017-02-28 07:00] LABS: Actual Bicarbonate (HCO3a) 26.3 mEq/L (22-26); Base Excess (BEa) 0.4 mEq/L (0 (+/-) 2.5); CO2 Tension 47.4 mmHg (35.0-45.0); Hematocrit-ABG 43.2 % (36.0-47.0); Hemoglobin (Hb) 11.5 g/dL (12.0-16.0); O2 Tension (PaO2) 68.4 mmHg (80.0-100.0); pH, Arterial 7.36 (7.35-7.45)
[2017-02-28 07:02] LABS: Puncture Site RR
[2017-02-28] MEDS: busPIRone HCl 5 MG TAB PO SCH (09:12)
[2017-02-28] MEDS: Famotidine 20 MG TAB PO SCH (09:12)
[2017-02-28] MEDS: Cefdinir 300 MG CAP PO SCH (09:12)
[2017-02-28] MEDS: Saccharomyces boulardii 250 MG CAP PO SCH (09:12)
[2017-02-28] MEDS: Aspirin 81 mg Enteric Coated Tablet PO SCH (09:12)
[2017-02-28] MEDS: predniSONE 20 MG TAB PO SCH (09:12)
[2017-02-28] MEDS: Brimonidine Tartrate 0.2% Ophth Soln 5 ml Bottle L EYE SCH ×2 (09:13→21:45)
[2017-02-28] MEDS: Dorzolamide HCl/Timolol Maleate 2%/0.5% Ophth Soln 10 ml Bottle L EYE SCH ×2 (09:13→21:45)
[2017-02-28] MEDS: Sodium Bicarbonate 150 MEQ in Dextrose 5% in Water 1,000 ML IV SCH (09:14)
--- NOTE | 2017-02-28 14:41 | PRG ---
DATE OF SERVICE: 02/28/2017 SERVICE: Pulmonary Medicine. INTERVAL HISTORY: The patient is doing really well from a respiratory standpoint. Her kidney functi on has actually started to picker and packer a little bit. She is making a little bit urine. There were no ad ditional events overnight. The patient does not note having any shortness of breath or chest discomf ort. She is fully cooperative off sedation, on mechanical ventilation. PHYSICAL EXAMINATION: VITAL SIGNS: Afebrile, pulse 68, blood pressure 160/77, respirations 18, saturation 94% on 31% FIO2 and PEEP of 5. GENERAL: The patient is awake and alert. She is intubated. She is not requiring any sedation and i s perfectly comfortable. HEART: Normal rate, regular. ABDOMEN: Soft, nontender, nondistended. Bowel sounds are positive. MUSCULOSKELETAL: No cyanosis or clubbing. There is 1-2+ pitting throughout. GENITOURINARY: Fleming catheter in place. NEUROLOGIC: Grossly nonfocal. LABORATORY DATA: WBC 13.2, hemoglobin 12.1, platelets 148,000 and roughly stable. Neutrophil count is down trending. Bands are low. A pH 7.36, pCO2 47, pO2 68.4, this is on saturation of 39%. Crea tinine 5.02 and stable, BUN 103. Anion gap 21, chloride 93, sodium 133. Glucose 142. ASSESSMENT: 1. Acute on chronic hypoxic and hypercapnic respiratory failure. 2. Obesity hypoventilation syndrome. 3. Obstructive sleep apnea, severe. 4. Acute on chronic diastolic heart failure. 5. Acute kidney injury on chronic kidney disease. 6. Metabolic encephalopathy. PLAN: The patient is doing fairly well. Her urine output is starting to picker and packer and her urine is ac tually clearing. We will allow her to auto diurese. Hopefully, we can get her a little negative ove r the next 24-48 hours. I will give her dose of Lasix starting tomorrow morning, but hopefully in 1- 2 days, the patient will be in a position where, we may be able to consider spontaneous breathing tri al. The family at this time does not want to pursue tracheostomy because Ms. Plasencia has always sugge sted to them that she would never want to live in a nursing facility. CRITICAL CARE TIME: 30 minutes.
--- NOTE | 2017-02-28 15:35 | PDOC.PN ---
- Subjective Encounter Start Date: 02/28/17 Encounter Start Time: 15:34 Subjective: remains intubated -: no family at bedside - Objective Resuscitation Status: Resuscitation Status DNR:Do Not Resuscitate MAR Reviewed: Yes Vital Signs & Weight: Vital Signs (12 hours) Temp Pulse Pulse Pulse Resp BP BP 02/28/17 13:35 96 118 H 129/53 L 02/28/17 11:56 67 132/66 02/28/17 11:00 97.9 F 02/28/17 10:00 16 02/28/17 08:00 98.7 F 70 15 151/68 H 02/28/17 06:00 15 02/28/17 04:00 98.7 F 14 BP Pulse Ox Pulse Ox 02/28/17 13:35 160/77 H 92 L 91 L 02/28/17 11:56 02/28/17 11:00 02/28/17 10:00 02/28/17 08:00 02/28/17 06:00 02/28/17 04:00 Weight Admit Weight 314 lb Weight 337 lb 11.971 oz Most Recent Monitor Data Heart Rate from ECG 70 NIBP 150/59 NIBP BP-Mean 114 Respiration from ECG 14 SpO2 91 I&O: 02/27/17 02/28/17 03/01/17 06:59 06:59 06:59 Intake Total 2010 1087 190 Output Total 320 1092 300 Balance 1691 -5 -110 Result Diagrams: 02/28/17 04:21 02/28/17 04:21 Additional Labs: Accuchecks 02/28/17 02/28/17 02/27/17 09:12 04:22 22:37 POC Glucose 140 H 132 H 142 H 02/27/17 18:00 POC Glucose 148 H Microbiology 02/18/17 15:40 Stool - Pending Stool Occult Blood (ELIZABETH) - Final Phys Exam - Physical Examination Constitutional: NAD awakes w verbal stimuli but falls asleep fast HEENT: moist MMs, sclera anicteric, oral pharynx no lesions Neck: no JVD Respiratory: no wheezing, no rales, no rhonchi Cardiovascular: RRR, no significant murmur Gastrointestinal: soft, non-tender, no distention, positive bowel sounds Musculoskeletal: pulses present, edema present Dx/Plan (1) Acute on chronic respiratory failure with hypoxia Code(s): J96.21 - ACUTE AND CHRONIC RESPIRATORY FAILURE WITH HYPOXIA Status: Acute (2) Acute on chronic renal failure Code(s): N17.9 - ACUTE KIDNEY FAILURE, UNSPECIFIED; N18.9 - CHRONIC KIDNEY DISEASE, UNSPECIFIED Status: Acute (3) Acute on chronic diastolic (congestive) heart failure Code(s): I50.33 - ACUTE ON CHRONIC DIASTOLIC (CONGESTIVE) HEART FAILURE Status : Acute (4) Acute exacerbation of chronic obstructive pulmonary disease (COPD) Code(s): J44.1 - CHRONIC OBSTRUCTIVE PULMONARY DISEASE W (ACUTE) EXACERBATION Status: Acute (5) DM2 (diabetes mellitus, type 2) Status: Chronic (6) ADELINE (obstructive sleep apnea) Code(s): G47.33 - OBSTRUCTIVE SLEEP APNEA (ADULT) (PEDIATRIC) Status: Chronic Comment: ? home CPAP not functioning (7) Pulmonary artery hypertension Code(s): I27.2 - OTHER SECONDARY PULMONARY HYPERTENSION * DO NOT USE * Status : Chronic (8) Morbid obesity with BMI of 50.0-59.9, adult Code(s): E66.01 - MORBID (SEVERE) OBESITY DUE TO EXCESS CALORIES; Z68.43 - BODY MASS INDEX (BMI) 50-59.9 , ADULT Status: Chronic - Plan DVT proph w/SCDs Vent weaning per PCCM.Comfort care Vs aggressive -per family wishes. -: HD stable.Leucocytosis improving. -: renal Fx slightly better.nephrology following.not a good HD shashaiadte -: AM labs * . Review of Systems - Review of Systems Other: unobtainable due to intubated state - Medications/Allergies Allergies/Adverse Reactions: Allergies Allergy/AdvReac Type Severity Reaction Status Date / Time INDERJIT Inhibitors Allergy Verified 02/18/17 23:28 Sulfa (Sulfonamide Allergy Verified 02/18/17 23:28 Antibiotics) Medications: Current Medications Acetaminophen (Tylenol) 650 mg PO Q4H PRN PRN Reason: Headache/Fever or Pain Last Admin: 02/28/17 04:00 Dose: 650 mg Albuterol/Ipratropium (Duoneb) 3 ml NEB [id number] ALLEN Last Admin: 02/28/17 11:56 Dose: 3 ml Aspirin (Ecotrin) 81 mg PO DAILY [facility] Last Admin: 02/28/17 09:12 Dose: 81 mg Bisacodyl (Dulcolax) 10 mg PO DAILYPRN PRN PRN Reason: Constipation Brimonidine Tartrate (Alphagan 0.2% Ophth Soln) 0 drop L EYE BID [facility] Last Admin: 02/28/17 09:13 Dose: 1 drop Buspirone HCl (Buspar) 5 mg PO DAILY [facility] Last Admin: 02/28/17 09:12 Dose: 5 mg Cefdinir (Omnicef) 300 mg PO 0900 [facility] Dextrose/Water (Dextrose 50%) 25 gm SLOW IVP PRN PRN PRN Reason: Hypoglycemia Last Admin: 02/23/17 21:36 Dose: 25 gm Diltiazem HCl (Cardizem) 30 mg PO ACHS [facility] Last Admin: 02/28/17 13:00 Dose: 30 mg Dorzolamide/Timolol (Cosopt 2-0.5% Ophth Soln) 0 drop L EYE BID [facility] Last Admin: 02/28/17 09:13 Dose: 1 drop Famotidine (Pepcid) 20 mg PO DAILY [facility] Last Admin: 02/28/17 09:12 Dose: 20 mg Furosemide (Lasix) 40 mg SLOW IVP DAILY [facility] Glucagon (Glucagon) 1 mg IM PRN PRN PRN Reason: Hypoglycemia Hydrocortisone Acetate (Anusol-Hc) 25 mg NM BIDPRN PRN PRN Reason: Hemorrhoids Dextrose/Water (D5w) 1,000 mls @ 0 mls/hr IV .Q0M PRN; As Directed PRN Reason: Hypoglycemia Fentanyl Citrate 2,000 mcg/ (Sodium Chloride) 100 mls @ 0 mls/hr IV INF [facility]; Per Protocol PRN Reason: Protocol Stop: 03/24/17 20:40 Fentanyl Citrate (Fentanyl Bolus) 250 mls @ 0 mls/hr IVPB PRN PRN; As Directed PRN Reason: Breakthrough pain Stop: 03/24/17 20:40 Insulin Human Lispro (Humalog) 0 units SC .MODERATE SLIDING SC PRN PRN Reason: Moderate Correctional Scale Ondansetron HCl (Zofran Odt) 4 mg PO Q6H PRN PRN Reason: Nausea/Vomiting Polyethylene Glycol (Miralax) 17 gm PO DAILY PRN PRN Reason: Constipation Prednisone (Prednisone) 10 mg PO QAM-WM [facility] Last Admin: 02/28/17 09:12 Dose: 10 mg Propofol (Diprivan) 1,000 mg IV INF PRN; Protocol PRN Reason: TO ACHIEVE SINGH SCORE 2-3 Stop: 03/24/17 20:40 Last Admin: 02/26/17 05:37 Dose: 1,000 mg Saccharomyces Boulardii (Florastor) 250 mg PO DAILY [facility] Last Admin: 02/28/17 09:12 Dose: 250 mg Sodium Chloride (Flush - Normal Saline) 10 ml IVF Q12HR [facility] Last Admin: 02/28/17 09:14 Dose: Not Given Sodium Chloride (Flush - Normal Saline) 10 ml IVF PRN PRN PRN Reason: Saline Flush Last Admin: 02/19/17 06:07 Dose: 10 ml
--- NOTE | 2017-02-28 16:15 | SPC ---
BEDSIDE ULTRASOUND AND RADIOGRAPHIC PLACEMENT OF A PICC LINE: INDICATION: Need for long-term IV central venous access. TECHNIQUE: Informed consent was obtained. The right upper extremity was prepped and draped in the usual sterile fashion. Preprocedure ultrasound demonstrated a patent right basilic vein. A site overlying the ri [facility] basilic vein was marked on the skin. Buffered 1% Lidocaine was administered to the overlying sub cutaneous tissues. Utilizing a micropuncture access kit, access was obtained to the right basilic ve in. The guidewire was advanced to the level of the SVC. A 5 Pashto catheter sheath was then placed. A dual-lumen PICC line trimmed to 44 cm was guided over the wire to the sheath. The catheter tip w as seen at the level of the cavoatrial junction. The patient tolerated the procedure without difficu lty. The catheter flushed and aspirated correctly. IMPRESSION: Successful ultrasound and radiographic placement of a right basilic PICC line trimmed to 44 cm. POS: [facility]
[2017-02-28] MEDS ORDERED: Sodium Bicarbonate Tab 325 MG TAB PER TUBE PRN (16:25)
[2017-02-28] MEDS ORDERED: Pancrelipase DR 12000 1 CAP FS PRN (16:25)
--- NOTE | 2017-02-28 17:22 | PDOC.CTH ---
Cardiology Progress Note - Subjective She remains intubated. She is off sedation and follows commands appropriately. - Objective Vital Signs Temp Pulse Pulse Pulse Resp BP BP 02/28/17 16:05 71 159/56 H 02/28/17 16:00 17 02/28/17 15:37 98.2 F 02/28/17 13:35 96 118 H 129/53 L 02/28/17 11:56 67 132/66 02/28/17 11:00 97.9 F 02/28/17 10:00 16 02/28/17 08:00 98.7 F 70 15 151/68 H 02/28/17 06:00 15 BP Pulse Ox Pulse Ox 02/28/17 16:05 02/28/17 16:00 02/28/17 15:37 02/28/17 13:35 160/77 H 92 L 91 L 02/28/17 11:56 02/28/17 11:00 02/28/17 10:00 02/28/17 08:00 02/28/17 06:00 Admit Weight 314 lb Weight 337 lb 11.971 oz 02/27/17 02/28/17 03/01/17 06:59 06:59 06:59 Intake Total 2010 1087 491 Output Total 320 1092 385 Balance 1691 -5 106 - Physical Examination General/Neuro: other: (intubated. ) Neck: no JVD present Lungs: CTA Heart: RRR Abdomen: NT/ND Extremities: + edema B (4+) - Telemetry Telemetry Rhythm: NSR - Labs Result Diagrams: 02/28/17 04:21 02/28/17 04:21 - Assessment/Plan 1. Acute on chronic diastolic heart failure. 2. Severe pulmonary HTN. 3. Acute hypoxic respiratory insufficiency. 4. WILLIE on CKD PLAN: - Renal function stable. - Attempting to wean of ventilator.
[2017-03-01 05:45] LABS: Anion Gap 18 mmol/L (10-20); BUN (Urea Nitrogen) 116 mg/dL (9.8-20.1); Calc. Creatinine Clearance 23 mL/min (70-130); Calcium 7.9 mg/dL (7.8-10.44); Carbon Dioxide 27 mmol/L (23-31); Chloride 92 mmol/L (98-107); Estimated GFR-MDRD 10; Glucose 141 mg/dL (83-110); Magnesium 2.2 mg/dL (1.6-2.6); Phosphorus 8.3 mg/dL (2.3-4.7); Potassium 3.1 mmol/L (3.5-5.1); Sodium 134 mmol/L (136-145)
[2017-03-01 06:02] LABS: Hemoglobin 11.9 g/dL (12.0-16.0); Mean Corpuscular HGB CONC 31.1 g/dL (32.0-36.0); Mean Corpuscular Hemoglobin 28.5 pg (27.0-31.0); Mean Corpuscular Volume 91.9 fl (81.0-99.0); Mean Platelet Volume 9.8 fL (7.4-10.4); Platelet Count 167 thou/uL (130-400); RBC Distribution Width 17.2 % (11.5-14.5); Red Blood Cell (RBC) Count 4.18 mill/uL (4.20-5.40); White Blood Cell (WBC) Count 15.4 thou/uL (4.8-10.8)
[2017-03-01 06:03] LABS: Band 1 % (5-11); Lymphocytes 13 % (21-51); MDiff Complete? YES; Monocytes 13 % (0-10); Neutrophil 73 % (42-75); Nucleated RBC 4 % (0)
[2017-03-01 08:40] LABS: Actual Bicarbonate (HCO3a) 25.6 mEq/L (22-26); Base Excess (BEa) -0.5 mEq/L (0 (+/-) 2.5); CO2 Tension 48.8 mmHg (35.0-45.0); Hematocrit-ABG 44.8 % (36.0-47.0); Hemoglobin (Hb) 11.7 g/dL (12.0-16.0); pH, Arterial 7.34 (7.35-7.45)
[2017-03-01 08:49] LABS: O2 Tension (PaO2) 48.8 mmHg (80.0-100.0)
[2017-03-01] MEDS: Furosemide 40 MG/4 ML VIAL SLOW IVP SCH (08:50)
[2017-03-01] MEDS: Saccharomyces boulardii 250 MG CAP PO SCH (08:50)
[2017-03-01] MEDS: predniSONE 20 MG TAB PO SCH (08:50)
[2017-03-01] MEDS: Aspirin 81 mg Enteric Coated Tablet PO SCH (08:50)
[2017-03-01] MEDS: Cefdinir 300 MG CAP PO SCH (08:51)
[2017-03-01] MEDS: Famotidine 20 MG TAB PO SCH (08:51)
[2017-03-01] MEDS: busPIRone HCl 5 MG TAB PO SCH (08:51)
[2017-03-01] MEDS: Brimonidine Tartrate 0.2% Ophth Soln 5 ml Bottle L EYE SCH ×2 (08:52→20:42)
[2017-03-01] MEDS: Dorzolamide HCl/Timolol Maleate 2%/0.5% Ophth Soln 10 ml Bottle L EYE SCH ×2 (08:52→20:43)
--- NOTE | 2017-03-01 13:29 | PDOC.PN ---
- Subjective Encounter Start Date: 03/01/17 Encounter Start Time: 13:15 Subjective: f/u [facility] Remains unweanable but -: will have attempts in the next few days. - Objective Resuscitation Status: Resuscitation Status DNR:Do Not Resuscitate MAR Reviewed: Yes Vital Signs & Weight: Vital Signs (12 hours) Temp Pulse Resp BP Pulse Ox 03/01/17 12:00 15 03/01/17 11:17 72 137/64 03/01/17 11:00 98.2 F 03/01/17 10:00 18 03/01/17 08:00 98.8 F 79 22 H 03/01/17 07:47 79 147/68 H 03/01/17 07:00 98.8 F 03/01/17 06:00 22 H 03/01/17 04:00 98.2 F 18 03/01/17 02:25 71 24 H 93 L 03/01/17 02:00 17 Weight Admit Weight 314 lb Weight 335 lb 15.752 oz Most Recent Monitor Data Heart Rate from ECG 71 NIBP 136/73 NIBP BP-Mean 106 Respiration from ECG 21 SpO2 97 I&O: 02/28/17 03/01/17 03/02/17 06:59 06:59 06:59 Intake Total 1087 761 120 Output Total 1092 775 520 Balance -5 -14 -400 Result Diagrams: 03/01/17 04:45 03/01/17 04:45 Additional Labs: Accuchecks 03/01/17 03/01/17 02/28/17 07:45 04:52 22:41 POC Glucose 134 H 126 H 130 H 02/28/17 15:40 POC Glucose 145 H Microbiology 11/16/16 17:11 Urine knight catheter Urine Culture - Preliminary Presumptive Escherichia coli 11/16/16 16:33 Venous blood - Left Arm Blood Culture - Preliminary Coagulase Neg Staphylococcus 11/16/16 14:54 Venous blood - Left Hand Blood Culture - Preliminary Specimen has been received and culture in progress. No Growth to date. Laboratory Tests 11/16/16 02/25/17 02/26/17 16:43 04:27 07:47 WBC Plt Count 126 L Potassium Creatinine 4.85 H 5.03 H Phosphorus Magnesium 02/26/17 02/27/17 02/27/17 08:27 04:02 04:02 WBC 14.8 H 15.7 H Plt Count Potassium 3.7 Creatinine 5.02 H Phosphorus Magnesium 02/28/17 02/28/17 03/01/17 04:21 04:21 04:45 WBC 13.2 H Plt Count Potassium 3.5 Creatinine 5.02 H Phosphorus 8.3 H Magnesium 2.2 EKG Reviewed by me: Yes (Tele - SR in 70's) Phys Exam - Physical Examination sedate on mech vent ETT in place Neck: no nodes, no JVD, supple diminished in bases Cardiovascular: RRR Gastrointestinal: soft, no distention, positive bowel sounds Musculoskeletal: pulses present, edema present Skin: normal turgor, cap refill <2 seconds Deviation from normal: Knight in place with clear urine Dx/Plan (1) Acute on chronic respiratory failure with hypoxia Code(s): J96.21 - ACUTE AND CHRONIC RESPIRATORY FAILURE WITH HYPOXIA Status: Acute Comment: Remains unweanable currently, continue SIMV 41% FIO2 (2) Acute on chronic renal failure Code(s): N17.9 - ACUTE KIDNEY FAILURE, UNSPECIFIED; N18.9 - CHRONIC KIDNEY DISEASE, UNSPECIFIED Status: Acute Comment: Minimal improvement however stabilizing in the 5 range, no HD planned currently (3) Acute on chronic diastolic (congestive) heart failure Code(s): I50.33 - ACUTE ON CHRONIC DIASTOLIC (CONGESTIVE) HEART FAILURE Status : Acute Comment: Continue Lasix 40mg IV daily, monitor daily weights and I/O' s (4) DM2 (diabetes mellitus, type 2) Status: Chronic (5) Hypertension Code(s): I10 - ESSENTIAL (PRIMARY) HYPERTENSION Status: Chronic Comment: Continue Diltiazem 30mg QID (6) Morbid obesity with BMI of 40.0-44.9, adult Code(s): E66.01 - MORBID (SEVERE) OBESITY DUE TO EXCESS CALORIES; Z68.41 - BODY MASS INDEX (BMI) 40.0-44.9, ADULT Status: Chronic (7) ADELINE (obstructive sleep apnea) Code(s): G47.33 - OBSTRUCTIVE SLEEP APNEA (ADULT) (PEDIATRIC) Status: Chronic Comment: ? home CPAP not functioning (8) Pulmonary artery hypertension Code(s): I27.2 - OTHER SECONDARY PULMONARY HYPERTENSION * DO NOT USE * Status : Chronic - Plan continue antibiotics, PT/OT, oncology social worker, respiratory therapy, DVT proph w/ SCDs Continue critical pulmonary support -: Attempt mech vent wean per PCCM -: Continue Nutritional support with Nepro 20ml/h -: Continue Omnicef 300mg daily -: Consider Palliative care and potentially hospice for d/c * AM lab: BMP, CBC, Mg++, PO3
--- NOTE | 2017-03-01 18:15 | PDOC.CTH ---
Cardiology Progress Note - Subjective No new issues. Remains intubated. Off sedation. - Objective Vital Signs Temp Pulse Resp BP 03/01/17 16:00 16 03/01/17 15:44 71 134/69 03/01/17 15:00 97.8 F 03/01/17 14:00 16 03/01/17 12:00 15 03/01/17 11:17 72 137/64 03/01/17 11:00 98.2 F 03/01/17 10:00 18 03/01/17 08:00 98.8 F 79 22 H 03/01/17 07:47 79 147/68 H 03/01/17 07:00 98.8 F Admit Weight 314 lb Weight 335 lb 15.752 oz 02/28/17 03/01/17 03/02/17 06:59 06:59 06:59 Intake Total 1087 761 515 Output Total 1092 775 755 Balance -5 -14 -240 - Physical Examination General/Neuro: other: (intubated.) Neck: no JVD present Lungs: CTA Heart: RRR Abdomen: NT/ND Extremities: + edema B (3+) - Telemetry Telemetry Rhythm: NSR - Labs Result Diagrams: 03/01/17 04:45 03/01/17 04:45 - Assessment/Plan 1. Acute on chronic diastolic heart failure. 2. Severe pulmonary HTN. 3. Acute hypoxic respiratory insufficiency. 4. WILLIE on CKD PLAN: - Renal function stabilized. - Agree with attempt to diurese. - Pulmonary critical care attempting to wean off ventilator.
[2017-03-02 06:34] LABS: Band 3 % (5-11); Eosinophils 1 % (0-10); Hemoglobin 11.4 g/dL (12.0-16.0); Hypochromia SLIGHT = 6-15 cells (100X) (0-5/hpf); Lymphocytes 10 % (21-51); MDiff Complete? YES; Mean Corpuscular HGB CONC 30.3 g/dL (32.0-36.0); Mean Corpuscular Volume 92.5 fl (81.0-99.0); Mean Platelet Volume 9.2 fL (7.4-10.4); Monocytes 4 % (0-10); Neutrophil 82 % (42-75); Nucleated RBC 1 % (0); Platelet Count 172 thou/uL (130-400); RBC Distribution Width 17.2 % (11.5-14.5); Red Blood Cell (RBC) Count 4.09 mill/uL (4.20-5.40); White Blood Cell (WBC) Count 17.4 thou/uL (4.8-10.8)
[2017-03-02 06:40] LABS: Anion Gap 19 mmol/L (10-20); BUN (Urea Nitrogen) 123 mg/dL (9.8-20.1); Calc. Creatinine Clearance 25 mL/min (70-130); Calcium 8.1 mg/dL (7.8-10.44); Carbon Dioxide 26 mmol/L (23-31); Chloride 93 mmol/L (98-107); Estimated GFR-MDRD 11; Glucose 124 mg/dL (83-110); Magnesium 2.3 mg/dL (1.6-2.6); Phosphorus 8.1 mg/dL (2.3-4.7); Sodium 135 mmol/L (136-145)
[2017-03-02 06:47] LABS: Potassium 2.9 mmol/L (3.5-5.1)
--- NOTE | 2017-03-02 06:57 | PRG ---
DATE OF SERVICE: 03/01/2017 SUBJECTIVE: The patient was seen and examined, still on life support, but alert and responsive, note d with following vital signs. PHYSICAL EXAMINATION: VITAL SIGNS: Blood pressure 134/70, heart rate of 70, respiratory rate of 17, O2 sat 99%. HEENT: Unremarkable for endotracheal tube in place. CARDIOVASCULAR SYSTEM: First and second heart sounds were heard. RESPIRATORY SYSTEM: Revealed vented sounds. DIGESTIVE SYSTEM: Revealed an obese abdomen. EXTREMITIES: peripheral edema. LABORATORY INVESTIGATIONS: Showed a creatinine of 5 and a BUN of 116. Potassium 3.1. IMPRESSION: 1. Acute tubular necrosis which seems to be stabilizing. The patient beginning to show some signs o f diuresis. 2. Cardiopulmonary failure, coming around. 3. Hypokalemia with mild hyponatremia. PLAN: 1. P.r.n. diuresis recommended especially as there is talk about possible extubation going on. 2. Renally dose all medications and avoid potentially nephrotoxic agents. 3. Replete potassium, especially if the patient is undergoing diuresis. 4. Further management will be dependent on a clinical course.
[2017-03-02] MEDS: predniSONE 20 MG TAB PO SCH (07:27)
[2017-03-02] MEDS ORDERED: Potassium Chloride 20 MEQ TAB PO SCH (08:00)
[2017-03-02 08:08] LABS: Actual Bicarbonate (HCO3a) 27.9 mEq/L (22-26); Base Excess (BEa) 0.9 mEq/L (0 (+/-) 2.5); CO2 Tension 56.1 mmHg (35.0-45.0); Hematocrit-ABG 42.2 % (36.0-47.0); Hemoglobin (Hb) 11.1 g/dL (12.0-16.0); O2 Tension (PaO2) 68.9 mmHg (80.0-100.0); pH, Arterial 7.31 (7.35-7.45)
[2017-03-02 08:09] LABS: ALV-art Gradient 151.665 (0-20); Puncture Site LR
[2017-03-02] MEDS: Furosemide 40 MG/4 ML VIAL SLOW IVP SCH (10:03)
[2017-03-02] MEDS: Saccharomyces boulardii 250 MG CAP PO SCH (10:03)
[2017-03-02] MEDS: Famotidine 20 MG TAB PO SCH (10:03)
[2017-03-02] MEDS: Cefdinir 300 MG CAP PO SCH (10:03)
[2017-03-02] MEDS: Aspirin 81 mg Enteric Coated Tablet PO SCH (10:04)
[2017-03-02] MEDS: Brimonidine Tartrate 0.2% Ophth Soln 5 ml Bottle L EYE SCH ×2 (10:04→20:43)
[2017-03-02] MEDS: busPIRone HCl 5 MG TAB PO SCH (10:04)
[2017-03-02] MEDS: Dorzolamide HCl/Timolol Maleate 2%/0.5% Ophth Soln 10 ml Bottle L EYE SCH ×2 (10:05→20:43)
--- NOTE | 2017-03-02 11:28 | PRG ---
DATE OF SERVICE: 03/01/2017 SERVICE: Pulmonary Medicine. INTERVAL HISTORY: The patient is doing really well from a mentation standpoint. She is breathing co mfortably. There were no events overnight. She is holding her own with her kidney function. She ang s been about even for the past 2 days. We will try giving her a dose of Lasix today to see if her ki dneys open up a touch. PHYSICAL EXAMINATION: VITAL SIGNS: Afebrile. Pulse 69, blood pressure 130/60, respirations 18, saturation 98% on 41% FiO2 and PEEP of 5. GENERAL: Patient is intubated. She requires no sedation. HEENT: Normocephalic, atraumatic. Sclerae are white, conjunctivae pink. Oral and nasal mucosa is m oist without lesions. LUNGS: Decent air entry. There are crackles present. No prolonged expiratory phase or wheezing is appreciated. HEART: Normal rate, regular. ABDOMEN: Soft, nontender, nondistended. Bowel sounds are positive. MUSCULOSKELETAL: No cyanosis or clubbing. There is 2+ pitting in the bilateral lower extremities. NEUROLOGIC: Grossly nonfocal. LABORATORY DATA: WBC 15.4, hemoglobin 11.9, platelets 167,000. A pH 7.34, pCO2 of 48, pO2 of 48, po tassium 3.1. Basic metabolic profile is unremarkable/stable. Her BUN has gone up to 116. ASSESSMENT: 1. Acute on chronic hypoxic and hypercapnic respiratory failure. 2. Obesity hypoventilation syndrome. 3. Obstructive sleep apnea, severe. 4. Acute on chronic diastolic heart failure. 5. Acute kidney injury on chronic kidney disease. 6. Metabolic encephalopathy. PLAN: We will continue supportive care. Now that we have increasing control of her intravascular vo lume, I think that in 24-48 hours, she may be ready for spontaneous breathing trial in consideration of extubation. Pulmonary or Critical Care will continue to follow while the patient remains in this location. Multiple adjustments have been made to the ventilator. CRITICAL CARE TIME: 30 minutes.
--- NOTE | 2017-03-02 14:16 | PRG ---
DATE OF SERVICE: 03/02/2017 SERVICE: Pulmonary Medicine INTERVAL HISTORY: The patient is doing fantastic from a respiratory standpoint. She is breathing co mfortably. She has no specific complaints of fevers, chills, nausea or vomiting. She is awake on th e ventilator. We seem to have better control of her volume status. Her acute kidney injury has reso lved and she is actually improving dramatically. PHYSICAL EXAMINATION: VITAL SIGNS: Afebrile, pulse 77, blood pressure 122/51, respirations 13, saturation 92% on 27% FiO2 and a PEEP of 5. GENERAL: The patient is awake, alert, no apparent distress. LUNGS: Excellent air entry with no prolonged expiratory phase or wheezing. Crackles are present HEART: Normal rate, regular. ABDOMEN: Soft, nontender, nondistended. Bowel sounds are positive. MUSCULOSKELETAL: No cyanosis or clubbing. There is no pitting in the bilateral lower extremities. NEUROLOGIC: Grossly nonfocal. LABORATORY DATA: WBC 17.4, hemoglobin 11.4, platelets 172,000. Band count is up trending to 3%. Ne utrophils increased to 82% currently. PH 7.31, pCO2 56, pO2 69. Creatinine 4.67, BUN is up trending to 123. Potassium 2.9, phosphorus 8.1, magnesium 2.3. ASSESSMENT: 1. Acute on chronic hypoxic and hypercapnic respiratory failure. 2. Obesity hypoventilation syndrome. 3. Obstructive sleep apnea, severe. 4. Acute on chronic diastolic heart failure. 5. Acute kidney injury on chronic kidney disease, slowly improving. 6. Metabolic encephalopathy. PLAN: We will put her on a spontaneous breathing trial today once again. We do it once this morning and this afternoon. We will continue working on her volume status. Tomorrow morning, when we put h er on a spontaneous breathing trial, if she does well, extubation will be considered. Pulmonary Cri tical Care will continue to follow. Critical care time: 30 minutes.
--- NOTE | 2017-03-02 17:04 | PDOC.CTH ---
Cardiology Progress Note - Subjective Remains intubated but follows commands. - Objective Vital Signs Temp Pulse Pulse Pulse Resp BP BP 03/02/17 14:24 74 127/49 L 03/02/17 14:00 20 03/02/17 12:00 97.7 F 18 03/02/17 11:17 75 115/56 L 03/02/17 10:00 74 72 17 123/61 03/02/17 08:00 98.4 F 73 17 03/02/17 07:47 72 112/54 L 03/02/17 06:00 16 BP Pulse Ox Pulse Ox Pulse Ox 03/02/17 14:24 03/02/17 14:00 03/02/17 12:00 03/02/17 11:17 03/02/17 10:00 128/53 L 93 L 93 L 03/02/17 08:00 94 L 03/02/17 07:47 03/02/17 06:00 Admit Weight 314 lb Weight 338 lb 3.025 oz 03/01/17 03/02/17 03/03/17 06:59 06:59 06:59 Intake Total 761 924 50 Output Total 775 1800 625 Balance -14 -876 -575 - Physical Examination General/Neuro: other: (Intubated. ) Neck: carotid US brisk Lungs: unlabored respirations Heart: RRR Abdomen: NT/ND Extremities: + edema B (3+) - Telemetry Telemetry Rhythm: NSR - Labs Result Diagrams: 03/02/17 06:13 03/02/17 06:13 - Assessment/Plan 1. Acute on chronic diastolic heart failure. 2. Severe pulmonary HTN. 3. Acute hypoxic respiratory insufficiency. 4. WILLIE on CKD PLAN: - Renal function slowly improving, hopefully she will go to polyuric phase and will diurese better. urine output already improving. - Continue to try to wean off ventilator per PCC. - Replace K
--- NOTE | 2017-03-02 17:43 | PDOC.PN ---
- Subjective Encounter Start Date: 03/02/17 Encounter Start Time: 17:00 Subjective: f/u for acute hypoxic resp failure on [facility] vent currently attempting -: spont breathing trials. Overall doing better per nursing. - Objective Resuscitation Status: Resuscitation Status DNR:Do Not Resuscitate MAR Reviewed: Yes Vital Signs & Weight: Vital Signs (12 hours) Temp Pulse Pulse Pulse Resp BP BP 03/02/17 14:24 74 127/49 L 03/02/17 14:00 20 03/02/17 12:00 97.7 F 18 03/02/17 11:17 75 115/56 L 03/02/17 10:00 74 72 17 123/61 03/02/17 08:00 98.4 F 73 17 03/02/17 07:47 72 112/54 L 03/02/17 06:00 16 BP Pulse Ox Pulse Ox Pulse Ox 03/02/17 14:24 03/02/17 14:00 03/02/17 12:00 03/02/17 11:17 03/02/17 10:00 128/53 L 93 L 93 L 03/02/17 08:00 94 L 03/02/17 07:47 03/02/17 06:00 Weight Admit Weight 314 lb Weight 338 lb 3.025 oz Most Recent Monitor Data Heart Rate from ECG 73 NIBP 124/50 NIBP BP-Mean 85 Respiration from ECG 15 SpO2 94 I&O: 03/01/17 03/02/17 03/03/17 06:59 06:59 06:59 Intake Total 761 924 50 Output Total 775 1800 625 Balance -14 -876 -575 Result Diagrams: 03/02/17 06:13 03/02/17 06:13 Additional Labs: Accuchecks 03/02/17 03/02/17 03/01/17 10:26 06:36 20:42 POC Glucose 123 H 119 H 135 H Microbiology 11/16/16 17:11 Urine knight catheter Urine Culture - Preliminary Presumptive Escherichia coli 11/16/16 16:33 Venous blood - Left Arm Blood Culture - Preliminary Coagulase Neg Staphylococcus 11/16/16 14:54 Venous blood - Left Hand Blood Culture - Preliminary Specimen has been received and culture in progress. No Growth to date. Laboratory Tests 11/16/16 02/25/17 02/26/17 16:43 04:27 07:47 WBC Plt Count 126 L Potassium Creatinine 4.85 H 5.03 H Phosphorus Magnesium 02/26/17 02/27/17 02/27/17 08:27 04:02 04:02 WBC 14.8 H 15.7 H Plt Count Potassium 3.7 Creatinine 5.02 H Phosphorus Magnesium 02/28/17 02/28/17 03/01/17 04:21 04:21 04:45 WBC 13.2 H Plt Count Potassium 3.5 3.1 L Creatinine 5.02 H 5.00 H Phosphorus 8.3 H Magnesium 2.2 03/01/17 03/02/17 04:45 06:13 WBC 15.4 H Plt Count Potassium Creatinine Phosphorus 8.1 H Magnesium 2.3 EKG Reviewed by me: Yes (Tele - SR in 's) Phys Exam - Physical Examination opens eyes to name and nods ETT in place Neck: no JVD, supple diminished in bases Cardiovascular: RRR Gastrointestinal: soft, non-tender, no distention, positive bowel sounds Musculoskeletal: no edema, pulses present Neurological: normal sensation Skin: normal turgor, cap refill <2 seconds Deviation from normal: Knight with clear urine Dx/Plan (1) Acute on chronic respiratory failure with hypoxia Code(s): J96.21 - ACUTE AND CHRONIC RESPIRATORY FAILURE WITH HYPOXIA Status: Acute Comment: CPAP for spontaneous breathing trials BID, likely attempt off vent and extubation within 24h (2) Acute on chronic renal failure Code(s): N17.9 - ACUTE KIDNEY FAILURE, UNSPECIFIED; N18.9 - CHRONIC KIDNEY DISEASE, UNSPECIFIED Status: Acute Comment: Minimal improvement however stabilizing in the 5 range, no HD planned currently (3) Acute on chronic diastolic (congestive) heart failure Code(s): I50.33 - ACUTE ON CHRONIC DIASTOLIC (CONGESTIVE) HEART FAILURE Status : Acute Comment: Continue Lasix 40mg IV daily, weight stabilizing in 338lb range, monitor daily weights and I/O's (4) DM2 (diabetes mellitus, type 2) Status: Chronic (5) Hypertension Code(s): I10 - ESSENTIAL (PRIMARY) HYPERTENSION Status: Chronic Comment: Continue Diltiazem 30mg QID (6) Morbid obesity with BMI of 40.0-44.9, adult Code(s): E66.01 - MORBID (SEVERE) OBESITY DUE TO EXCESS CALORIES; Z68.41 - BODY MASS INDEX (BMI) 40.0-44.9, ADULT Status: Chronic (7) ADELINE (obstructive sleep apnea) Code(s): G47.33 - OBSTRUCTIVE SLEEP APNEA (ADULT) (PEDIATRIC) Status: Chronic Comment: ? home CPAP not functioning (8) Pulmonary artery hypertension Code(s): I27.2 - OTHER SECONDARY PULMONARY HYPERTENSION * DO NOT USE * Status : Chronic - Plan continue antibiotics, PT/OT, social work faculty member, respiratory therapy, DVT proph w/ SCDs Continue critical support -: CPAP with spont breathing trials -: Continue Omnicef 300mg daily -: Duonebs q4h prn -: KCL replacement * AM lab: BMP, CBC, Mg++, PO3
[2017-03-03 05:20] LABS: Band 1 % (5-11); Eosinophils 1 % (0-10); Hemoglobin 10.9 g/dL (12.0-16.0); Hypochromia SLIGHT = 6-15 cells (100X) (0-5/hpf); Lymphocytes 10 % (21-51); MDiff Complete? YES; Mean Corpuscular HGB CONC 29.8 g/dL (32.0-36.0); Mean Corpuscular Hemoglobin 27.4 pg (27.0-31.0); Mean Corpuscular Volume 91.8 fl (81.0-99.0); Mean Platelet Volume 9.1 fL (7.4-10.4); Monocytes 7 % (0-10); Neutrophil 81 % (42-75); Nucleated RBC 3 % (0); PLT Morphology Comment Appears Adequate; Platelet Count 178 thou/uL (130-400); RBC Distribution Width 17.1 % (11.5-14.5); Red Blood Cell (RBC) Count 3.98 mill/uL (4.20-5.40); White Blood Cell (WBC) Count 14.9 thou/uL (4.8-10.8)
[2017-03-03 05:28] LABS: Anion Gap 17 mmol/L (10-20); Calc. Creatinine Clearance 26 mL/min (70-130); Carbon Dioxide 28 mmol/L (23-31); Chloride 95 mmol/L (98-107); Estimated GFR-MDRD 12; Glucose 137 mg/dL (83-110); Magnesium 2.1 mg/dL (1.6-2.6); Phosphorus 7.1 mg/dL (2.3-4.7); Potassium 3.2 mmol/L (3.5-5.1); Sodium 137 mmol/L (136-145)
[2017-03-03 05:39] LABS: BUN (Urea Nitrogen) 131 mg/dL (9.8-20.1)
--- NOTE | 2017-03-03 06:25 | PRG ---
DATE OF SERVICE: 03/02/2017 SUBJECTIVE: The patient was seen and examined today in ICU, was still on life support, but arousable . OBJECTIVE: HEENT: Unremarkable except with . CARDIOVASCULAR SYSTEM: First and second heart sounds were heard. RESPIRATORY SYSTEM: Reveals vented sounds. DIGESTIVE SYSTEM: Revealed an obese abdomen. EXTREMITIES: No peripheral edema. LABORATORY INVESTIGATION: Showed a hemoglobin of 11.4. Chemistry showed a potassium of 2.9, BUN 123 , creatinine 4.6. IMPRESSION: 1. Continue current renal supportive measures. The patient seems to be making more urine; therefore , will stay course and possibly extubate very soon. 2. Further management will be dependent on the clinical course .
[2017-03-03] MEDS: Aspirin 81 mg Enteric Coated Tablet PO SCH (08:42)
[2017-03-03] MEDS: predniSONE 20 MG TAB PO SCH (08:42)
[2017-03-03] MEDS: Famotidine 20 MG TAB PO SCH (08:43)
[2017-03-03] MEDS: busPIRone HCl 5 MG TAB PO SCH (08:43)
[2017-03-03] MEDS: Saccharomyces boulardii 250 MG CAP PO SCH (08:43)
[2017-03-03] MEDS: Cefdinir 300 MG CAP PO SCH (08:43)
[2017-03-03] MEDS: Furosemide 40 MG/4 ML VIAL SLOW IVP SCH (08:43)
[2017-03-03] MEDS: Brimonidine Tartrate 0.2% Ophth Soln 5 ml Bottle L EYE SCH ×2 (08:54→21:56)
[2017-03-03] MEDS: Dorzolamide HCl/Timolol Maleate 2%/0.5% Ophth Soln 10 ml Bottle L EYE SCH ×2 (08:55→21:55)
--- NOTE | 2017-03-03 09:11 | PRG ---
DATE OF SERVICE: 03/03/2017 SERVICE: Pulmonary Medicine. INTERVAL HISTORY: The patient is doing fine from a cardiovascular and respiratory standpoint. She i s breathing very comfortably. Her mentation has improved drastically. She was placed on spontaneous breathing trial this morning and is doing very well on it. There were no overnight events. She has no complaints of chest pain or difficulty breathing while on pressure support ventilation. PHYSICAL EXAMINATION: VITAL SIGNS: Afebrile, pulse 76, blood pressure 127/55, respirations 20, saturation 100% on 27% FiO2 and PEEP of 5. GENERAL: Patient is awake, alert, in no apparent distress. LUNGS: Excellent air entry. Crackles are still present. HEART: Normal rate, regular. ABDOMEN: Soft, nontender, nondistended. Bowel sounds are positive. MUSCULOSKELETAL: No cyanosis or clubbing. There is 2+ pitting in the bilateral lower extremities. NEUROLOGIC: Grossly nonfocal. LABORATORY DATA: WBC 14.9 and down trending, hemoglobin 10.9, platelets 178,000. Neutrophil count i s stable/improving. Creatinine 4.28 and gently down trending. BUN 131 and stable. Basic metabolic profile is otherwise unremarkable. Magnesium and phosphorus are improving. Sodium has increased to 137. ASSESSMENT: 1. Acute on chronic hypoxic and hypercapnic respiratory failure. 2. Obesity hypoventilation syndrome. 3. Obstructive sleep apnea, severe. 4. Acute on chronic diastolic heart failure. 5. Acute kidney injury on chronic kidney disease, slowly improving. 6. Metabolic encephalopathy, resolving. PLAN: We will once again repeat a spontaneous breathing trial. If at the end of this one she meets criteria for extubation, this will be performed. We will provide her with BiPAP on an as needed basi s and also at night. Pulmonary Critical Care will continue to follow while she remains in this locat ion. Ultimately, we will need to talk to her about going to a nursing home facility or a rehabili tation center once again. If she declines, I would strongly encourage her to move towards comfort ca re only. Critical care time: 30 minutes.
--- NOTE | 2017-03-03 14:46 | PDOC.PN ---
- Subjective Encounter Start Date: 03/03/17 Encounter Start Time: 13:45 Subjective: f/u for resp failure with successful extubation today. Remains on NC -: @ 4L/min. - Objective Resuscitation Status: Resuscitation Status DNR:Do Not Resuscitate MAR Reviewed: Yes Vital Signs & Weight: Vital Signs (12 hours) Temp Pulse Pulse Pulse Resp BP BP 03/03/17 12:42 03/03/17 12:00 97.9 F 20 03/03/17 11:07 73 123/55 L 03/03/17 10:30 60 70 96/42 L 03/03/17 10:00 15 03/03/17 08:00 97.8 F 76 20 03/03/17 07:59 76 127/55 L 03/03/17 06:00 15 03/03/17 04:00 97.8 F 18 03/03/17 03:09 75 18 BP Pulse Ox Pulse Ox Pulse Ox Pulse Ox 03/03/17 12:42 4 L 03/03/17 12:00 03/03/17 11:07 03/03/17 10:30 123/50 L 88 L 96 90 L 03/03/17 10:00 03/03/17 08:00 100 03/03/17 07:59 03/03/17 06:00 03/03/17 04:00 03/03/17 03:09 93 L Weight Admit Weight 314 lb Weight 327 lb 9.71 oz Most Recent Monitor Data Heart Rate from ECG 77 NIBP 118/66 NIBP BP-Mean 85 Respiration from ECG 17 SpO2 100 I&O: 03/02/17 03/03/17 03/04/17 06:59 06:59 06:59 Intake Total 924 372 130 Output Total 1800 1680 575 Balance -876 -1308 -445 Result Diagrams: 03/03/17 04:30 03/03/17 04:30 Additional Labs: Accuchecks 03/03/17 03/03/17 03/02/17 10:03 04:31 20:46 POC Glucose 137 H 135 H 148 H 03/02/17 17:42 POC Glucose 146 H Microbiology 11/16/16 17:11 Urine knight catheter Urine Culture - Preliminary Presumptive Escherichia coli 11/16/16 16:33 Venous blood - Left Arm Blood Culture - Preliminary Coagulase Neg Staphylococcus 11/16/16 14:54 Venous blood - Left Hand Blood Culture - Preliminary Specimen has been received and culture in progress. No Growth to date. Laboratory Tests 11/16/16 02/25/17 02/26/17 16:43 04:27 07:47 WBC Plt Count 126 L Potassium Creatinine 4.85 H 5.03 H Phosphorus Magnesium 02/26/17 02/27/17 02/27/17 08:27 04:02 04:02 WBC 14.8 H 15.7 H Plt Count Potassium 3.7 Creatinine 5.02 H Phosphorus Magnesium 02/28/17 02/28/17 03/01/17 04:21 04:21 04:45 WBC 13.2 H Plt Count Potassium 3.5 3.1 L Creatinine 5.02 H 5.00 H Phosphorus 8.3 H Magnesium 2.2 03/01/17 03/02/17 04:45 06:13 WBC 15.4 H Plt Count Potassium 2.9 L* Creatinine 4.67 H Phosphorus 8.1 H Magnesium 2.3 EKG Reviewed by me: Yes (Tele - SR in 70's) Phys Exam - Physical Examination opens eyes and nods to questions, lethargic HEENT: sclera anicteric, oral pharynx no lesions Neck: no JVD, supple diminished in bases bilat Cardiovascular: RRR obese Gastrointestinal: soft, non-tender, no distention, positive bowel sounds Musculoskeletal: no edema, pulses present Neurological: moves all 4 limbs Skin: normal turgor, cap refill <2 seconds Dx/Plan (1) Acute on chronic respiratory failure with hypoxia Code(s): J96.21 - ACUTE AND CHRONIC RESPIRATORY FAILURE WITH HYPOXIA Status: Acute Comment: Successful extubation today, continue O2 supplementation via NC (2) Acute on chronic renal failure Code(s): N17.9 - ACUTE KIDNEY FAILURE, UNSPECIFIED; N18.9 - CHRONIC KIDNEY DISEASE, UNSPECIFIED Status: Acute Comment: Minimal improvement, no HD planned currently (3) Acute on chronic diastolic (congestive) heart failure Code(s): I50.33 - ACUTE ON CHRONIC DIASTOLIC (CONGESTIVE) HEART FAILURE Status : Acute Comment: Continue Lasix 40mg IV daily, weight stabilizing in 338lb range, monitor daily weights and I/O's (4) DM2 (diabetes mellitus, type 2) Status: Chronic (5) Hypertension Code(s): I10 - ESSENTIAL (PRIMARY) HYPERTENSION Status: Chronic Comment: Continue Diltiazem 30mg QID (6) Morbid obesity with BMI of 40.0-44.9, adult Code(s): E66.01 - MORBID (SEVERE) OBESITY DUE TO EXCESS CALORIES; Z68.41 - BODY MASS INDEX (BMI) 40.0-44.9, ADULT Status: Chronic (7) ADELINE (obstructive sleep apnea) Code(s): G47.33 - OBSTRUCTIVE SLEEP APNEA (ADULT) (PEDIATRIC) Status: Chronic Comment: ? home CPAP not functioning (8) Pulmonary artery hypertension Code(s): I27.2 - OTHER SECONDARY PULMONARY HYPERTENSION * DO NOT USE * Status : Chronic - Plan continue antibiotics, PT/OT, social insurance administrator, respiratory therapy, DVT proph w/ SCDs Continue pulmonary support, may need BiPAP/CPAP nocturnally -: Code Status: DNR per pt and family -: Continue Omnicef 300mg daily -: Continue Prednisone -: SNF options * AM lab: BMP
--- NOTE | 2017-03-03 17:48 | PDOC.CTH ---
Cardiology Progress Note - Subjective She has been extubated, Has sore throat but better overall. - Objective Vital Signs Temp Pulse Pulse Pulse Resp BP BP 03/03/17 16:00 97.7 F 03/03/17 15:13 73 18 03/03/17 12:42 03/03/17 12:00 97.9 F 20 03/03/17 11:07 73 123/55 L 03/03/17 10:30 60 70 96/42 L 03/03/17 10:00 15 03/03/17 08:00 97.8 F 76 20 03/03/17 07:59 76 127/55 L 03/03/17 06:00 15 BP Pulse Ox Pulse Ox Pulse Ox Pulse Ox 03/03/17 16:00 03/03/17 15:13 03/03/17 12:42 4 L 03/03/17 12:00 03/03/17 11:07 03/03/17 10:30 123/50 L 88 L 96 90 L 03/03/17 10:00 03/03/17 08:00 100 03/03/17 07:59 03/03/17 06:00 Admit Weight 314 lb Weight 327 lb 9.71 oz 03/02/17 03/03/17 03/04/17 06:59 06:59 06:59 Intake Total 924 372 130 Output Total 1800 1680 800 Balance -884 -7794 -578 - Physical Examination General/Neuro: NAD Neck: no JVD present Lungs: unlabored respirations Heart: RRR Abdomen: NT/ND Extremities: + edema B (3+) - Telemetry Telemetry Rhythm: NSR - Labs Result Diagrams: 03/03/17 04:30 03/03/17 04:30 - Assessment/Plan 1. Acute on chronic diastolic heart failure. 2. Severe pulmonary HTN. 3. Acute hypoxic respiratory insufficiency. 4. WILLIE on CKD PLAN: - Renal function continues to improve, agree with continued IV lasix. - Replace K
--- NOTE | 2017-03-04 06:21 | PRG ---
DATE OF SERVICE: 03/03/2017 SUBJECTIVE: The patient was noted to have been extubated . OBJECTIVE: HEENT: Unremarkable. RESPIRATORY SYSTEM: Reveals some rales. DIGESTIVE SYSTEM: Revealed a benign abdomen with positive bowel sounds. EXTREMITIES: No peripheral edema. NEUROLOGIC: LABORATORY INVESTIGATION: IMPRESSION: 1. Atypical with some improvement. 2. 3. Cardiopulmonary failure, status post extubation. PLAN: 1. We will continue to monitor this patient closely. 2. the occasional incident of fever. 3. Outpatient Nephrology followup strictly recommended. 4. Further management to be dependent on the clinical course.
[2017-03-04 06:48] LABS: Anion Gap 16 mmol/L (10-20); Calc. Creatinine Clearance 30 mL/min (70-130); Calcium 8.2 mg/dL (7.8-10.44); Carbon Dioxide 28 mmol/L (23-31); Chloride 98 mmol/L (98-107); Estimated GFR-MDRD 14; Glucose 121 mg/dL (83-110); Potassium 3.5 mmol/L (3.5-5.1); Sodium 138 mmol/L (136-145)
[2017-03-04 07:00] LABS: BUN (Urea Nitrogen) 121 mg/dL (9.8-20.1)
[2017-03-04] MEDS: Aspirin 81 mg Enteric Coated Tablet PO SCH (08:49)
[2017-03-04] MEDS: predniSONE 20 MG TAB PO SCH (08:49)
[2017-03-04] MEDS: Famotidine 20 MG TAB PO SCH (08:50)
[2017-03-04] MEDS: Cefdinir 300 MG CAP PO SCH (08:50)
[2017-03-04] MEDS: Saccharomyces boulardii 250 MG CAP PO SCH (08:50)
[2017-03-04] MEDS: busPIRone HCl 5 MG TAB PO SCH (08:50)
[2017-03-04] MEDS: Brimonidine Tartrate 0.2% Ophth Soln 5 ml Bottle L EYE SCH ×2 (09:07→21:49)
[2017-03-04] MEDS: Dorzolamide HCl/Timolol Maleate 2%/0.5% Ophth Soln 10 ml Bottle L EYE SCH ×2 (09:07→21:49)
[2017-03-04] MEDS: Furosemide 40 MG/4 ML VIAL SLOW IVP SCH (09:07)
--- NOTE | 2017-03-04 11:27 | PDOC.CTH ---
Cardiology Progress Note - Subjective She [id number] to improve. Her urinary output is increasing and her creatinine improving. - Objective Vital Signs Temp Pulse Resp BP Pulse Ox 03/04/17 08:00 97.1 F L 77 20 95 03/04/17 07:28 97.1 F L 77 20 129/70 90 L 03/04/17 07:16 99 03/04/17 07:04 81 20 03/04/17 03:28 20 109/49 L 100 03/04/17 02:41 95 03/04/17 00:00 71 18 105/48 L 100 Admit Weight 314 lb Weight 332 lb 8 oz 03/03/17 03/04/17 03/05/17 06:59 06:59 06:59 Intake Total 372 130 Output Total 1680 1520 Balance -1308 -1390 - Physical Examination General/Neuro: NAD Neck: no JVD present Lungs: CTA, unlabored respirations Heart: RRR Abdomen: NT/ND Extremities: + edema B (3+) - Telemetry Telemetry Rhythm: NSR - Labs Result Diagrams: 03/03/17 04:30 03/04/17 06:25 - Assessment/Plan 1. Acute on chronic diastolic heart failure. 2. Severe pulmonary HTN. 3. Acute hypoxic respiratory insufficiency. 4. WILLIE on CKD. Likely ATN. PLAN: - Renal function continues to improve, agree with continued IV lasix. - Continue other meds.
[2017-03-04] MEDS ORDERED: Furosemide 40 MG/4 ML VIAL SLOW IVP SCH ×2 (14:45→15:45)
--- NOTE | 2017-03-04 15:03 | PRG ---
DATE OF SERVICE: 03/04/2017 SERVICE: Pulmonary Medicine. INTERVAL HISTORY: The patient is doing great from a respiratory standpoint. She denies any current fevers, chills, shortness of breath or chest discomfort. She is a little bit sleepy, but wakes up pe rfectly appropriately. Otherwise, there has been no interval change to her condition. PHYSICAL EXAMINATION: VITAL SIGNS: Afebrile, pulse 77, blood pressure 150/83, respirations 20, saturation 98% on 2 liters nasal cannula. GENERAL: Patient is awake, alert, no apparent distress. LUNGS: Excellent air entry. There is no prolonged expiratory phase, wheezing or rhonchi. Dependent crackles are minimal. HEART: Normal rate, regular. ABDOMEN: Soft, nontender, nondistended. Bowel sounds are positive. MUSCULOSKELETAL: No cyanosis or clubbing. There is diffuse 2+ edema. GENITOURINARY: Fleming catheter in place. NEUROLOGIC: Grossly nonfocal. LABORATORY DATA: WBC 14.9, hemoglobin 10.9, platelets 178,000. Creatinine 3.85 and improving. BUN 121 and finally decreasing. Basic metabolic profile is otherwise unremarkable. Potassium is 3.5. ASSESSMENT: 1. Acute on chronic hypoxic and hypercapnic respiratory failure. 2. Obesity hypoventilation syndrome. 3. Obstructive sleep apnea, severe. 4. Acute on chronic diastolic heart failure. 5. Acute kidney injury on chronic kidney disease, slowly improving. 6. Metabolic encephalopathy, resolving. PLAN: We will continue to diurese the patient until she returns to euvolemia. As long as she is neg ative on a daily basis, we do not have to be too terribly aggressive with this. We will focus on her mobilization efforts and try to get her moving. At this point, I believe she is stable for transiti on out of the hospital to prison facility and/or a rehabilitation center. We will make case management work on placement. She will probably need to remain in the IMCU as she is very likely to require BiPAP on and off during this hospital stay.
[2017-03-04] MEDS ORDERED: Potassium Chloride 40 MEQ in Sodium Chloride 0.9% 500 ML IVPB SCH (15:30)
--- NOTE | 2017-03-04 15:31 | PDOC.PN ---
- Subjective Encounter Start Date: 03/04/17 Encounter Start Time: 15:25 Subjective: f/u for acute/chronic hypoxic resp failure s/p intubation. Nsg reports -: increased dyspnea after turning pt this pm. - Objective Resuscitation Status: Resuscitation Status DNR:Do Not Resuscitate MAR Reviewed: Yes Vital Signs & Weight: Vital Signs (12 hours) Temp Pulse Resp BP Pulse Ox 03/04/17 12:10 80 20 03/04/17 11:31 98.7 F 77 20 150/83 H 98 03/04/17 08:00 97.1 F L 77 20 95 03/04/17 07:28 97.1 F L 77 20 129/70 90 L 03/04/17 07:16 99 03/04/17 07:04 81 20 Weight Admit Weight 314 lb Weight 332 lb 8 oz Most Recent Monitor Data Heart Rate from ECG 76 NIBP 155/70 NIBP BP-Mean 106 Respiration from ECG 22 SpO2 97 I&O: 03/03/17 03/04/17 03/05/17 06:59 06:59 06:59 Intake Total 372 130 Output Total 1680 1520 Balance -1308 -1390 Result Diagrams: 03/03/17 04:30 03/04/17 06:25 Additional Labs: Accuchecks 03/04/17 03/04/17 03/03/17 11:46 04:28 21:55 POC Glucose 111 H 114 H 123 H 03/03/17 16:44 POC Glucose 138 H EKG Reviewed by me: Yes (Tele - SR in 70's) Phys Exam - Physical Examination ill-appearing, lethargic oral mucosa dry HEENT: PERRLA, oral pharynx no lesions Neck: no JVD, supple coarse sounds bilat, diminished in bases + accessory muscle use Cardiovascular: RRR Gastrointestinal: soft, non-tender, no distention, positive bowel sounds Musculoskeletal: pulses present, edema present Neurological: moves all 4 limbs Skin: normal turgor, cap refill <2 seconds Deviation from normal: Knight with clear urine Dx/Plan (1) Acute on chronic respiratory failure with hypoxia Code(s): J96.21 - ACUTE AND CHRONIC RESPIRATORY FAILURE WITH HYPOXIA Status: Acute Comment: Successful extubation 03/03/17, continue O2 supplementation via NC, PRN BiPAP, check PCXR today (2) Acute on chronic renal failure Code(s): N17.9 - ACUTE KIDNEY FAILURE, UNSPECIFIED; N18.9 - CHRONIC KIDNEY DISEASE, UNSPECIFIED Status: Acute Comment: Minimal improvement, no HD planned currently (3) Acute on chronic diastolic (congestive) heart failure Code(s): I50.33 - ACUTE ON CHRONIC DIASTOLIC (CONGESTIVE) HEART FAILURE Status : Acute Comment: Continue Lasix 40mg IV daily, weight fluctuating in 338lb range, monitor daily weights and I/O's (4) DM2 (diabetes mellitus, type 2) Status: Chronic (5) Hypertension Code(s): I10 - ESSENTIAL (PRIMARY) HYPERTENSION Status: Chronic Comment: Continue Diltiazem 30mg QID (6) Morbid obesity with BMI of 40.0-44.9, adult Code(s): E66.01 - MORBID (SEVERE) OBESITY DUE TO EXCESS CALORIES; Z68.41 - BODY MASS INDEX (BMI) 40.0-44.9, ADULT Status: Chronic (7) ADELINE (obstructive sleep apnea) Code(s): G47.33 - OBSTRUCTIVE SLEEP APNEA (ADULT) (PEDIATRIC) Status: Chronic Comment: ? home CPAP not functioning (8) Pulmonary artery hypertension Code(s): I27.2 - OTHER SECONDARY PULMONARY HYPERTENSION * DO NOT USE * Status : Chronic - Plan knight catheter, continue antibiotics, PT/OT, family welfare social work professor, respiratory therapy, DVT proph w/SCDs Continue supportive measures -: Consider Palliative care/?Hospice -: Lasix 40mg IV x 1 now -: Check PCXR -: Start Pepcid 20mg IV q12h * AM lab: BMP, CBC
--- NOTE | 2017-03-04 16:06 | RAD ---
SINGLE VIEW OF THE CHEST 03/04/17 COMPARISON: 02/26/17 HISTORY: Ventilated patient with respiratory failure, dyspnea and hypoxia. Single view of the chest shows an enlarged but stable cardiomediastinal silhouette. There is a right sided PICC line with its tip in the superior vena cava. The endotracheal tube and NG tube have been r emoved. Diffuse increased interstitial lung markings are present. There may previously have been supe rimposed air space opacities which have improved. No pleural effusion is seen. IMPRESSION: Improvement in perihilar opacities most likely representing improvement in pulmonary edema or improve ment in multifocal pneumonia. POS: [facility]
[2017-03-04] MEDS: Famotidine/PF 20 mg/2ml Vial SLOW IVP SCH (21:49)
[2017-03-05 06:26] LABS: Band 2 % (5-11); Eosinophils 1 % (0-10); Hemoglobin 11.2 g/dL (12.0-16.0); Lymphocytes 10 % (21-51); MDiff Complete? YES; Mean Corpuscular HGB CONC 30.6 g/dL (32.0-36.0); Mean Corpuscular Hemoglobin 28.4 pg (27.0-31.0); Mean Platelet Volume 8.6 fL (7.4-10.4); Monocytes 8 % (0-10); Neutrophil 78 % (42-75); Nucleated RBC 1 % (0); PLT Morphology Comment Appears Adequate; Platelet Count 175 thou/uL (130-400); RBC Distribution Width 17.9 % (11.5-14.5); Red Blood Cell (RBC) Count 3.95 mill/uL (4.20-5.40); White Blood Cell (WBC) Count 15.4 thou/uL (4.8-10.8)
[2017-03-05 06:29] LABS: Anion Gap 18 mmol/L (10-20); BUN (Urea Nitrogen) 120 mg/dL (9.8-20.1); Calc. Creatinine Clearance 33 mL/min (70-130); Calcium 8.2 mg/dL (7.8-10.44); Carbon Dioxide 28 mmol/L (23-31); Chloride 99 mmol/L (98-107); Estimated GFR-MDRD 15; Glucose 111 mg/dL (83-110); Potassium 3.3 mmol/L (3.5-5.1); Sodium 142 mmol/L (136-145)
[2017-03-05] MEDS: Aspirin 81 mg Enteric Coated Tablet PO SCH (09:20)
[2017-03-05] MEDS: predniSONE 20 MG TAB PO SCH (09:20)
[2017-03-05] MEDS: busPIRone HCl 5 MG TAB PO SCH (09:21)
[2017-03-05] MEDS: Saccharomyces boulardii 250 MG CAP PO SCH (09:21)
[2017-03-05] MEDS: Furosemide 40 MG/4 ML VIAL SLOW IVP SCH (09:22)
[2017-03-05] MEDS: Brimonidine Tartrate 0.2% Ophth Soln 5 ml Bottle L EYE SCH ×2 (09:22→21:34)
[2017-03-05] MEDS: Dorzolamide HCl/Timolol Maleate 2%/0.5% Ophth Soln 10 ml Bottle L EYE SCH ×2 (09:22→21:34)
--- NOTE | 2017-03-05 11:45 | PRG ---
DATE OF SERVICE: 03/04/2017 SUBJECTIVE: The patient seen and examined. OBJECTIVE: VITAL SIGNS: The patient noted with the following vital signs. Pulse 77, blood pressure 155/85, res piratory rate of 20, O2 saturation of 98%. HEENT: Unremarkable. CARDIOVASCULAR SYSTEM: First and second heart sounds were heard. RESPIRATORY SYSTEM: Showed few rales. DIGESTIVE SYSTEM: Revealed an obese abdomen. EXTREMITIES: No significant peripheral edema. IMPRESSION: 1. Acute on chronic kidney disease, improving. 2. Hypervolemia responding to diuresis . 3. Hypoxic hypercapnic respiratory failure, improving. 4. Morbid obesity. PLAN: 1. Continue renal supportive measures. 2. Gentle diuresis. 3. Renally dose all medications. 4. Avoid potentially nephrotoxic agents. 5. Further management to be dependent on the clinical course.
--- NOTE | 2017-03-05 13:04 | PRG ---
DATE OF SERVICE: 03/05/2017 SUBJECTIVE: Awake, alert, responsive, but very weak. She failed a swallow study. She is not on any nutrition now for several days. OBJECTIVE: VITAL SIGNS: Blood pressure is 150/72, O2 sats are 98%, temperature 97, respirations 20. CHEST: Anterior rhonchi. CARDIAC: Normal S1, S2. No gallops. ABDOMEN: Soft. No masses. LABORATORY DATA: White count 15,000, H and H 11 and 36, platelet count 175, creatinine 3.4, BUN is 1 20. IMPRESSION: 1. Multiorgan failure, morbid obesity, encephalopathy 2. Pneumonia. 3. Renal failure, failed swallow study. PLAN: An NG tube is initiated to start feedings. It is unclear why she is on diuretics. Clearly, she is very azotemic. All diuretics are going to be discontinued. At this stage, supportive care. She is a DNR. Continue antibiotics. We will follow.
--- NOTE | 2017-03-05 14:31 | RAD ---
PORTABLE SUPINE FRONTAL RADIOGRAPH ABDOMEN: Date: 03/05/17 COMPARISON: None. HISTORY: Verify Dobbhoff tube placement. FINDINGS: Motion limits assessment, as does body habitus and patient positioning. Cardiac silhouette appears pr ominent. Radiopaque structure overlies the midline epigastric region suggesting Dobbhoff tube termina ting in the region of the stomach. IMPRESSION: Limited radiograph of the upper abdomen as detailed above. POS: [facility]
[2017-03-05 15:43] LABS: Bilirubin Negative (Negative); Blood, Urine Small (Negative); Clarity CLOUDY (Clear); Glucose, Urine (Dipstick) Negative (Negative); Leukocyte Moderate (Negative); Nitrite Negative (Negative); Protein, Urine (Dipstick) Trace mg/dL (Neg-Trace); Specific Gravity, Urine 1.016 (1.002-1.036); Urobilinogen 0.2 mg/dL (0.2-1.0)
[2017-03-05 15:47] LABS: Bacteria/HPF None Seen HPF (None Seen); Hyaline Casts/LPF 0-3 HYALINE CAST LPF (0-3 Hyaline); Pathc Cast-AUWi Flag 0.54 (0-2.49); Squamous Epithelial None Seen HPF (0-3); WBC/HPF 21-50 HPF (0-3)
--- NOTE | 2017-03-05 15:55 | PDOC.PN ---
- Subjective Encounter Start Date: 03/05/17 Encounter Start Time: 15:35 Subjective: f/u acute/chronic hypoxic resp failure with intermittent BiPAP. Failed -: swallow evaluation and Dobhoff placed with current Nepro. - Objective Resuscitation Status: Resuscitation Status DNR:Do Not Resuscitate MAR Reviewed: Yes Vital Signs & Weight: Vital Signs (12 hours) Temp Pulse Resp BP Pulse Ox 03/05/17 12:58 86 20 95 03/05/17 10:52 97.8 F 82 16 125/60 98 03/05/17 09:37 98 03/05/17 09:35 92 20 98 03/05/17 07:50 97.3 F L 92 26 H 100 03/05/17 07:06 97.5 F L 94 18 150/72 H 97 Weight Admit Weight 314 lb Weight 331 lb Most Recent Monitor Data Heart Rate from ECG 76 NIBP 155/70 NIBP BP-Mean 106 Respiration from ECG 22 SpO2 97 I&O: 03/04/17 03/05/17 03/06/17 06:59 06:59 06:59 Intake Total 130 0 Output Total 1520 975 Balance -1390 -975 Result Diagrams: 03/05/17 05:55 03/05/17 05:55 Additional Labs: Accuchecks 03/05/17 03/05/17 03/04/17 09:56 04:39 22:13 POC Glucose 99 95 98 03/04/17 17:17 POC Glucose 106 Microbiology 11/16/16 17:11 Urine knight catheter Urine Culture - Preliminary Presumptive Escherichia coli 11/16/16 16:33 Venous blood - Left Arm Blood Culture - Preliminary Coagulase Neg Staphylococcus 11/16/16 14:54 Venous blood - Left Hand Blood Culture - Preliminary Specimen has been received and culture in progress. No Growth to date. Laboratory Tests 11/16/16 02/25/17 02/26/17 16:43 04:27 07:47 WBC Plt Count 126 L Potassium Creatinine 4.85 H 5.03 H Phosphorus Magnesium 02/26/17 02/27/17 02/27/17 08:27 04:02 04:02 WBC 14.8 H 15.7 H Plt Count Potassium 3.7 Creatinine 5.02 H Phosphorus Magnesium 02/28/17 02/28/17 03/01/17 04:21 04:21 04:45 WBC 13.2 H Plt Count Potassium 3.5 3.1 L Creatinine 5.02 H 5.00 H Phosphorus 8.3 H Magnesium 2.2 03/01/17 03/02/17 04:45 06:13 WBC 15.4 H Plt Count Potassium 2.9 L* Creatinine 4.67 H Phosphorus 8.1 H Magnesium 2.3 Radiology Reviewed by me: Yes (PCXR - improvement in bilat opacities and infiltrate) EKG Reviewed by me: Yes (Tele - SR in 80s) Phys Exam - Physical Examination alert intermittently, nods head to questions Dobhoff in nares HEENT: oral pharynx no lesions Neck: no JVD diminished in bases Cardiovascular: RRR Gastrointestinal: soft, non-tender, no distention, positive bowel sounds Musculoskeletal: pulses present, edema present Neurological: moves all 4 limbs Skin: normal turgor, cap refill <2 seconds Dx/Plan (1) Acute on chronic respiratory failure with hypoxia Code(s): J96.21 - ACUTE AND CHRONIC RESPIRATORY FAILURE WITH HYPOXIA Status: Acute Comment: Successful extubation 03/03/17, continue O2 supplementation via NC, PRN BiPAP, PCXR 03/04/17 showing improvement in infiltrates (2) Acute on chronic renal failure Code(s): N17.9 - ACUTE KIDNEY FAILURE, UNSPECIFIED; N18.9 - CHRONIC KIDNEY DISEASE, UNSPECIFIED Status: Acute Comment: Improving, no HD planned currently (3) Acute on chronic diastolic (congestive) heart failure Code(s): I50.33 - ACUTE ON CHRONIC DIASTOLIC (CONGESTIVE) HEART FAILURE Status : Acute Comment: Continue Lasix 40mg IV daily, weight fluctuating in 338lb range, monitor daily weights and I/O's (4) DM2 (diabetes mellitus, type 2) Status: Chronic (5) Hypertension Code(s): I10 - ESSENTIAL (PRIMARY) HYPERTENSION Status: Chronic Comment: Continue Diltiazem 30mg QID (6) Morbid obesity with BMI of 40.0-44.9, adult Code(s): E66.01 - MORBID (SEVERE) OBESITY DUE TO EXCESS CALORIES; Z68.41 - BODY MASS INDEX (BMI) 40.0-44.9, ADULT Status: Chronic (7) ADELINE (obstructive sleep apnea) Code(s): G47.33 - OBSTRUCTIVE SLEEP APNEA (ADULT) (PEDIATRIC) Status: Chronic Comment: ? home CPAP not functioning (8) Pulmonary artery hypertension Code(s): I27.2 - OTHER SECONDARY PULMONARY HYPERTENSION * DO NOT USE * Status : Chronic (9) Dysphagia Code(s): R13.10 - DYSPHAGIA, UNSPECIFIED Status: Acute Qualifiers: Dysphagia type: oropharyngeal phase Qualified Code(s): R13.12 - Dysphagia, oropharyngeal phase Comment: s/p Dobhoff placement and initiation of TF's with Nepro at 20ml/h - Plan plan discussed w/ family, continue antibiotics, PT/OT, family welfare social work professor, speech therapy, respiratory therapy, out of bed/ambulate, DVT proph w/SCDs Continue nutritional support with Nepro -: PT for mobilization -: PRN BiPAP -: CM for SNF/rehab options -: AM lab: BMP * Lasix 20mg IV daily
[2017-03-05 15:56] LABS: Yeast-AUWi Flag 1195.2 (0-25.0)
[2017-03-05 16:16] LABS: Yeast-All Forms 3+ HPF (None Seen)
[2017-03-05] MEDS: Famotidine/PF 20 mg/2ml Vial SLOW IVP SCH (21:34)
[2017-03-06 05:14] LABS: Anion Gap 19 mmol/L (10-20); BUN (Urea Nitrogen) 118 mg/dL (9.8-20.1); Calc. Creatinine Clearance 37 mL/min (70-130); Calcium 8.2 mg/dL (7.8-10.44); Carbon Dioxide 27 mmol/L (23-31); Chloride 102 mmol/L (98-107); Estimated GFR-MDRD 18; Glucose 164 mg/dL (83-110); Potassium 3.1 mmol/L (3.5-5.1); Sodium 145 mmol/L (136-145)
[2017-03-06] MEDS: predniSONE 20 MG TAB PO SCH (08:43)
[2017-03-06] MEDS: Saccharomyces boulardii 250 MG CAP PO SCH (08:43)
[2017-03-06] MEDS: Brimonidine Tartrate 0.2% Ophth Soln 5 ml Bottle L EYE SCH ×2 (08:44→20:36)
[2017-03-06] MEDS: Aspirin 81 mg Enteric Coated Tablet PO SCH (08:44)
[2017-03-06] MEDS: busPIRone HCl 5 MG TAB PO SCH (08:44)
[2017-03-06] MEDS: Dorzolamide HCl/Timolol Maleate 2%/0.5% Ophth Soln 10 ml Bottle L EYE SCH ×2 (08:44→20:36)
[2017-03-06] MEDS ORDERED: Furosemide 20 MG/2 ML VIAL SLOW IVP SCH (09:00)
--- NOTE | 2017-03-06 14:41 | PRG ---
DATE OF SERVICE: 03/06/2017 SUBJECTIVE: Erinn Bishop appears to be awake. OBJECTIVE: VITAL SIGNS: This morning, sats are 98 on 3 liters, respirations 20, blood pressure 128/57. CHEST: Anterior rhonchi. CARDIAC: Normal S1, S2. ABDOMEN: Soft, no masses. LABORATORY: BUN and creatinine are markedly elevated at 118 and 3.0, glucose 189. He started with feedings yesterday. IMPRESSION: Renal failure, urinary tract infection, diabetes, obesity, respiratory failure. Continue feedings, slow hydration. Neb treatments. We will follow.
--- NOTE | 2017-03-06 15:21 | PDOC.PN ---
- Subjective Encounter Start Date: 03/06/17 Encounter Start Time: 15:15 Subjective: f/u acute hypoxic resp failure on intermittent BiPAP. Nsg reports diarrhea -: multiple times. Receiving Nepro TF's via Dobhoff at 35ml/h. No current -: abx. - Objective Resuscitation Status: Resuscitation Status DNR:Do Not Resuscitate MAR Reviewed: Yes Vital Signs & Weight: Vital Signs (12 hours) Temp Pulse Pulse Pulse Resp BP BP 03/06/17 14:19 87 20 03/06/17 11:20 88 20 03/06/17 11:16 98.4 F 87 20 03/06/17 10:14 100 70 137/62 133/39 L 03/06/17 08:22 03/06/17 08:21 92 20 03/06/17 07:14 98.3 F 92 16 03/06/17 03:34 97.6 F 91 16 BP Pulse Ox Pulse Ox 03/06/17 14:19 98 03/06/17 11:20 98 03/06/17 11:16 128/57 L 97 03/06/17 10:14 97 03/06/17 08:22 99 03/06/17 08:21 99 03/06/17 07:14 113/90 99 03/06/17 03:34 104/58 L 97 Weight Admit Weight 314 lb Weight 300 lb 8 oz Most Recent Monitor Data Heart Rate from ECG 76 NIBP 155/70 NIBP BP-Mean 106 Respiration from ECG 22 SpO2 97 I&O: 03/05/17 03/06/17 03/07/17 06:59 06:59 06:59 Intake Total 0 350 Output Total 975 650 Balance -975 -300 Result Diagrams: 03/05/17 05:55 03/06/17 04:42 Additional Labs: Accuchecks 03/06/17 03/06/17 03/06/17 10:52 07:58 05:26 POC Glucose 189 H 156 H 147 H 03/05/17 03/05/17 21:48 16:07 POC Glucose 104 92 Microbiology 02/18/17 15:40 Stool - Pending Stool Occult Blood (ELIZABETH) - Final 03/04/17 15:11 Stool Stool Occult Blood (ELIZABETH) - Final 11/16/16 17:11 Urine knight catheter Urine Culture - Preliminary Presumptive Escherichia coli 11/16/16 16:33 Venous blood - Left Arm Blood Culture - Preliminary Coagulase Neg Staphylococcus 11/16/16 14:54 Venous blood - Left Hand Blood Culture - Preliminary Specimen has been received and culture in progress. No Growth to date. 03/05/17 15:12 Urine knight catheter Urine Culture - Preliminary Laboratory Tests 11/16/16 02/25/17 02/26/17 16:43 04:27 07:47 WBC Plt Count 126 L Potassium Creatinine 4.85 H 5.03 H Phosphorus Magnesium 02/26/17 02/27/17 02/27/17 08:27 04:02 04:02 WBC 14.8 H 15.7 H Plt Count Potassium 3.7 Creatinine 5.02 H Phosphorus Magnesium 02/28/17 02/28/17 03/01/17 04:21 04:21 04:45 WBC 13.2 H Plt Count Potassium 3.5 3.1 L Creatinine 5.02 H 5.00 H Phosphorus 8.3 H Magnesium 2.2 03/01/17 03/02/17 04:45 06:13 WBC 15.4 H Plt Count Potassium 2.9 L* Creatinine 4.67 H Phosphorus 8.1 H Magnesium 2.3 EKG Reviewed by me: Yes (Tele - SR in 80's) Phys Exam - Physical Examination Constitutional: NAD Dobhoff in nares HEENT: PERRLA, oral pharynx no lesions Neck: no JVD, supple diminished in bases Cardiovascular: RRR Gastrointestinal: soft, non-tender, no distention, positive bowel sounds Musculoskeletal: pulses present, edema present Neurological: moves all 4 limbs Skin: normal turgor, cap refill <2 seconds Dx/Plan (1) Acute on chronic respiratory failure with hypoxia Code(s): J96.21 - ACUTE AND CHRONIC RESPIRATORY FAILURE WITH HYPOXIA Status: Acute Comment: Successful extubation 03/03/17, continue O2 supplementation via NC, PRN BiPAP, PCXR 03/04/17 showing improvement in infiltrates (2) Acute on chronic renal failure Code(s): N17.9 - ACUTE KIDNEY FAILURE, UNSPECIFIED; N18.9 - CHRONIC KIDNEY DISEASE, UNSPECIFIED Status: Acute Comment: Improving, no HD planned currently (3) Acute on chronic diastolic (congestive) heart failure Code(s): I50.33 - ACUTE ON CHRONIC DIASTOLIC (CONGESTIVE) HEART FAILURE Status : Acute Comment: weight fluctuating in 338lb range, monitor daily weights and I/O's (4) DM2 (diabetes mellitus, type 2) Status: Chronic (5) Hypertension Code(s): I10 - ESSENTIAL (PRIMARY) HYPERTENSION Status: Chronic Qualifiers: Hypertension type: essential hypertension Qualified Code(s): I10 - Essential (primary) hypertension Comment: Continue Diltiazem 30mg QID (6) Morbid obesity with BMI of 40.0-44.9, adult Code(s): E66.01 - MORBID (SEVERE) OBESITY DUE TO EXCESS CALORIES; Z68.41 - BODY MASS INDEX (BMI) 40.0-44.9, ADULT Status: Chronic (7) ADELINE (obstructive sleep apnea) Code(s): G47.33 - OBSTRUCTIVE SLEEP APNEA (ADULT) (PEDIATRIC) Status: Chronic Comment: ? home CPAP not functioning (8) Pulmonary artery hypertension Code(s): I27.2 - OTHER SECONDARY PULMONARY HYPERTENSION * DO NOT USE * Status : Chronic (9) Dysphagia Code(s): R13.10 - DYSPHAGIA, UNSPECIFIED Status: Acute Qualifiers: Dysphagia type: oropharyngeal phase Qualified Code(s): R13.12 - Dysphagia, oropharyngeal phase Comment: s/p Dobhoff placement and initiation of TF's with Nepro at 35ml/h - Plan PT/OT, transition social worker, respiratory therapy, DVT proph w/SCDs Stable overall -: Nystatin Pwd top BID prn -: Check stool cx, c. diff -: Continue Florastor 250mg daily -: Lasix 20mg IV daily * AM lab: BMP
--- NOTE | 2017-03-06 15:27 | PRG ---
DATE OF SERVICE: 03/06/2017 SUBJECTIVE: The patient was seen and examined , noted with the following vital signs. OBJECTIVE: VITAL SIGNS: Temperature 96.9, pulse 87, respirations 17, blood pressure 108/66. LABORATORY INVESTIGATION: Showed creatinine of 3.85, repeat of 3.48, trending downwards. BUN 120, p otassium is 3.3. IMPRESSION: Acute on chronic kidney disease, improving. PLAN: 1. Continue renal supportive measures. 2. Renally dose all medications. 3. . 4. Further management to be dependent on the clinical course.
[2017-03-06] MEDS: HumaLOG 300 UNITS/3 ML VIAL SC PRN ×2 (17:06→21:29)
[2017-03-06] MEDS: Nystatin Powder 15 GM BOT TOP PRN (17:06)
[2017-03-06] MEDS: Hydrocortisone Acetate 25 MG Suppository PR SCH (17:21)
[2017-03-06] MEDS: Famotidine/PF 20 mg/2ml Vial SLOW IVP SCH (20:35)
[2017-03-07] MEDS: HumaLOG 300 UNITS/3 ML VIAL SC PRN ×2 (04:07→21:30)
[2017-03-07 04:31] LABS: Anion Gap 17 mmol/L (10-20); BUN (Urea Nitrogen) 117 mg/dL (9.8-20.1); Calc. Creatinine Clearance 38 mL/min (70-130); Calcium 8.4 mg/dL (7.8-10.44); Carbon Dioxide 27 mmol/L (23-31); Chloride 104 mmol/L (98-107); Estimated GFR-MDRD 19; Glucose 178 mg/dL (83-110); Potassium 3.1 mmol/L (3.5-5.1); Sodium 145 mmol/L (136-145)
--- NOTE | 2017-03-07 08:24 | PDOC.PN ---
- Subjective Encounter Start Date: 03/07/17 Encounter Start Time: 08:23 Ms. Bishop was seen in follow-up of acute on chronic respiratory failure. She is awake but confused. She keeps repeating " doctor" and says " I don't feel too well." But beyond that I am unable to get any additional information from her. - Objective Resuscitation Status: Resuscitation Status DNR:Do Not Resuscitate MAR Reviewed: Yes Vital Signs & Weight: Vital Signs (12 hours) Temp Pulse Resp BP Pulse Ox 03/07/17 08:01 92 L 03/07/17 07:56 91 22 H 92 L 03/07/17 07:20 97.8 F 87 14 125/40 L 96 03/07/17 05:21 94 L 03/07/17 04:27 82 03/07/17 04:17 82 14 92 L 03/07/17 04:00 97.6 F 87 12 127/52 L 92 L 03/07/17 01:33 107 H 03/06/17 23:38 97.5 F L 88 18 106/50 L 89 L 03/06/17 21:40 92 18 94 L 03/06/17 21:00 94 Weight Admit Weight 314 lb Weight 323 lb 12.8 oz Most Recent Monitor Data Heart Rate from ECG 76 NIBP 155/70 NIBP BP-Mean 106 Respiration from ECG 22 SpO2 97 I&O: 03/06/17 03/07/17 03/08/17 06:59 06:59 06:59 Intake Total 350 555 Output Total 650 875 Balance -300 -320 Result Diagrams: 03/05/17 05:55 03/07/17 03:38 Additional Labs: Accuchecks 03/07/17 03/06/17 03/06/17 04:03 21:27 15:53 POC Glucose 172 H 186 H 182 H 03/06/17 10:52 POC Glucose 189 H Phys Exam - Physical Examination HEENT: PERRLA Respiratory: no wheezing + rhonchi bilaterally Cardiovascular: RRR, no significant murmur Gastrointestinal: soft, positive bowel sounds Musculoskeletal: edema present 2+ pitting edema bilaterally Dx/Plan (1) Acute on chronic renal failure Code(s): N17.9 - ACUTE KIDNEY FAILURE, UNSPECIFIED; N18.9 - CHRONIC KIDNEY DISEASE, UNSPECIFIED Status: Acute Comment: Improving, no HD planned currently (2) Morbid obesity with BMI of 50.0-59.9, adult Code(s): E66.01 - MORBID (SEVERE) OBESITY DUE TO EXCESS CALORIES; Z68.43 - BODY MASS INDEX (BMI) 50-59.9 , ADULT Status: Chronic (3) Acute on chronic respiratory failure with hypoxia Code(s): J96.21 - ACUTE AND CHRONIC RESPIRATORY FAILURE WITH HYPOXIA Status: Acute Comment: Successful extubation 03/03/17, continue O2 supplementation via NC, PRN BiPAP, PCXR 03/04/17 showing improvement in infiltrates (4) DM2 (diabetes mellitus, type 2) Status: Chronic (5) HTN (hypertension) Code(s): I10 - ESSENTIAL (PRIMARY) HYPERTENSION Status: Chronic Qualifiers: Hypertension type: essential hypertension Qualified Code(s): I10 - Essential (primary) hypertension (6) ADELINE (obstructive sleep apnea) Code(s): G47.33 - OBSTRUCTIVE SLEEP APNEA (ADULT) (PEDIATRIC) Status: Chronic Comment: ? home CPAP not functioning (7) Pulmonary artery hypertension Code(s): I27.2 - OTHER SECONDARY PULMONARY HYPERTENSION * DO NOT USE * Status : Chronic - Plan * Chart reviewed and patient examined. she was originally admitted with rectal bleeding. Shortly after admission she developed acute respiratory failure requiring mechanical intubation, due to acute on chronic diastolic heart failure. She also has developed acute on chronic kidney injury. She has since been extubated, but still requires intermittent BiPAP. She is currently encephalopathic, with periods of hypoxemia * She is now off empiric antibiotics. Continue Duonebs as needed * Continue BiPAP as needed * Acute on chronic diastolic heart failure- she still has some degree of volume overload * Acute kidney injury- slightly improved * HTN- blood pressure is stable * Discharge planning in progress
[2017-03-07] MEDS: Brimonidine Tartrate 0.2% Ophth Soln 5 ml Bottle L EYE SCH ×2 (08:34→20:14)
[2017-03-07] MEDS: Nystatin Powder 15 GM BOT TOP PRN (08:34)
[2017-03-07] MEDS: busPIRone HCl 5 MG TAB PO SCH (08:35)
[2017-03-07] MEDS: Hydrocortisone Acetate 25 MG Suppository PR SCH ×2 (08:35→20:15)
[2017-03-07] MEDS: Dorzolamide HCl/Timolol Maleate 2%/0.5% Ophth Soln 10 ml Bottle L EYE SCH ×2 (08:35→20:15)
[2017-03-07] MEDS: Aspirin 81 mg Enteric Coated Tablet PO SCH (08:36)
[2017-03-07] MEDS: Acetaminophen 325 MG TAB PO PRN (08:36)
[2017-03-07] MEDS: Saccharomyces boulardii 250 MG CAP PO SCH (08:36)
[2017-03-07] MEDS: predniSONE 20 MG TAB PO SCH (08:36)
--- NOTE | 2017-03-07 15:39 | PRG ---
DATE OF SERVICE: 03/07/2017 SERVICE: Pulmonary Medicine. INTERVAL HISTORY: The patient looks to be much improved today. She is more alert and awake. She ang s better tone. Otherwise, there has been no interval change to her condition. PHYSICAL EXAMINATION: VITAL SIGNS: Afebrile, pulse 83, blood pressure 117/60, respirations 24, saturation 96% on 3 liters nasal cannula. GENERAL: Patient is awake, alert, in no apparent distress. LUNGS: Decent air entry with no prolonged expiratory phase. I do not appreciate any dependent crack les today. HEART: Normal rate, regular. ABDOMEN: Soft, nontender, nondistended. Bowel sounds are positive. MUSCULOSKELETAL: No cyanosis or clubbing. Diffuse 2-3+ pitting is present throughout. GENITOURINARY: Fleming catheter in place. NEUROLOGIC: Grossly nonfocal. LABORATORY DATA: Potassium 3.1, creatinine 2.91 and very slow to improve. BUN 117 and stable. Basi c metabolic profile is, otherwise, unremarkable. Urinalysis is negative. Stool cultures are negativ e to date including C. difficile antigen and toxin. ASSESSMENT: 1. Acute on chronic hypoxic and hypercapnic respiratory failure. 2. Obesity hypoventilation syndrome. 3. Obstructive sleep apnea, severe. 4. Acute on chronic diastolic heart failure. 5. Acute kidney injury on chronic kidney disease, slowly improving. 6. Metabolic encephalopathy, stable. PLAN: We will continue to gently diurese the patient until she returns to euvolemia. I will replace the potassium. She is stable for transition out of the hospital to a nursing facility where she can continue to pursue strengthening and conditioning. She will require BiPAP at night and as needed fo r any type of sleep moving forward. This needs to follow her to her nursing facility. Pulmonary sally l continue to follow as long as she remains in-house, but her medical issues are coming to a close.
--- NOTE | 2017-03-07 15:51 | PRG ---
DATE OF SERVICE: 03/07/2017 SUBJECTIVE: The patient was seen and examined, seems to be doing much better. PHYSICAL EXAMINATION: VITAL SIGNS: Afebrile with temperature 97.8, pulse 91, respiratory rate 22, blood pressure 125/40, O 2 sat 92%. HEENT: Unremarkable. CARDIOVASCULAR: First and second heart sounds were heard. RESPIRATORY: Clear to auscultation. DIGESTIVE: Revealed an obese abdomen. EXTREMITIES: No peripheral edema. SKIN: No new gross rash. LYMPHATICS: No peripheral lymphadenopathy. LABORATORY INVESTIGATIONS: Showed a potassium of 3.1, BUN 117, creatinine 2.91. IMPRESSION: 1. Acute on chronic kidney disease which seems to be improving. 2. Profound azotemia. 3. Hypokalemia. PLAN: 1. Replete potassium. 2. Re-consider the continued use of steroids and if there is no need to see, this can be discontinue d. 3. Continue renal supportive measures. 4. Further management to be dependent on the clinical course.
--- NOTE | 2017-03-07 17:04 | PDOC.CTH ---
Cardiology Progress Note - Subjective She has been having a lot of sustained SVT. - Objective Vital Signs Temp Pulse Pulse Resp BP BP Pulse Ox 03/07/17 15:43 83 17 95 03/07/17 15:32 97.6 F 85 18 153/93 H 97 03/07/17 11:55 98.0 F 83 20 117/60 03/07/17 11:45 82 125/66 03/07/17 10:28 86 24 H 96 03/07/17 08:01 92 L 03/07/17 08:00 97.8 F 91 22 H 92 L 03/07/17 07:56 91 22 H 92 L 03/07/17 07:20 97.8 F 87 14 125/40 L 96 03/07/17 05:21 94 L Pulse Ox 03/07/17 15:43 03/07/17 15:32 03/07/17 11:55 03/07/17 11:45 96 03/07/17 10:28 03/07/17 08:01 03/07/17 08:00 03/07/17 07:56 03/07/17 07:20 03/07/17 05:21 Admit Weight 314 lb Weight 323 lb 12.8 oz 03/06/17 03/07/17 03/08/17 06:59 06:59 06:59 Intake Total 350 555 Output Total 650 875 Balance -300 -320 - Physical Examination General/Neuro: NAD Neck: no JVD present Lungs: unlabored respirations, other: (Coarse anteriorly. ) Heart: RRR Abdomen: NT/ND Extremities: + edema B (2+) - Telemetry Telemetry Rhythm: NSR, SVT - Labs Result Diagrams: 03/05/17 05:55 03/07/17 03:38 - Assessment/Plan 1. Acute on chronic diastolic heart failure. 2. Severe pulmonary HTN. 3. Acute hypoxic respiratory insufficiency. 4. WILLIE on CKD. Likely ATN. 5. SVT 6. Hypokalemia. PLAN: - Renal function continues to improve, agree with continued IV lasix. - Likely SVT from low K, replace aggressively. - Continue other meds.
[2017-03-07] MEDS: Famotidine/PF 20 mg/2ml Vial SLOW IVP SCH (20:15)
[2017-03-08] MEDS: HumaLOG 300 UNITS/3 ML VIAL SC PRN ×2 (03:59→21:46)
[2017-03-08] MEDS ORDERED: Furosemide 40 MG/4 ML VIAL SLOW IVP SCH (06:00)
[2017-03-08 06:21] LABS: Anion Gap 15 mmol/L (10-20); BUN (Urea Nitrogen) 122 mg/dL (9.8-20.1); Calc. Creatinine Clearance 38 mL/min (70-130); Calcium 8.4 mg/dL (7.8-10.44); Carbon Dioxide 29 mmol/L (23-31); Chloride 106 mmol/L (98-107); Estimated GFR-MDRD 19; Glucose 198 mg/dL (83-110); Magnesium 2.3 mg/dL (1.6-2.6); Sodium 146 mmol/L (136-145)
[2017-03-08 06:24] LABS: #Basophils 0.1 thou/uL (0.0-0.2); #Eosinphils 0.1 thou/uL (0.0-0.7); #Lymphocytes 1.5 thou/uL (1.20-3.40); #Monocytes 0.7 thou/uL (0.11-0.59); #Neutrophils 11.3 thou/uL (1.40-6.50); %Basophils 0.4 % (0.0-1.0); %Eosinophils 0.6 % (0.0-10.0); %Lymphocytes 10.7 % (21.0-51.0); %Monocytes 5.4 % (0.0-10.0); %Neutrophils 82.8 % (42.0-75.0); Hemoglobin 10.8 g/dL (12.0-16.0); Hypochromia SLIGHT = 6-15 cells (100X) (0-5/hpf); MDiff Complete? YES; Mean Corpuscular HGB CONC 29.3 g/dL (32.0-36.0); Mean Corpuscular Hemoglobin 27.9 pg (27.0-31.0); Mean Corpuscular Volume 95.1 fl (81.0-99.0); Mean Platelet Volume 10.4 fL (7.4-10.4); PLT Morphology Comment Appears Decreased; Platelet Count 104 thou/uL (130-400); Red Blood Cell (RBC) Count 3.86 mill/uL (4.20-5.40); White Blood Cell (WBC) Count 13.6 thou/uL (4.8-10.8)
--- NOTE | 2017-03-08 08:47 | PRG ---
DATE OF SERVICE: 03/08/2017 SERVICE: Pulmonary Medicine. INTERVAL HISTORY: The patient is doing poorly from a respiratory standpoint. With any exertion, she has significant dyspnea that limits her activity. She is tolerating BiPAP breaks okay. She is awak e and alert this morning. She does not appear to be in any specific distress. Otherwise, there were no overnight events. PHYSICAL EXAMINATION: VITAL SIGNS: Afebrile, pulse 96, blood pressure 141/78, respirations 24, saturation 96% on 4 liters nasal cannula. GENERAL: The patient is awake and alert, in no apparent distress. LUNGS: Excellent air entry. There is no prolonged expiratory phase. I appreciate no wheezing, rhon chi, or crackles today. HEART: Normal rate, regular. ABDOMEN: Soft, nontender, nondistended. Bowel sounds are positive. MUSCULOSKELETAL: No cyanosis or clubbing. There is diffuse 3-4+ pitting in the bilateral lower extr emities. NEUROLOGIC: Grossly nonfocal. LABORATORY DATA: WBC 13.6, hemoglobin 10.8, platelets 104,000 and down trending. Creatinine 2.95 an d stable, BUN 122. Sodium 146. Bicarbonate is actually 29. Magnesium 2.3. ASSESSMENT: 1. Acute on chronic hypoxic and hypercapnic respiratory failure. 2. Obesity hypoventilation syndrome. 3. Obstructive sleep apnea, severe. 4. Acute on chronic diastolic heart failure. 5. Acute kidney injury on chronic kidney disease. 6. Metabolic encephalopathy, stable. 7. Hypernatremia. PLAN: The patient remains volume overloaded, but her sodium levels are elevated. As such, we contin ue to diurese her as much as tolerated and give her free water over the next 24 hours. She will cont inue using her BiPAP couple times daily if needed. She certainly requires this device at night. She will remain in IMCU until she can transition to a penitentiary facility and/or LTAC Center that c an handle her requirements. At this point, I do think that she is stable for transition out of the h ospital if route if we were to find the appropriate level of care.
[2017-03-08] MEDS: Dextrose 5% in Water 1,000 ML IV SCH (08:58)
[2017-03-08] MEDS: predniSONE 20 MG TAB PO SCH (08:59)
[2017-03-08] MEDS: Aspirin 81 mg Enteric Coated Tablet PO SCH (09:00)
[2017-03-08] MEDS: busPIRone HCl 5 MG TAB PO SCH (09:00)
[2017-03-08] MEDS: Hydrocortisone Acetate 25 MG Suppository PR SCH ×2 (09:01→21:33)
[2017-03-08] MEDS: Saccharomyces boulardii 250 MG CAP PO SCH (09:01)
[2017-03-08] MEDS: Dorzolamide HCl/Timolol Maleate 2%/0.5% Ophth Soln 10 ml Bottle L EYE SCH ×2 (09:01→21:34)
[2017-03-08] MEDS: Brimonidine Tartrate 0.2% Ophth Soln 5 ml Bottle L EYE SCH ×2 (09:01→21:34)
--- NOTE | 2017-03-08 14:09 | PDOC.CTH ---
Cardiology Progress Note - Subjective No new issues. More verbal. today but tired and unable to talk in long sentences but from weakness not from SOB. - Objective Vital Signs Temp Pulse Resp BP Pulse Ox 03/08/17 12:00 97.9 F 89 24 H 166/69 H 95 03/08/17 11:44 87 22 H 92 L 03/08/17 09:08 93 18 93 L 03/08/17 08:00 98.1 F 96 24 H 141/78 H 96 03/08/17 03:57 97.5 F L 84 20 117/47 L 95 Admit Weight 314 lb Weight 321 lb 6.4 oz 03/07/17 03/08/17 03/09/17 06:59 06:59 06:59 Intake Total 555 495 Output Total 875 415 Balance -320 80 - Physical Examination General/Neuro: NAD Neck: no JVD present Lungs: CTA, unlabored respirations Heart: RRR Abdomen: NT/ND Extremities: + edema B (3+) - Telemetry Telemetry Rhythm: NSR - Labs Result Diagrams: 03/08/17 05:40 03/08/17 05:40 - Assessment/Plan 1. Acute on chronic diastolic heart failure. 2. Severe pulmonary HTN. 3. Acute hypoxic respiratory insufficiency. 4. WILLIE on CKD. Likely ATN. 5. SVT 6. Hypokalemia. PLAN: - Renal function is unchanged from yesterday, no improvement today as compared to yesterday. Agree to holding on IV lasix for now. - Likely SVT from low K, minimal since replacing. - Continue supportive care otherwise.
--- NOTE | 2017-03-08 14:13 | PDOC.PN ---
- Subjective Encounter Start Date: 03/08/17 Encounter Start Time: 14:11 Ms. Bishop was seen today in follow-up. She was more lucid today. She was able to answer a few questions appropriately. - Objective Resuscitation Status: Resuscitation Status DNR:Do Not Resuscitate BROOKS Reviewed: Yes Vital Signs & Weight: Vital Signs (12 hours) Temp Pulse Resp BP Pulse Ox 03/08/17 12:00 97.9 F 89 24 H 166/69 H 95 03/08/17 11:44 87 22 H 92 L 03/08/17 09:08 93 18 93 L 03/08/17 08:00 98.1 F 96 24 H 141/78 H 96 03/08/17 03:57 97.5 F L 84 20 117/47 L 95 Weight Admit Weight 314 lb Weight 321 lb 6.4 oz Most Recent Monitor Data Heart Rate from ECG 76 NIBP 155/70 NIBP BP-Mean 106 Respiration from ECG 22 SpO2 97 I&O: 03/07/17 03/08/17 03/09/17 06:59 06:59 06:59 Intake Total 555 495 Output Total 875 415 Balance -320 80 Result Diagrams: 03/08/17 05:40 03/08/17 05:40 Additional Labs: Accuchecks 03/08/17 03/08/17 03/07/17 11:10 03:57 21:30 POC Glucose 171 H 219 H 188 H Phys Exam - Physical Examination HEENT: PERRLA + rhonchi bilaterally, no rales. Cardiovascular: RRR, no significant murmur, no rub Gastrointestinal: soft, non-tender, positive bowel sounds Musculoskeletal: edema present 2-3 + pitting edema in both lower extremities Dx/Plan (1) Acute on chronic renal failure Code(s): N17.9 - ACUTE KIDNEY FAILURE, UNSPECIFIED; N18.9 - CHRONIC KIDNEY DISEASE, UNSPECIFIED Status: Acute Comment: Improving, no HD planned currently (2) Morbid obesity with BMI of 50.0-59.9, adult Code(s): E66.01 - MORBID (SEVERE) OBESITY DUE TO EXCESS CALORIES; Z68.43 - BODY MASS INDEX (BMI) 50-59.9 , ADULT Status: Chronic (3) Acute on chronic respiratory failure with hypoxia Code(s): J96.21 - ACUTE AND CHRONIC RESPIRATORY FAILURE WITH HYPOXIA Status: Acute Comment: Successful extubation 03/03/17, continue O2 supplementation via NC, PRN BiPAP, PCXR 03/04/17 showing improvement in infiltrates (4) DM2 (diabetes mellitus, type 2) Status: Chronic (5) HTN (hypertension) Code(s): I10 - ESSENTIAL (PRIMARY) HYPERTENSION Status: Chronic Qualifiers: Hypertension type: essential hypertension Qualified Code(s): I10 - Essential (primary) hypertension (6) ADELINE (obstructive sleep apnea) Code(s): G47.33 - OBSTRUCTIVE SLEEP APNEA (ADULT) (PEDIATRIC) Status: Chronic Comment: ? home CPAP not functioning (7) Pulmonary artery hypertension Code(s): I27.2 - OTHER SECONDARY PULMONARY HYPERTENSION * DO NOT USE * Status : Chronic - Plan * Acute on chronic diastolic heart failure- continue to diurese as tolerated * Acute on chronic kidney disease- renal function has improved and remained relatively stable * DM- blood glucose is stable. * HTN- blood pressure has been elevated * Severe Obesity and ADELINE- with Pulmonary Hypertension- stable but co-morbid condition * Severe Deconditioning * Awaiting transfer to LTAC/SNF
[2017-03-08] MEDS: Acetaminophen 325 MG TAB PO PRN (17:04)
[2017-03-08] MEDS: Famotidine/PF 20 mg/2ml Vial SLOW IVP SCH (21:34)
[2017-03-09] MEDS: Dextrose 5% in Water 1,000 ML IV SCH ×2 (04:58→20:22)
[2017-03-09] MEDS: HumaLOG 300 UNITS/3 ML VIAL SC PRN ×4 (05:56→22:47)
[2017-03-09] MEDS: Aspirin 81 mg Enteric Coated Tablet PO SCH (08:45)
[2017-03-09] MEDS: Brimonidine Tartrate 0.2% Ophth Soln 5 ml Bottle L EYE SCH ×2 (08:45→20:23)
[2017-03-09] MEDS: predniSONE 20 MG TAB PO SCH (08:45)
[2017-03-09] MEDS: busPIRone HCl 5 MG TAB PO SCH (08:46)
[2017-03-09] MEDS: Dorzolamide HCl/Timolol Maleate 2%/0.5% Ophth Soln 10 ml Bottle L EYE SCH ×2 (08:46→20:23)
[2017-03-09] MEDS: Hydrocortisone Acetate 25 MG Suppository PR SCH ×2 (08:46→20:23)
[2017-03-09] MEDS: Saccharomyces boulardii 250 MG CAP PO SCH (08:46)
--- NOTE | 2017-03-09 10:28 | PDOC.PN ---
- Subjective Encounter Start Date: 03/09/17 Encounter Start Time: 10:21 Ms. Bishop was seen today in follow-up. She was very lethargic when I came by to see her. She would open her eyes and mumble a few words. - Objective Resuscitation Status: Resuscitation Status DNR:Do Not Resuscitate MAR Reviewed: Yes Vital Signs & Weight: Vital Signs (12 hours) Temp Pulse Resp BP Pulse Ox 03/09/17 07:56 97.6 F 95 18 135/66 91 L 03/09/17 07:34 91 16 94 L 03/09/17 07:32 97.0 F L 84 24 H 93 L 03/09/17 04:33 97.6 F 78 18 130/46 L 93 L 03/09/17 00:45 97.0 F L 84 24 H 114/66 94 L 03/09/17 00:30 94 L Weight Admit Weight 314 lb Weight 322 lb 4.8 oz Most Recent Monitor Data Heart Rate from ECG 76 NIBP 155/70 NIBP BP-Mean 106 Respiration from ECG 22 SpO2 97 I&O: 03/08/17 03/09/17 03/10/17 06:59 06:59 06:59 Intake Total 956 544 4222 Output Total 415 350 925 Balance 80 210 485 Result Diagrams: 03/08/17 05:40 03/08/17 05:40 Additional Labs: Accuchecks 03/09/17 03/08/17 03/08/17 04:16 21:44 11:10 POC Glucose 226 H 242 H 171 H Phys Exam - Physical Examination HEENT: PERRLA Respiratory: no wheezing, no rales Cardiovascular: RRR, no significant murmur, no rub Gastrointestinal: soft, non-tender, positive bowel sounds Musculoskeletal: edema present 2-3 + pitting edema bilaterally Dx/Plan (1) Acute on chronic renal failure Code(s): N17.9 - ACUTE KIDNEY FAILURE, UNSPECIFIED; N18.9 - CHRONIC KIDNEY DISEASE, UNSPECIFIED Status: Acute Comment: Improving, no HD planned currently (2) Morbid obesity with BMI of 50.0-59.9, adult Code(s): E66.01 - MORBID (SEVERE) OBESITY DUE TO EXCESS CALORIES; Z68.43 - BODY MASS INDEX (BMI) 50-59.9 , ADULT Status: Chronic (3) Acute on chronic respiratory failure with hypoxia Code(s): J96.21 - ACUTE AND CHRONIC RESPIRATORY FAILURE WITH HYPOXIA Status: Acute Comment: Successful extubation 03/03/17, continue O2 supplementation via NC, PRN BiPAP, PCXR 03/04/17 showing improvement in infiltrates (4) DM2 (diabetes mellitus, type 2) Status: Chronic (5) HTN (hypertension) Code(s): I10 - ESSENTIAL (PRIMARY) HYPERTENSION Status: Chronic Qualifiers: Hypertension type: essential hypertension Qualified Code(s): I10 - Essential (primary) hypertension (6) ADELINE (obstructive sleep apnea) Code(s): G47.33 - OBSTRUCTIVE SLEEP APNEA (ADULT) (PEDIATRIC) Status: Chronic Comment: ? home CPAP not functioning (7) Pulmonary artery hypertension Code(s): I27.2 - OTHER SECONDARY PULMONARY HYPERTENSION * DO NOT USE * Status : Chronic - Plan * Acute on chronic diastolic heart failure- her lungs sound clear, and she is now off IV Lasix * Severe ADELINE- she requires BiPAP periodically and at night * HTN - blood pressure is stable * DM- blood glucose is slightly elevated- will monitor trend, and continue SSI * Dysphagia- she is still too lethargic to attempt anything by mouth- still awaiting family decision regarding PEG tube vs. Pleasure feeds * Also awaiting family decision as to Discharge disposition ? Hospice * Clinically her prognosis is very poor, and Hospice would be appropriate .
--- NOTE | 2017-03-09 11:28 | PRG ---
DATE OF SERVICE: 03/09/2017 SERVICE: Pulmonary medicine. INTERVAL HISTORY: The patient is doing really well from a cardiovascular and respiratory standpoint. She is breathing comfortably. She used to BiPAP last night, but currently is taking a nap and not using it. As such, she has intermittent desaturation, but always forms backup. I woke her up and sh e is cool, and collected. She is awake and in no apparent distress. She is extraordinarily weak. PHYSICAL EXAMINATION: VITAL SIGNS: Afebrile, pulse 95, blood pressure 135/66, respirations 18, saturation 91% on 4 liters nasal cannula. GENERAL: The patient is awake, alert, in no apparent distress. LUNGS: Excellent air entry. I do not appreciate a prolonged expiratory phase or wheezing. HEART: Normal rate, regular. ABDOMEN: Soft, nontender, nondistended. Bowel sounds are positive. MUSCULOSKELETAL: No cyanosis or clubbing. There is 2+ pitting throughout. GENITOURINARY: Fleming catheter in place. NEUROLOGIC: Grossly nonfocal. ASSESSMENT: 1. Acute on chronic hypoxic and hypercapnic respiratory failure. 2. Obesity hypoventilation syndrome. 3. Deconditioning, severe. 4. Obstructive sleep apnea, severe. 5. Acute on chronic diastolic heart failure. 6. Acute kidney injury on chronic kidney disease. 7. Metabolic encephalopathy, resolving. 8. Hypernatremia. PLAN: We will repeat CBC, basic metabolic profile, magnesium, and phosphorus in the morning. Electr olytes will be replaced if needed at that time. I will continue our free water for the next 24 hours , and I will increase interval of diuresing her to twice daily Pulmonary Critical Care will continue to follow.
--- NOTE | 2017-03-09 12:44 | PDOC.CTH ---
Cardiology Progress Note - Subjective No new issues. - Objective Vital Signs Temp Pulse Resp BP Pulse Ox 03/09/17 11:56 97.2 F L 77 20 126/49 L 97 03/09/17 07:56 97.6 F 95 18 135/66 91 L 03/09/17 07:34 91 16 94 L 03/09/17 07:32 97.0 F L 84 24 H 93 L 03/09/17 04:33 97.6 F 78 18 130/46 L 93 L 03/09/17 00:45 97.0 F L 84 24 H 114/66 94 L Admit Weight 314 lb Weight 322 lb 4.8 oz 03/08/17 03/09/17 03/10/17 06:59 06:59 06:59 Intake Total 191 790 0349 Output Total 415 350 925 Balance 80 210 485 - Physical Examination General/Neuro: NAD Neck: no JVD present Lungs: CTA, unlabored respirations Heart: RRR Abdomen: NT/ND Extremities: + edema B (3+) - Telemetry Telemetry Rhythm: NSR - Labs Result Diagrams: 03/08/17 05:40 03/08/17 05:40 - Assessment/Plan 1. Acute on chronic diastolic heart failure. 2. Severe pulmonary HTN. 3. Acute hypoxic respiratory insufficiency. 4. WILLIE on CKD. Likely ATN. 5. SVT 6. Hypokalemia. PLAN: - Recheck lab work tomorrow. She may be at her new baseline creatinine. - Likely SVT from low K, minimal since replacing. - Continue supportive care otherwise. - Placement. - DNR/DNI.
--- NOTE | 2017-03-09 19:22 | PRG ---
DATE OF SERVICE: 03/08/2017 SUBJECTIVE: The patient was seen and examined. PHYSICAL EXAMINATION: VITAL SIGNS: Afebrile with temperature 98, pulse 86, respiratory rate 19, O2 sat 92% on 4 liters, bl ood pressure 113/54. HEENT: Unremarkable. CARDIOVASCULAR: First and second heart sounds were heard. RESPIRATORY: Clear to auscultation. DIGESTIVE: Revealed a benign abdomen. EXTREMITIES: No peripheral edema. LABORATORY INVESTIGATIONS: Hemoglobin 10.8, sodium 146, BUN 122 and a creatinine 2.95. IMPRESSION: 1. Acute on chronic kidney disease, improving. 2. Profound azotemia. 3. Hypernatremia. PLAN: 1. Consider discontinuation of steroids. 2. Free water repletion. 3. Renal supportive measures and further management to be dependent on the clinical course.
--- NOTE | 2017-03-09 19:25 | PRG ---
DATE OF SERVICE: 03/09/2017 SUBJECTIVE: The patient was seen and examined with NG tube in place. PHYSICAL EXAMINATION: VITAL SIGNS: Noted with the following vital signs: Afebrile with temperature 97.6, pulse 73, respir atory rate 20, O2 saturation 97%, blood pressure 125/43. HEENT: Unremarkable. CARDIOVASCULAR SYSTEM: First and second heart sounds were heard. RESPIRATORY SYSTEM: Clear to auscultation. DIGESTIVE SYSTEM: Revealed a benign abdomen with positive bowel sounds. EXTREMITIES: No peripheral edema. SKIN: No new gross rash. LYMPHATICS: No peripheral lymphadenopathy. ABDOMEN: Digestive system revealed an obese abdomen. NEUROLOGIC: No peripheral edema. IMPRESSION: 1. Acute on chronic kidney disease which seems to be improving. 2. Morbid obesity. 3. Status post respiratory failure. PLAN: 1. Continue renal supportive measures. 2. Free water repletion. 3. Further management to be dependent on the clinical course.
[2017-03-09] MEDS: Famotidine/PF 20 mg/2ml Vial SLOW IVP SCH (20:22)
[2017-03-10] MEDS: HumaLOG 300 UNITS/3 ML VIAL SC PRN ×4 (05:31→22:13)
[2017-03-10 06:49] LABS: #Eosinphils 0.1 thou/uL (0.0-0.7); #Lymphocytes 1.3 thou/uL (1.20-3.40); #Monocytes 0.7 thou/uL (0.11-0.59); #Neutrophils 10.1 thou/uL (1.40-6.50); %Basophils 0.2 % (0.0-1.0); %Eosinophils 0.7 % (0.0-10.0); %Lymphocytes 10.9 % (21.0-51.0); %Monocytes 5.9 % (0.0-10.0); %Neutrophils 82.4 % (42.0-75.0); Hemoglobin 10.2 g/dL (12.0-16.0); Mean Corpuscular HGB CONC 28.2 g/dL (32.0-36.0); Mean Corpuscular Hemoglobin 27.4 pg (27.0-31.0); Mean Corpuscular Volume 97.4 fl (81.0-99.0); Platelet Count 62 thou/uL (130-400); Red Blood Cell (RBC) Count 3.72 mill/uL (4.20-5.40); White Blood Cell (WBC) Count 12.3 thou/uL (4.8-10.8)
[2017-03-10 06:54] LABS: Anion Gap 14 mmol/L (10-20); Calc. Creatinine Clearance 34 mL/min (70-130); Calcium 8.6 mg/dL (7.8-10.44); Carbon Dioxide 32 mmol/L (23-31); Chloride 103 mmol/L (98-107); Estimated GFR-MDRD 17; Glucose 223 mg/dL (83-110); Magnesium 2.1 mg/dL (1.6-2.6); Phosphorus 4.8 mg/dL (2.3-4.7); Potassium 3.5 mmol/L (3.5-5.1); Sodium 145 mmol/L (136-145)
[2017-03-10 07:05] LABS: BUN (Urea Nitrogen) 126 mg/dL (9.8-20.1)
[2017-03-10 07:15] LABS: Hypochromia MODERATE=16-30 cells (100X) (0-5/hpf); MDiff Complete? YES; PLT Morphology Comment Appears Decreased; Polychromasia SLIGHT = 2-3 cells (100X) (0-2/hpf)
[2017-03-10] MEDS: Aspirin 81 mg Enteric Coated Tablet PO SCH (08:25)
[2017-03-10] MEDS: Brimonidine Tartrate 0.2% Ophth Soln 5 ml Bottle L EYE SCH ×2 (08:25→20:18)
[2017-03-10] MEDS: Saccharomyces boulardii 250 MG CAP PO SCH (08:26)
[2017-03-10] MEDS: Hydrocortisone Acetate 25 MG Suppository PR SCH ×2 (08:26→20:18)
[2017-03-10] MEDS: Dorzolamide HCl/Timolol Maleate 2%/0.5% Ophth Soln 10 ml Bottle L EYE SCH ×2 (08:26→20:18)
[2017-03-10] MEDS: busPIRone HCl 5 MG TAB PO SCH (08:26)
[2017-03-10] MEDS: predniSONE 1 MG/ML ML PO SCH (08:26)
[2017-03-10] MEDS ORDERED: Furosemide 40 MG/4 ML VIAL SLOW IVP SCH (09:00)
[2017-03-10 09:47] VITALS: BMI 53.4
--- NOTE | 2017-03-10 09:49 | PDOC.PN ---
- Subjective Encounter Start Date: 03/10/17 Encounter Start Time: 09:47 Ms. Bishop was seen today in follow-up. She is lethargic again today. No complaints voiced by staff. - Objective Resuscitation Status: Resuscitation Status DNR:Do Not Resuscitate MAR Reviewed: Yes Vital Signs & Weight: Vital Signs (12 hours) Temp Pulse Resp BP Pulse Ox 03/10/17 07:43 97.6 F 74 18 95 03/10/17 07:40 97.6 F 74 18 108/57 L 99 03/10/17 05:29 97.1 F L 76 18 110/49 L 98 03/10/17 00:00 76 18 124/52 L 94 L Weight Admit Weight 314 lb Weight 320 lb 11.2 oz Most Recent Monitor Data Heart Rate from ECG 76 NIBP 155/70 NIBP BP-Mean 106 Respiration from ECG 22 SpO2 97 I&O: 03/09/17 03/10/17 03/11/17 06:59 06:59 06:59 Intake Total 560 3570 Output Total 350 2075 Balance 210 1495 Result Diagrams: 03/10/17 05:50 03/10/17 05:50 Additional Labs: Accuchecks 03/09/17 03/09/17 03/09/17 22:44 17:15 11:28 POC Glucose 227 H 214 H 213 H Phys Exam - Physical Examination HEENT: PERRLA + rhonchi bilaterally Cardiovascular: RRR, no significant murmur, no rub Gastrointestinal: soft, positive bowel sounds Musculoskeletal: edema present 2+ pitting edema Dx/Plan (1) Acute on chronic renal failure Code(s): N17.9 - ACUTE KIDNEY FAILURE, UNSPECIFIED; N18.9 - CHRONIC KIDNEY DISEASE, UNSPECIFIED Status: Acute Comment: Improving, no HD planned currently (2) Morbid obesity with BMI of 50.0-59.9, adult Code(s): E66.01 - MORBID (SEVERE) OBESITY DUE TO EXCESS CALORIES; Z68.43 - BODY MASS INDEX (BMI) 50-59.9 , ADULT Status: Chronic (3) Acute on chronic respiratory failure with hypoxia Code(s): J96.21 - ACUTE AND CHRONIC RESPIRATORY FAILURE WITH HYPOXIA Status: Acute Comment: Successful extubation 03/03/17, continue O2 supplementation via NC, PRN BiPAP, PCXR 03/04/17 showing improvement in infiltrates (4) DM2 (diabetes mellitus, type 2) Status: Chronic (5) HTN (hypertension) Code(s): I10 - ESSENTIAL (PRIMARY) HYPERTENSION Status: Chronic Qualifiers: Hypertension type: essential hypertension Qualified Code(s): I10 - Essential (primary) hypertension (6) ADELINE (obstructive sleep apnea) Code(s): G47.33 - OBSTRUCTIVE SLEEP APNEA (ADULT) (PEDIATRIC) Status: Chronic Comment: ? home CPAP not functioning (7) Pulmonary artery hypertension Code(s): I27.2 - OTHER SECONDARY PULMONARY HYPERTENSION * DO NOT USE * Status : Chronic (8) Acute on chronic diastolic heart failure Code(s): I50.33 - ACUTE ON CHRONIC DIASTOLIC (CONGESTIVE) HEART FAILURE Status : Acute - Plan * Acute on chronic diastolic heart failure- at baseline * Acute on chronic kidney injury- stable * Severe Pulmonary hypertension- unchanged * DM- blood glucose is slightly elevated- will continue current treatment- SSI for correction * I was able to meet briefly with the patient's daughter and she verified that she wants her mother to be discharged with Hospice care.
--- NOTE | 2017-03-10 11:49 | PRG ---
DATE OF SERVICE: 03/10/2017 SERVICE: Pulmonary Medicine. INTERVAL HISTORY: The patient is doing fine from a respiratory standpoint. She is a little somnolen t this morning. That being said, she indicates that she is breathing comfortably and has no discomfo rt. Otherwise, there has been no notable change to her condition. PHYSICAL EXAMINATION: VITAL SIGNS: Afebrile, pulse 74, blood pressure 108/57, respirations 18, saturation 95% on 4 liters nasal cannula. GENERAL: The patient is somnolent. She is in no apparent distress. LUNGS: Excellent air entry. No do not appreciable prolonged expiratory phase. There were no crackl es today. HEART: Normal rate, regular. ABDOMEN: Soft, nontender, nondistended. Bowel sounds are positive. MUSCULOSKELETAL: No cyanosis or clubbing. There is diffuse 2-3+ pitting in the bilateral lower extr emities. NEUROLOGIC: Grossly nonfocal. LABORATORY DATA: WBC 12.3, hemoglobin 10.2, platelets 62,000 and down trending. Creatinine is going up once again to 3.21. BUN 126, bicarbonate is finally bumping to 32. Sodium 145 and gently down t rending. Basic metabolic profile is unremarkable. Phosphorus is elevated and magnesium falls within the normal limits. ASSESSMENT: 1. Acute on chronic hypoxic and hypercapnic respiratory failure. 2. Obesity hypoventilation syndrome. 3. Obstructive sleep apnea, severe. 4. Deconditioning, severe. 5. Acute kidney injury on chronic kidney disease. 6. Acute on chronic diastolic heart failure. 7. Metabolic encephalopathy. 8. Hypernatremia. PLAN: The patient is being transitioned to a nursing care facility under the care of hospice. Ultim ately, the family has decided that it is in Ms. Bishop's best interest to pursue comfort measures on ly. They have come to the conclusion that clearly she would not want additional aggressive intervent ions like tracheostomies. Lasix will be interrupted at this time. Pulmonary will continue to follow if she remains inhouse beyond today.
[2017-03-10] MEDS: Acetaminophen 325 MG TAB PO PRN ×2 (12:06→20:20)
--- NOTE | 2017-03-10 13:09 | PRG ---
DATE OF SERVICE: 03/10/2017 SUBJECTIVE: The patient seen and examined. No new compliant. OBJECTIVE: VITAL SIGNS: Afebrile with temperature 97.6, pulse 77, respiratory rate 20, O2 saturation 94% with a blood pressure 99/49. HEENT: Unremarkable. CARDIOVASCULAR: First and second heart sounds were heard. RESPIRATORY: Clear to auscultation. ABDOMEN: Digestive system revealed a benign abdomen. EXTREMITIES: No peripheral edema. SKIN: No new gross rash. LYMPHATICS: No peripheral lymphadenopathy. IMPRESSION: 1. Acute on chronic kidney disease, improving. 2. Morbid obesity. PLAN: We will continue renal supportive measures.
--- NOTE | 2017-03-10 15:25 | EKG ---
Test Reason : DIAGNOSING PURPOSES Blood Pressure : / mmHG Vent. Rate : 058 BPM Atrial Rate : 058 BPM P-R Int : 222 ms QRS Dur : 090 ms QT Int : 426 ms P-R-T Axes : 059 141 020 degrees QTc Int : 418 ms Sinus bradycardia with 1st degree A-V block Right axis deviation Possible Right ventricular hypertrophy Septal infarct , age undetermined Abnormal ECG Confirmed by LEA ARIAS ([id number]), purchasing expeditor MARILIA HALL ([id number]) on 03/10/2017 3:24:45 PM Referred By: Confirmed By:LEA ARIAS
--- NOTE | 2017-03-10 18:16 | PDOC.CTH ---
Cardiology Progress Note - Subjective No significant change today. Breathing status is the same without improvement. - Objective Vital Signs Temp Pulse Resp BP Pulse Ox 03/10/17 16:00 97.5 F L 68 20 100/54 L 98 03/10/17 12:00 97.6 F 77 20 99/49 L 94 L 03/10/17 07:43 97.6 F 74 18 95 03/10/17 07:40 97.6 F 74 18 108/57 L 99 Admit Weight 314 lb Weight 320 lb 11.2 oz 03/09/17 03/10/17 03/11/17 06:59 06:59 06:59 Intake Total 560 3570 60 Output Total 350 2075 Balance 210 1495 60 - Physical Examination General/Neuro: alert & oriented x3, NAD Neck: no JVD present Lungs: CTA Heart: RRR Abdomen: NT/ND Extremities: + edema B (3+) - Telemetry Telemetry Rhythm: NSR - Labs Result Diagrams: 03/10/17 05:50 03/10/17 05:50 - Assessment/Plan 1. Acute on chronic diastolic heart failure. 2. Severe pulmonary HTN. 3. Acute hypoxic respiratory insufficiency. 4. WILLIE on CKD. Likely ATN. 5. SVT 6. Hypokalemia. 7. Severe deconditioning. PLAN: - Family has decided on hospice care. I think this is reasonable. - Will sign off. Please call with any questions.
[2017-03-10] MEDS: Famotidine/PF 20 mg/2ml Vial SLOW IVP SCH (20:19)
[2017-03-10] MEDS: Dextrose 5% in Water 1,000 ML IV SCH (20:24)
[2017-03-11] MEDS: HumaLOG 300 UNITS/3 ML VIAL SC PRN ×4 (04:41→20:49)
[2017-03-11 05:11] LABS: #Eosinphils 0.1 thou/uL (0.0-0.7); #Lymphocytes 1.2 thou/uL (1.20-3.40); #Monocytes 0.8 thou/uL (0.11-0.59); #Neutrophils 8.7 thou/uL (1.40-6.50); %Basophils 0.1 % (0.0-1.0); %Eosinophils 0.6 % (0.0-10.0); %Lymphocytes 11.2 % (21.0-51.0); %Monocytes 7.2 % (0.0-10.0); %Neutrophils 80.9 % (42.0-75.0); Hemoglobin 11.1 g/dL (12.0-16.0); Hypochromia SLIGHT = 6-15 cells (100X) (0-5/hpf); MDiff Complete? YES; Mean Corpuscular HGB CONC 28.9 g/dL (32.0-36.0); Mean Corpuscular Hemoglobin 28.8 pg (27.0-31.0); Mean Corpuscular Volume 99.8 fl (81.0-99.0); Mean Platelet Volume 11.8 fL (7.4-10.4); PLT Morphology Comment Appears Decreased; Platelet Count 60 thou/uL (130-400); RBC Distribution Width 18.5 % (11.5-14.5); Red Blood Cell (RBC) Count 3.84 mill/uL (4.20-5.40); Target Cells SLIGHT = 2-5 cells (100X) (0-1/hpf); White Blood Cell (WBC) Count 10.7 thou/uL (4.8-10.8)
[2017-03-11 05:23] LABS: Anion Gap 18 mmol/L (10-20); BUN (Urea Nitrogen) 130 mg/dL (9.8-20.1); Calc. Creatinine Clearance 31 mL/min (70-130); Calcium 8.7 mg/dL (7.8-10.44); Carbon Dioxide 22 mmol/L (23-31); Chloride 104 mmol/L (98-107); Estimated GFR-MDRD 15; Glucose 197 mg/dL (83-110); Magnesium 2.3 mg/dL (1.6-2.6); Potassium 4.2 mmol/L (3.5-5.1); Sodium 140 mmol/L (136-145)
[2017-03-11] MEDS: busPIRone HCl 5 MG TAB PO SCH (08:42)
[2017-03-11] MEDS: Saccharomyces boulardii 250 MG CAP PO SCH (08:42)
[2017-03-11] MEDS: Dorzolamide HCl/Timolol Maleate 2%/0.5% Ophth Soln 10 ml Bottle L EYE SCH ×2 (08:43→20:27)
[2017-03-11] MEDS: Brimonidine Tartrate 0.2% Ophth Soln 5 ml Bottle L EYE SCH ×2 (08:44→20:26)
[2017-03-11] MEDS: predniSONE 1 MG/ML ML PO SCH (08:46)
[2017-03-11] MEDS: Hydrocortisone Acetate 25 MG Suppository PR SCH ×2 (08:46→20:27)
--- NOTE | 2017-03-11 10:13 | PRG ---
DATE OF SERVICE: 03/11/2017 SERVICE: Pulmonary Medicine. INTERVAL HISTORY: The patient is doing fine from a respiratory standpoint. She is breathing comfort ably. She is a little somnolent today. Outside of this, there has been no interval change to her co ndition. PHYSICAL EXAMINATION: VITAL SIGNS: Afebrile, pulse 73, blood pressure 139/50, respirations 16, saturation 95% on 3 liters nasal cannula. GENERAL: Patient is awake, alert, no apparent distress. LUNGS: Decent air entry. There is no prolonged expiratory phase. I do not appreciate wheezing, rho nchi, or crackles today. HEART: Normal rate, regular. ABDOMEN: Soft, nontender, nondistended. Bowel sounds are positive. MUSCULOSKELETAL: No cyanosis or clubbing. Diffuse 2-3+ pitting throughout. GENITOURINARY: Fleming catheter in place. NEUROLOGIC: Grossly nonfocal. LABORATORY DATA: WBC 10.7, hemoglobin 11.1, platelets 60,000. Creatinine 3.56, BUN 130. Anion gap 18, bicarbonate 22. Basic metabolic profile is otherwise unremarkable. Phosphorus is 5.0 and up gisell nding. Magnesium falls within normal limits. ASSESSMENT: 1. Acute on chronic hypoxic and hypercapnic respiratory failure. 2. Obesity hypoventilation syndrome. 3. Obstructive sleep apnea, severe. 4. Deconditioning, severe. 5. Acute kidney injury on chronic kidney disease. 6. Acute on chronic diastolic heart failure. 7. Metabolic encephalopathy. 8. Hypernatremia, resolved. PLAN: The patient is being planned for discharge to nursing facility today under the care of hospice . As such, I will discontinue all laboratories moving forward. Pulmonary and Critical Care will con tinue to follow if she remains in this location, however.
[2017-03-11] MEDS: Acetaminophen 650 MG/20.3 ML UDCUP PO PRN ×2 (13:32→20:35)
[2017-03-11] MEDS: Dextrose 5% in Water 1,000 ML IV SCH (17:42)
--- NOTE | 2017-03-11 18:08 | PDOC.PN ---
- Subjective Encounter Start Date: 03/11/17 Encounter Start Time: 18:07 Subjective: Seen and examined condition same - Objective Resuscitation Status: Resuscitation Status DNR:Do Not Resuscitate Vital Signs & Weight: Vital Signs (12 hours) Temp Pulse Resp BP Pulse Ox 03/11/17 15:54 97.0 F L 69 18 94/43 L 98 03/11/17 12:00 96.7 F L 68 18 113/39 L 92 L 03/11/17 11:23 90 L 03/11/17 08:00 96.4 F L 73 22 H 94 L 03/11/17 07:16 96.4 F L 73 22 H 139/50 L 95 Weight Admit Weight 314 lb Weight 320 lb 4.8 oz Most Recent Monitor Data Heart Rate from ECG 76 NIBP 155/70 NIBP BP-Mean 106 Respiration from ECG 22 SpO2 97 I&O: 03/10/17 03/11/17 03/12/17 06:59 06:59 06:59 Intake Total 3570 1810 Output Total 2075 810 Balance 1495 1000 Result Diagrams: 03/11/17 04:26 03/11/17 04:26 Additional Labs: Accuchecks 03/11/17 03/11/17 03/11/17 16:43 10:45 04:23 POC Glucose 219 H 223 H 206 H 03/10/17 22:07 POC Glucose 195 H Phys Exam - Physical Examination Constitutional: NAD NGT in place HEENT: PERRLA, moist MMs, sclera anicteric, TM's clear Neck: no nodes, no JVD, supple Respiratory: no wheezing, no rales, no rhonchi Cardiovascular: RRR, no significant murmur, no rub Gastrointestinal: non-tender, no distention Musculoskeletal: no edema, pulses present Dx/Plan - Plan plan discussed w/ family, PT/OT, criminal justice social worker, respiratory therapy Awaiting NH with hospice placement * .
[2017-03-11] MEDS: Famotidine/PF 20 mg/2ml Vial SLOW IVP SCH (20:27)
[2017-03-12 04:53] LABS: #Lymphocytes 1.2 thou/uL (1.20-3.40); #Monocytes 0.6 thou/uL (0.11-0.59); #Neutrophils 9.8 thou/uL (1.40-6.50); %Basophils 0.1 % (0.0-1.0); %Eosinophils 0.4 % (0.0-10.0); %Lymphocytes 9.9 % (21.0-51.0); %Monocytes 5.5 % (0.0-10.0); %Neutrophils 84.2 % (42.0-75.0); Hemoglobin 9.6 g/dL (12.0-16.0); Mean Corpuscular HGB CONC 28.4 g/dL (32.0-36.0); Mean Corpuscular Hemoglobin 27.6 pg (27.0-31.0); Mean Corpuscular Volume 97.1 fl (81.0-99.0); Mean Platelet Volume 14.1 fL (7.4-10.4); Platelet Count 34 thou/uL (130-400); RBC Distribution Width 18.2 % (11.5-14.5); Red Blood Cell (RBC) Count 3.48 mill/uL (4.20-5.40); White Blood Cell (WBC) Count 11.7 thou/uL (4.8-10.8)
[2017-03-12 05:07] LABS: Anion Gap 15 mmol/L (10-20); Calc. Creatinine Clearance 26 mL/min (70-130); Calcium 8.9 mg/dL (7.8-10.44); Carbon Dioxide 30 mmol/L (23-31); Chloride 101 mmol/L (98-107); Estimated GFR-MDRD 12; Glucose 204 mg/dL (83-110); Magnesium 2.2 mg/dL (1.6-2.6); Phosphorus 5.7 mg/dL (2.3-4.7); Potassium 3.5 mmol/L (3.5-5.1); Sodium 142 mmol/L (136-145)
[2017-03-12 05:19] LABS: BUN (Urea Nitrogen) 135 mg/dL (9.8-20.1)
[2017-03-12] MEDS: busPIRone HCl 5 MG TAB PO SCH (08:30)
[2017-03-12] MEDS: Hydrocortisone Acetate 25 MG Suppository PR SCH (08:30)
[2017-03-12] MEDS: Saccharomyces boulardii 250 MG CAP PO SCH (08:30)
[2017-03-12] MEDS: Dorzolamide HCl/Timolol Maleate 2%/0.5% Ophth Soln 10 ml Bottle L EYE SCH (08:31)
[2017-03-12] MEDS: Brimonidine Tartrate 0.2% Ophth Soln 5 ml Bottle L EYE SCH (08:31)
[2017-03-12] MEDS: predniSONE 1 MG/ML ML PO SCH (08:55)
[2017-03-12] MEDS: Acetaminophen 650 MG/20.3 ML UDCUP PO PRN (09:22)
[2017-03-12 10:32] LABS: Fibrinogen 529 mg/dL (253-463)
[2017-03-12 10:33] LABS: INR-International Normal Ratio 1.2; Prothrombin Time 15.2 SEC (12.0-14.7)
[2017-03-12 10:48] LABS: D-Dimer Test 3.32 *mcg/mL (0.27-0.43)
[2017-03-12 10:51] LABS: Platelet Count 48 thou/uL (130-400)
[2017-03-12 11:07] LABS: FSP-Qualitative ABNORMAL (Normal); FSP-Semiquantitative >=5 & <20 mcg/mL (Less than 5)
--- NOTE | 2017-03-12 12:46 | PDOC.PN ---
- Subjective Encounter Start Date: 03/12/17 Encounter Start Time: 12:44 Subjective: Seen and examined-not doing very well..short of breath and having a lot of -: diahoea/GI bleed - Objective Resuscitation Status: Resuscitation Status DNR:Do Not Resuscitate Vital Signs & Weight: Vital Signs (12 hours) Temp Pulse Resp BP Pulse Ox 03/12/17 11:08 96.7 F L 73 20 116/57 L 92 L 03/12/17 07:31 97.0 F L 74 21 H 155/69 H 96 03/12/17 04:10 97.1 F L 77 20 119/68 98 Weight Admit Weight 314 lb Weight 319 lb 1.6 oz Most Recent Monitor Data Heart Rate from ECG 76 NIBP 155/70 NIBP BP-Mean 106 Respiration from ECG 22 SpO2 97 I&O: 03/11/17 03/12/17 03/13/17 06:59 06:59 06:59 Intake Total 1810 1088 Output Total 810 90 Balance 1000 998 Result Diagrams: 03/12/17 10:18 03/12/17 04:33 Additional Labs: Accuchecks 03/12/17 03/12/17 03/11/17 10:43 04:29 20:49 POC Glucose 199 H 183 H 220 H 03/11/17 16:43 POC Glucose 219 H Phys Exam - Physical Examination Constitutional: NAD HEENT: PERRLA, sclera anicteric, TM's clear, oral pharynx no lesions Neck: no nodes, no JVD, supple, full ROM Respiratory: no wheezing, no rales, no rhonchi Cardiovascular: RRR, no significant murmur, no rub Gastrointestinal: non-tender, no distention Musculoskeletal: pulses present, edema present Dx/Plan (1) Acute exacerbation of chronic obstructive pulmonary disease (COPD) Code(s): J44.1 - CHRONIC OBSTRUCTIVE PULMONARY DISEASE W (ACUTE) EXACERBATION Status: Acute (2) Acute on chronic diastolic heart failure Code(s): I50.33 - ACUTE ON CHRONIC DIASTOLIC (CONGESTIVE) HEART FAILURE Status : Acute (3) Acute on chronic renal failure Code(s): N17.9 - ACUTE KIDNEY FAILURE, UNSPECIFIED; N18.9 - CHRONIC KIDNEY DISEASE, UNSPECIFIED Status: Acute Comment: Improving, no HD planned currently (4) Dysphagia Code(s): R13.10 - DYSPHAGIA, UNSPECIFIED Status: Acute Qualifiers: Dysphagia type: oropharyngeal phase Qualified Code(s): R13.12 - Dysphagia, oropharyngeal phase Comment: s/p Dobhoff placement and initiation of TF's with Nepro at 35ml/h (5) Hyperkalemia Code(s): E87.5 - HYPERKALEMIA Status: Acute (6) Hypoxia Code(s): R09.02 - HYPOXEMIA Status: Acute (7) Morbid obesity with BMI of 50.0-59.9, adult Code(s): E66.01 - MORBID (SEVERE) OBESITY DUE TO EXCESS CALORIES; Z68.43 - BODY MASS INDEX (BMI) 50-59.9 , ADULT Status: Chronic (8) Epistaxis Code(s): R04.0 - EPISTAXIS Status: Resolved - Plan plan discussed w/ family, continue antibiotics, PT/OT, oncology social work Not doing very well at all--may need in patient hospice -: PRN diuresis -: Dispo planning * .
[2017-03-12] MEDS ORDERED: Furosemide 40 MG/4 ML VIAL SLOW IVP SCH (13:00)
[2017-03-12] MEDS: Dextrose 5% in Water 1,000 ML IV SCH (14:10)
[2017-03-12] MEDS ORDERED: Morphine 4 MG/ML Carpuject SLOW IVP PRN (15:09)
[2017-03-12] MEDS ORDERED: Lorazepam 2 MG/ML VIAL SLOW IVP PRN (15:10)
[2017-03-12] MEDS ORDERED: Dextrose 5% in Water 1,000 ML IV SCH (19:08)
--- NOTE | 2017-03-12 19:35 | PRG ---
DATE OF SERVICE: 03/12/2017 SUBJECTIVE: She is hemodynamically stable. OBJECTIVE: VITAL SIGNS: Blood pressure 116/57. She is afebrile. Heart rate is in the 70s, respirations 20, ox imetry is 92 on 4 liters. When I was in the room with her, she just moans, she was nonverbal. She d id not appear to be distressed but just moaning when she is stimulated. LUNGS: Remarkable for coarse equal breath sounds. HEART: Regular rhythm. ABDOMEN: Soft. LABORATORY DATA: White count 11.7, hemoglobin 9.6, platelets 34,000. Sodium 142, potassium 3.5, chloride 101, bicarbonate 30, BUN 35, creatinine 4.25. IMPRESSION: 1. Multiple organ dysfunction. 2. DO NOT RESUSCITATE status. 3. Candidate for hospice, apparently the assisted turned her down because they have all of their Medicaid or Medicare beds full. I placed a consult for inpatient hospice. We should proceed forward with just comfort care, that ord ers have been placed with nursing staff on the intermediate care unit, discussed this with family and I am told they are fine with this.
[2017-03-12 21:24] VITALS: BP 111/45; TEMP 96.8
--- NOTE | 2017-03-14 08:36 | DIS ---
For details of the history and physical and the consultative notes, please refer to dictations on rec ord. SUMMARY: This is a 77-year-old female patient, morbidly obese, who presented with rectal bleeding an d got diagnosed with possible hemorrhoidal bleed. The patient also noted to have evidence of acute e xacerbation of chronic obstructive pulmonary disease, acute on chronic diastolic congestive heart martha lure. Patient admitted and managed and followed by various consultants including but not limited to the following, Cardiology, Dr. Quispe, Pulmonary Critical Care, Dr. Toure and Dr. Loo, Nephrology , Dr. Valerie Mcmahon and patient continued to maintain sustained clinical improvement respirato ry [place] and subsequently arrangement was made to have patient discharged back to her halfway on hospice; however, non-availability of Medicaid bed necessary to transfer this patient to inpatient [facility]. Patient was then discharged to inpatient hospice. CLINICAL DIAGNOSES DURING THIS HOSPITALIZATION: Include, 1. Acute exacerbation of chronic obstructive pulmonary disease. 2. Acute on chronic diastolic heart failure. 3. Acute on chronic renal failure. 4. Hyperkalemia. 5. Hypoxia. 6. Morbid obesity. 7. Rectal bleeding. Total time spent including [id number] encounter with this patient totaled 32 minutes.
== END 2017-03-12 21:24 | disposition hospice, inpatient (51) | DRG 291 ==
LOC: ERS 13:36 → 2NO 18:52 → CCU 02-21 23:25 → IMCU/EMU 03-03 20:19
PROVIDERS: ADMIT Family Medicine; ATTEND Family Medicine
PROC: 5A1955Z Respiratory Ventilation, Greater than 96 Consecutive Hours (ICD-10-PCS; principal; 2017-02-22)
PROC: 0BH18EZ Insertion of Endotracheal Airway into Trachea, Via Natural or Artificial Opening Endoscopic (ICD-10-PCS; 2017-02-22)
PROC: 0B9B8ZZ Drainage of Left Lower Lobe Bronchus, Via Natural or Artificial Opening Endoscopic (ICD-10-PCS; 2017-02-22)
PROC: 0B948ZZ Drainage of Right Upper Lobe Bronchus, Via Natural or Artificial Opening Endoscopic (ICD-10-PCS; 2017-02-22)
PROC: 0B988ZZ Drainage of Left Upper Lobe Bronchus, Via Natural or Artificial Opening Endoscopic (ICD-10-PCS; 2017-02-22)
PROC: 0B958ZZ Drainage of Right Middle Lobe Bronchus, Via Natural or Artificial Opening Endoscopic (ICD-10-PCS; 2017-02-22)
PROC: 0B968ZZ Drainage of Right Lower Lobe Bronchus, Via Natural or Artificial Opening Endoscopic (ICD-10-PCS; 2017-02-22)
PROC: 02HV33Z Insertion of Infusion Device into Superior Vena Cava, Percutaneous Approach (ICD-10-PCS; 2017-02-28)
PROC: 0DH67UZ Insertion of Feeding Device into Stomach, Via Natural or Artificial Opening (ICD-10-PCS; 2017-03-05)
PROC: 3E0G76Z Introduction of Nutritional Substance into Upper GI, Via Natural or Artificial Opening (ICD-10-PCS; 2017-03-05)
DX: I13.2 Hypertensive heart and chronic kidney disease with heart failure and with stage 5 chronic kidney disease, or end stage renal disease (principal); J96.21 Acute and chronic respiratory failure with hypoxia; N17.0 Acute kidney failure with tubular necrosis; J18.9 Pneumonia, unspecified organism; G93.41 Metabolic encephalopathy; J44.1 Chronic obstructive pulmonary disease with (acute) exacerbation; E87.0 Hyperosmolality and hypernatremia; N18.5 Chronic kidney disease, stage 5; E11.22 Type 2 diabetes mellitus with diabetic chronic kidney disease; J96.22 Acute and chronic respiratory failure with hypercapnia; I50.33 Acute on chronic diastolic (congestive) heart failure; E66.2 Morbid (severe) obesity with alveolar hypoventilation; Z68.43 Body mass index [BMI] 50.0-59.9, adult; E87.1 Hypo-osmolality and hyponatremia; I47.1 Supraventricular tachycardia; N30.00 Acute cystitis without hematuria; K62.5 Hemorrhage of anus and rectum; I27.20 Pulmonary hypertension, unspecified; Z66 Do not resuscitate; Z51.5 Encounter for palliative care; Z99.81 Dependence on supplemental oxygen; K21.9 Gastro-esophageal reflux disease without esophagitis; Z98.51 Tubal ligation status; Z90.710 Acquired absence of both cervix and uterus; Z90.722 Acquired absence of ovaries, bilateral; E87.6 Hypokalemia; E83.39 Other disorders of phosphorus metabolism; E88.09 Other disorders of plasma-protein metabolism, not elsewhere classified; E87.5 Hyperkalemia; R13.10 Dysphagia, unspecified; F41.8 Other specified anxiety disorders
CPT/HCPCS: 36415; 36416; 36569; 51701; 71010; 71020; 71045; 74018; 74176; 80048; 80053; 80069; 81003; 81015; 82274; 82805; 83735; 83880; 84100; 85007; 85025; 85027; 85049; 85300; 85362; 85379; 85384; 85610; 85730; 87045; 87046; 87086; 87324; 87449; 87899; 93005; 94002; 94003; 94640; 94660; 94664; 96361; 96374; 96375; A4216; A4353; C1751; G8978-GP-CM; G8979-GP-CJ; G8979-GP-CK; G8987-GO-CM; G8988-GO-CK; G8996-GN-CM; G8997-GN-CK; J0696; J1160; J1650; J1940; J2060; J2543; J2704; J2920; J3480; J7050; J7070; J7506; J7620; Q0162